=== PATIENT | male | born 1955 | race Caucasian/White ===

== ENCOUNTER → 2020-07-15 08:27 | Outpatient (REF) | payer MEDICARE, SELFPAY ==
--- NOTE | 2020-07-15 08:30 | CA_ITS ---
Transthoracic Echocardiogram Patient (Last, First, Middle): Sohail Rolle S Gender: Male Date of : 1955 Age: 64 Procedure Date: 07/15/2020 Procedure Type: Transthoracic Echocardiogram Location: OP Height: 172.72 cm Weight: 117.94 kg BSA: 2.29 m2 Heart Rate: bpm BP: 108 / 72 mmHg Sports Commentator: Rogelio MD: Barron Benitez MD [employer] Interpreter: Rylan Mendoza MD Symptoms: I42.9 CMP, I25.2 OLD [place] I48.0 PAF Study Quality: Fair ECG Rhythm: Sinus Conclusions: - Mildly reduced LV systolic function with LVEF of 50-55% with pseudonormal filling pattern Findings Procedure Information Contrast agent, definity, is being given per protocol without apparent complications. Left Ventricle Normal left ventricular cavity size. The left ventricular systolic function is low normal. The visually estimated ejection fraction is between 50-55%. Spectral Doppler is indicative of a pseudonormal filling pattern. E/E prime ratio is between 8 and 15 consistent with indeterminate filling pressures. Pericardium/Pleural There is no evidence of pericardial effusion. Prior Study Comparison Changes noted compared to prior study. LV systolic function has marginally improved Measurements 2D Systolic Function EF 4C: 50.40 >55% EF 2C: 53.90 >55% Mitral Valve MV Pk E: 0.72 MV PK A: 0.72 MV Decel Time: 229.00 E/A: 1.00 E'Lateral: 6.85 E'Medial: 3.70 E/E' Med: 19.60 E/E' Lat: 10.60 Diastolic Function MV Pk E: 0.72 MV Pk A: 0.72 E/A: 1.00 E'Medial: 3.70 E/E' Med: 19.60 E' Laterial: 6.85 E/E' Lat: 10.60 Updated in Other Vendor System with Status of Final Rylan Mendoza MD electronically signed on 07/15/2020 11:08:31 AM with status of Final
== END ==
LOC: HO.CARD 08:27
PROVIDERS: Visit Provider Internal Medicine
DX: I42.9 Cardiomyopathy, unspecified (principal); I25.2 Old myocardial infarction; I48.0 Paroxysmal atrial fibrillation
CPT/HCPCS: 70120; Q9957

== ENCOUNTER → 2020-07-27 11:04 | Outpatient (BNVA) | payer MEDICARE, SELFPAY | PROVIDERS: PCP Nurse Practitioner Family; Visit Provider Internal Medicine Cardiovascular Disease | DX: I42.9 Cardiomyopathy, unspecified (principal); I51.89 Other ill-defined heart diseases; I25.10 Atherosclerotic heart disease of native coronary artery without angina pectoris; I48.0 Paroxysmal atrial fibrillation; Z79.82 Long term (current) use of aspirin; Z79.899 Other long term (current) drug therapy | CPT/HCPCS: 99212 ==

== ENCOUNTER 2020-11-20 06:36 | Outpatient (REF) | payer MEDICARE, SELFPAY ==
[2020-11-20 11:12] LABS: Hematocrit 46.1 % (42-52); Hemoglobin 15.4 g/dl (14.0-18.0); Mean Corpuscular HGB Conc 33.4 g/dl (31.0-36.0); Mean Corpuscular Hemoglobin 29.5 pg (27.0-33.0); Mean Corpuscular Volume 88.3 fL (80-98); Mean Platelet Volume 12.5 fL (9.4-12.4); Platelet Count 133 X10*3/uL (160-400); Red Blood Count 5.22 X10*6/uL (4.60-5.80); Red Cell Distribution Width 15.7 % (11.0-16.0); White Blood Count 8.1 X10*3/uL (4.8-10.8)
[2020-11-20 11:45] LABS: Alanine Aminotransferase 15 U/L (0-40); Albumin Level 4.1 g/dL (3.5-5.0); Alkaline Phosphatase 101 U/L (39-117); Anion Gap 13 (12-20); Aspartate Amino Transferase 32 U/L (5-37); Bilirubin Total 0.9 mg/dL (0.0-1.0); Blood Urea Nitrogen 18 mg/dL (9-16); Calcium 8.8 mg/dL (8.4-10.2); Carbon Dioxide 32 mmol/L (22-29); Chloride 101 mmol/L (96-108); Cholesterol 153 mg/dL; Estimated Glomerular Filt Rate > 60; Glucose Fasting 111 mg/dL (60-99); HDL Cholesterol 26 mg/dL; LDL Cholesterol Calculated 98 mg/dl; Potassium 3.4 mmol/L (3.3-5.1); Sodium 143 mmol/L (135-145); Total Protein 7.2 g/dL (6.5-8.0); Triglycerides 148 mg/dL
== END 2020-11-20 06:37 | disposition home or self-care (01) ==
LOC: HO.HMGCLDS 06:36
PROVIDERS: PCP Nurse Practitioner Family; Visit Provider Hospitalist
DX: I48.0 Paroxysmal atrial fibrillation (principal); I25.10 Atherosclerotic heart disease of native coronary artery without angina pectoris
CPT/HCPCS: 36415; 80053; 80061; 85027

== ENCOUNTER → 2020-12-18 15:07 | Outpatient (BNVA) | payer MEDICARE, SELFPAY | PROVIDERS: PCP Nurse Practitioner Family; Visit Provider Nurse Practitioner Family | DX: Z13.89 Encounter for screening for other disorder (principal) | CPT/HCPCS: Q3014 ==

== ENCOUNTER → 2021-01-18 11:08 | Outpatient (BNVA) | payer MEDICARE, SELFPAY | PROVIDERS: PCP Internal Medicine; Visit Provider Internal Medicine Cardiovascular Disease | DX: Z01.810 Encounter for preprocedural cardiovascular examination (principal); I42.9 Cardiomyopathy, unspecified; I48.0 Paroxysmal atrial fibrillation; I25.10 Atherosclerotic heart disease of native coronary artery without angina pectoris | CPT/HCPCS: 93005; 99212 ==

== ENCOUNTER 2021-03-05 06:39 | Outpatient (REF) | payer MEDICARE, SELFPAY ==
[2021-03-05 11:18] LABS: MANUAL DIFF FLAG NO
[2021-03-05 11:22] LABS: Basophils Absolute Auto 0.1 X10*3/uL (0.0-0.2); Basophils Percent Auto 0.7 % (0-2); Eosinophils Absolute Auto 0.2 X10*3/uL (0.0-0.4); Eosinophils Percent Auto 3.4 % (0-4); Hematocrit 45.8 % (42-52); Hemoglobin 15.5 g/dl (14.0-18.0); Imm Gran Abs Auto 0.03 X10*3/uL (0.00-0.03); Imm Gran Pct Auto 0.4 % (0.0-0.4); Lymphocytes Absolute Auto 1.7 X10*3/uL (1.2-4.9); Lymphocytes Percent Auto 23.9 % (20-40); Mean Corpuscular HGB Conc 33.8 g/dl (31.0-36.0); Mean Corpuscular Hemoglobin 29.8 pg (27.0-33.0); Mean Corpuscular Volume 88.1 fL (80-98); Mean Platelet Volume 12.4 fL (9.4-12.4); Monocytes Absolute Auto 0.9 X10*3/uL (0.1-1.2); Monocytes Percent Auto 12.1 % (2-11); Neutrophils Absolute Auto 4.2 X10*3/uL (2.0-8.3); Neutrophils Percent Auto 59.5 % (45-73); Platelet Count 127 X10*3/uL (160-400); Red Cell Distribution Width 15.6 % (11.0-16.0); White Blood Count 7.1 X10*3/uL (4.8-10.8)
[2021-03-05 11:32] LABS: Estimated Average Glucose 131 mg/dL; Hemoglobin A1c % 6.2 %
[2021-03-05 11:37] LABS: Creatinine Urine 73.62 mg/dL; Microalbum/Creatinine Ratio Ur 203.7 ug/mg cr
== END 2021-03-05 06:40 | disposition home or self-care (01) ==
LOC: HO.HMGCLDS 06:39
PROVIDERS: PCP Nurse Practitioner Family; Visit Provider Nurse Practitioner Family
DX: E11.9 Type 2 diabetes mellitus without complications (principal); Z12.5 Encounter for screening for malignant neoplasm of prostate
CPT/HCPCS: 36415; 82043; 83036; 84153; 84443; 85025

== ENCOUNTER → 2021-03-24 08:52 | Outpatient (BNV) | payer MEDICARE, SELFPAY | PROVIDERS: PCP Nurse Practitioner Family; Referring Provider Nurse Practitioner Family; Visit Provider Internal Medicine | DX: D69.6 Thrombocytopenia, unspecified (principal); K74.60 Unspecified cirrhosis of liver; B35.6 Tinea cruris | CPT/HCPCS: 99213; 99214 ==

== ENCOUNTER → 2021-07-22 08:48 | Outpatient (BNVA) | payer MEDICARE, SELFPAY | PROVIDERS: PCP Nurse Practitioner Family; Referring Provider Nurse Practitioner Family; Visit Provider Internal Medicine Cardiovascular Disease | DX: I48.0 Paroxysmal atrial fibrillation (principal); I25.10 Atherosclerotic heart disease of native coronary artery without angina pectoris; I42.9 Cardiomyopathy, unspecified | CPT/HCPCS: 99212 ==

== ENCOUNTER 2021-09-10 07:56 | Outpatient (REF) | payer MEDICARE, SELFPAY ==
[2021-09-10 09:28] LABS: Appearance Urine CLEAR; Color Urine YELLOW; Glucose Urine UA NEG (NEG); Leukocyte Esterase Urine NEG (NEG); Nitrite Urine NEG (NEG); Specific Gravity - Urine 1.015 (1.005-1.025); UACC Culture Trigger NO; Urine Blood NEG (NEG); Urine Ketones NEG (NEG); Urine Protein 1+ MG/DL (NEG-TRACE)
[2021-09-10 09:38] LABS: Mucus Urine 2+ /LPF; Squamous Epithelial Cell Urine TRACE /LPF
[2021-09-10 09:39] LABS: RBC Urine 0 /HPF (0); WBC Urine 0 /HPF (0-4)
[2021-09-10 10:22] LABS: Alanine Aminotransferase 17 U/L (0-40); Albumin Level 3.9 g/dL (3.5-5.0); Alkaline Phosphatase 112 U/L (39-117); Anion Gap 12 (12-20); Aspartate Amino Transferase 34 U/L (5-37); Bilirubin Total 1.2 mg/dL (0.0-1.0); Blood Urea Nitrogen 14 mg/dL (9-16); Calcium 9.1 mg/dL (8.4-10.2); Carbon Dioxide 31 mmol/L (22-29); Chloride 101 mmol/L (96-108); Cholesterol 165 mg/dL; Estimated Glomerular Filt Rate > 60; Glucose Fasting 115 mg/dL (60-99); HDL Cholesterol 24 mg/dL; LDL Cholesterol Calculated 112 mg/dl; Potassium 3.6 mmol/L (3.3-5.1); Sodium 140 mmol/L (135-145); Total Protein 7.9 g/dL (6.5-8.0); Triglycerides 148 mg/dL
[2021-09-10 10:40] LABS: Estimated Average Glucose 137 mg/dL; Hemoglobin A1c % 6.4 %
[2021-09-10 10:44] LABS: TSH reflex Free T4 3.54 uIU/mL (0.32-4.0)
== END 2021-09-10 07:57 | disposition home or self-care (01) ==
LOC: HO.LAB 07:56
PROVIDERS: PCP Nurse Practitioner Family; Visit Provider Nurse Practitioner Family
DX: E11.9 Type 2 diabetes mellitus without complications (principal)
CPT/HCPCS: 36415; 80053; 80061; 81001; 83036; 84443

== ENCOUNTER → 2021-09-16 08:32 | Outpatient (REF) | payer MEDICARE, SELFPAY ==
--- NOTE | 2021-09-16 08:35 | CA_ITS ---
Transthoracic Echocardiogram Patient (Last, First, Middle): Sohail Rolle S Gender: Male Date of : 1955 Age: 66 Procedure Date: 09/16/2021 Procedure Type: Transthoracic Echocardiogram Location: OP Height: 172.72 cm Weight: 117.94 kg BSA: 2.29 m2 Heart Rate: bpm BP: 130 / 70 mmHg Environmental Monitoring Technician: NOAH Referring MD: Rylan Mendoza MD Equipment Maintenance Technician: Rylan Mendoza MD Symptoms: I42.9 - Cardiomyopathy, unspecified Study Quality: Fair/Contrast ECG Rhythm: Sinus Conclusions: - 1. Mildly reduced LV systolic function with LVEF of 45-50% with impaired relaxation filling pattern with underlying regional wall motion abnormality suggestive of coronary artery disease 2. Mild aortic stenosis 3. Normal RV systolic pressure 4. No pericardial effusion Findings Procedure Information Contrast agent, definity, is being given per protocol without apparent complications. Left Ventricle Normal left ventricular cavity size. There is normal left ventricular wall thickness. The left ventricular systolic function is mildly decreased. The visually estimated ejection fraction is between 45-50%. Spectral Doppler is indicative of an impaired relaxation filling pattern. E/E prime ratio is between 8 and 15 consistent with indeterminate filling pressures. Wall Motion Rest Echo Findings The mid inferior, apical septum, and mid inferoseptal segments are hypokinetic. The basal inferior, basal inferoseptal, and basal inferolateral segments are akinetic. All other scored wall segments showed normal motion. Right Ventricle Normal right ventricular cavity size and systolic function. Atria The left atrium is normal in size. There is no evidence of interatrial shunt. The right atrium is normal in size. Aortic Valve The aortic valve was not well visualized. There is mild aortic valve stenosis. There is no aortic valve regurgitation. Mitral Valve Likely normal mitral valve structure and function. There is trace mitral valve regurgitation. There is no mitral valve stenosis. Pulmonic Valve The pulmonic valve was not well visualized. Tricuspid Valve Likely normal tricuspid valve structure and function. There is trace tricuspid valve regurgitation. The right ventricular systolic pressure is normal. The right ventricular systolic pressure is 28 mmHg. Normal right atrial pressure. There is no evidence of pulmonary hypertension. Great Vessels All visible segments of the aorta are normal in size. The pulmonary artery was not well visualized. Venous The inferior vena cava is normal in size and collapses greater than 50% with inspiration. Pericardium/Pleural There is no evidence of pericardial effusion. Prior Study Comparison No significant change compared to prior study dated: 07/15/2020. Measurements 2D Linear Measurements IVSd: 1.02 0.6-0.9/0.6-1.0 cm LVIDd: 4.60 3.9-5.3/4.2-5.9 cm LVIDd Index: 2.01 2.4-3.2/2.2-3.1 cm/m2 LVIDs: 3.52 2.0-3.6 cm LVPWd: 1.02 0.7-1.1 cm Ao Root: 2.80 2.1-3.5 cm LA Diam: 4.40 2.7-3.8/3.0-4.0 cm LAIDs Index: 1.92 1.5-2.3 cm/m2 LV Mass: 203.24 67-162/88-224 g LV Mass Index: 88.75 43-95/49-115 g/m2 LVOT Diam: 2.10 3.0+(-)1.3 cm 2D Systolic Function EF 4C: 41.60 >55% EF 2C: 48.80 >55% EF BiP: 44.60 >55% Mitral Valve MV Pk E: 0.66 MV PK A: 0.76 MV Decel Time: 112.00 E/A: 0.90 E'Lateral: 5.87 E'Medial: 4.90 E/E' Med: 13.60 E/E' Lat: 11.30 PHT: 33.00 MVA PHT: 6.67 Decel Erie: 5.91 Aortic Valve AoV Pk Rodriguez: 2.04 AoV Mn Rodriguez: 1.37 AoV VTI: 0.35 AoV Pk Grad: 17.00 Aov Mn Grad: 8.00 FATOU Cont.VTI: 1.76 LVOT LVOT Pk Rodriguez: 0.89 LVOT Mn Rodriguze: 0.69 LVOT VTI: 0.18 LVOT Pk Grad: 3.00 LVOT Mn Grad: 2.00 LVOT Diam: 2.10 LVOT Area: 3.46 Diastolic Function MV Pk E: 0.66 MV Pk A: 0.76 E/A: 0.90 E'Medial: 4.90 E/E' Med: 13.60 E' Laterial: 5.87 E/E' Lat: 11.30 Right Ventricle TAPSE (mm): 1.60 TVS' Rodriguez: 12.50 Tricuspid Valve TR Pk Rodriguez: 2.48 TR Pk Grad: 25.00 RA Press: 3.00 RVSP: 28.00 Great Vessels Aorta Ao Root-2D: 2.80 2.0-3.7 cm Ao Asc: 3.20 2.1-3.4 cm Updated in Other Vendor System with Status of Final Rylan Mendoza MD electronically signed on 09/16/2021 3:47:32 PM with status of Final
== END ==
LOC: HO.CARD 08:32
PROVIDERS: Visit Provider Internal Medicine Cardiovascular Disease
DX: I42.9 Cardiomyopathy, unspecified (principal)
CPT/HCPCS: 93306; Q9957

== ENCOUNTER 2021-10-20 07:53 | Outpatient (REF) | payer MEDICARE, SELFPAY ==
--- NOTE | ~2021-10-20 | US_ITS ---
EXAMINATION: US ABDOMEN COMPLETE CLINICAL INFORMATION: Thrombocytopenia. COMPARISON: None TECHNIQUE: Real-time imaging of the abdominal viscera. FINDINGS: PANCREAS: Normal. ABDOMINAL AORTA: The proximal, mid, and distal segments are normal in caliber. INFERIOR VENA CAVA: Visualized portions are normal. LIVER: Liver echotexture is increased and heterogeneous suggestive of hepatocellular disease. The liver contour is irregular suggestive of cirrhosis. There is a 2.4 x 1.9 x 2 cm hypoechoic lesion in the right lobe. It is uncertain whether this represents a complex cyst or solid lesion. There is a 2 small cysts in the right lobe measuring 1 cm and 1.4 x 0.8 x 1.4 cm. The latter cyst has a single septation. There is no biliary duct dilatation. GALLBLADDER: Normal. The gallbladder is physiologically distended without evidence of stones, sludge, polyps, wall thickening or pericholecystic fluid. COMMON BILE DUCT: Normal in caliber measuring 0.6 cm in diameter. RIGHT KIDNEY: Normal. No hydronephrosis. No renal calculi or focal parenchymal lesions. The kidney measures 12.8 cm in maximum dimension. LEFT KIDNEY: Normal. No hydronephrosis. No renal calculi or focal parenchymal lesions. The kidney measures 11.9 cm in maximum dimension. SPLEEN: The spleen is slightly enlarged. The spleen measures 14.2 cm in maximum dimension. FREE FLUID: None. US/US abdomen complete IMPRESSION: Cirrhotic-appearing liver. 2.6 cm lesion in the right lobe of the liver, question solid lesion versus complex cyst. Follow-up liver MRI recommended. 2 small cysts in the right lobe of the liver. Enlarged spleen.
== END 2021-10-20 07:54 | disposition home or self-care (01) ==
LOC: HO.US 07:53
PROVIDERS: Visit Provider Internal Medicine
DX: D69.6 Thrombocytopenia, unspecified (principal)
CPT/HCPCS: 76700

== ENCOUNTER 2021-12-11 09:40 | Outpatient (REF) | payer MEDICARE, SELFPAY ==
[2021-12-11 12:03] LABS: Blood Urea Nitrogen 15 mg/dL (9-16); Estimated Glomerular Filt Rate > 60
== END 2021-12-11 09:41 | disposition home or self-care (01) ==
LOC: HO.LAB 09:40
PROVIDERS: PCP Nurse Practitioner Family; Visit Provider Nurse Practitioner Family
DX: K76.9 Liver disease, unspecified (principal)
CPT/HCPCS: 36415; 82565; 84520

== ENCOUNTER 2021-12-14 18:08 | Outpatient (REF) | payer MEDICARE, SELFPAY ==
--- NOTE | ~2021-12-14 | MR_ITS ---
EXAMINATION: MR ABDOMEN WITHOUT AND WITH CONTRAST CLINICAL INFORMATION: Liver disease. COMPARISON: Previous abdominal ultrasound 10/20/2021. TECHNIQUE: MR abdomen was performed without and with use of 10 mL intravenous Gadavist gadolinium contrast. Postcontrast images were performed in multiphase dynamic sequences. Imaging was performed in 3 planes. FINDINGS: LUNG BASES: The visualized lung bases are unremarkable. LIVER, GALLBLADDER, AND BILIARY TREE: The liver has an irregular scalloped contour. There is hypertrophy of the left lobe and caudate lobe of the liver. Findings are suggestive of cirrhosis. There is heterogeneous liver signal and enhancement suggestive of fibrosis. There are several liver cysts. The largest measures 1 x 1.5 cm in the anterior segment of the right lobe of the liver. No suspicious liver lesion is seen. The gallbladder is normal. There is no biliary duct dilatation. There is trace ascites adjacent to the liver. PANCREAS: There is a 0.9 x 1.6 cm cyst in the uncinate process of the head of the pancreas. This is low signal on T1-weighted sequences, high signal on T2-weighted sequences and does not demonstrate evidence of enhancement. SPLEEN: The spleen is slightly enlarged measuring 14 cm in length. ADRENAL GLANDS: There is a 1 cm lesion in the right adrenal gland. There is low signal on T1-weighted sequences, high signal on T2-weighted sequences. This does not demonstrate evidence of enhancement or signal loss on [id number] sequences and probably represents a small cyst. The left adrenal gland is normal. KIDNEYS AND URETERS: The kidneys are normal in size and shape. There are small bilateral renal cysts. No hydronephrosis. GASTROINTESTINAL TRACT: There is mild diverticulosis of the colon. No bowel obstruction. No ascites or fluid collection. ABDOMINAL WALL: There is a small umbilical hernia containing fat. LYMPH NODES: There are slightly enlarged periportal, peripancreatic, and gastrohepatic space lymph nodes. Largest lymph node is a peripancreatic lymph node measuring 1.4 x 2.4 cm (axial image 81 post contrast) and precaval lymph node measuring 2 x 4.7 cm in AP and transverse dimensions (axial image 78 post contrast). There are small retroperitoneal lymph nodes. Largest lymph node is an aortocaval lymph node measuring 8 mm. There may also be small bowel mesentery lymphadenopathy. VASCULAR: Unremarkable. The splenic and portal veins are patent. The IVC is patent. The abdominal aorta is normal in caliber. OSSEOUS STRUCTURES: There are degenerative changes of the spine. MR/MR abdomen wo/w con IMPRESSION: Cirrhotic-appearing liver. No suspicious liver lesion seen. Liver cysts. Trace ascites. Mild splenomegaly. Enlarged lymph nodes in the periportal, gastrohepatic, and peripancreatic spaces and small retroperitoneal lymph nodes. 0.9 x 1.6 cm simple-appearing cyst in the uncinate process of the head of the pancreas. 1 cm right adrenal gland cyst. Small bilateral renal cysts.
== END 2021-12-14 18:09 | disposition home or self-care (01) ==
LOC: HO.MRI 18:08
PROVIDERS: Visit Provider Nurse Practitioner Family
DX: K76.9 Liver disease, unspecified (principal); R93.5 Abnormal findings on diagnostic imaging of other abdominal regions, including retroperitoneum
CPT/HCPCS: 74183; A9585

== ENCOUNTER → 2022-01-27 08:31 | Outpatient (BNVA) | payer MEDICARE, SELFPAY | PROVIDERS: PCP Nurse Practitioner Family; Referring Provider Nurse Practitioner Family; Visit Provider Internal Medicine Cardiovascular Disease | DX: I48.0 Paroxysmal atrial fibrillation (principal); I25.10 Atherosclerotic heart disease of native coronary artery without angina pectoris; I42.9 Cardiomyopathy, unspecified; I35.0 Nonrheumatic aortic (valve) stenosis | CPT/HCPCS: 93005; 99212 ==

== ENCOUNTER 2022-04-29 10:50 | Outpatient (REF) | payer MEDICARE, SELFPAY ==
[2022-04-29 11:59] LABS: MANUAL DIFF FLAG NO
[2022-04-29 12:43] LABS: Basophils Percent Auto 0.6 % (0-2); Eosinophils Absolute Auto 0.2 X10*3/uL (0.0-0.4); Eosinophils Percent Auto 2.7 % (0-4); Hematocrit 39.1 % (42.0-52.0); Hemoglobin 12.8 g/dl (14.0-18.0); Imm Gran Abs Auto 0.02 X10*3/uL (0.00-0.03); Imm Gran Pct Auto 0.3 % (0.0-0.4); Lymphocytes Absolute Auto 1.6 X10*3/uL (1.2-4.9); Lymphocytes Percent Auto 24.5 % (20-40); Mean Corpuscular HGB Conc 32.7 g/dl (31.0-36.0); Mean Corpuscular Hemoglobin 27.8 pg (27.0-33.0); Mean Platelet Volume 11.6 fL (9.4-12.4); Monocytes Absolute Auto 0.8 X10*3/uL (0.1-1.2); Neutrophils Absolute Auto 3.8 x10*3/uL (2.0-8.3); Neutrophils Percent Auto 59.9 % (45-73); Platelet Count 138 X10*3/uL (160-400); White Blood Count 6.3 X10*3/uL (4.8-10.8)
[2022-04-29 12:55] LABS: INTERNATIONAL NORM RATIO 1.5 (0.9-1.1); Prothrombin Time 17.5 SEC (10.0-13.1)
[2022-04-29 13:10] LABS: Alanine Aminotransferase 11 U/L (0-40); Alkaline Phosphatase 88 U/L (39-117); Anion Gap 16 (12-20); Aspartate Amino Transferase 30 U/L (5-37); Bilirubin Total 0.8 mg/dL (0.0-1.0); Blood Urea Nitrogen 16 mg/dL (9-16); Calcium 9.2 mg/dL (8.4-10.2); Carbon Dioxide 28 mmol/L (22-29); Chloride 102 mmol/L (96-108); Cholesterol 136 mg/dL; Estimated Glomerular Filt Rate > 60; Glucose Random 81 mg/dL (60-115); HDL Cholesterol 29 mg/dL; Iron 40 mcg/dL (45-160); LDL Cholesterol Calculated 82 mg/dl; Percent Iron Saturation 10 % (15-50); Potassium 3.4 mmol/L (3.3-5.1); Sodium 143 mmol/L (135-145); Total Iron Binding Capacity 417 mcg/dL (228-428); Total Protein 7.6 g/dL (6.5-8.0); Triglycerides 127 mg/dL; Unsaturated Iron Binding 377 ug/dL
[2022-04-29 13:31] LABS: Ferritin 15 ng/mL (20-250)
[2022-04-29 13:34] LABS: Folate 5.9 ng/mL (> or = 4.0); Vitamin B12 387 pg/mL (200-900)
[2022-04-29 13:59] LABS: Erythrocyte Sedimentation Rate 23 MM/HR (0-15)
[2022-05-02 08:02] LABS: HBS Num1 1.35 mIU/mL (0-7.99); HBc Num1 0.08 S/CO (0.00-0.79); HBsAGNum1 0.22 S/CO (0.00-0.99); Hepatitis B Core Antibody Nonreactive (Nonreactive); Hepatitis B Surface Antigen Negative (Negative); ~Hepatitis B Surface Antibody NONREACTIVE (Nonreactive); ~Hepatitis C Antibody Nonreactive (Nonreactive)
[2022-05-03 03:37] LABS: Alpha 1 Anti-trypsin 187 mg/dL (83-199)
[2022-05-03 13:46] LABS: Soluble Liver Ag Autoantibody <20.1 U (0.0-20.0)
[2022-05-03 14:18] LABS: Zinc 60 mcg/dL (60-130)
[2022-05-03 14:56] LABS: Immunoglobulin G 1448 mg/dL (600-1540)
[2022-05-03 23:17] LABS: Transglutaminase Ab IgG <1.0 U/mL; Transglutaminase IgA <1.0 U/mL
[2022-05-04 07:22] LABS: Hepatitis A Antibody IgM 0.14 Index (0-0.79); ~Hepatitis A Antibody IgM Nonreactive (Nonreactive)
[2022-05-04 14:32] LABS: Liver Kidney Microsomal Ab <=20.0 U (<=20.0); Smooth Muscle Antibody <20 U (<20)
[2022-05-04 16:11] LABS: Mitochondrial Antibodies NEGATIVE (NEGATIVE)
[2022-05-04 17:16] LABS: Alpha-Tocopherol 9.7 mg/L (5.7-19.9); Vitamin A 31 mcg/dL (38-98)
[2022-05-05 10:47] LABS: Vitamin C 0.6 mg/dL (0.2-2.1)
[2022-05-05 13:56] LABS: Vitamin B6 3.1 ng/mL (2.1-21.7)
[2022-05-05 14:02] LABS: Gliadin Deamidated IgA Ab 3.3 U/mL; Gliadin Deamidated IgG Ab <1.0 U/mL
[2022-05-05 16:36] LABS: FIB-ALT 11 U/L (9-46); FIB-Alpha-2-Macroglobulin 335 mg/dL (106-279); FIB-Apolipoprotein A1 111 mg/dL (94-176); FIB-GGT 93 U/L (3-70); FIB-Haptoglobin 189 mg/dL (43-212); FIB-Total Bilirubin 0.5 mg/dL (0.2-1.2); Liver Fibrosis Score 0.72; Liver Fibrosis Stage F3; Nec Inflam Act Grade A0; Nec Inflam Act Score 0.06
[2022-05-06 00:17] LABS: Vitamin K1 429 pg/mL (130-1500)
[2022-05-06 10:46] LABS: Nicotinamide <20 ng/mL; Vit B3 - Nicotinic Acid <20 ng/mL
[2022-05-09 19:07] LABS: Vitamin B5 (Pantothenic Acid) 71 ng/mL (<275)
== END 2022-04-29 10:51 | disposition home or self-care (01) ==
LOC: HO.LAB 10:50
PROVIDERS: PCP Nurse Practitioner Family; Visit Provider Internal Medicine Gastroenterology
DX: K74.60 Unspecified cirrhosis of liver (principal); K75.81 Nonalcoholic steatohepatitis (NASH); G89.29 Other chronic pain; R10.33 Periumbilical pain; R79.89 Other specified abnormal findings of blood chemistry; K52.839 Microscopic colitis, unspecified; I25.10 Atherosclerotic heart disease of native coronary artery without angina pectoris
CPT/HCPCS: 36415; 80053; 80061; 81596; 82103; 82180; 82306; 82550; 82607; 82728; 82746; 82784; 83520; 83540; 84207; 84446; 84590; 84591; 84597; 84630; 85025; 85610; 85652; 86015; 86255; 86256; 86258; 86364; 86376; 86704; 86706; 86709; 86803; 87340; 99212

== ENCOUNTER → 2022-09-15 08:40 | Outpatient (BNVA) | payer MEDICARE, SELFPAY | PROVIDERS: PCP Nurse Practitioner Family; Referring Provider Nurse Practitioner Family; Visit Provider Internal Medicine Cardiovascular Disease | DX: Z01.810 Encounter for preprocedural cardiovascular examination (principal); I35.0 Nonrheumatic aortic (valve) stenosis; I25.10 Atherosclerotic heart disease of native coronary artery without angina pectoris; I11.0 Hypertensive heart disease with heart failure; I50.30 Unspecified diastolic (congestive) heart failure; I43 Cardiomyopathy in diseases classified elsewhere; I48.0 Paroxysmal atrial fibrillation; E66.9 Obesity, unspecified; F17.290 Nicotine dependence, other tobacco product, uncomplicated; Z68.41 Body mass index [BMI] 40.0-44.9, adult; Z79.01 Long term (current) use of anticoagulants | CPT/HCPCS: 99212 ==

== ENCOUNTER 2022-10-04 07:09 | Outpatient (REF) | payer MEDICARE, SELFPAY ==
[2022-10-04 07:20] LABS: MANUAL DIFF FLAG NO
[2022-10-04 07:34] LABS: Basophils Absolute Auto 0.1 X10*3/uL (0.0-0.2); Basophils Percent Auto 0.7 % (0-2); Eosinophils Absolute Auto 0.2 X10*3/uL (0.0-0.4); Eosinophils Percent Auto 3.3 % (0-4); Hematocrit 42.5 % (42.0-52.0); Hemoglobin 13.8 g/dl (14.0-18.0); Imm Gran Abs Auto 0.02 X10*3/uL (0.00-0.03); Imm Gran Pct Auto 0.3 % (0.0-0.4); Lymphocytes Absolute Auto 1.6 X10*3/uL (1.2-4.9); Lymphocytes Percent Auto 22.5 % (20-40); Mean Corpuscular HGB Conc 32.5 g/dl (31.0-36.0); Mean Corpuscular Volume 86.2 fL (80.0-98.0); Mean Platelet Volume 11.2 fL (9.4-12.4); Monocytes Absolute Auto 0.9 X10*3/uL (0.1-1.2); Monocytes Percent Auto 12.8 % (2-11); Neutrophils Absolute Auto 4.2 x10*3/uL (2.0-8.3); Neutrophils Percent Auto 60.4 % (45-73); Platelet Count 114 X10*3/uL (160-400); Red Blood Count 4.93 X10*6/uL (4.60-5.80); Red Cell Distribution Width 18.7 % (11.0-16.0)
[2022-10-04 08:02] LABS: Alanine Aminotransferase 14 U/L (0-40); Albumin Level 3.9 g/dL (3.5-5.0); Alkaline Phosphatase 92 U/L (39-117); Anion Gap 13 (12-20); Aspartate Amino Transferase 30 U/L (5-37); Bilirubin Total 0.8 mg/dL (0.0-1.0); Blood Urea Nitrogen 18 mg/dL (9-16); Calcium 9.1 mg/dL (8.4-10.2); Carbon Dioxide 29 mmol/L (22-29); Chloride 101 mmol/L (96-108); Cholesterol 112 mg/dL; Estimated Glomerular Filt Rate > 60; Glucose Fasting 122 mg/dL (60-99); HDL Cholesterol 24 mg/dL; LDL Cholesterol Calculated 64 mg/dl; Potassium 4.3 mmol/L (3.3-5.1); Sodium 139 mmol/L (135-145); Total Protein 7.2 g/dL (6.5-8.0); Triglycerides 120 mg/dL
[2022-10-04 08:13] LABS: Estimated Average Glucose 131 mg/dL; Hemoglobin A1c % 6.2 %
[2022-10-04 08:20] LABS: Prostate Specific Antigen Scr 1.88 ng/mL (<0.05-4.0); TSH reflex Free T4 3.61 uIU/mL (0.32-4.0)
[2022-10-04 09:36] LABS: Appearance Urine Clear; Color Urine Yellow; Glucose Urine UA Negative (Negative); Leukocyte Esterase Urine Negative (Negative); Nitrite Urine Negative (Negative); PH 7.5 (5.0-9.0); Specific Gravity - Urine 1.015 (1.005-1.025); Urine Blood Negative (Negative); Urine Ketones Negative (Negative); Urine Protein Negative (Neg-Trace)
[2022-10-04 10:10] LABS: Creatinine Urine 179.97 mg/dL; Microalbum/Creatinine Ratio Ur 32.2 ug/mg cr
== END 2022-10-04 07:10 | disposition home or self-care (01) ==
LOC: HO.LAB 07:09
PROVIDERS: PCP Nurse Practitioner Family; Visit Provider Nurse Practitioner Family
DX: Z12.5 Encounter for screening for malignant neoplasm of prostate (principal); E11.9 Type 2 diabetes mellitus without complications
CPT/HCPCS: 36415; 80053; 80061; 81003; 82043; 83036; 84153; 84443; 85025

== ENCOUNTER 2022-10-20 10:58 | Day surgery (SDC) | payer MEDICARE, SELFPAY ==
[2022-10-14 13:37] VITALS: BMI 41.8
[2022-10-20 11:34] VITALS: BMI 40.3
--- NOTE | 2022-10-20 11:42 | HO.ANESPROP2 ---
HPI - Anesthesia Eval Consult details Narrative: Egd, colonoscopy PMF Active Problems Active Problems: All Active Problems (Updated 10/20/22 @ 11:33 by Amberly Hernandez, RN) Cellulitis (Acute) Cellulitis and abscess of other specified site (Acute) Screening for colon cancer (Acute) Screening PSA (prostate specific antigen) (Acute) Preoperative cardiovascular examination (Acute) Thrombocytopenia (Chronic) Liver lesion (Acute) Abnormal ultrasound of abdomen (Acute) Liver cirrhosis (Acute) Pancreatic cyst (Acute) Enlarged lymph nodes (Acute) Morbid obesity (Acute) Encounter for annual wellness visit (AWV) in Medicare patient (Acute) Aortic stenosis (Acute) Cardiomyopathy (Acute) Diastolic dysfunction (Acute) Paroxysmal atrial fibrillation (Acute) CAD (coronary artery disease) (Acute) HTN (hypertension) (Acute) Hyperlipidemia (Acute) Diabetes mellitus (Acute) ALEJANDRA (obstructive sleep apnea) (Acute) Obesity (Acute) Past Medical History Medical History Aortic stenosis Arthritis CAD (coronary artery disease) Cardiomyopathy COVID-19 vaccine administered Diabetes mellitus Diastolic dysfunction HTN (hypertension) Hyperlipidemia Obesity ALEJANDRA (obstructive sleep apnea) Paroxysmal atrial fibrillation Family History Family History Father No problems noted. Mother HTN (hypertension) Surgical History Surgical History History of total left hip replacement History of total right hip replacement History of Problems with Anesthesia: No Social History Social History Household Members: Spouse Housing: House Alcohol intake: current Alcohol intake frequency: holidays/special occasions only Patient Tobacco Use Status: Current everyday Tobacco user Tobacco use type: Cigar Years Smoked: quit 20 years ago e-Cigarette/Vaping Use: Never Used Second Hand Smoke Exposure: No Use of substances other than those prescribed or required for medical reasons: Yes Substance Use Type: Marijuana Substance Use Type Other:: thc square for sleep Are you DNR?: No Advance Directives: No Advance Directives Information Provided: Yes service: No Current occupational status: employed 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 Current occupational exposures/hazards: No Cognitive needs: No Hearing needs: No Vision needs: No Meds Allergies Allergy/AdvReac Type Severity Reaction Status Date / Time morphine Allergy Intermediate shortness Verified 10/20/22 11:33 of breath Sulfa (Sulfonamide Allergy Intermediate rash, hives Verified 10/20/22 11:33 Antibiotics) Active Medications: Current Medications Lactated Ringer's (Lr) 1,000 mls @ 50 mls/hr IVCONT .Q20H [place] Home Medications Medication Instructions Recorded Confirmed Last Taken Type cholecalciferol (vitamin D3) 50 50 mcg PO DAILY 11/30/20 10/20/22 Unknown History mcg (2,000 unit) capsule magnesium 200 mg tablet 200 mg PO DAILY 11/30/20 10/20/22 Unknown History zinc acetate 25 mg (zinc) capsule 25 mg PO DAILY 11/30/20 10/20/22 Unknown History blood-glucose meter ([employer] 06/29/21 10/20/22 Unknown History System Kit) atorvastatin 40 mg tablet 40 mg PO DAILY high chloestrol 03/22/22 10/20/22 Unknown History ferrous sulfate 325 mg (65 mg 325 mg PO DAILY 09/15/22 10/20/22 Unknown History iron) tablet spironolactone 25 mg tablet 25 mg PO DAILY 10/04/22 10/20/22 Unknown History Exam Exam Date and Time: October 20, 2022 1142 Height,Weight and Vital Signs: Height 5 ft 8 in Weight 120.202 kg Airway Mallampati Class: II TM Dist: >3cm Neck ROM: Limited Heart: rrr Lungs: cta Assessment and Plan Assessment Anesthesia Assessment: Anesthesia Plan Discussed and Chart Reviewed Final Anesthetic Review History of Problems with Anesthesia: No NPO: Yes ASA Class: III Final Preanesthetic Review: No Changes in Pt Med Stat, Meds/Allgs Chart Reviewed, Consent Obtained/Reviewed and Anes Risks/Benef Reviewed Patient Risk: Intermediate Procedure Risk: Intermediate Anesthetic Plan Anesthetic Plan: MAC: Disposition: Standard PACU
--- NOTE | 2022-10-20 11:44 | HO.ANESPROP2 ---
HPI - Anesthesia Eval Consult details Narrative: 67 yr old morbid obese ,AF, Diastolic dysfunction,,CAD,Dm [facility] Active Problems Active Problems: All Active Problems (Updated 10/20/22 @ 11:33 by Amberly Hernandez RN) Cellulitis (Acute) Cellulitis and abscess of other specified site (Acute) Screening for colon cancer (Acute) Screening PSA (prostate specific antigen) (Acute) Preoperative cardiovascular examination (Acute) Thrombocytopenia (Chronic) Liver lesion (Acute) Abnormal ultrasound of abdomen (Acute) Liver cirrhosis (Acute) Pancreatic cyst (Acute) Enlarged lymph nodes (Acute) Morbid obesity (Acute) Encounter for annual wellness visit (AWV) in Medicare patient (Acute) Aortic stenosis (Acute) Cardiomyopathy (Acute) Diastolic dysfunction (Acute) Paroxysmal atrial fibrillation (Acute) CAD (coronary artery disease) (Acute) HTN (hypertension) (Acute) Hyperlipidemia (Acute) Diabetes mellitus (Acute) ALEJANDRA (obstructive sleep apnea) (Acute) Obesity (Acute) Past Medical History Medical History Aortic stenosis Arthritis CAD (coronary artery disease) Cardiomyopathy COVID-19 vaccine administered Diabetes mellitus Diastolic dysfunction HTN (hypertension) Hyperlipidemia Obesity ALEJANDRA (obstructive sleep apnea) Paroxysmal atrial fibrillation Family History Family History Father No problems noted. Mother HTN (hypertension) Family history of problems with anesthesia: No Surgical History Surgical History History of total left hip replacement History of total right hip replacement History of Problems with Anesthesia: No Social History Social History Household Members: Spouse Housing: House Alcohol intake: current Alcohol intake frequency: holidays/special occasions only Patient Tobacco Use Status: Current everyday Tobacco user Tobacco use type: Cigar Years Smoked: quit 20 years ago e-Cigarette/Vaping Use: Never Used Second Hand Smoke Exposure: No Use of substances other than those prescribed or required for medical reasons: Yes Substance Use Type: Marijuana Substance Use Type Other:: thc square for sleep Are you DNR?: No Advance Directives: No Advance Directives Information Provided: Yes service: No Current occupational status: employed 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 Current occupational exposures/hazards: No Cognitive needs: No Hearing needs: No Vision needs: No Meds Allergies Allergy/AdvReac Type Severity Reaction Status Date / Time morphine Allergy Intermediate shortness Verified 10/20/22 11:33 of breath Sulfa (Sulfonamide Allergy Intermediate rash, hives Verified 10/20/22 11:33 Antibiotics) Active Medications: Current Medications Lactated Ringer's (Lr) 1,000 mls @ 50 mls/hr IVCONT .Q20H [place] Home Medications Medication Instructions Recorded Confirmed Last Taken Type cholecalciferol (vitamin D3) 50 50 mcg PO DAILY 11/30/20 10/20/22 Unknown History mcg (2,000 unit) capsule magnesium 200 mg tablet 200 mg PO DAILY 11/30/20 10/20/22 Unknown History zinc acetate 25 mg (zinc) capsule 25 mg PO DAILY 11/30/20 10/20/22 Unknown History blood-glucose meter ([employer] 06/29/21 10/20/22 Unknown History System Kit) atorvastatin 40 mg tablet 40 mg PO DAILY high chloestrol 03/22/22 10/20/22 Unknown History ferrous sulfate 325 mg (65 mg 325 mg PO DAILY 09/15/22 10/20/22 Unknown History iron) tablet spironolactone 25 mg tablet 25 mg PO DAILY 10/04/22 10/20/22 Unknown History Exam Exam Date and Time: October 20, 2022 1144 Height,Weight and Vital Signs: Height 5 ft 8 in Weight 120.202 kg Airway Mallampati Class: II TM Dist: >3cm Neck ROM: Full Heart: AF Lungs: cta Assessment and Plan Assessment Anesthesia Assessment: Anesthesia Plan Discussed and Chart Reviewed Final Anesthetic Review Family History of Problems with Anesthesia: No History of Problems with Anesthesia: No NPO: Yes ASA Class: III Final Preanesthetic Review: No Changes in Pt Med Stat, Meds/Allgs Chart Reviewed, Consent Obtained/Reviewed and Anes Risks/Benef Reviewed Patient Risk: Intermediate Procedure Risk: Intermediate Anesthetic Plan Anesthetic Plan: MAC: and Agree w/ Assess. and Plan Disposition: Standard PACU
[2022-10-20 11:47] VITALS: BP 130/86; PULSE 67; RESP 18; TEMP 36.4; O2SAT 94
--- NOTE | 2022-10-20 11:52 | P.HPSUR_ITS ---
Pre-Procedural Eval Section A Date of Service: 10/20/22 Section B Chief Complaint: Unspecified cirrhosis of liver,screening Details of Present Illness: variceal screening Relevant Family History (Specify if Yes): No Relevant Social History: None Present Medications: see Short Stay [facility] assessment Medical History: Significant History (Aortic stenosis Arthritis CAD (coronary artery disease) Cardiomyopathy COVID-19 vaccine administered Diabetes mellitus Diastolic dysfunction HTN (hypertension) Hyperlipidemia Obesity ALEJANDRA (obstructive sleep apnea) Paroxysmal atrial fibrillation) History of Previous Operations: Relevant previous surgery/procedure and date(s) (History of total left hip replacement History of total right hip replacement) Allergies: Allergies Allergy/AdvReac Type Severity Reaction Status Date / Time morphine Allergy Intermediate shortness Verified 10/20/22 11:33 of breath Sulfa (Sulfonamide Allergy Intermediate rash, hives Verified 10/20/22 11:33 Antibiotics) Review of Systems Sugical H&P ROS: Negative: Constitution, Cardiovascular, Respiratory, Neurological, Psychiatric, Hem-Onc, Allergic/Immunologic, Gastrointestinal, Genitourinary, Musculoskeletal, Integumentary, Endocrine and Eyes/Ea rs/Nose/Throat Exam Surgical H&P Exam: Normal: HEENT, Normal: Lungs, Normal: Extremities, Normal: Abdomen, Normal: Skin and Normal: Neurological and Significant Findings: Heart (ESM) Plan Diagnosis/Plan: Unchanged I have reviewed the history and physical and performed a pertinent physical examination on my patient. No changes have occurred unless specified. Time Spent With Patient Time: Total time managing care of this patient today ____ minutes.
--- NOTE | 2022-10-20 11:54 | W.PM.OPN ---
Operative Note Operative Note Date of Service: 10/20/22 Narrative: Operative Information Procedure Description: EGD, Colonoscopy Indication: variceal and colon screening Anesthesia: MAC FLEXIBLE TRANSORAL UPPER GASTROINTESTINAL ENDOSCOPY AND COLONOSCOPY PROCEDURE NOTE UPPER ENDOSCOPY Consent: Indications for the procedure and potential complications of bleeding, perforation, reaction to medications and missed diagnosis were discussed with the patient and informed consent was obtained. Instrument: Olympus GIF H 190 J mid size upper endoscope Monitoring: Vital signs and clinical assessment, continuous EKG monitoring, Pulse oximetry, Carbon Dioxide monitoring and blood pressure monitoring were done throughout the procedure. Procedure: The patient was placed in the left lateral decubitis position and pre-procedure medications were administered and a bite block was placed. The endoscope was inserted into the mouth and advanced under direct vision to the third part of duodenum. A careful inspection was made as the upper endoscope was withdrawn including a retroflexed examination of the proximal stomach; Findings and interventions are described below. Findings: Larynx:normal Esophagus: GE junction at 40 cm, diaphragm hiatus at 40 cm, one small varix grade I noted which collapsed with air insufflation. Stomach: congestion and mosaic pattern noted consistent with portal hypertensive gastropathy . Biopsies were obtained. Grade 2 flap valve on retroflexed examination of the cardia. Duodenum: congestion and erythema of duodenum noted prob secondary to portal hypertension Intervention: Biopsies as noted above COLONOSCOPY Instrument: Olympus variable stiffness pediatric scope 190L Colonoscopy Monitoring: Vital signs and clinical assessment, continuous EKG monitoring, Pulse oximetry, Carbon Dioxide monitoring and blood pressure monitoring were done throughout the procedure. Colon withdrawal time was 51 minutes. Procedure: The patient was placed in the left lateral decubitis position and pre-procedure medications were administered. After a digital rectal examination of the ano-rectum, the video colonoscope was inserted into the rectum and advanced through the colon to the cecum/TI. The colonoscope was slowly withdrawn in a retrograde panoramic fashion and the colon mucosa was carefully examined including a retroflexed view of the rectum. Findings and interventions are described below. Procedure Difficulty:easy Findings: Terminal Ileum-normal Cecum: 4-6 mm sessile polyp removed with cold forceps, x 3 sessile polyps 10-12 mm removed with cold snare and x 1 12 mm sessile polpy removed with hot snare Ascending Colon: 8-9 mm sessile polyp removed with cold forceps Transverse Colon - x 5 sessile polyps 9-13 mm removed with cold snare Descending Colon: x 3 sessile polyps 10-12 mm removed with cold snare. A larger polyp with lateral granular spreading appearance injected and lifted with eleview then removed piece meal with hot and cold snare, with residual tissue and edges ablated with cautery. Joy ink injected 1 cm proximal and distal to the polyp done. Sigmoid Colon: x 2 sessile polyps 10-12 mm removed with cold snare Rectum: Retroflexion with medium sized internal hemorrhoids, grade I. 12-14 mm semi pedunculated polyp removed with hot snare Anorectum - normal Colon preparation: [place] Bowel Preparation Scale Right colon; 2 Transverse colon: 2 Left colon; 2 (0 = Unprepared colon segment with mucosa not seen due to solid stool that cannot be cleared. 1 = Portion of mucosa of the colon segment seen, but other areas of the colon segment not well seen due to staining, residual stool and/or opaque liquid. 2 = Minor amount of residual staining, small fragments of stool and/or opaque liquid, but mucosa of colon segment seen well. 3 = Entire mucosa of colon segment seen well with no residual staining, small fragments of stool or opaque liquid) Impression and Post Procedure Diagnosis: Endoscopy Findings: portal hypertensive gastropathy and duodenopathy varix gastritis Colonoscopy Findings: polyps internal hemorrhoids Plan: Await Pathology results Repeat Colonoscopy in 3-4 months or earlier if clinically indicated and refer genetic testing High fiber diet leaflet avoid straining at stool, epsom salts and sitz bath, anusol supps or cream recommence rivaroxiban in 48 hours i.e 10/22/22 evening time Above findings were reviewed with the patient and relevant handouts were provided if indicated.
[2022-10-20] MEDS: Lactated Ringers 1,000 ML 50 ML IVCONT (11:56)
[2022-10-20 12:01] LABS: Glucose, Whole Blood 120 mg/dL (60-115)
[2022-10-20 13:25] VITALS: BP 115/75; PULSE 70; RESP 17; TEMP 36.1; O2SAT 97
[2022-10-20 13:39] VITALS: BP 139/84; PULSE 63; RESP 17; TEMP 36.1; O2SAT 97
== END 2022-10-20 14:20 | disposition home or self-care (01) ==
PROVIDERS: PCP Nurse Practitioner Family; Visit Provider Internal Medicine Gastroenterology
PROC: (CPT 45385; principal; 2022-10-20 12:20)
DX: Z12.11 Encounter for screening for malignant neoplasm of colon (principal); D12.0 Benign neoplasm of cecum; D12.2 Benign neoplasm of ascending colon; D12.3 Benign neoplasm of transverse colon; D12.4 Benign neoplasm of descending colon; D12.5 Benign neoplasm of sigmoid colon; K62.1 Rectal polyp; K64.0 First degree hemorrhoids; K74.60 Unspecified cirrhosis of liver; K76.6 Portal hypertension; K31.89 Other diseases of stomach and duodenum; I85.00 Esophageal varices without bleeding; K29.50 Unspecified chronic gastritis without bleeding; K44.9 Diaphragmatic hernia without obstruction or gangrene; I25.10 Atherosclerotic heart disease of native coronary artery without angina pectoris; I35.0 Nonrheumatic aortic (valve) stenosis; I42.9 Cardiomyopathy, unspecified; I48.0 Paroxysmal atrial fibrillation; I10 Essential (primary) hypertension; E78.5 Hyperlipidemia, unspecified; G47.33 Obstructive sleep apnea (adult) (pediatric); E11.9 Type 2 diabetes mellitus without complications; Z79.84 Long term (current) use of oral hypoglycemic drugs; Z79.899 Other long term (current) drug therapy; Z88.8 Allergy status to other drugs, medicaments and biological substances; F17.210 Nicotine dependence, cigarettes, uncomplicated
CPT/HCPCS: 45385; 45380; 43239; 82947; 88305; 88342; J1610

== ENCOUNTER → 2022-10-28 10:14 | Outpatient (BNVA) | payer MEDICARE, SELFPAY | PROVIDERS: PCP Nurse Practitioner Family; Visit Provider Internal Medicine Gastroenterology | DX: K74.60 Unspecified cirrhosis of liver (principal); K63.5 Polyp of colon | CPT/HCPCS: 99212 ==

== ENCOUNTER → 2022-11-16 10:23 | Outpatient (BNVA) | payer MEDICARE, SELFPAY | PROVIDERS: PCP Nurse Practitioner Family; Visit Provider Internal Medicine Gastroenterology | DX: Z23 Encounter for immunization (principal); K74.60 Unspecified cirrhosis of liver; Z86.010 Personal history of colon polyps; Z20.828 Contact with and (suspected) exposure to other viral communicable diseases | CPT/HCPCS: 90471; 90632; 90746; 99211 ==

== ENCOUNTER 2023-03-08 11:07 | Day surgery (SDC) | payer MEDICARE, SELFPAY ==
[2023-01-24 11:32] VITALS: BMI 40.9
--- NOTE | 2023-03-07 12:38 | HO.ANESPROP2 ---
Documented by User: Lucia Chapman NP 03/07/23 12:43 HPI - Anesthesia Eval Consult details Narrative: 67yo M for Colonoscopy s/p EGD and [place] 10/2022 with MAC Cardiac optimized at last office visit 09/2022 Xarelto for afib PMFSH Active Problems Active Problems: All Active Problems (Updated 11/16/22 @ 11:48 by Clau Martin MD) Cellulitis (Acute) Cellulitis and abscess of other specified site (Acute) Screening for colon cancer (Acute) Screening PSA (prostate specific antigen) (Acute) Preoperative cardiovascular examination (Acute) Thrombocytopenia (Chronic) Liver lesion (Acute) Abnormal ultrasound of abdomen (Acute) Liver cirrhosis (Acute) Pancreatic cyst (Acute) Enlarged lymph nodes (Acute) Morbid obesity (Acute) Encounter for annual wellness visit (AWV) in Medicare patient (Acute) Aortic stenosis (Acute) Cardiomyopathy (Acute) Diastolic dysfunction (Acute) Paroxysmal atrial fibrillation (Acute) CAD (coronary artery disease) (Acute) HTN (hypertension) (Acute) Hyperlipidemia (Acute) Diabetes mellitus (Acute) ALEJANDRA (obstructive sleep apnea) (Acute) Obesity (Acute) Past Medical History Medical History Aortic stenosis Arthritis CAD (coronary artery disease) Cardiomyopathy COVID-19 vaccine administered Diabetes mellitus Diastolic dysfunction HTN (hypertension) Hyperlipidemia Obesity ALEJANDRA (obstructive sleep apnea) Paroxysmal atrial fibrillation Family History Family History Father No problems noted. Mother HTN (hypertension) Family history of problems with anesthesia: No Surgical History Surgical History History of esophagogastroduodenoscopy (EGD) History of total left hip replacement History of total right hip replacement Hx of colonoscopy History of Problems with Anesthesia: No Social History Social History Household Members: Spouse Housing: House Alcohol intake: current Alcohol intake frequency: a few times a month Patient Tobacco Use Status: Current everyday Tobacco user Tobacco use type: Cigar Cigarettes Per Day: 2 Years Smoked: quit 20 years ago e-Cigarette/Vaping Use: Never Used Second Hand Smoke Exposure: No Use of substances other than those prescribed or required for medical reasons: Yes Substance Use Type: Marijuana Substance Use Type Other:: CBD gummies Substance Use Frequency: Daily Are you DNR?: No Advance Directives: No Advance Directives Information Provided: Yes service: No Current occupational status: employed 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 Current occupational exposures/hazards: No Cognitive needs: No Hearing needs: No Vision needs: No Meds Allergies Allergy/AdvReac Type Severity Reaction Status Date / Time morphine Allergy Intermediate shortness Verified 10/28/22 10:18 of breath Sulfa (Sulfonamide Allergy Intermediate rash, hives Verified 10/28/22 10:18 Antibiotics) Home Medications Medication Instructions Recorded Confirmed Last Taken Type cholecalciferol (vitamin D3) 50 50 mcg PO DAILY 11/30/20 01/24/23 Unknown History mcg (2,000 unit) capsule magnesium 200 mg tablet 200 mg PO DAILY 11/30/20 01/24/23 Unknown History zinc acetate 25 mg (zinc) capsule 25 mg PO DAILY 11/30/20 01/24/23 Unknown History blood-glucose meter ([employer] [facility] 06/29/21 11/16/22 Unknown History System Kit) atorvastatin 40 mg tablet 40 mg PO DAILY high chloestrol 03/22/22 01/24/23 Unknown History ferrous sulfate 325 mg (65 mg 325 mg PO DAILY 09/15/22 01/24/23 Unknown History iron) tablet spironolactone 25 mg tablet 25 mg PO DAILY 10/04/22 01/24/23 Unknown History Exam Exam Date and Time: March 07, 2023 1238 Height,Weight and Vital Signs: Height 5 ft 8 in Weight 122.016 kg Pertinent Lab Results Pertinent Lab Results: Laboratory Tests 10/04/22 10/04/22 07:17 07:17 WBC 7.0 Hgb 13.8 L Hct 42.5 Plt Count 114 L Sodium 139 Potassium 4.3 D Chloride 101 Carbon Dioxide 29 BUN 18 H Creatinine 1.13 Narrative Narrative: EKG 2021 normal sinus rhythm with first-degree AV block with left axis deviation suggestive of left anterior fascicular block with QS pattern in lead V1 and V2 consistent with septal infarct ECHO 2021 Conclusions: -? 1. Mildly reduced LV systolic function with LVEF of 45-50%? ? with impaired relaxation filling pattern with underlying regional wall motion abnormality suggestive of coronary artery disease? ? 2. Mild aortic stenosis? 3. Normal RV systolic pressure ? 4.? No pericardial effusion? Assessment and Plan Assessment Anesthesia Assessment: Chart Reviewed Final Anesthetic Review Family History of Problems with Anesthesia: No History of Problems with Anesthesia: No Documented by User: Anastasia Lopez MD 03/08/23 12:01 PMFSH Past Medical History Medical History Aortic stenosis Arthritis CAD (coronary artery disease) Cardiomyopathy COVID-19 vaccine administered Diabetes mellitus Diastolic dysfunction HTN (hypertension) Hyperlipidemia Obesity ALEJANDRA (obstructive sleep apnea) Paroxysmal atrial fibrillation Family History Family History Father No problems noted. Mother HTN (hypertension) Surgical History Surgical History History of esophagogastroduodenoscopy (EGD) History of total left hip replacement History of total right hip replacement Hx of colonoscopy Social History Social History Household Members: Spouse Housing: House Alcohol intake: current Alcohol intake frequency: a few times a month Patient Tobacco Use Status: Current everyday Tobacco user Tobacco use type: Cigar Cigarettes Per Day: 2 Years Smoked: quit 20 years ago e-Cigarette/Vaping Use: Never Used Second Hand Smoke Exposure: No Use of substances other than those prescribed or required for medical reasons: Yes Substance Use Type: Marijuana Substance Use Type Other:: CBD gummies Substance Use Frequency: Daily Are you DNR?: No Advance Directives: No Advance Directives Information Provided: Yes service: No Current occupational status: employed 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 Current occupational exposures/hazards: No Cognitive needs: No Hearing needs: No Vision needs: No Meds Allergies Allergy/AdvReac Type Severity Reaction Status Date / Time morphine Allergy Intermediate shortness Verified 10/28/22 10:18 of breath Sulfa (Sulfonamide Allergy Intermediate rash, hives Verified 10/28/22 10:18 Antibiotics) Home Medications Medication Instructions Recorded Confirmed Last Taken Type cholecalciferol (vitamin D3) 50 50 mcg PO DAILY 11/30/20 01/24/23 Unknown History mcg (2,000 unit) capsule magnesium 200 mg tablet 200 mg PO DAILY 11/30/20 01/24/23 Unknown History zinc acetate 25 mg (zinc) capsule 25 mg PO DAILY 11/30/20 01/24/23 Unknown History blood-glucose meter ([employer] 06/29/21 11/16/22 Unknown History System Kit) atorvastatin 40 mg tablet 40 mg PO DAILY high chloestrol 03/22/22 01/24/23 Unknown History ferrous sulfate 325 mg (65 mg 325 mg PO DAILY 09/15/22 01/24/23 Unknown History iron) tablet spironolactone 25 mg tablet 25 mg PO DAILY 10/04/22 01/24/23 Unknown History Exam Airway Mallampati Class: III (edentulous) TM Dist: >3cm Neck ROM: Full Denture: Upper and Lower Loose/Missing/Broken Teeth: Yes, Upper and Lower Heart: RRR Lungs: CTA Assessment and Plan Assessment Anesthesia Assessment: Anesthesia Plan Discussed Final Anesthetic Review NPO: Yes ASA Class: III Final Preanesthetic Review: Meds/Allgs Chart Reviewed, Consent Obtained/Reviewed and Anes Risks/Benef Reviewed Patient Risk: Intermediate Procedure Risk: Low Anesthetic Plan Anesthetic Plan: MAC: Disposition: Standard PACU
[2023-03-08 11:44] LABS: Glucose, Whole Blood 117 mg/dL (60-115)
[2023-03-08] MEDS: Lactated Ringers 1,000 ML 50 ML IVCONT (11:45)
--- NOTE | 2023-03-08 12:38 | P.HPSUR_ITS ---
Pre-Procedural Eval Section A Date of Service: 03/08/23 Section B Chief Complaint: Family history of colonic polyps Relevant Family History (Specify if Yes): No Relevant Social History: Tobacco Use Present Medications: see Short Stay Collaborative assessment Medical History: Significant History (Aortic stenosis Arthritis CAD (coronary artery disease) Cardiomyopathy COVID-19 vaccine administered Diabetes mellitus Diastolic dysfunction HTN (hypertension) Hyperlipidemia Obesity ALEJANDRA (obstructive sleep apnea) Paroxysmal atrial fibrillation) History of Previous Operations: Relevant previous surgery/procedure and date(s) (History of esophagogastroduodenoscopy (EGD) History of total left hip replacement History of total right hip replacement Hx of colonoscopy) Allergies: Allergies Allergy/AdvReac Type Severity Reaction Status Date / Time morphine Allergy Intermediate shortness Verified 10/28/22 10:18 of breath Sulfa (Sulfonamide Allergy Intermediate rash, hives Verified 10/28/22 10:18 Antibiotics) Review of Systems Sugical H&P ROS: Negative: Constitution, Cardiovascular, Respiratory, Neurological, Psychiatric, Hem-Onc, Allergic/Immunologic, Gastrointestinal, Genitourinary, Musculoskeletal, Integumentary, Endocrine and Eyes/Ears/Nose/Th roat Exam Surgical H&P Exam: Normal: HEENT, Normal: Heart, Normal: Lungs, Normal: Extremities, Normal: Abdomen, Normal: Skin and Normal: Neurological Plan Diagnosis/Plan: Unchanged I have reviewed the history and physical and performed a pertinent physical examination on my patient. No changes have occurred unless specified. Time Spent With Patient Time: Total time managing care of this patient today ____ minutes.
--- NOTE | 2023-03-08 13:29 | P.OP_ITS ---
Operative Note Operative Note Date of Service: 03/08/23 Narrative: Operative Information Procedure Description: Colonoscopy Indication: hx of colon polyps Anesthesia: MAC COLONOSCOPY Instrument: Olympus variable stiffness Adult scope 190L Colonoscopy Monitoring: Vital signs and clinical assessment, continuous EKG monitoring, Pulse oximetry, Carbon Dioxide monitoring and blood pressure monitoring were done throughout the procedure. Colon withdrawal time was 30 minutes. Procedure: The patient was placed in the left lateral decubitis position and pre-procedure medications were administered. After a digital rectal examination of the ano-rectum, the video colonoscope was inserted into the rectum and advanced through the colon to the cecum/TI. The colonoscope was slowly withdrawn in a retrograde panoramic fashion and the colon mucosa was carefully examined including a retroflexed view of the rectum. Findings and interventions are described below. Procedure Difficulty: easy Findings: Terminal Ileum-normal Cecum:normal Ascending Colon: 4-6 mm sessile polyp removed with cold forceps Transverse Colon -normal Descending Colon: at 65 cm from anal verge (in between 2 prior tattoo patiño) there was a flat polypoid lesion about 12 mm in length. inspite iof being raised with eleview and using a stiif snare, I was unable to remove it so removed using piece meal with cold forceps then the area was ablated using soft tip coag and x 2 clips applied for hemostasis. Sigmoid Colon: 4-7 mm sessile polyp removed using cold snare Rectum: Retroflexion with small internal hemorrhoids, grade I Anorectum - normal Colon preparation: [place] Bowel Preparation Scale Right colon; 2 Transverse colon: 2 Left colon; 2 (0 = Unprepared colon segment with mucosa not seen due to solid stool that cannot be cleared. 1 = Portion of mucosa of the colon segment seen, but other areas of the colon segment not well seen due to staining, residual stool and/or opaque liquid. 2 = Minor amount of residual staining, small fragments of stool and/or opaque liquid, but mucosa of colon segment seen well. 3 = Entire mucosa of colon segment seen well with no residual staining, small fragments of stool or opaque liquid) Impression and Post Procedure Diagnosis: polyps internal hemorrhoids Plan: High fiber diet leaflet Avoid straining at stool, epsom salts and sitz bath, anusol supps or cream Repeat Colonoscopy in 1 year or earlier if clinically indicated, genetic screening eval is pending Restart rivaroxiban on Mondaymarch 10 Above findings were reviewed with the patient and relevant handouts were provided if indicated.
[2023-03-08 13:35] VITALS: BP 95/55; PULSE 78; RESP 19; TEMP 36.2; O2SAT 97
[2023-03-08 13:50] VITALS: BP 117/80; PULSE 78; RESP 19; TEMP 36.2; O2SAT 96
== END 2023-03-08 14:28 | disposition home or self-care (01) ==
PROVIDERS: PCP Nurse Practitioner Family; Visit Provider Internal Medicine Gastroenterology
PROC: 0DJD8ZZ Inspection of Lower Intestinal Tract, Via Natural or Artificial Opening Endoscopic (ICD-10-PCS; CPT 45378; principal; 2023-03-08 12:40)
DX: Z12.11 Encounter for screening for malignant neoplasm of colon (principal); K63.5 Polyp of colon; K64.0 First degree hemorrhoids; Z86.010 Personal history of colon polyps; E11.9 Type 2 diabetes mellitus without complications; I10 Essential (primary) hypertension; E66.9 Obesity, unspecified; G47.33 Obstructive sleep apnea (adult) (pediatric); I48.0 Paroxysmal atrial fibrillation; I25.10 Atherosclerotic heart disease of native coronary artery without angina pectoris; Z79.82 Long term (current) use of aspirin; Z79.899 Other long term (current) drug therapy; Z88.2 Allergy status to sulfonamides; Z88.6 Allergy status to analgesic agent
CPT/HCPCS: 45385; 45380; 45381; 82947; 88305

== ENCOUNTER → 2023-03-17 10:33 | Outpatient (BNVA) | payer MEDICARE, SELFPAY | PROVIDERS: PCP Nurse Practitioner Family; Visit Provider Internal Medicine Gastroenterology | DX: Z31.448 Encounter for other genetic testing of male for procreative management (principal) | CPT/HCPCS: 99211 ==

== ENCOUNTER 2023-04-12 10:13 | Outpatient (AMB) | payer MEDICARE, SELFPAY ==
--- NOTE | 2023-04-12 10:16 | MHC.OFFVIS ---
Intake Vital Signs 04/12/23 10:17 Height 5 ft 8 in Weight 272 lb 14.916 oz BMI 41.5 BP 102/70 Blood Pressure Location Lt brachial Position Sitting Pulse 65 Pulse Source Monitor Intake Visit Reasons: 6 month F/u Intake Note: 6 month follow up with EKG. 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 Accompanied by: Self / Same As Patient Allergies morphine Allergy (Intermediate, Verified 04/12/23 10:20) shortness of breath Sulfa (Sulfonamide Antibiotics) Allergy (Intermediate, Verified 04/12/23 10:20) rash, hives Medication List - Last Reconciled 04/12/23 by Rylan Mendoza MD alcohol swabs (Alcohol Prep Pads) 1 pad topical DAILY amlodipine 5 mg (1/2 x 10 mg) PO DAILY atorvastatin 40 mg PO DAILY bisacodyl (Dulcolax (bisacodyl)) 20 mg (4 x 5 mg) PO ONCE 1 day blood sugar diagnostic (FreeStyle Test strips) daily blood-glucose meter (FreeStyle System Kit) As directed cholecalciferol (vitamin D3) 50 mcg PO DAILY fluticasone propionate 50 mcg/actuation 1 spray intranasal DAILY PRN hydrochlorothiazide 25 mg PO DAILY 90 days lancets (FreeStyle Lancets) test blood sugar one time a day lancets (FreeStyle Unistik 2) daily losartan 25 mg PO DAILY magnesium 400 mg PO DAILY metformin 500 mg PO DAILY metoprolol succinate ER 25 mg PO DAILY polyethylene glycol 3350 (Miralax) 238 grams PO ONCE 1 day polyethylene glycol 3350 238 grams PO ONCE rivaroxaban (Xarelto) 20 mg PO DAILY 90 days spironolactone 25 mg PO DAILY HPI HPI Comments History of Present Illness Details Sohail comes for follow-up. He says he is increasingly fatigued. Denies any worsening shortness of breath. No orthopnea, PND, leg edema. No exertional chest pain. He has notice that his blood pressure has been lower and his losartan has been reduced. He is currently on 25 mg of losartan compared to 100 mg in the past. He is trying to improve his lifestyle. He denies any prolonged palpitation irregular heartbeat. No bleeding issues or neurologic events. [facility] Medical History Aortic stenosis Arthritis CAD (coronary artery disease) Cardiomyopathy COVID-19 vaccine administered Diabetes mellitus Diastolic dysfunction HTN (hypertension) Hyperlipidemia Obesity ALEJANDRA (obstructive sleep apnea) Paroxysmal atrial fibrillation Surgical History History of esophagogastroduodenoscopy (EGD) History of total left hip replacement History of total right hip replacement Hx of colonoscopy Family History Father No problems noted. 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 Current occupational exposures/hazards: No Cognitive needs: No Hearing needs: No Vision needs: No Review of Systems Const Denies weakness ENT Denies dizziness Card Denies chest pain, Denies chest pain with activity, Denies syncope, Denies rapid heart rate, Denies pedal edema, Denies edema, Denies leg edema, Denies lightheadedness, Denies palpitations, Denies dyspnea, Denies dyspnea on exertion and Denies orthopnea Resp Denies cough, Denies dyspnea and Denies dyspnea on exertion GI Denies hematochezia and Denies change in stool character Musc Denies abnormal gait, Denies muscle cramps, Denies muscle weakness, Denies numbness, Denies radiating pain into limb and Denies tingling Neuro Denies abnormal gait, Denies dizziness, Denies syncope, Denies numbness, Denies tingling and Denies weakness Endo Denies palpitations Physical Exam Vital Signs: Last Vital Signs Pulse 65 04/12/23 10:17 BP 102/70 04/12/23 10:17 BMI result Body Mass Index 41.5 Const General: cooperative, comfortable, no acute distress, alert and awake Nutritional Appearance: obese Orientation/consciousness: patient oriented x3 Limitations: no limitations Neck Neck: Yes trachea midline, Yes supple and Yes no JVD Resp Effort & Inspection: normal respiratory effort Auscultation: clear to auscultation bilaterally and diminished lung sounds Cardio Jugular venous distension: no JVD Palpation: normal PMI Rate: regular rate Rhythm: abnormal rhythm with ectopic beats Heart sounds: S1 normal heart sound present, S2 normal heart sound present, no click, no gallops and Murmur heart sound present systolic early GI Auscultation: normal bowel sounds Skin General skin exam: no rashes or lesions noted Neuro General: patient oriented x3 and no focal motor deficits Extrem General: Yes no clubbing, cyanosis or edema Psych Appearance: grossly normal Office Procedures EKG Details: EKG shows sinus rhythm with sinus arrhythmia with first-degree AV block with left anterior fascicular block and nonspecific ST T wave changes [id number], Complete Assessment & Plan Assessment & Plan (1) Paroxysmal atrial fibrillation: Comment: taking ASA, metoprolol, losartan Code(s): I48.0 - Paroxysmal atrial fibrillation Plan: Paroxysmal atrial fibrillation is doing well from cardiac perspective. Continue rhythm control approach. Has done very well with rhythm control approach. No indication for antiarrhythmic drug therapy at this point time. Continue metoprolol therapy. Avoidance of stimulants was discussed. Continue full oral anticoagulation, currently on Xarelto 20 mg daily. Quarterly renal function test should be pursued. Continue CPAP therapy to continue aggressive control of blood pressure. (2) CAD (coronary artery disease): Code(s): I25.10 - Atherosclerotic heart disease of [place] coronary artery without angina pectoris Plan: CAD with prior apical infarct. No recurrent symptoms of angina. Continue full oral anticoagulation with Xarelto. There is no indication antiplatelet therapy to reduce overall bleeding risk. Continue aggressive risk factor modification. Goal LDL less than 70 mg/dL. Diabetes under your care with goal hemoglobin A1c less than 7%. Blood pressures or corrected, see below. (3) Cardiomyopathy: Code(s): I42.9 - Cardiomyopathy, unspecified Plan: Mild ischemic cardiomyopathy without overt signs of congestive heart failure. Continue management of coronary artery disease as above. Continue neurohormonal modulation with metoprolol and will continue low-dose losartan therapy. Also continue spironolactone therapy. Continue participate in aggressive weight loss program. Continue CPAP therapy. Follow-up echocardiogram 6 months time. (4) Aortic stenosis: Code(s): I35.0 - Nonrheumatic aortic (valve) stenosis Plan: Aortic stenosis which is mild. Continue monitor clinically. Follow-up echocardiogram 6 months time. Continue aggressive vascular risk factor modification as in 2. (5) Low blood pressure: Code(s): I95.9 - Hypotension, unspecified Plan: Low blood pressure could be responsible for symptoms of fatigue. Advised to monitor blood pressure at home. Would like to taper and discontinue amlodipine prior to discontinue losartan therapy as losartan is important for his renal as well as cardiac protection for neurohormonal modulation. If his blood pressure remains low will taper and discontinue hydrochlorothiazide. Will follow up in the clinic in 6 months time, sooner p.r.n.. Thank you for allowing me to partake in his care Medications: New amlodipine 2.5 mg PO DAILY 30 tabs 0RF Changed From losartan 100 mg PO DAILY 90 tabs 1RF To losartan 25 mg PO DAILY Discontinued amlodipine Discontinued Reason: No Longer Medically Relevant 5 mg (1/2 x 10 mg) PO DAILY 45 tabs 1RF htn Coding Level of Care Code Est Pt Level 4 (93024) Diagnoses Paroxysmal atrial fibrillation I48.0 CAD (coronary artery disease) I25.10 Cardiomyopathy I42.9 Aortic stenosis I35.0 Low blood pressure I95.9 CPT Codes EKG - CPT: 64609-[id number], Complete ([id number])
[2023-04-12 10:17] VITALS: BP 102/70; PULSE 65; BMI 41.5
== END 2023-04-12 10:37 | disposition home or self-care (01) ==
PROVIDERS: PCP Nurse Practitioner Family; Referring Provider Nurse Practitioner Family; Visit Provider Internal Medicine Cardiovascular Disease
DX: I48.0 Paroxysmal atrial fibrillation (principal); I25.10 Atherosclerotic heart disease of native coronary artery without angina pectoris; I42.9 Cardiomyopathy, unspecified; I35.0 Nonrheumatic aortic (valve) stenosis; I95.9 Hypotension, unspecified
CPT/HCPCS: 93010; 99214

== ENCOUNTER → 2023-04-12 10:13 | Outpatient (BNVA) | payer MEDICARE, SELFPAY | PROVIDERS: PCP Nurse Practitioner Family; Referring Provider Nurse Practitioner Family; Visit Provider Internal Medicine Cardiovascular Disease | DX: I95.9 Hypotension, unspecified (principal); I35.0 Nonrheumatic aortic (valve) stenosis; I42.9 Cardiomyopathy, unspecified; I44.0 Atrioventricular block, first degree; I44.4 Left anterior fascicular block; I48.0 Paroxysmal atrial fibrillation; I25.10 Atherosclerotic heart disease of native coronary artery without angina pectoris; I11.0 Hypertensive heart disease with heart failure; I50.30 Unspecified diastolic (congestive) heart failure; E66.9 Obesity, unspecified; F17.290 Nicotine dependence, other tobacco product, uncomplicated; Z68.41 Body mass index [BMI] 40.0-44.9, adult | CPT/HCPCS: 93005; 99212 ==

== ENCOUNTER 2023-05-12 10:28 | Outpatient (AMB) | payer MEDICARE, SELFPAY ==
--- NOTE | 2023-05-12 10:36 | MHC.OFFVIS ---
Intake Vital Signs 05/12/23 10:37 Height 5 ft 8 in Weight 271 lb 2.697 oz BMI 41.2 BP 129/66 Blood Pressure Location Lt brachial Position Sitting Pulse 69 Intake Visit Reasons: f/u genetic testing / colonoscopy Intake Note: Sohail presents in the office as a follow up genetic testing and colonsocopy. CC: He states that he has had 2 colonoscopies since his last visit and no concerns today! Data Control Clerk Required: No Allergies morphine Allergy (Intermediate, Verified 05/12/23 10:40) shortness of breath Sulfa (Sulfonamide Antibiotics) Allergy (Intermediate, Verified 05/12/23 10:40) rash, hives HPI f/u genetic testing / colonoscopy HPI Details 67 yr old m here for f/u RECAP: Saw Nan last year and was supposed to get colonoscopy was found to have cirrhosis on imaging wth some prominent LN LABS: 03/2022-- HGB: 12.3, plts 170, wcc 6.3 BMP 08/31-- bili 1.2, otherwise nml neg REBECCA neg hep serologies 2018 MELD -Na--13 Imaging: MRI:2021 Cirrhotic-appearing liver. No suspicious liver lesion seen. Liver cysts. Trace ascites. Mild splenomegaly. ? Enlarged lymph nodes in the periportal, gastrohepatic, and peripancreatic? spaces and small retroperitoneal lymph nodes. ? 0.9 x 1.6 cm simple-appearing cyst in the uncinate process of the head of the pancreas. ? 1 cm right adrenal gland cyst. ? Small bilateral renal cysts. US: 10/20/21 Cirrhotic-appearing liver. 2.6 cm lesion in the right lobe of the liver, question solid lesion versus complex cyst. Follow-up liver MRI recommended. 2 small cysts in the right lobe of the liver. Enlarged spleen. 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 Oropharynx clear. Moist mucous membranes. Conjunctivae appear well perfused. No thyroid mass. CHEST: Chest wall is nontender. HEART: Regular rate and rhythm without murmurs. LUNGS: Clear to auscultation bilaterally. ABDOMEN: Soft, positive bowel sounds, nontender, no organomegaly.no flank tenderness SKIN: No rash, no excessive bruising, petechiae, or purpura. NEUROLOGIC: Cranial nerves II-XII intact without motor/sensory deficit. A/P: 1/ Cirrhosis, prob [place]ENDEN[place]ALL related, currently compensated, MRI with cysts, no masses 2/ Colonic polyposis--neg genetic testing PLAN: 1/ ascites: none 2/ HCC: will need q6 monthly imaging for screening--order MRI for 07/03 3/ HE: no evidence of overt memory issues 4/ Varices: rept EGD in 1-2 yrs 5/ cirrhosis: advised on avoiding alcohol, health eating and weight loss, hepatoprotection with black coffee or green tea, milk thistle 6/ screening: hep b vaccine second dose due 7/ reviewed gene results and given copy 8/ cough, chronic, get cxr and will f/u with PCP, prob related to his job --shoudl wear mask [facility] Medical History Aortic stenosis Arthritis CAD (coronary artery disease) Cardiomyopathy COVID-19 vaccine administered Diabetes mellitus Diastolic dysfunction HTN (hypertension) Hyperlipidemia Obesity ALEJANDRA (obstructive sleep apnea) Paroxysmal atrial fibrillation Surgical History History of esophagogastroduodenoscopy (EGD) History of total left hip replacement History of total right hip replacement Hx of colonoscopy Family History Father No problems noted. 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 Panel Today K74.60 - Unspecified cirrhosis of liver, K75.81 - Nonalcoholic steatohepatitis ([place]), R05.9 - Cough, unspecified Vitamin B3 (Niacin) Today K74.60 - Unspecified cirrhosis of liver, R05.9 - Cough, unspecified Vitamin A Today K74.60 - Unspecified cirrhosis of liver, R05.9 - Cough, unspecified Vitamin B5 (Pantothenic Acid) Today K74.60 - Unspecified cirrhosis of liver, R05.9 - Cough, unspecified Vitamin B6 Today K74.60 - Unspecified cirrhosis of liver, R05.9 - Cough, unspecified Vitamin D 25-OH Total Today K74.60 - Unspecified cirrhosis of liver, R05.9 - Cough, unspecified Zinc Today K74.60 - Unspecified cirrhosis of liver, R05.9 - Cough, unspecified Prothrombin Time INR Today K74.60 - Unspecified cirrhosis of liver, R05.9 - Cough, unspecified Complete Blood Count Auto Diff Today K74.60 - Unspecified cirrhosis of liver, R05.9 - Cough, unspecified Coding Level of Care Code Est Pt Level 4 (96105) Diagnoses Cough R05.9 Liver cirrhosis K74.60
[2023-05-12 10:37] VITALS: BP 129/66; PULSE 69; BMI 41.2
== END 2023-05-12 11:07 | disposition home or self-care (01) ==
PROVIDERS: PCP Nurse Practitioner Family; Visit Provider Internal Medicine Gastroenterology
DX: R05.9 Cough, unspecified (principal); K74.60 Unspecified cirrhosis of liver; Z23 Encounter for immunization
CPT/HCPCS: 99214

== ENCOUNTER → 2023-05-12 10:28 | Outpatient (BNVA) | payer MEDICARE, SELFPAY | PROVIDERS: PCP Nurse Practitioner Family; Visit Provider Internal Medicine Gastroenterology | DX: Z23 Encounter for immunization (principal); K74.60 Unspecified cirrhosis of liver; R05.9 Cough, unspecified | CPT/HCPCS: 90471; 90746; 99212 ==

== ENCOUNTER 2023-05-27 10:00 | Outpatient (REF) | payer MEDICARE, SELFPAY ==
--- NOTE | ~2023-05-27 | XR_ITS ---
EXAMINATION: XR CHEST CLINICAL INFORMATION: Cough, worse with coils and clavicle COMPARISON: 10/10/2019 TECHNIQUE: 2 views of the chest were obtained. FINDINGS: There is no gross pneumothorax. Heart size is normal. No pleural effusion. No new focal consolidation to suggest pneumonia. Stable cardiomediastinal silhouette. Degenerative changes in the thoracic spine. Marked degenerative changes on limited views of bilateral shoulders. XR/XR chest 2V IMPRESSION: No evidence of pneumonia.
[2023-05-27 10:23] LABS: MANUAL DIFF FLAG NO
[2023-05-27 10:53] LABS: Hematocrit 40.3 % (42.0-52.0); Imm Gran Abs Auto 0.02 X10*3/uL (0.00-0.03); Imm Gran Pct Auto 0.3 % (0.0-0.4); Neutrophils Absolute Auto 4.3 x10*3/uL (2.0-8.3); PLT CLUMP 1; Red Cell Distribution Width 16.3 % (11.0-16.0); SCAN SMEAR FLAG 1
[2023-05-27 10:55] LABS: Basophils Absolute Auto 0.1 X10*3/uL (0.0-0.2); Basophils Percent Auto 0.7 % (0-2); Eosinophils Absolute Auto 0.2 X10*3/uL (0.0-0.4); Eosinophils Percent Auto 2.7 % (0-4); Hemoglobin 12.9 g/dl (14.0-18.0); Lymphocytes Absolute Auto 1.3 X10*3/uL (1.2-4.9); Mean Corpuscular Volume 84.3 fL (80.0-98.0); Mean Platelet Volume 10.6 fL (9.4-12.4); Monocytes Absolute Auto 0.8 X10*3/uL (0.1-1.2); Monocytes Percent Auto 12.5 % (2-11); Neutrophils Percent Auto 64.8 % (45-73); Red Blood Count 4.78 X10*6/uL (4.60-5.80)
[2023-05-27 10:59] LABS: INTERNATIONAL NORM RATIO 1.5 (0.9-1.1); Platelet Count 128 X10*3/uL (160-400); Prothrombin Time 18.7 SEC (11.1-13.3); White Blood Count 6.7 X10*3/uL (4.8-10.8)
[2023-05-27 11:22] LABS: Alanine Aminotransferase 14 U/L (0-40); Albumin Level 3.9 g/dL (3.5-5.0); Alkaline Phosphatase 85 U/L (39-117); Anion Gap 12 (12-20); Aspartate Amino Transferase 28 U/L (5-37); Bilirubin Total 0.5 mg/dL (0.0-1.0); Blood Urea Nitrogen 18 mg/dL (9-16); Calcium 9.2 mg/dL (8.4-10.2); Carbon Dioxide 25 mmol/L (22-29); Chloride 105 mmol/L (96-108); Estimated Glomerular Filt Rate > 60; Glucose Random 153 mg/dL (60-115); Potassium 4.3 mmol/L (3.3-5.1); Sodium 138 mmol/L (135-145); Total Protein 7.3 g/dL (6.5-8.0)
[2023-05-27 11:51] LABS: Folate 5.3 ng/mL (> or = 4.0); Vitamin B12 606 pg/mL (200-900)
[2023-05-31 06:04] LABS: Zinc 59 mcg/dL (60-130)
[2023-06-01 18:33] LABS: Vitamin A 35 mcg/dL (38-98)
[2023-06-02 12:48] LABS: Vitamin B6 3.7 ng/mL (2.1-21.7)
[2023-06-05 00:18] LABS: Nicotinamide 23 ng/mL; Vit B3 - Nicotinic Acid <20 ng/mL
[2023-06-06 00:09] LABS: Vitamin B5 (Pantothenic Acid) 48 ng/mL (<275)
== END 2023-05-27 10:01 | disposition home or self-care (01) ==
LOC: HO.XRAY 10:00
PROVIDERS: PCP Nurse Practitioner Family; Referring Provider Nurse Practitioner Family; Visit Provider Internal Medicine Gastroenterology
DX: K75.81 Nonalcoholic steatohepatitis (NASH) (principal); R05.9 Cough, unspecified; K74.60 Unspecified cirrhosis of liver
CPT/HCPCS: 36415; 71046; 80053; 82306; 82607; 82746; 84207; 84590; 84591; 84630; 85025; 85610

== ENCOUNTER 2023-06-07 11:33 | Outpatient (AMB) | payer MEDICARE, SELFPAY ==
--- NOTE | 2023-06-07 11:36 | MHC.PC.OV ---
Vital Signs 06/07/23 11:39 Height 5 ft 8 in Weight 280 lb BMI 42.6 BP 126/70 Blood Pressure Location Lt brachial Position Sitting Pulse 70 Pulse Source Pulse Oximeter Pulse Oximetry (%) 97 Oxygen Delivery Method Room Air Intake Visit Reasons: 4M Follow up Allergies morphine Allergy (Intermediate, Verified 06/07/23 11:39) shortness of breath Sulfa (Sulfonamide Antibiotics) Allergy (Intermediate, Verified 06/07/23 11:39) rash, hives Medication List - Last Reconciled 06/07/23 by JAGRUTI Cm- alcohol swabs (Alcohol Prep Pads) 1 pad topical DAILY amlodipine 2.5 mg PO DAILY amoxicillin-pot clavulanate 875-125 mg 1 tab PO BID 10 days atorvastatin 40 mg PO DAILY blood sugar diagnostic (FreeStyle Test strips) daily blood-glucose meter (FreeStyle System Kit) As directed cholecalciferol (vitamin D3) 50 mcg PO DAILY codeine-guaifenesin 10-100 mg/5 mL 5 mL PO Q6H PRN 10 days fluticasone propionate 50 mcg/actuation 1 spray intranasal DAILY PRN hydrochlorothiazide 25 mg PO DAILY 90 days lancets (FreeStyle Lancets) test blood sugar one time a day lancets (FreeStyle Unistik 2) daily losartan 25 mg PO DAILY magnesium 400 mg PO DAILY metformin 500 mg PO DAILY metoprolol succinate ER 25 mg PO DAILY rivaroxaban (Xarelto) 20 mg PO DAILY 90 days spironolactone 25 mg PO DAILY zinc acetate (Galzin) 50 mg PO DAILY Tobacco use date assessed: 10/04/22 Fall risk assessment: No Falls in past year Last assessed Fall Risk: 06/07/23 HPI 4M Follow up HPI Details Pt is a diabetic, on an ARB and a statin. A1C in office today is 6.6. Microalbumin is up to date. Denies polyuria, polydipsia, and neuropathy. Pt denies any signs and symptoms of hypoglycemia and does know how to correct it. Pt does not check his blood sugar. PSA is up to date. Pt follows up with GI. Pt c/o cough. He reports that this keeps him up at night. Will send cough syrup with codeine. Educated pt on risk of addiction, this is not a long-term med. Pt understands that they can not drive while taking this med, share this med, and to only take as prescribed. [facility] Medical History Arthritis Aortic stenosis COVID-19 vaccine administered Diastolic dysfunction Cardiomyopathy Obesity ALEJANDRA (obstructive sleep apnea) Hyperlipidemia Diabetes mellitus HTN (hypertension) CAD (coronary artery disease) Paroxysmal atrial fibrillation Surgical History Hx of colonoscopy History of esophagogastroduodenoscopy (EGD) History of total left hip replacement History of total right hip replacement Family History Father No problems noted. 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 Blake Rodriguez, Tawana Workman, Krishna Benoit and colleagues, with an educational franklyn from [employer]. Review of Systems Const Reports as per HPI Physical exam (Primary Care) Vital Signs: Last Vital Signs Pulse 70 06/07/23 11:39 BP 126/70 06/07/23 11:39 Pulse Ox 97 06/07/23 11:39 Oxygen Delivery Method Room Air 06/07/23 11:39 BMI result Body Mass Index 42.6 Tobacco/Smoking Status: Tobacco use Status Tobacco use date assessed 10/04/22 06/07/23 11:36 Patient Tobacco Use Status Current everyday Tobacco 06/07/23 11:36 Tobacco use type Cigar 06/07/23 11:36 e-Cigarette/Vaping Use Never Used 06/07/23 11:36 Thrive Assessment: Date of Thrive Assessment Date Thrive assessed 10/04/22 06/07/23 11:36 Const General: cooperative Nutritional Appearance: obese morbidly obese Orientation/consciousness: patient oriented x3 Resp Effort & Inspection: normal respiratory effort Auscultation: clear to auscultation bilaterally and diminished lung sounds Cardio Rate: regular rate Rhythm: abnormal rhythm irregularly irregular Heart sounds: S1 normal heart sound present, S2 normal heart sound present and Murmur heart sound present systolic Neuro General: patient oriented x3 Psych Appearance: grossly normal Mental Status: mental status grossly normal Speech and movement: Normal speech and movement present Affect: normal affect Attitude: cooperative Thought process: Normal thought process present Thought content: Normal thought content present Insight: Good insight present (Psych) Judgement: Good judgement present (Psych) Results AMB Hemoglobin A1c AMB Hemoglobin A1c 6.6 % Last Edit by CHA Pinzon on 06/07/23 12:01 Results Reviewed Results Reviewed: Laboratory Last Values Hgb A1c (Clinic) 6.6 % (4.0-6.0) H 06/07/23 11:59 Assessment and Plan Assessment & Plan (1) Diabetes mellitus: Comment: taking metformin only-does not check glucose at home Code(s): E11.9 - Type 2 diabetes mellitus without complications Plan The patient agreed to the use of a medical equipment repairer for this encounter. Scribed for TUNDE Bradley by Mayra Lang medical equipment repairer, on 06/07/2023 at 11:45 EST. Orders: Orders Comprehensive [place]. Panel Fast Today E11.9 - Type 2 diabetes mellitus without complications AMB Hemoglobin A1c Today Z13.9 - Encounter for screening, unspecified Complete Blood Count Auto Diff Today E11.9 - Type 2 diabetes mellitus without complications TSH reflex Free T4 Today E11.9 - Type 2 diabetes mellitus without complications UA CC w/rflx Micro + Cult Today E11.9 - Type 2 diabetes mellitus without complications Lipid Panel Today E11.9 - Type 2 diabetes mellitus without complications Medications: New amoxicillin-pot clavulanate 875-125 mg 1 tab PO BID 20 tabs 0RF 10 days codeine-guaifenesin 10-100 mg/5 mL 5 mL PO Q6H PRN 120 mL 0RF cough 10 days Coding Level of Care Code Est Pt Level 3 (74185) Diagnoses Diabetes mellitus E11.9
[2023-06-07 11:39] VITALS: BP 126/70; PULSE 70; O2SAT 97; BMI 42.6
== END 2023-06-07 12:08 | disposition home or self-care (01) ==
PROVIDERS: Visit Provider Nurse Practitioner Family
DX: E11.9 Type 2 diabetes mellitus without complications (principal)
CPT/HCPCS: 83036; 99213

== ENCOUNTER 2023-10-10 10:25 | Outpatient (AMB) | payer MEDICARE, SELFPAY ==
--- NOTE | 2023-10-10 10:31 | A.OFFPC_ITS ---
Vital Signs 10/10/23 10:33 Height 5 ft 8 in Weight 279 lb 8 oz BMI 42.5 BP 132/88 Blood Pressure Location Rt brachial Position Sitting Pulse 68 Pulse Source Pulse Oximeter Pulse Oximetry (%) 95 Oxygen Delivery Method Room Air Intake Visit Reasons: 4 month follow up Intake Note: Pt is here for a 4 month follow up for his DM Allergies morphine Allergy (Intermediate, Verified 10/10/23 10:36) shortness of breath Sulfa (Sulfonamide Antibiotics) Allergy (Intermediate, Verified 10/10/23 10:36) rash, hives Tobacco use date assessed: 10/10/23 Fall risk assessment: No Falls in past year Last assessed Fall Risk: 10/10/23 Dental Screening Dental Screen Date: 10/10/23 Did you have a dental visit in the last 12 months?: Yes Did you have a dental problem in the last 6 months where you did not have access to dental care?: No Was dental information given to patient?: Patient has dentist HPI 4 month follow up HPI Details Pt is a diabetic, on an ARB and a statin. A1C in office today is 6.7. Due for microalbumin. Denies polyuria, polydipsia, and neuropathy. Pt denies any signs and symptoms of hypoglycemia and does know how to correct it. Pt was recently seen at an outside urgent care and diagnosed with RSV. Pt was given benzonatate, prednisone, and doxy. He reports doing well and states that hs breathing has improved. Will order chest XR. Denies fever, chills, chest pain, and shortness of breath. Pt follows up with nephrology. [facility]MERLY [facility] Medical History Arthritis Aortic stenosis COVID-19 vaccine administered Diastolic dysfunction Cardiomyopathy Obesity ALEJANDRA (obstructive sleep apnea) Hyperlipidemia Diabetes mellitus HTN (hypertension) CAD (coronary artery disease) Paroxysmal atrial fibrillation Surgical History Hx of colonoscopy History of esophagogastroduodenoscopy (EGD) History of total left hip replacement History of total right hip replacement Family History Father No problems noted. 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 1. Little interest or pleasure in doing things: not at all 2. Feeling down, depressed, or hopeless: not at all 3. Trouble falling or staying asleep, or sleeping too much: more than half the days 4. Feeling tired or having little energy: more than half the days 5. Poor appetite or overeating: more than half the days 6. Feeling bad about yourself - or that you are a failure or have let yourself or your family down: not at all 7. Trouble concentrating on things, such as reading the newspaper or watching television: not at all 8. Moving or speaking so slowly that other people could have noticed. Or the opposite - being so fidgety or restless that you have been moving around a lot more than usual: not at all 9. Thoughts that you would be better off or of hurting yourself in some way: not at all Total score: 6 Source: Developed by Drs. Blake Rodriguez, Tawana Workman, Krishna Benoit and colleagues, with an educational franklyn from [employer]. Thrive Questionnaire Date Thrive assessed: 10/10/23 I am a: Patient What is your living situation today?: I have a steady place to live Within the past 12 months, did the food you bought not last and you didn't have the money to get more?: Never true Within the past 12 months, did you worry whether your food would run out before you got money to buy more?: Never true Do you have trouble paying for medicines?: No Do you have trouble getting transportation to medical appointments?: No Do you have trouble paying your heating and electricity bill?: No Do you have trouble taking care of your child, family member or friend?: No Do you have trouble with day-to-day activities such as bathing, preparing meals, shopping, managing finances, etc.?: No Are you currently unemployed and looking for a job?: No Are you interested in more education?: No THRIVE Score: 0 AUDIT C Alcohol Use Questionnaire (AUDIT-C) 1. How often do you have a drink containing alcohol?: 2-4 times a month 2. How many drinks containing alcohol do you have on a typical day when you are drinking?: 1 or 2 3. How often do you have six or more drinks on one occasion?: Never Total Score: 2 KATARINA-7 AMB Questionnaire KATARINA-7 Date KATARINA - 7 assessed: 10/10/23 Feeling nervous, anxious, or on edge: 1 = Several days Not being able to stop or control worryin = Several days Worrying too much about different things: 0 = Not at all Trouble relaxin = Several days Being so restless that it is hard to sit still: 0 = Not at all Becoming easily annoyed or irritable: 0 = Not at all Feeling afraid as if something awful might happen: 0 = Not at all Total KATARINA-7 score (0-4 normal; 5-9 mild; 10-14 moderate; 15-21 severe): 3 Source: Developed by Drs. Blake Rodriguez, Tawana Workman, Krishna Benoit and colleagues, with an educational franklyn from [employer] Review of Systems Const Reports as per HPI Physical exam (Primary Care) Vital Signs: Last Vital Signs Pulse 68 10/10/23 10:33 BP 132/88 10/10/23 10:33 Pulse Ox 95 10/10/23 10:33 Oxygen Delivery Method Room Air 10/10/23 10:33 BMI result Body Mass Index 42.5 Tobacco/Smoking Status: Tobacco use Status Tobacco use date assessed 10/10/23 10/10/23 10:41 Patient Tobacco Use Status Current everyday Tobacco 10/10/23 10:31 Tobacco use type Cigar 10/10/23 10:31 e-Cigarette/Vaping Use Never Used 10/10/23 10:31 PHQ-9: PHQ-9 Score PHQ-9: Total score 6 10/10/23 11:05 Thrive Assessment: Date of Thrive Assessment Date Thrive assessed 10/10/23 10/10/23 11:00 Const General: cooperative Nutritional Appearance: obese morbidly obese Orientation/consciousness: patient oriented x3 Resp Other: faint expiratory wheezes Effort & Inspection: normal respiratory effort Cardio Other: difficult to auscultate Rate: regular rate Rhythm: regular rhythm Heart sounds: S1 normal heart sound present and S2 normal heart sound present Neuro General: patient oriented x3 Extrem Other: refused foot exam Psych Appearance: grossly normal Mental Status: mental status grossly normal Speech and movement: Normal speech and movement present Affect: normal affect Attitude: cooperative Thought process: Normal thought process present Thought content: Normal thought content present Insight: Good insight present (Psych) Judgement: Good judgement present (Psych) Results AMB Hemoglobin A1c AMB Hemoglobin A1c 6.7 % Last Edit by Deysi Jenkins CMA on 10/10/23 10: 59 Results Reviewed Results Reviewed: Laboratory Last Values Hgb A1c (Clinic) 6.7 % (4.0-6.0) H 10/10/23 10:58 Assessment and Plan Assessment & Plan (1) Diabetes mellitus: Comment: taking metformin only-does not check glucose at home Code(s): E11.9 - Type 2 diabetes mellitus without complications Plan: Labs ordered (2) RSV infection: Code(s): B33.8 - Other specified viral diseases Plan: Chest XR ordered Plan The patient agreed to the use of a medical equipment sales for this encounter. Scribed for TUNDE Bradley by [employer] medical equipment sales, on 10/10/2023 at 11:00 EST. Orders: Orders AMB Hemoglobin A1c Today E11.9 - Type 2 diabetes mellitus without complications Complete Blood Count Auto Diff Today E11.9 - Type 2 diabetes mellitus without complications Comprehensive Met. Panel Today E11.9 - Type 2 diabetes mellitus without complications TSH reflex Free T4 Today E11.9 - Type 2 diabetes mellitus without complications UA CC w/rflx Micro + Cult Today E11.9 - Type 2 diabetes mellitus without complications XR chest 2V Today B33.8 - Other specified viral diseases Coding Level of Care Code Est Pt Level 3 (72018) Diagnoses Diabetes mellitus E11.9 RSV infection B33.8
[2023-10-10 10:33] VITALS: BP 132/88; PULSE 68; O2SAT 95; BMI 42.5
== END 2023-10-10 11:25 | disposition home or self-care (01) ==
PROVIDERS: PCP Nurse Practitioner Family; Visit Provider Nurse Practitioner Family
DX: E11.9 Type 2 diabetes mellitus without complications (principal); B33.8 Other specified viral diseases
CPT/HCPCS: 83036; 99213

== ENCOUNTER 2023-10-10 11:12 | Outpatient (REF) | payer MEDICARE, SELFPAY ==
--- NOTE | ~2023-10-10 | XR_ITS ---
EXAMINATION: XR CHEST CLINICAL INFORMATION: Atypical viral disease. Cough. COMPARISON: Chest x-ray 05/27/2023 TECHNIQUE: 2 views of the chest were obtained. FINDINGS: No significant abnormality is noted involving the heart, lungs, mediastinum, bony thorax or soft tissues. XR/XR chest 2V IMPRESSION: Unremarkable chest examination.
[2023-10-10 13:32] LABS: MANUAL DIFF FLAG NO
[2023-10-10 13:42] LABS: Basophils Percent Auto 0.4 % (0-2); Eosinophils Absolute Auto 0.1 X10*3/uL (0.0-0.4); Eosinophils Percent Auto 0.7 % (0-4); Hematocrit 43.5 % (42.0-52.0); Hemoglobin 14.2 g/dl (14.0-18.0); Imm Gran Abs Auto 0.08 X10*3/uL (0.00-0.03); Imm Gran Pct Auto 0.7 % (0.0-0.4); Lymphocytes Absolute Auto 2.5 X10*3/uL (1.2-4.9); Lymphocytes Percent Auto 23.3 % (20-40); Mean Corpuscular HGB Conc 32.6 g/dl (31.0-36.0); Mean Corpuscular Hemoglobin 27.4 pg (27.0-33.0); Mean Corpuscular Volume 83.8 fL (80.0-98.0); Mean Platelet Volume 11.9 fL (9.4-12.4); Monocytes Percent Auto 9.4 % (2-11); Neutrophils Percent Auto 65.5 % (45-73); Platelet Count 132 X10*3/uL (160-400); Red Blood Count 5.19 X10*6/uL (4.60-5.80); Red Cell Distribution Width 16.8 % (11.0-16.0); White Blood Count 10.7 X10*3/uL (4.8-10.8)
[2023-10-10 13:47] LABS: Appearance Urine Clear; Color Urine Dark Yellow; Glucose Urine UA Negative (Negative); Leukocyte Esterase Urine Negative (Negative); Nitrite Urine Negative (Negative); Urine Blood Negative (Negative); Urine Ketones Negative (Negative); Urine Protein Trace mg/dL (Neg-Trace)
[2023-10-10 14:04] LABS: Alanine Aminotransferase 23 U/L (0-40); Alkaline Phosphatase 75 U/L (39-117); Anion Gap 11 (12-20); Aspartate Amino Transferase 33 U/L (5-37); Bilirubin Total 0.5 mg/dL (0.0-1.0); Blood Urea Nitrogen 28 mg/dL (9-16); Calcium 9.1 mg/dL (8.4-10.2); Carbon Dioxide 24 mmol/L (22-29); Chloride 106 mmol/L (96-108); Estimated Glomerular Filt Rate 57; Glucose Random 92 mg/dL (60-115); Potassium 3.9 mmol/L (3.3-5.1); Sodium 137 mmol/L (135-145); Total Protein 7.6 g/dL (6.5-8.0)
[2023-10-10 14:11] LABS: TSH reflex Free T4 4.66 uIU/mL (0.32-4.0)
[2023-10-10 14:59] LABS: Free T4 (Free Thyroxine) 1.06 ng/dL (0.71-1.85)
== END 2023-10-10 11:13 | disposition home or self-care (01) ==
LOC: HO.HMGCX 11:12
PROVIDERS: PCP Nurse Practitioner Family; Visit Provider Nurse Practitioner Family
DX: B33.8 Other specified viral diseases (principal); E11.9 Type 2 diabetes mellitus without complications; R79.89 Other specified abnormal findings of blood chemistry
CPT/HCPCS: 36415; 71046; 80053; 81003; 84439; 84443; 85025

== ENCOUNTER 2023-11-09 11:09 | Outpatient (AMB) | payer MEDICARE, SELFPAY ==
[2023-11-09 11:11] VITALS: BP 138/80; PULSE 73; BMI 34.2
--- NOTE | 2023-11-09 11:11 | MHC.OFFVIS ---
Intake Vital Signs 11/09/23 11:11 Height 5 ft 8 in Weight 224 lb 13.944 oz BMI 34.2 BP 138/80 Blood Pressure Location Lt brachial Position Sitting Pulse 73 Pulse Source Pulse Oximeter Intake Visit Reasons: 6 mth s/p echo Intake Note: pt is here for 6 month s/P echo Allergies morphine Allergy (Intermediate, Verified 10/26/23 10:27) shortness of breath Sulfa (Sulfonamide Antibiotics) Allergy (Intermediate, Verified 10/26/23 10:27) rash, hives Medication List - Last Reconciled 11/09/23 by Rylan Mendoza MD alcohol swabs (Alcohol Prep Pads) 1 pad topical DAILY amlodipine 2.5 mg PO DAILY atorvastatin 40 mg PO DAILY blood sugar diagnostic (FreeStyle Test strips) daily blood-glucose meter (FooundStyle System Kit) As directed cholecalciferol (vitamin D3) 50 mcg PO DAILY clotrimazole 1% (Antifungal (clotrimazole)) 1 appl topical BID fluticasone propionate 50 mcg/actuation 1 spray intranasal DAILY PRN lancets (FreeStyle Lancets) test blood sugar one time a day lancets (FreeStyle Unistik 2) daily losartan 25 mg PO DAILY 90 days NS magnesium 400 mg PO DAILY metformin 500 mg PO DAILY metoprolol succinate ER 25 mg PO DAILY rivaroxaban (Xarelto) 20 mg PO DAILY 90 days spironolactone 25 mg PO DAILY zinc acetate (Galzin) 50 mg PO DAILY HPI HPI Comments History of Present Illness Details Sohail comes for follow-up. In September suffered from RSV NSAID a lot of respiratory difficulty with lot of phlegm with productive cough and shortness of breath. Since then he has been doing better. Denies any other cardiac complaints at this point time. Denies any exertional chest pain, worsening shortness of breath, orthopnea, PND, leg edema. He says since reducing his amlodipine his lightheadedness is better. He denies any syncope. Denies any prolonged palpitation irregular heartbeat. No bleeding issues or neurologic events. Uses all his medications regularly. FORMERLY [facility] Medical History Arthritis Aortic stenosis COVID-19 vaccine administered Diastolic dysfunction Cardiomyopathy Obesity ALEJANDRA (obstructive sleep apnea) Hyperlipidemia Diabetes mellitus HTN (hypertension) CAD (coronary artery disease) Paroxysmal atrial fibrillation Surgical History Hx of colonoscopy History of esophagogastroduodenoscopy (EGD) History of total left hip replacement History of total right hip replacement Family History Father No problems noted. 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 Current occupational exposures/hazards: No Cognitive needs: No Hearing needs: No Vision needs: No Review of Systems Const Denies weakness ENT Denies dizziness Card Denies chest pain, Denies chest pain with activity, Denies syncope, Denies rapid heart rate, Denies pedal edema, Denies edema, Denies leg edema, Denies lightheadedness, Denies palpitations, Denies dyspnea, Denies dyspnea on exertion and Denies orthopnea Resp Denies cough, Denies dyspnea and Denies dyspnea on exertion GI Denies hematochezia and Denies change in stool character Musc Denies abnormal gait, Denies muscle cramps, Denies muscle weakness, Denies numbness, Denies radiating pain into limb and Denies tingling Neuro Denies abnormal gait, Denies dizziness, Denies syncope, Denies numbness, Denies tingling and Denies weakness Endo Denies palpitations Physical Exam Vital Signs: Last Vital Signs Pulse 73 11/09/23 11:11 BP 138/80 11/09/23 11:11 BMI result Body Mass Index 34.2 Const General: cooperative, comfortable, no acute distress, alert and awake Nutritional Appearance: obese Orientation/consciousness: patient oriented x3 Limitations: no limitations Neck Neck: Yes trachea midline, Yes supple and Yes no JVD Resp Effort & Inspection: normal respiratory effort Auscultation: clear to auscultation bilaterally and diminished lung sounds Cardio Jugular venous distension: no JVD Palpation: normal PMI Rate: regular rate Rhythm: abnormal rhythm with ectopic beats Heart sounds: S1 normal heart sound present, S2 normal heart sound present, no click, no gallops and Murmur heart sound present systolic early and mid GI Auscultation: normal bowel sounds Skin General skin exam: no rashes or lesions noted Neuro General: patient oriented x3 and no focal motor deficits Extrem General: Yes no clubbing, cyanosis or edema Psych Appearance: grossly normal Assessment & Plan Assessment & Plan (1) Paroxysmal atrial fibrillation: Comment: taking ASA, metoprolol, losartan Code(s): I48.0 - Paroxysmal atrial fibrillation Plan: Paroxysmal atrial fibrillation has done extremely well with rhythm control approach will continue pursue rhythm control approach. No need for antiarrhythmic drug therapy. Continue metoprolol therapy. Avoidance of stimulants including alcohol was discussed. He is doing the same. Report any new symptoms to me. Continue full oral anticoagulation, currently on Xarelto 20 mg daily. Semi annual renal function test should be pursued. Continue CPAP treatment. Continue aggressive weight loss program which has shown to reduce recurrence of atrial fibrillation. (2) Cardiomyopathy: Code(s): I42.9 - Cardiomyopathy, unspecified Plan: Cardiomyopathy which is multifactorial. Currently with mildly reduced LV systolic function. Clinically no symptoms of congestive heart failure. Advised to monitor for signs symptoms of congestive heart failure. Daily weight monitoring avoidance of salt loading was discussed. Blood pressure is currently optimized may be over corrected. Continue current neurohormonal modulation with losartan, spironolactone and metoprolol. If blood pressure becomes an issue consider reducing amlodipine therapy further. Avoidance of cardiotoxic agent such as alcohol was discussed. Continue CPAP treatment. Continue participate in regular physical activity and weight loss program. Follow-up echocardiogram in near future. (3) Aortic stenosis: Code(s): I35.0 - Nonrheumatic aortic (valve) stenosis Plan: Aortic stenosis which appears to be [id number]. Follow-up echocardiogram near future. Continue aggressive vascular risk factor modification as below. No interventions required at this point in time. (4) CAD (coronary artery disease): Code(s): I25.10 - Atherosclerotic heart disease of [place] coronary artery without angina pectoris Plan: CAD with prior apical infarct with no ongoing symptoms suggestive of angina. Complete smoking cessation was advised. Currently on full oral anticoagulation therefore would avoid antiplatelet agents. Continue aggressive risk factor modification. Currently on high-intensity statin therapy. Target goal LDL less than 70 mg/dL. Continue aggressive management diabetes goal hemoglobin A1c less than 7%. Blood pressure is well optimized and may be over corrected. Continue monitor blood pressure at home maintain a log. Encouraged to participate in physical activity as tolerated. Will follow up in the clinic in 6 months time. Greater than 40 minutes was spent in managing his complex care Orders: Orders CA echo transthorac w con Today I42.9 - Cardiomyopathy, unspecified Medications: Refilled rivaroxaban (Xarelto) must administer with evening meal 20 mg PO DAILY 90 days 90 tabs 3RF Coding Level of Care Code Est Pt Level 5 (04160) Diagnoses Paroxysmal atrial fibrillation I48.0 Cardiomyopathy I42.9 Aortic stenosis I35.0 CAD (coronary artery disease) I25.10
== END 2023-11-09 11:43 | disposition home or self-care (01) ==
PROVIDERS: PCP Nurse Practitioner Family; Visit Provider Internal Medicine Cardiovascular Disease
DX: I48.0 Paroxysmal atrial fibrillation (principal); I42.9 Cardiomyopathy, unspecified; I35.0 Nonrheumatic aortic (valve) stenosis; I25.10 Atherosclerotic heart disease of native coronary artery without angina pectoris
CPT/HCPCS: 99215

== ENCOUNTER → 2023-11-09 11:09 | Outpatient (BNVA) | payer MEDICARE, SELFPAY | PROVIDERS: PCP Nurse Practitioner Family; Visit Provider Internal Medicine Cardiovascular Disease | DX: I48.0 Paroxysmal atrial fibrillation (principal); I42.9 Cardiomyopathy, unspecified; I35.0 Nonrheumatic aortic (valve) stenosis; I25.10 Atherosclerotic heart disease of native coronary artery without angina pectoris | CPT/HCPCS: 99212 ==

== ENCOUNTER → 2023-12-06 07:54 | Outpatient (REF) | payer MEDICARE, SELFPAY ==
--- NOTE | 2023-12-06 07:57 | CA_ITS ---
Transthoracic Echocardiogram Patient (Last, First, Middle): Sohail Rolle S Gender: Male Date of : 1955 Age: 68 Procedure Date: 12/06/2023 Procedure Type: Transthoracic Echocardiogram Location: OP Height: 175.26 cm Weight: 117.94 kg BSA: 2.31 m2 Heart Rate: bpm BP: 128 / 72 mmHg Engineering Operator: TO Referring MD: Rylan Mendoza MD Entry Level Account Executive: Rylan Mendoza MD Symptoms: I42.9 - Cardiomyopathy, unspecified Study Quality: Technically Difficult/contrast ECG Rhythm: Undetermined Conclusions: - 1. Technically difficult study despite use of contrast agent 2. Mildly reduced LV ejection fraction 45-50% 3. Limited visualization of cardiac valves with mild aortic stenosis Findings Procedure Information Contrast agent, definity, is being given per protocol without apparent complications. The quality of the study was technically difficult. The study quality is limited by patients body habitus. Left Ventricle Normal left ventricular cavity size. There is mildly increased left ventricular wall thickness. The left ventricular systolic function is mildly decreased. The visually estimated ejection fraction is between 45-50%. Diastolic function is indeterminate on the basis of available data. Right Ventricle The right ventricle was not well visualized. Atria The left atrium was not well visualized. Interatrial shunt cannot be excluded. The right atrium was not well visualized. Aortic Valve The aortic valve was not well visualized. There is mild calcification of the aortic valve. There is mild aortic valve stenosis. There is no aortic valve regurgitation. Mitral Valve The mitral valve was not well visualized. Pulmonic Valve The pulmonic valve was not well visualized. Tricuspid Valve The tricuspid valve was not well visualized. Tricuspid regurgitation envelope is inadequate for calculation of right ventricular systolic pressure. Great Vessels The aorta was not well visualized. The pulmonary artery was not well visualized. Venous The inferior vena cava was not well visualized. Pericardium/Pleural The pericardium was not well visualized. Prior Study Comparison No significant change compared to prior study dated: 09/16/2021. Measurements 2D Linear Measurements IVSd: 1.61 0.6-0.9/0.6-1.0 cm LVIDd: 4.24 3.9-5.3/4.2-5.9 cm LVIDd Index: 1.84 2.4-3.2/2.2-3.1 cm/m2 LVIDs: 3.45 2.0-3.6 cm LVPWd: 1.28 0.7-1.1 cm LV Mass: 297.69 67-162/88-224 g LV Mass Index: 128.87 43-95/49-115 g/m2 LVOT Diam: 2.20 3.0+(-)1.3 cm 2D Systolic Function EF 4C: 47.70 >55% EF 2C: 40.20 >55% EF BiP: 46.60 >55% Mitral Valve MV VTI: 0.27 MV Pk Rodriguez: 0.86 MV Mn Rodriguez: 0.52 MV Pk Grad: 3.00 MV Mn Grad: 1.00 MV Pk E: 0.43 MV PK A: 0.64 MV Decel Time: 267.00 E/A: 0.70 E'Lateral: 5.93 E'Medial: 3.81 E/E' Med: 11.20 E/E' Lat: 7.20 PHT: 78.00 MVA PHT: 2.82 MVA Continuity: 1.98 Decel Rawlins: 1.63 Aortic Valve AoV Pk Rodriguez: 1.74 AoV Mn Rodriguez: 1.14 AoV VTI: 0.31 AoV Pk Grad: 12.00 Aov Mn Grad: 6.00 FATOU Cont.VTI: 1.74 LVOT LVOT Pk Rodriguez: 0.79 LVOT Mn Rodriguez: 0.55 LVOT VTI: 0.14 LVOT Pk Grad: 2.00 LVOT Mn Grad: 1.00 LVOT Diam: 2.20 LVOT Area: 3.80 Diastolic Function MV Pk E: 0.43 MV Pk A: 0.64 E/A: 0.70 E'Medial: 3.81 E/E' Med: 11.20 E' Laterial: 5.93 E/E' Lat: 7.20 Right Ventricle TAPSE (mm): 17.30 TVS' Rodriguez: 11.20 Tricuspid Valve RA Press: 3.00 Great Vessels Aorta Sinus of Valsalva: 3.17 2.0-3.5 cm Ao Asc: 3.40 2.1-3.4 cm Updated in Other Vendor System with Status of Final Rylan Mendoza MD electronically signed on 12/06/2023 2:10:41 PM with status of Final
== END ==
LOC: HO.CARD 07:54
PROVIDERS: PCP Nurse Practitioner Family; Visit Provider Internal Medicine Cardiovascular Disease
DX: I42.9 Cardiomyopathy, unspecified (principal)
CPT/HCPCS: 93306; Q9957

== ENCOUNTER → 2023-12-06 07:57 | Outpatient (BNV) | payer MEDICARE, SELFPAY | PROVIDERS: PCP Nurse Practitioner Family; Visit Provider Internal Medicine Cardiovascular Disease | DX: I35.0 Nonrheumatic aortic (valve) stenosis (principal) | CPT/HCPCS: 93306 ==

== ENCOUNTER 2024-01-30 07:24 | Outpatient (REF) | payer MEDICARE, SELFPAY ==
[2024-01-30 07:47] LABS: MANUAL DIFF FLAG NO
[2024-01-30 08:06] LABS: Basophils Absolute Auto 0.1 X10*3/uL (0.0-0.2); Basophils Percent Auto 0.8 % (0-2); Eosinophils Absolute Auto 0.2 X10*3/uL (0.0-0.4); Eosinophils Percent Auto 2.4 % (0-4); Hematocrit 41.2 % (42.0-52.0); Hemoglobin 13.5 g/dl (14.0-18.0); Imm Gran Abs Auto 0.03 X10*3/uL (0.00-0.03); Imm Gran Pct Auto 0.5 % (0.0-0.4); Lymphocytes Absolute Auto 1.3 X10*3/uL (1.2-4.9); Lymphocytes Percent Auto 20.4 % (20-40); Mean Corpuscular HGB Conc 32.8 g/dl (31.0-36.0); Mean Corpuscular Hemoglobin 27.7 pg (27.0-33.0); Mean Corpuscular Volume 84.6 fL (80.0-98.0); Mean Platelet Volume 11.1 fL (9.4-12.4); Monocytes Absolute Auto 0.8 X10*3/uL (0.1-1.2); Monocytes Percent Auto 12.6 % (2-11); Neutrophils Absolute Auto 4.2 x10*3/uL (2.0-8.3); Neutrophils Percent Auto 63.3 % (45-73); Platelet Count 100 X10*3/uL (160-400); Red Blood Count 4.87 X10*6/uL (4.60-5.80); Red Cell Distribution Width 16.3 % (11.0-16.0); White Blood Count 6.6 X10*3/uL (4.8-10.8)
[2024-01-30 08:40] LABS: Alanine Aminotransferase 14 U/L (0-40); Albumin Level 3.8 g/dL (3.5-5.0); Alkaline Phosphatase 87 U/L (39-117); Anion Gap 14 (12-20); Aspartate Amino Transferase 30 U/L (5-37); Blood Urea Nitrogen 17 mg/dL (9-16); Calcium 9.2 mg/dL (8.4-10.2); Carbon Dioxide 25 mmol/L (22-29); Chloride 105 mmol/L (96-108); Cholesterol 112 mg/dL (<200); Estimated Glomerular Filt Rate > 60; Glucose Fasting 109 mg/dL (60-99); HDL Cholesterol 25 mg/dL (>40); LDL Cholesterol Calculated 62 mg/dL (<100); Potassium 4.6 mmol/L (3.3-5.1); Sodium 139 mmol/L (135-145); Triglycerides 129 mg/dL (<150)
[2024-01-30 08:59] LABS: TSH reflex Free T4 3.18 uIU/mL (0.32-4.0)
[2024-01-30 09:50] LABS: Appearance Urine Clear; Color Urine Yellow; Glucose Urine UA Negative (Negative); Leukocyte Esterase Urine Negative (Negative); Nitrite Urine Negative (Negative); Specific Gravity - Urine 1.015 (1.005-1.025); Urine Blood Negative (Negative); Urine Ketones Negative (Negative); Urine Protein Negative (Neg-Trace)
[2024-01-31 18:13] LABS: Thyroid Peroxidase Antibodies <1 IU/mL (<9)
== END 2024-01-30 07:25 | disposition home or self-care (01) ==
LOC: HO.LAB 07:24
PROVIDERS: PCP Nurse Practitioner Family; Visit Provider Nurse Practitioner Family
DX: R79.89 Other specified abnormal findings of blood chemistry (principal); E11.9 Type 2 diabetes mellitus without complications
CPT/HCPCS: 36415; 80053; 80061; 81003; 84443; 85025; 86376

== ENCOUNTER 2024-01-31 08:58 | Outpatient (AMB) | payer MEDICARE, SELFPAY ==
--- NOTE | 2024-01-31 09:18 | AM.OFFVISMDC ---
Intake Vital Signs 01/31/24 09:19 Weight 281 lb BP 110/72 Blood Pressure Location Rt brachial Position Sitting Pulse 70 Pulse Source Pulse Oximeter Pulse Oximetry (%) 98 Oxygen Delivery Method Room Air Intake Visit Reasons: SWV G0439 Intake Note: Patient here for sub swv. Allergies morphine Allergy (Intermediate, Verified 01/31/24 09:43) shortness of breath Sulfa (Sulfonamide Antibiotics) Allergy (Intermediate, Verified 01/31/24 09:43) rash, hives Medication List - Last Reconciled 01/31/24 by TUNDE Cm alcohol swabs (Alcohol Prep Pads) 1 pad topical DAILY atorvastatin 40 mg PO DAILY blood sugar diagnostic (FreeStyle Test strips) daily blood-glucose meter (FreeStyle System Kit) As directed cholecalciferol (vitamin D3) 50 mcg PO DAILY clotrimazole 1% (Antifungal (clotrimazole)) 1 appl topical BID fluticasone propionate 50 mcg/actuation 1 spray intranasal DAILY PRN lancets (FreeStyle Lancets) test blood sugar one time a day lancets (FreeStyle Unistik 2) daily losartan 25 mg PO DAILY 90 days NS magnesium 400 mg PO DAILY metformin 500 mg PO DAILY metoprolol succinate ER 25 mg PO DAILY rivaroxaban (Xarelto) 20 mg PO DAILY 90 days spironolactone 25 mg PO DAILY Do you need a note to return to daycare/school/sports/work: No HPI SWV G0439 HPI Details Pt is here for an SWV. Denies fever, chills, and dizziness. [place] of care not done. PPP will be scanned in chart and copy will be given to pt. Due for PSA, will order. Denies dribbling with urination, weak stream, and frequent nocturia. [facility] Medical History Arthritis Aortic stenosis COVID-19 vaccine administered Diastolic dysfunction Cardiomyopathy Obesity ALEJANDRA (obstructive sleep apnea) Hyperlipidemia Diabetes mellitus HTN (hypertension) CAD (coronary artery disease) Paroxysmal atrial fibrillation Surgical History Hx of colonoscopy History of esophagogastroduodenoscopy (EGD) History of total left hip replacement History of total right hip replacement Family History Father No problems noted. 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 Current occupational exposures/hazards: No Cognitive needs: No Hearing needs: No Vision needs: No Questionnaire Medicare Wellness Checkup [age] What gender do you identify with?: male During the past 4 weeks, how much have you been bothered by emotional problems such as feeling anxious, depressed, irritable, sad or downhearted, and blue?: not at all During the past 4 weeks, has your physical & emotional health limited your social activities with family, friends, neighbors, or groups?: not at all During the past 4 weeks, how much bodily pain have you generally had?: very mild pain During the past 4 weeks, was someone available to help you if you needed & wanted help?: no, not at all During the past 4 weeks, what was the hardest physical activity you could do for at least 2 minutes?: moderate Can you get to places out of walking distance without help? (For eg., can you travel alone on buses, taxis or drive your car?): Yes Can you go shopping for groceries or clothes without someone's help?: Yes Can you prepare your own meals?: Yes Can you do your housework without help?: Yes Because of any health problems, do you need the help of another person with your personal care needs such as eating, bathing, dressing or getting around the house?: No Can you handle your own money without help?: Yes During the past 4 weeks, how would you rate your health in general?: good During the past 4 weeks how have things been going for you?: pretty well Are you having difficulties driving your car?: no Do you always fasten your seat belt when you are in a car?: no During past 4 weeks, have you been bothered by the following: never: Falling or dizzy when standing up, Sexual problems?, Trouble eating well?, Teeth or denture problems? and Problems using the telephone? and sometimes: Tiredness or fatigue? Have you fallen 2 or more times in the past year?: No Are you afraid of falling?: No Are you a smoker?: yes, and I might quit During the past 4 weeks, how many drinks of wine, beer, or other alcoholic beverages did you have?: 1 drink or less per week Do you exercise for about 20 minutes 3 or more times a week?: no, I usually do not exercise this much Have you been given information to help with the following?: yes: Keeping track of your medications? and no: Hazards in your house that might hurt you? How often do you have trouble taking medicines the way you have been told to take them?: I always take medicine as prescribed How confident are you that you can control & manage most of your health problems?: very confident Mini Mental State Exam (MMSE) Orientation What is the (year) (season) (date) (day) (month)?: year (2023), season (spring) and date (01/31/2024) Where are we (state) (county) (town or city) (hospital) (floor)?: state, county, town or city, hospital/clinic and floor Registration Name of 3 unrelated objects clearly and slowly, then ask patient to repeat all 3 of them. (1st repeat determines score. Make sure they can repeat all three): object 1, object 2 and object 3 Attention & Calculation (CHOOSE ONE) Spell WORLD backwards (DLROW): 5 letters Recall Ask patient to repeat the 3 items from question #3.: object 1, object 2 and object 3 Language Show patient a wristwatch & ask what it is. Repeat for pencil.: watch and pencil Ask the patient to repeat the phrase 'No ifs, ands, or buts' after you.: correct Ask the patient to 'take a piece of paper with their right hand' 'fold paper in half' 'place paper on floor': take paper in right hand, fold paper in half and place paper on floor Print the sentence 'CLOSE YOUR EYES' on a piece. If patient actually closes eyes then score.: followed written direction Give patient a blank piece of paper & ask to write a sentence. Score if it contains a noun & verb.: sentence contains subject and verb Ask patient to copy figure of intersecting pentagons exactly. Score if all 10 angles & 2 intersects are included.: all 10 angles present & 2 are intersected Score Score: 28 Activity of Daily Living Bathing - sponge bath, tub bath or shower: receives no assistance (gets in/out by self, if usual bathing means Dressing - getting clothes from closets & drawers, including inner/outer garments & fasteners.: gets clothes & gets completely dressed without help Toileting - going to the 'toilet room' for urine/bowel elimination & cleaning self/arranging clothes: goes to toilet room, cleans self, arranges clothes without help Transfer: moves in & out of bed and chair without help (may use support object) Continence: controls urination/bowel movements completely by self Feeding: feeds self without help Total Score: 0 Information obtained from: patient Using telephone: independent Traveling: independent Shopping: independent Preparing meals: independent Housework: independent Taking medicine: independent Managing money: independent PHQ-9 Over the last 2 weeks, how often have you been bothered by any of the following problems? 1. Little interest or pleasure in doing things: not at all 2. Feeling down, depressed, or hopeless: not at all 3. Trouble falling or staying asleep, or sleeping too much: not at all 4. Feeling tired or having little energy: not at all 5. Poor appetite or overeating: not at all 6. Feeling bad about yourself - or that you are a failure or have let yourself or your family down: not at all 7. Trouble concentrating on things, such as reading the newspaper or watching television: not at all 8. Moving or speaking so slowly that other people could have noticed. Or the opposite - being so fidgety or restless that you have been moving around a lot more than usual: not at all 9. Thoughts that you would be better off or of hurting yourself in some way: not at all Total score: 0 Depression Screening Interpretation: Negative Depression Screening Done: Yes 88142 - PHQ-9 Billing: Yes Source: Developed by Drs. Blake Rodriguez, Tawana Workman, Krishna Benoit and colleagues, with an educational franklyn from [employer]. Review of Systems Const Reports as per HPI Physical Exam Vital Signs: Last Vital Signs Pulse 70 01/31/24 09:19 BP 110/72 01/31/24 09:19 Pulse Ox 98 01/31/24 09:19 Oxygen Delivery Method Room Air 01/31/24 09:19 Const General: cooperative Orientation/consciousness: patient oriented x3 Neuro Other: - romberg, can tandem walk, can walk and turn, can rise from sitting to standing, passed whisper test General: patient oriented x3 Psych Appearance: grossly normal Mental Status: mental status grossly normal Speech and movement: Normal speech and movement present Affect: normal affect Attitude: cooperative Thought process: Normal thought process present Thought content: Normal thought content present Insight: Good insight present (Psych) Judgement: Good judgement present (Psych) Assessment & Plan Assessment & Plan (1) Screening PSA (prostate specific antigen): Code(s): Z12.5 - Encounter for screening for malignant neoplasm of prostate Plan: PSA ordered (2) Encounter for subsequent annual wellness visit (AWV) in Medicare patient: Code(s): Z00.00 - Encounter for general adult medical examination without abnormal findings Plan: Discussed forms with pt Plan The patient agreed to the use of a medical detail representative for this encounter. Scribed for JAGRUTI Bradley-ALLEY by Mayra Lang medical detail representative, on 01/31/2024 at 09:30 EST. Orders: Orders Prostate Specific Antigen Scr Today Z12.5 - Encounter for screening for malignant neoplasm of prostate Quality Reporting (2019) Depression/Bipolar (159/160/161/177) PHQ-9: Total score: 0 Coding Level of Care Code Medicare Subsequent (G0439) Diagnoses Screening PSA (prostate specific antigen) Z12.5 Encounter for subsequent annual wellness visit (AWV) in Medicare patient Z00.00 CPT Codes Advance Care Planning - Time spent: 1-15 minutes, on File ([id number]) Advance Care Planning Forms completed: Health Care Proxy, MOLST and Living will (done according to pt) Time spent: 1-15 minutes, on File Actual minutes spent: 15
[2024-01-31 09:19] VITALS: BP 110/72; PULSE 70; O2SAT 98
== END 2024-01-31 10:20 | disposition home or self-care (01) ==
PROVIDERS: PCP Nurse Practitioner Family; Visit Provider Nurse Practitioner Family
DX: Z00.00 Encounter for general adult medical examination without abnormal findings (principal); Z12.5 Encounter for screening for malignant neoplasm of prostate
CPT/HCPCS: 1123F; G0439

== ENCOUNTER 2024-04-30 07:15 | Outpatient (REF) | payer MEDICARE, SELFPAY ==
[2024-04-30 10:42] LABS: Prostate Specific Antigen Scr 2.17 ng/mL (<0.05-4.0)
[2024-04-30 10:44] LABS: TSH reflex Free T4 3.49 uIU/mL (0.32-4.0)
== END 2024-04-30 07:16 | disposition home or self-care (01) ==
LOC: HO.HMGCLDS 07:15
PROVIDERS: PCP Nurse Practitioner Family; Visit Provider Nurse Practitioner Family
DX: Z12.5 Encounter for screening for malignant neoplasm of prostate (principal); R79.89 Other specified abnormal findings of blood chemistry
CPT/HCPCS: 36415; 84153; 84443

== ENCOUNTER 2024-05-02 09:40 | Outpatient (AMB) | payer MEDICARE, SELFPAY ==
[2024-05-02 09:43] VITALS: BP 126/80; PULSE 72; O2SAT 96; BMI 42.4
--- NOTE | 2024-05-02 09:43 | A.OFFPC_ITS ---
Vital Signs 05/02/24 09:43 Height 5 ft 8 in Weight 279 lb BMI 42.4 BP 126/80 Blood Pressure Location Rt brachial Position Sitting Pulse 72 Pulse Source Pulse Oximeter Pulse Oximetry (%) 96 Oxygen Delivery Method Room Air Intake Visit Reasons: 3 month follow up Intake Note: pt is here for 3 month follow up Accompanied by: Self / Same As Patient Allergies morphine Allergy (Intermediate, Verified 05/02/24 09:44) shortness of breath Sulfa (Sulfonamide Antibiotics) Allergy (Intermediate, Verified 05/02/24 09:44) rash, hives Medication List - Last Reconciled 05/02/24 by Claudy Bryant, OCCUPATIONAL NURSE- alcohol swabs (Alcohol Prep Pads) 1 pad topical DAILY atorvastatin 40 mg PO DAILY blood sugar diagnostic (FreeStyle Test strips) daily blood-glucose meter (FreeStyle System Kit) As directed cholecalciferol (vitamin D3) 50 mcg PO DAILY clotrimazole 1% (Antifungal (clotrimazole)) 1 appl topical BID fluticasone propionate 50 mcg/actuation 1 spray intranasal DAILY PRN lancets (FreeStyle Lancets) test blood sugar one time a day lancets (FreeStyle Unistik 2) daily losartan 25 mg PO DAILY 90 days NS magnesium 400 mg PO DAILY metformin 500 mg PO DAILY metoprolol succinate ER 25 mg PO DAILY rivaroxaban (Xarelto) 20 mg PO DAILY 90 days spironolactone 25 mg PO DAILY Tobacco use date assessed: 10/10/23 Fall risk assessment: No Falls in past year Last assessed Fall Risk: 05/02/24 Dental Screening Dental Screen Date: 10/10/23 HPI 3 month follow up HPI Details Pt is a diabetic, on an ARB and a statin. A1C in office today is 6.7. Due for microalbumin, will order. Denies polyuria, polydipsia, and neuropathy. Pt denies any signs and symptoms of hypoglycemia and does know how to correct it. Eye exam is up to date, placed in scan pile, no retinopathy noted. Pt smoked 1 pack per day from age 17 until 10 years ago. Will refer for low-dose CT. Pt is following up with GI and cardiology. Pt c/o cough. He reports that this has been present for 1 year since having RSV. Will send benzonatate. Mentioned muccinex for purchase as well (sometimes produces a lot of mucous) PFSH Medical History Arthritis Aortic stenosis COVID-19 vaccine administered Diastolic dysfunction Cardiomyopathy Obesity ALEJANDRA (obstructive sleep apnea) Hyperlipidemia Diabetes mellitus HTN (hypertension) CAD (coronary artery disease) Paroxysmal atrial fibrillation Surgical History Hx of colonoscopy History of esophagogastroduodenoscopy (EGD) History of total left hip replacement History of total right hip replacement Family History Father No problems noted. 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 Current occupational exposures/hazards: No Cognitive needs: No Hearing needs: No Vision needs: No Questionnaire Thrive Questionnaire Date Thrive assessed: 04/29/24 I am a: Patient What is your living situation today?: I have a steady place to live Within the past 12 months, did the food you bought not last and you didn't have the money to get more?: I choose not to answer this question Within the past 12 months, did you worry whether your food would run out before you got money to buy more?: I choose not to answer this question Do you have trouble paying for medicines?: I choose not to answer this question Do you have trouble getting transportation to medical appointments?: I choose not to answer this question Do you have trouble paying your heating and electricity bill?: I choose not to answer this question Do you have trouble taking care of your child, family member or friend?: I choose not to answer this question Do you have trouble with day-to-day activities such as bathing, preparing meals, shopping, managing finances, etc.?: I choose not to answer this question Are you currently unemployed and looking for a job?: I choose not to answer this question Are you interested in more education?: I choose not to answer this question THRIVE Score: 0 AUDIT C Alcohol Use Questionnaire (AUDIT-C) 1. How often do you have a drink containing alcohol?: Monthly or less 2. How many drinks containing alcohol do you have on a typical day when you are drinking?: 1 or 2 3. How often do you have six or more drinks on one occasion?: Never Total Score: 1 KATARINA-7 AMB Questionnaire KATARINA-7 Date KATARINA - 7 assessed: 10/10/23 Feeling nervous, anxious, or on edge: 0 = Not at all Not being able to stop or control worryin = Not at all Worrying too much about different things: 1 = Several days Trouble relaxin = Not at all Being so restless that it is hard to sit still: 0 = Not at all Becoming easily annoyed or irritable: 0 = Not at all Feeling afraid as if something awful might happen: 0 = Not at all Total KATARINA-7 score (0-4 normal; 5-9 mild; 10-14 moderate; 15-21 severe): 1 Source: Developed by Drs. Blake Rodriguez, Tawana Workman, Krishna Benoit and colleagues, with an educational franklyn from [employer]. Review of Systems Const Reports as per HPI Physical exam (Primary Care) Vital Signs: Last Vital Signs Pulse 72 05/02/24 09:43 BP 126/80 05/02/24 09:43 Pulse Ox 96 05/02/24 09:43 Oxygen Delivery Method Room Air 05/02/24 09:43 BMI result Body Mass Index 42.4 Tobacco/Smoking Status: Tobacco use Status Tobacco use date assessed 10/10/23 05/02/24 09:49 Patient Tobacco Use Status Current everyday Tobacco 05/02/24 09:49 Tobacco use type Cigar 05/02/24 09:49 e-Cigarette/Vaping Use Never Used 05/02/24 09:49 Thrive Assessment: Date of Thrive Assessment Date Thrive assessed 04/29/24 05/02/24 09:49 Const General: cooperative Nutritional Appearance: obese morbidly obese Orientation/consciousness: patient oriented x3 Resp Effort & Inspection: normal respiratory effort Auscultation: clear to auscultation bilaterally and diminished lung sounds Cardio Rate: regular rate Rhythm: regular rhythm Heart sounds: S1 normal heart sound present and S2 normal heart sound present Neuro General: patient oriented x3 Extrem Other: bilat feet: + sensation with use of monofilament, feet intact Psych Appearance: grossly normal Mental Status: mental status grossly normal Speech and movement: Normal speech and movement present Affect: normal affect Attitude: cooperative Thought process: Normal thought process present Thought content: Normal thought content present Insight: Good insight present (Psych) Judgement: Good judgement present (Psych) Results AMB Hemoglobin A1c AMB Hemoglobin A1c 6.7 % Last Edit by Wilmer Grullon CMA on 05/02/24 10: 13 Results Reviewed Results Reviewed: Laboratory Last Values Hgb A1c (Clinic) 6.7 % (4.0-6.0) H 05/02/24 10:12 Assessment and Plan Assessment & Plan (1) Smoker: Code(s): F17.200 - Nicotine dependence, unspecified, uncomplicated Plan: Referred for low-dose CT (2) Diabetes mellitus: Comment: taking metformin only-does not check glucose at home Code(s): E11.9 - Type 2 diabetes mellitus without complications Plan: A1C done in office, continue current meds Plan The patient agreed to the use of a medical office professional instructor for this encounter. Scribed for TUNDE Bradley by Mayra Lang medical office professional instructor, on 05/02/2024 at 10:00 EST. Orders: Orders AMB Hemoglobin A1c Today Z13.9 - Encounter for screening, unspecified Referrals Lung Cancer Screening Referral F17.200 - Nicotine dependence, unspecified, uncomplicated Medications: New benzonatate 100 mg PO BID-TID 20 days PRN 40 caps 0RF cough Coding Level of Care Code Est Pt Level 3 (95320) Diagnoses Smoker F17.200 Diabetes mellitus E11.9
== END 2024-05-02 11:15 | disposition home or self-care (01) ==
PROVIDERS: PCP Nurse Practitioner Family; Visit Provider Nurse Practitioner Family
DX: E11.9 Type 2 diabetes mellitus without complications (principal); F17.210 Nicotine dependence, cigarettes, uncomplicated
CPT/HCPCS: 83036; 99213

== ENCOUNTER 2024-05-21 11:28 | Outpatient (AMB) | payer MEDICARE, SELFPAY ==
[2024-05-21 11:39] VITALS: BP 120/78; PULSE 70; BMI 41.9
--- NOTE | 2024-05-21 11:39 | MHC.OFFVIS ---
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 Allergies morphine Allergy (Intermediate, Verified 05/02/24 09:44) shortness of breath Sulfa (Sulfonamide Antibiotics) Allergy (Intermediate, Verified 05/02/24 09:44) rash, hives Medication List - Last Reconciled 05/21/24 by Rylan Mendoza MD alcohol swabs (Alcohol Prep Pads) 1 pad topical DAILY atorvastatin 40 mg PO DAILY benzonatate 100 mg PO BID-TID PRN 20 days blood sugar diagnostic (FreeStyle Test strips) daily blood-glucose meter (FreeStyle System Kit) As directed cholecalciferol (vitamin D3) 50 mcg PO DAILY clotrimazole 1% (Antifungal (clotrimazole)) 1 appl topical BID fluticasone propionate 50 mcg/actuation 1 spray intranasal DAILY PRN lancets (FreeStyle Lancets) test blood sugar one time a day lancets (FreeStyle Unistik 2) daily losartan 25 mg PO DAILY 90 days NS magnesium 400 mg PO DAILY metformin 500 mg PO DAILY metoprolol succinate ER 25 mg PO DAILY rivaroxaban (Xarelto) 20 mg PO DAILY 90 days spironolactone 25 mg PO DAILY HPI Comments Details: Sohail comes for follow-up. He denies any cardiac symptoms. Continues to exertional shortness of breath which is unchanged. Denies any orthopnea, PND, leg edema. No exertional chest pain. Blood pressures been remaining stable around systolic 110-120. No lightheadedness, syncope. No prolonged palpitation irregular heartbeat. Takes all his medications. No bleeding issues or neurologic events. [facility] Medical History Arthritis Aortic stenosis COVID-19 vaccine administered Diastolic dysfunction Cardiomyopathy Obesity ALEJANDRA (obstructive sleep apnea) Hyperlipidemia Diabetes mellitus HTN (hypertension) CAD (coronary artery disease) Paroxysmal atrial fibrillation Surgical History Hx of colonoscopy History of esophagogastroduodenoscopy (EGD) History of total left hip replacement History of total right hip replacement Family History Father No problems noted. 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 Current occupational exposures/hazards: No Cognitive needs: No Hearing needs: No Vision needs: No Review of Systems Const Denies chills, Denies fatigue, Denies fever(s), Denies frequent falls, Denies weakness, Denies weight gain and Denies weight loss ENT Denies dizziness Card Denies chest pain, Denies leg edema, Denies lightheadedness, Denies palpitations, Denies dyspnea, Denies dyspnea on exertion, Denies orthopnea and Denies other (loss of consciousness) Resp Denies cough, Denies dyspnea and Denies dyspnea on exertion GI Denies hematochezia and Denies change in stool character Musc Denies abnormal gait, Denies muscle weakness, Denies numbness, Denies radiating pain into limb and Denies tingling Neuro Denies abnormal gait, Denies dizziness, Denies frequent falls, Denies numbness, Denies tingling and Denies weakness Endo Denies fatigue and Denies palpitations Physical Exam Vital Signs: Last Vital Signs Pulse 70 05/21/24 11:39 BP 120/78 05/21/24 11:39 BMI result Body Mass Index 41.9 Const General: cooperative, comfortable, no acute distress, alert and awake Nutritional Appearance: obese Orientation/consciousness: patient oriented x3 Limitations: no limitations Neck Neck: Yes trachea midline, Yes supple and Yes no JVD Resp Effort & Inspection: normal respiratory effort Auscultation: clear to auscultation bilaterally and diminished lung sounds Cardio Jugular venous distension: no JVD Palpation: normal PMI Rate: regular rate Rhythm: abnormal rhythm with ectopic beats Heart sounds: S1 normal heart sound present, S2 normal heart sound present, no click, no gallops and Murmur heart sound present systolic early and mid GI Auscultation: normal bowel sounds Skin General skin exam: no rashes or lesions noted Neuro General: patient oriented x3 and no focal motor deficits Extrem General: Yes no clubbing, cyanosis or edema Psych Appearance: grossly normal Office Procedures EKG Details: EKG shows normal sinus rhythm with first-degree AV block with left anterior fascicular block 73123-[id number], Complete Assessment & Plan Assessment & Plan (1) Paroxysmal atrial fibrillation: Comment: taking ASA, metoprolol, losartan Code(s): I48.0 - Paroxysmal atrial fibrillation Category: Medical Plan: Paroxysmal atrial fibrillation without any obvious clinical recurrence. He has minimal symptoms with atrial fibrillation that may be difficult to monitor for. However discussed with him about monitoring with his blood pressure monitor and advise us if he has any significant elevated heart rate. For now continue use metoprolol therapy. Continue full oral anticoagulation, currently on Xarelto 20 mg daily. Semi annual renal function test should be pursued. (2) Cardiomyopathy: Code(s): I42.9 - Cardiomyopathy, unspecified Category: Medical Plan: Mild cardiomyopathy prostate without any heart failure syndrome. Clinically euvolemic and well compensated. Continue current neurohormonal modulation with losartan, metoprolol and spironolactone therapy. Follow-up echocardiogram 6 months time. Continue participate in aggressive weight loss program regular physical activity. Smoking cessation was discussed. (3) Aortic stenosis: Code(s): I35.0 - Nonrheumatic aortic (valve) stenosis Category: Medical Plan: Mild aortic stenosis without any clinical progression. Continue aggressive blood pressure control which is currently well optimized. Continue lipid management goal LDL less than 70 mg/dL. Goal hemoglobin A1c less than 7%. Will follow up in the clinic in 6 months time, sooner p.r.n.. Thank you for allowing me to partake in his care Coding Level of Care Code Est Pt Level 4 (96479) Diagnoses Paroxysmal atrial fibrillation I48.0 Cardiomyopathy I42.9 Aortic stenosis I35.0 CPT Codes EKG - CPT: 76606-[id number], Complete ([id number])
== END 2024-05-21 12:06 | disposition home or self-care (01) ==
PROVIDERS: PCP Nurse Practitioner Family; Visit Provider Internal Medicine Cardiovascular Disease
DX: I48.0 Paroxysmal atrial fibrillation (principal); I42.9 Cardiomyopathy, unspecified; I35.0 Nonrheumatic aortic (valve) stenosis
CPT/HCPCS: 93010; 99214

== ENCOUNTER → 2024-05-21 11:28 | Outpatient (BNVA) | payer MEDICARE, SELFPAY | PROVIDERS: PCP Nurse Practitioner Family; Visit Provider Internal Medicine Cardiovascular Disease | DX: I48.0 Paroxysmal atrial fibrillation (principal); I42.9 Cardiomyopathy, unspecified; I35.0 Nonrheumatic aortic (valve) stenosis | CPT/HCPCS: 93005; 99212 ==

== ENCOUNTER 2024-07-05 10:20 | Outpatient (AMB) | payer MEDICARE, SELFPAY ==
--- NOTE | 2024-07-05 08:04 | A.OFFVIS_ITS ---
Intake Visit Reasons: Former Smoker Allergies morphine Allergy (Intermediate, Verified 05/02/24 09:44) shortness of breath Sulfa (Sulfonamide Antibiotics) Allergy (Intermediate, Verified 05/02/24 09:44) rash, hives HPI HPI Former Smoker: Details: Initial visit for this 68yo smoker with a 40PYH. Patient started smoking at age 17 for 41 years at 1ppd. Quit in 2013. Does have occasional cigar. . Denies marijuana use. Denies second hand smoke exposure. Denies exposure to chemicals or substances like asbestos. . Denies known family history of lung cancer. Denies personal history of cancers. Denies chest CT in last year. . Denies recent travel outside the [place]. Denies recent respiratory illness or recent hospitalization for respiratory issues. Denies testing positive for COVID. Admits receiving COVID Vaccine x 2. . Report had RSV 09/2023. Chronic productive hacking cough seems worse since RSV. History ALEJANDRA not on CPAP as did not tolerate. Denies fever, chills, hemoptysis, hoarseness or dysphagia. Denies significant chest pain, significant dyspnea or unintentional weight loss. Patient Lung Cancer Screening Questionnaire reviewed with patient by provider. . Shared Decision Making Completed. Patient meets criteria. Discussed in detail with patient, the risk vs benefit of LDCT screening. Patient consents to proceed with scan. Discussed and encouraged continued smoking cessation. [facility] Medical History (Updated 07/05/24 @ 10:55 by Nilsa Dias PA-C) CAD (coronary artery disease) Cardiomyopathy Diastolic dysfunction Paroxysmal atrial fibrillation Chronic anticoagulation Aortic stenosis HTN (hypertension) Hyperlipidemia Diabetes mellitus ALEJANDRA (obstructive sleep apnea) Nicotine dependence, cigarettes, uncomplicated Arthritis Morbid obesity History of RSV infection (~09/2023) COVID-19 vaccine administered Surgical History (Updated 05/30/24 @ 09:49 by Nilsa Dias PA-C) History of colonoscopy History of esophagogastroduodenoscopy (EGD) History of total left hip replacement History of total right hip replacement Family History Father No problems noted. 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 - Patient meets criteria for LDCT for lung cancer screening purposes and is asymptomatic. - Smoking cessation counseling offered. Patients can always call [phone]. - Will arrange for a LDCT scan of the chest for screening purposes at [facility]. - Risks, benefits, and alternatives were discussed in detail and the patient agrees to proceed. - Risks discussed include but are not limited to: radiation exposure, anxiety during testing and while awaiting results, false negatives, false positives and possibility of additional intervention such as further imaging or surgical procedures for benign disease. - Benefits are obviously detection of lung cancer at an early stage which can lead to improved outcomes. - Discussed the importance of screening program compliance with adherence to yearly LDCT scan as scheduled - or sooner interval scans for personalized screening regimen. - Discussed follow up plan. Our office will send a letter discussing results and if needed set up phone call and office visit based on CT findings. - Patient educated on results categorization and the management decisions for suspicious findings potentially found on the screening LDCT scan. Any patient with a Lung RADS score of 3 or 4 will be reviewed by a multidisciplinary team at [facility] to form a plan of action in regards to scan findings. - If further work up is warranted for a suspicious lung finding this will be followed by the Lung Cancer Screening program in conjunction with the Thoracic Surgery Department at [facility]. - A copy of the office note and LDCT will be sent to the patient's PCP - as well as documentation on any associated further plans of care. - Incidental findings on LDCT are the PCP's responsibility. These findings are indicated with an S finding on the LDCT Assessment. A note discussing the findings will be sent to the PCP who is then responsible for further management. - All questions answered.? - Recommend further discussion with PCP about chronic cough and referral to pulmonology for further work up. Coding Level of Care Code Lung Cancer Screening G0296 Diagnoses Nicotine dependence, cigarettes, uncomplicated F17.210
== END 2024-07-05 11:44 | disposition home or self-care (01) ==
PROVIDERS: PCP Nurse Practitioner Family; Visit Provider Physician Assistant Medical
DX: F17.210 Nicotine dependence, cigarettes, uncomplicated (principal)
CPT/HCPCS: G0296

== ENCOUNTER 2024-07-05 10:50 | Outpatient (REF) | payer MEDICARE, SELFPAY ==
--- NOTE | ~2024-07-05 | CT_ITS ---
EXAMINATION: CT LOW-DOSE SCREENING CHEST WITHOUT CONTRAST CLINICAL INFORMATION: Nicotine dependence, cigarettes, uncomplicated. Former smoker. The patient has a 41 pack-year history of smoking, having quit 10 years ago. COMPARISON: No prior CT. X-ray chest October 10, 2023. TECHNIQUE: Multidetector volumetric CT imaging of the chest is performed on a Siemens SOMATOM Definition scanner without contrast using low dose technique. Additional 2D coronal and sagittal reformatted images and axial 3D maximum intensity projection (MIP) images are generated on the CT workstation. This CT examination was performed using dose optimization techniques as appropriate, variously including the following: *Automated exposure control *Adjustment of mA and/or kV according to patient size (this includes techniques or standardized protocols for targeted exams where dose is matched to indication/reason for exam; i.e. extremities or head) *Use of iterative reconstruction technique TOTAL EXAM DLP: 121 mGy-cm. CTDIvol: 3.78 mGy. FINDINGS: PULMONARY NODULES: -There are a few tiny calcified granulomata in both lungs. These are benign. -2 oval nodules in the minor fissure, the larger measuring 5 mm average diameter, are consistent with intrapulmonary lymph nodes. -There are no left-sided pulmonary nodules. LUNGS: -Lungs are clear bilaterally. No evidence of significant emphysema, interstitial lung disease, consolidations, abnormal opacities or airways disease. -Centrally resume normal. -No effusion or pneumothorax. MEDIASTINUM: -Imaged thyroid normal. -There is no abnormal mediastinal or hilar lymphadenopathy. There is no mediastinal mass. -There is a mild calcific atheromatous change and minimal ectasia of the descending aorta without definitive aneurysm. -There is a normal main pulmonary artery. -Heart size is normal. No pericardial effusion. -Esophagus is normal. CORONARY ARTERY CALCIFICATION: Mild to moderate three-vessel calcification. CHEST WALL/AXILLA: No masses or abnormal lymph nodes. UPPER ABDOMEN: -There are cirrhotic changes of the liver with diffuse fatty infiltration. No focal lesion. -Gallbladder, spleen, pancreas, and adrenal glands appear normal. OSSEOUS STRUCTURES: -No suspicious lytic or blastic bone lesions. -There are moderate spinal and advanced right greater than left shoulder joint arthritic changes. IMPRESSION: 1. There are no suspicious pulmonary nodules present. There are tiny benign calcified nodules. 2. The lungs are clear bilaterally. There is no active pulmonary disease. 3. Ectasia of the descending aorta without aneurysm. 4. Cirrhotic configuration of the liver with diffuse fatty infiltration. No focal abnormality seen. 5. 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 ASSESSMENT: 1. Lung-RADS Category 1: Negative. There are no nodules or there are definitely benign nodules. 2. Lung-RADS Category S: None. RECOMMENDATION: Continued routine annual low-dose CT lung screening in 1 year is recommended. An order for CT CHEST LOW DOSE CANCER SCREENING ([id number]) can be placed. Electronically signed by: Tres Jensen MD 08/22/2024 04:25 PM [facility]
== END 2024-07-05 10:51 | disposition home or self-care (01) ==
LOC: HO.CT 10:50
PROVIDERS: PCP Nurse Practitioner Family; Visit Provider Physician Assistant Medical
DX: Z12.2 Encounter for screening for malignant neoplasm of respiratory organs (principal); F17.210 Nicotine dependence, cigarettes, uncomplicated
CPT/HCPCS: 71271; G0296

== ENCOUNTER → 2024-07-05 10:52 | Outpatient (BNV) | payer MEDICARE, SELFPAY | PROVIDERS: PCP Nurse Practitioner Family; Visit Provider Radiology Diagnostic Radiology | DX: Z12.2 Encounter for screening for malignant neoplasm of respiratory organs (principal); F17.210 Nicotine dependence, cigarettes, uncomplicated | CPT/HCPCS: 71271 ==

== ENCOUNTER 2024-07-22 13:46 | Outpatient (AMB) | payer MEDICARE, SELFPAY ==
--- NOTE | 2024-07-22 13:51 | MHC.OFFVIS ---
Vital Signs 07/22/24 13:52 Height 5 ft 8.5 in Weight 277 lb 12.519 oz BMI 41.6 BP 138/78 Blood Pressure Location Lt brachial Position Sitting Pulse 74 Intake Visit Reasons: Routine Follow up (r/s 05/03) Intake Note: Sohail presents in the office as a routine follow up. CC: States he is not having any concerns today. Wood Room Hand Required: No Allergies morphine Allergy (Intermediate, Verified 07/22/24 13:52) shortness of breath Sulfa (Sulfonamide Antibiotics) Allergy (Intermediate, Verified 07/22/24 13:52) rash, hives HPI HPI Routine Follow up (r/s 05/03): Details: 68 yr old m here for f/u RECAP: Saw Nan initially and was supposed to get colonoscopy was found to have cirrhosis on imaging wth some prominent LN LABS: 03/2022-- HGB: 12.3, plts 170, wcc 6.3 BMP 08/31-- bili 1.2, otherwise nml neg REBECCA neg hep serologies 2018 MELD -Na--13 Imaging: US: 10/20/21 Cirrhotic-appearing liver. 2.6 cm lesion in the right lobe of the liver, question solid lesion versus complex cyst. Follow-up liver MRI recommended. 2 small cysts in the right lobe of the liver. Enlarged spleen. MRI:2021 Cirrhotic-appearing liver. No suspicious liver lesion seen. Liver cysts. Trace ascites. Mild splenomegaly. Enlarged lymph nodes in the periportal, gastrohepatic, and peripancreatic spaces and small retroperitoneal lymph nodes. 0.9 x 1.6 cm simple-appearing cyst in the uncinate process of the head of the pancreas. 1 cm right adrenal gland cyst. Small bilateral renal cysts. 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 Oropharynx clear. Moist mucous membranes. Conjunctivae appear well perfused. No thyroid mass. CHEST: Chest wall is nontender. HEART: Regular rate and rhythm without murmurs. LUNGS: Clear to auscultation bilaterally. ABDOMEN: Soft, positive bowel sounds, nontender, no organomegaly.no flank tenderness SKIN: actinci keratosis, patch of ring worm on right forearm NEUROLOGIC: Cranial nerves II-XII intact without motor/sensory deficit. A/P: 1/ Cirrhosis, prob MENDENHALL related, currently compensated, MRI with cysts, no masses 2/ Colonic polyposis--neg genetic testing 3/ actinic keratosis and jairo corporis on arm PLAN: 1/ ascites: none 2/ HCC: will need q6 monthly imaging for screening--order MRI now--overdue, was ordered last year but not done 3/ HE: no evidence of overt memory issues 4/ Varices: EGD for surveillance 5/ cirrhosis: advised on avoiding alcohol, health eating and weight loss 6/ screening: hep b vaccine, egd, colo--suprep 7/ can try anithistamine for nasal drip 8/ refer derm and given clotrimazole cream [facility] Medical History CAD (coronary artery disease) Cardiomyopathy Diastolic dysfunction Paroxysmal atrial fibrillation Chronic anticoagulation Aortic stenosis HTN (hypertension) Hyperlipidemia Diabetes mellitus ALEJANDRA (obstructive sleep apnea) Nicotine dependence, cigarettes, uncomplicated Arthritis Morbid obesity History of RSV infection (~09/2023) COVID-19 vaccine administered Surgical History History of colonoscopy History of esophagogastroduodenoscopy (EGD) History of total left hip replacement History of total right hip replacement Family History Father No problems noted. 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 Current occupational exposures/hazards: No Cognitive needs: No Hearing needs: No Vision needs: No Physical Exam Vital Signs: Last Vital Signs Pulse 74 07/22/24 13:52 BP 138/78 07/22/24 13:52 BMI result Body Mass Index 41.6 Assessment & Plan Assessment & Plan (1) Actinic keratosis: Code(s): L57.0 - Actinic keratosis Category: Medical Plan: see above (2) Liver cirrhosis: Code(s): K74.60 - Unspecified cirrhosis of liver Category: Medical Plan: as above Orders: Orders MR abdomen wo/w con 07/22/24 K74.60 - Unspecified cirrhosis of liver, L57.0 - Actinic keratosis Complete Blood Count Auto Diff 07/22/24 K74.60 - Unspecified cirrhosis of liver, L57.0 - Actinic keratosis Comprehensive Met. Panel 07/22/24 K74.60 - Unspecified cirrhosis of liver, K75.81 - Nonalcoholic steatohepatitis (MENDENHALL), L57.0 - Actinic keratosis Prothrombin Time INR 07/22/24 K74.60 - Unspecified cirrhosis of liver, L57.0 - Actinic keratosis Referrals Dermatology Referral K74.60 - Unspecified cirrhosis of liver, L57.0 - Actinic keratosis Medications: New sodium,potassium,mag sulfates 17.5-3.13-1.6 gram (Suprep Bowel Prep Kit) DILUTE; drink 1/2 at 6-8 pm and half at 11 PM- 1AM 354 mL 0RF Refilled clotrimazole 1% (Antifungal (clotrimazole)) 1 appl topical BID 60 grams 1RF Coding Level of Care Code Est Pt Level 4 (27430) Diagnoses Actinic keratosis L57.0 Liver cirrhosis K74.60
[2024-07-22 13:52] VITALS: BP 138/78; PULSE 74; BMI 41.6
== END 2024-07-22 14:15 | disposition home or self-care (01) ==
PROVIDERS: PCP Nurse Practitioner Family; Visit Provider Internal Medicine Gastroenterology
DX: L57.0 Actinic keratosis (principal); K74.60 Unspecified cirrhosis of liver
CPT/HCPCS: 99214

== ENCOUNTER → 2024-07-22 13:46 | Outpatient (BNVA) | payer MEDICARE, SELFPAY | PROVIDERS: PCP Nurse Practitioner Family; Visit Provider Internal Medicine Gastroenterology | DX: L57.0 Actinic keratosis (principal); K74.60 Unspecified cirrhosis of liver | CPT/HCPCS: 99212 ==

== ENCOUNTER → 2024-09-22 15:58 | Outpatient (BNV) | payer MEDICARE, SELFPAY | PROVIDERS: PCP Nurse Practitioner Family; Visit Provider Radiology Diagnostic Radiology | DX: K74.60 Unspecified cirrhosis of liver (principal); R16.1 Splenomegaly, not elsewhere classified | CPT/HCPCS: 74183 ==

== ENCOUNTER 2024-09-22 16:00 | Outpatient (REF) | payer MEDICARE, SELFPAY ==
--- NOTE | ~2024-09-22 | MR_ITS ---
EXAMINATION: MRI Abdomen without and with contrast HISTORY: K74.60 - Unspecified cirrhosis of liver COMPARISON: Comparison is made with the prior examination dated 12/14/2021. TECHNIQUE: Axial in and out of phase T1-weighted gradient echo, axial diffusion weighted, and axial and coronal haste T2 with fat saturation images were obtained through the abdomen. Subsequently, fat suppressed axial and coronal T1-weighted images were obtained after the intravenous administration of 10 mL Gadavist. FINDINGS: The liver is again noted to demonstrate a nodular contour consistent with cirrhosis. There is hypertrophy of the caudate lobe. There is a recannulized paraumbilical vein. Again seen are small cysts, the largest of which measures 12 mm in segment VIII. There is a new 3.6 cm mass in segment V (series 12, image 50), which demonstrates arterial phase hyperenhancement as well as an enhancing pseudocapsule. There is no significant washout of the lesion (LR-5). There is an additional 14 x 8 mm lesion in segment VIII at the dome (series 12, image 11) which demonstrates arterial phase rim enhancement with gradual washout (LR-3). No additional enhancing liver lesion is identified. The hepatic and portal veins are patent. There is no intra or extrahepatic biliary ductal dilatation. The gallbladder is unremarkable. The spleen is mildly enlarged. The pancreas is unremarkable. The adrenals are unremarkable. There are tiny nonenhancing subcentimeter T2 hyperintensities in the kidneys which likely represent cysts but are too small to accurately characterize. No ascites is identified in the upper abdomen. There are multiple celiac axis and melissa hepatis lymph nodes measuring up to 3.3 cm in size without change. MR/MR abdomen wo/w con IMPRESSION: 1. Cirrhosis of the liver with splenomegaly. 2. New 3.6 cm LR-5 lesion in segment V as described above. 3. 14 x 8 mm LR-3 lesion in segment VIII. Follow-up is recommended. Electronically signed by: Blake Patel MD 09/24/2024 12:04 PM [facility]
[2024-09-22] MEDS: gadobutroL 10 ML VIAL IVPUSH (17:00)
== END 2024-09-22 16:01 | disposition home or self-care (01) ==
LOC: HO.MRI 16:00
PROVIDERS: PCP Nurse Practitioner Family; Visit Provider Internal Medicine Gastroenterology
DX: K74.60 Unspecified cirrhosis of liver (principal); L57.0 Actinic keratosis
CPT/HCPCS: 74183; A9585

== ENCOUNTER 2024-10-22 11:57 | Day surgery (SDC) | payer MEDICARE, SELFPAY ==
[2024-10-15 10:00] VITALS: BP 127/80; PULSE 65; RESP 16; O2SAT 97; BMI 41.8
--- NOTE | 2024-10-15 10:29 | HO.ANESPROP2 ---
Documented by User: Lucia Chapman NP 10/21/24 08:54 HPI - Anesthesia Eval Consult details Narrative: 69yo M for Fine Needle Biopsy CT Guided (Ablation), 10/22/24 No recent illness. 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 Xarelto for afib. Mild cardiomyopathy.. Euvolemic and well compensated at 05/2024 office visit. Follows [facility] Heme for chronic thrombocytopenia dating back to 2013. Cirrhosis and splenomegaly. No change to treatment per 10/2024 office visit. [facility] Active Problems Active Problems: All Active Problems Actinic keratosis (Acute) Elevated TSH (Acute) Cough (Acute) Low blood pressure (Acute) Enlarged lymph nodes (Acute) Pancreatic cyst (Acute) Liver cirrhosis (Acute) Abnormal ultrasound of abdomen (Acute) Liver lesion (Acute) Thrombocytopenia (Chronic) CAD (coronary artery disease) (Acute) Paroxysmal atrial fibrillation (Acute) Cardiomyopathy (Acute) Aortic stenosis (Acute) Diastolic dysfunction (Acute) HTN (hypertension) (Acute) Hyperlipidemia (Acute) Diabetes mellitus (Acute) ALEJANDRA (obstructive sleep apnea) (Acute) Nicotine dependence, cigarettes, uncomplicated (Acute) Morbid obesity (Acute) Past Medical History Medical History (Updated 10/16/24 @ 14:06 by Clau Martin MD) Shoulder pain, bilateral Chronic cough History of RSV infection (~09/2023) Nicotine dependence, cigarettes, uncomplicated Chronic anticoagulation Arthritis Aortic stenosis Morbid obesity COVID-19 vaccine administered Diastolic dysfunction Cardiomyopathy ALEJANDRA (obstructive sleep apnea) Hyperlipidemia Diabetes mellitus HTN (hypertension) CAD (coronary artery disease) Paroxysmal atrial fibrillation Family History Family History Father No problems noted. Mother HTN (hypertension) Family history of problems with anesthesia: No Surgical History Surgical History History of colonoscopy History of esophagogastroduodenoscopy (EGD) History of total left hip replacement History of total right hip replacement History of Problems with Anesthesia: No Social History Social History (Updated 10/15/24 @ 10:13 by Meghan Foley RN) Household Members: Spouse Household Members Other:: [facility] Housing: House Are you a primary adult daycare coordinator to a significant other at home: No Do you presently have visiting nurse or other home services: No Alcohol intake: current Alcohol intake frequency: a few times a month Patient Tobacco Use Status: Current everyday Tobacco user Tobacco use type: Cigar Years Smoked: (onset 17yo, 1ppd x 41yrs, 40pyh - quit 2014 - daily cigar) e-Cigarette/Vaping Use: Never Used Second Hand Smoke Exposure: No Use of substances other than those prescribed or required for medical reasons: Yes Substance Use Type: Marijuana Substance Use Type Other:: gummies THC for sleep Substance Use Frequency Other:: THC gummies for sleep Have you been hit, kicked, punched, or otherwise hurt by someone within the past year? 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 Current occupational exposures/hazards: No Cognitive needs: No Hearing needs: No Vision needs: No Meds Allergies Allergy/AdvReac Type Severity Reaction Status Date / Time morphine Allergy Intermediate shortness Verified 10/16/24 14:05 of breath Sulfa (Sulfonamide Allergy Intermediate rash, hives Verified 10/16/24 14:05 Antibiotics) Home Medications ?Medication ?Instructions ?Recorded ?Confirmed ?Last Taken ?Type blood-glucose meter (FreeStyle 06/29/21 10/09/24 Unknown History System Kit) atorvastatin 40 mg tablet 40 mg PO DAILY high chloestrol 03/22/22 10/15/24 10/21/24 History spironolactone 25 mg tablet 25 mg PO DAILY 10/04/22 10/15/24 10/15/24 History magnesium 200 mg tablet 300 mg PO DAILY 04/12/23 10/15/24 10/21/24 History melatonin 5 mg chewable tablet 5 mg PO BEDTIME PRN Insomnia 10/15/24 10/15/24 10/21/24 History rivaroxaban 20 mg tablet (Xarelto) 20 mg PO BEDTIME 10/15/24 10/15/24 10/18/24 History Exam Height,Weight and Vital Signs: Height 5 ft 8 in Weight 124.738 kg Last Vital Signs Pulse 65 10/15/24 10:00 Resp 16 10/15/24 10:00 BP 127/80 10/15/24 10:00 Pulse Ox 97 10/15/24 10:00 O2 Del Method Room Air 10/15/24 10:00 Pertinent Lab Results Pertinent Lab Results: Lab Results 10/15/24 Range/Units 10:58 WBC 6.7 (4.8-10.8) X10*3/uL RBC 5.16 (4.60-5.80) X10*6/uL Hgb 14.8 (14.0-18.0) g/dl Hct 45.3 (42.0-52.0) % MCV 87.8 (80.0-98.0) fL MCH 28.7 (27.0-33.0) pg MCHC 32.7 (31.0-36.0) g/dl RDW 15.9 (11.0-16.0) % Plt Count 106 L (160-400) X10*3/uL MPV 11.9 (9.4-12.4) fL Immature Gran % (Auto) 0.3 (0.0-0.4) % Neut % (Auto) 60.5 (45-73) % Lymph % (Auto) 22.0 (20-40) % [place] % (Auto) 13.5 H (2-11) % Eos % (Auto) 3.0 (0-4) % Baso % (Auto) 0.7 (0-2) % Lymph # (Auto) 1.5 (1.2-4.9) X10*3/uL [place] # (Auto) 0.9 (0.1-1.2) X10*3/uL Eos # (Auto) 0.2 (0.0-0.4) X10*3/uL Baso # (Auto) 0.1 (0.0-0.2) X10*3/uL Abs Immat Gran (auto) 0.02 (0.00-0.03) X10*3/uL Absolute Neuts (auto) 4.1 (2.0-8.3) x10*3/uL Absolute Nucleated RBC 0.000 (0.0-0.012) X10*3/uL Nucleated RBC % (auto) 0.0 (0.0-0.2) /100WBC PT 19.0 H (10.9-12.4) SEC INR 1.6 H (0.9-1.1) APTT 36.3 (26.0-36.8) SEC Sodium 141 (135-145) mmol/L Potassium 5.0 (3.3-5.1) mmol/L Chloride 103 (96-108) mmol/L Carbon Dioxide 27 (22-29) mmol/L Anion Gap 16 (12-20) BUN 23 H (9-16) mg/dL Creatinine 1.31 (0.5-1.4) mg/dL Estim Creat Clear Calc 67.4 Estimated GFR 54 Random Glucose 100 (60-115) mg/dL Calcium 9.3 (8.4-10.2) mg/dL Total Bilirubin 0.7 (0.0-1.0) mg/dL AST 38 H (5-37) U/L ALT 17 (0-40) U/L Alkaline Phosphatase 87 (39-117) U/L Total Protein 7.7 (6.5-8.0) g/dL Albumin 4.0 (3.5-5.0) g/dL Narrative Narrative: EKG 05/2024 EKG Details: EKG shows normal sinus rhythm with first-degree AV block with left anterior fascicular block ECHO 11/2023 Conclusions: - 1. Technically difficult study despite use of contrast agent 2. Mildly reduced LV ejection fraction 45-50% 3. Limited visualization of cardiac valves with mild aortic stenosis Airway Partial: Upper and Lower Loose/Missing/Broken Teeth: Yes (3 remaining teeth stable) Heart: RRR Lungs: CTAB Assessment and Plan Assessment Anesthesia Assessment: Anesthesia Plan Discussed and PAT Visit Final Anesthetic Review Family History of Problems with Anesthesia: No History of Problems with Anesthesia: No Documented by User: Henri James MD 10/23/24 11:38 [facility] Past Medical History Medical History (Updated 10/16/24 @ 14:06 by Clau Martin MD) Shoulder pain, bilateral Chronic cough History of RSV infection (~09/2023) Nicotine dependence, cigarettes, uncomplicated Chronic anticoagulation Arthritis Aortic stenosis Morbid obesity COVID-19 vaccine administered Diastolic dysfunction Cardiomyopathy ALEJANDRA (obstructive sleep apnea) Hyperlipidemia Diabetes mellitus HTN (hypertension) CAD (coronary artery disease) Paroxysmal atrial fibrillation Family History Family History Father No problems noted. Mother HTN (hypertension) Surgical History Surgical History History of colonoscopy History of esophagogastroduodenoscopy (EGD) History of total left hip replacement History of total right hip replacement Social History Social History (Updated 10/15/24 @ 10:13 by Meghan Foley RN) Household Members: Spouse Household Members Other:: [facility] Housing: House Are you a primary adult daycare coordinator to a significant other at home: No Do you presently have visiting nurse or other home services: No Alcohol intake: current Alcohol intake frequency: a few times a month Patient Tobacco Use Status: Current everyday Tobacco user Tobacco use type: Cigar Years Smoked: (onset 17yo, 1ppd x 41yrs, 40pyh - quit 2014 - daily cigar) e-Cigarette/Vaping Use: Never Used Second Hand Smoke Exposure: No Use of substances other than those prescribed or required for medical reasons: Yes Substance Use Type: Marijuana Substance Use Type Other:: gummies THC for sleep Substance Use Frequency Other:: THC gummies for sleep Have you been hit, kicked, punched, or otherwise hurt by someone within the past year? 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 Current occupational exposures/hazards: No Cognitive needs: No Hearing needs: No Vision needs: No Meds Allergies Allergy/AdvReac Type Severity Reaction Status Date / Time morphine Allergy Intermediate shortness Verified 10/16/24 14:05 of breath Sulfa (Sulfonamide Allergy Intermediate rash, hives Verified 10/16/24 14:05 Antibiotics) Home Medications ?Medication ?Instructions ?Recorded ?Confirmed ?Last Taken ?Type blood-glucose meter (FreeStyle 06/29/21 10/09/24 Unknown History System Kit) atorvastatin 40 mg tablet 40 mg PO DAILY high chloestrol 03/22/22 10/15/24 10/21/24 History spironolactone 25 mg tablet 25 mg PO DAILY 10/04/22 10/15/24 10/15/24 History magnesium 200 mg tablet 300 mg PO DAILY 04/12/23 10/15/24 10/21/24 History melatonin 5 mg chewable tablet 5 mg PO BEDTIME PRN Insomnia 10/15/24 10/15/24 10/21/24 History rivaroxaban 20 mg tablet (Xarelto) 20 mg PO BEDTIME 10/15/24 10/15/24 10/18/24 History Exam Airway Mallampati Class: II TM Dist: >3cm Neck ROM: Full Assessment and Plan Final Anesthetic Review NPO: Yes ASA Class: III Final Preanesthetic Review: No Changes in Pt Med Stat, Meds/Allgs Chart Reviewed, Consent Obtained/Reviewed and Anes Risks/Benef Reviewed Patient Risk: Intermediate Procedure Risk: Low Anesthetic Plan Anesthetic Plan: GA and MAC: Disposition: Standard PACU
[2024-10-15 11:01] LABS: MANUAL DIFF FLAG NO
[2024-10-15 11:50] LABS: Basophils Absolute Auto 0.1 X10*3/uL (0.0-0.2); Basophils Percent Auto 0.7 % (0-2); Eosinophils Absolute Auto 0.2 X10*3/uL (0.0-0.4); Hematocrit 45.3 % (42.0-52.0); Hemoglobin 14.8 g/dl (14.0-18.0); Imm Gran Abs Auto 0.02 X10*3/uL (0.00-0.03); Imm Gran Pct Auto 0.3 % (0.0-0.4); Lymphocytes Absolute Auto 1.5 X10*3/uL (1.2-4.9); Mean Corpuscular HGB Conc 32.7 g/dl (31.0-36.0); Mean Corpuscular Hemoglobin 28.7 pg (27.0-33.0); Mean Corpuscular Volume 87.8 fL (80.0-98.0); Mean Platelet Volume 11.9 fL (9.4-12.4); Monocytes Absolute Auto 0.9 X10*3/uL (0.1-1.2); Monocytes Percent Auto 13.5 % (2-11); Neutrophils Absolute Auto 4.1 x10*3/uL (2.0-8.3); Neutrophils Percent Auto 60.5 % (45-73); Platelet Count 106 X10*3/uL (160-400); Red Blood Count 5.16 X10*6/uL (4.60-5.80); Red Cell Distribution Width 15.9 % (11.0-16.0); White Blood Count 6.7 X10*3/uL (4.8-10.8)
[2024-10-15 11:55] LABS: INTERNATIONAL NORM RATIO 1.6 (0.9-1.1)
[2024-10-15 11:58] LABS: Partial Thromboplastin Time 36.3 SEC (26.0-36.8)
[2024-10-15 12:30] LABS: Alanine Aminotransferase 17 U/L (0-40); Alkaline Phosphatase 87 U/L (39-117); Anion Gap 16 (12-20); Aspartate Amino Transferase 38 U/L (5-37); Bilirubin Total 0.7 mg/dL (0.0-1.0); Blood Urea Nitrogen 23 mg/dL (9-16); Calcium 9.3 mg/dL (8.4-10.2); Carbon Dioxide 27 mmol/L (22-29); Chloride 103 mmol/L (96-108); Creatinine Clr Calc Pharmacy 67.4; Estimated Glomerular Filt Rate 54; Glucose Random 100 mg/dL (60-115); Sodium 141 mmol/L (135-145); Total Protein 7.7 g/dL (6.5-8.0)
[2024-10-22] VITALS (13 sets, daily range): BP systolic 93–147; BP diastolic 46–91; PULSE 98–122; RESP 16–18; TEMP 36.2–36.8; O2SAT 93–97; BMI 41.8
--- NOTE | ~2024-10-22 | CT_ITS ---
CT-guided percutaneous microwave ablation of liver mass HISTORY/INDICATION: HCC, cirrhosis PROCEDURE NOTE: The procedure, risks, benefits, and alternatives were carefully explained to the patient and written informed consent was obtained. General anesthesia was induced by anesthesia team (see separately reported notes). The patient was placed supine on the CT table. A timeout was performed. A limited CT of the abdomen was performed to localize the right hepatic lobe tumor. The patient was prepped and draped in usual sterile fashion. The skin and deeper soft tissues were anesthetized with lidocaine. The segment 5 hepatic tumor is readily identified. It is abutting the gallbladder superior medially and bowel anteriorly and inferiorly. We accessed the gallbladder with an 18-gauge spinal needle. Normal-appearing bowel was encountered. The gallbladder was aspirated (approximately 60 mL removed) and the needle was removed. This was done in order to collapse the gallbladder and separate it from the tumor. We then placed two 4 Italian Yueh centesis catheter adjacent to the tumor and hydrodissection was performed with saline mixed with contrast (1000 mL saline mixed with 10 mL Omnipaque). This was performed in order to separate the adjacent bowel from the tumor. The segment 5 hepatic tumor was accessed with a Veeip microwave probe. CT scans were performed with 3 plane reconstruction performed on the acquisition workstation in order to confirm adequate hydrodissection. We then performed microwave ablation at 125 W for a 2 minute ablation. We then repositioned the probe to be slightly more anterior and superior and performed an additional ablation at 125 W for a 2 minute ablation. During the ablations we continually instilled the saline/contrast through the two Yueh centesis catheters and performed intermittent imaging to confirm adequate hydrodissection. A total of 800 mL of saline/contrast was instilled in total. At the completion of the procedure, the two Yueh centesis catheters and the microwave probe were removed. Hemostasis was achieved with manual compression and a sterile dressing was applied. Completion CT imaging was performed which does not demonstrate any definite evidence of immediate complication. The fluid from the hydrodissection remains in place in the right hemiabdomen and we elected to leave it in place and allow for natural resorption. The patient was stable after the procedure and was transferred to the post anesthesia care unit. CT/CT Guided RF Ablation Renal Impression: Technically successful CT-guided percutaneous microwave ablation of right hepatic lobe tumor Plan: Follow-up clinic visit in 2 weeks. Follow-up imaging in approximately 6 weeks. Electronically signed by: Sohail Mi MD 10/22/2024 05:06 PM PETER KARIMI
[2024-10-22 12:34] LABS: Glucose, Whole Blood 131 mg/dL (60-115)
--- NOTE | 2024-10-22 12:51 | PC.NURSE ---
[facility] lab x2 for labs and type and screen
[2024-10-22] MEDS: Lactated Ringers 1,000 ML 100 ML IVCONT (12:52)
[2024-10-22 13:17] LABS: MANUAL DIFF FLAG NO
--- NOTE | 2024-10-22 13:20 | MHC.SHP ---
Pre-Procedural Eval Section A - 24 Hr Update-Section A only Date of Service: 10/22/24 Section B - Complete if H&P > 30 days Chief Complaint: Microwave Ablation, Liver Mass Details of Present Illness: 69 y/o man with cirrhosis who presents with a new segement 5 liver mass. He presents for a microwave ablation of the mass. Relevant Social History: Tobacco Use Present Medications: see Short Stay Collaborative assessment Medical History: Significant History History of Previous Operations: Relevant previous surgery/procedure and date(s) Allergies: Allergies Allergy/AdvReac Type Severity Reaction Status Date / Time morphine Allergy Intermediate shortness Verified 10/16/24 14:05 of breath Sulfa (Sulfonamide Allergy Intermediate rash, hives Verified 10/16/24 14:05 Antibiotics) Review of Systems Sugical H&P ROS: Negative: Constitution, Cardiovascular and Respiratory Exam Surgical H&P Exam: Normal: Heart, Normal: Lungs, Normal: Abdomen (soft, protuberant), Normal: Skin and Normal: Neurological Plan 69 y/o man with cirrhosis and new segement 5 liver mass -CT cryoablation Time Spent With Patient Time: Total time managing care of this patient today ____ minutes.
--- OUTSIDE RECORDS SUMMARY | 2024-10-22 13:25 | XMS_ITS | Clinical Summary ---
Author Organization [facility] Address [address] [place] [address] Phone Care Team Providers Care Teaching Artist Name Role Phone Claudy Bryant NP Primary Care Provider [phone] Allergies Active Allergy Reactions Criticality Noted Date Comments Morphine Swelling 02/27/2018 Tongue/Throat swelling Medications atorvastatin (LIPITOR) 20 MG tablet Take 20 mg by mouth every other day Active Vitamin D, Cholecalciferol , 50 MCG (1999) capsule Take by mouth Acti ve fluticasone (FLONASE) 50 MCG/ACT nasal spray Administer 1 spray into each nostril 1 (one) time each day Active Magnesium 200 MG tablet Take by mouth Active metFORMIN (GLUCOPHAGE) 500 MG tablet Take 500 mg by mouth 1 (one) time each day with breakfast In the morning only Active metoprolol succinate XL (TOPROL XL) 25 MG 24 hr tablet Take 25 mg by mouth 1 (one) time each day Do not crush or chew. Active rivaroxaban (XARELTO) 20 MG tablet Take 20 mg by mouth 1 (one) time each day with dinner Active Zinc 100 MG tablet Take 100 mg by mouth 1 (one) time each day Active amLODIPine (NORVASC) 2.5 MG tablet Take 2.5 mg by mouth 1 (one) time each day 3 Active losartan (COZAAR) 25 MG tablet Take 25 mg by mouth 1 (one) time each day 3 Active spironolactone (ALDACTONE) 25 MG tablet TAKE 1 TABLET BY MOUTH EVERY DAY 90 tablet 3 4 Active Active Problems Problem Noted Date Diagnosed Date Hypokalemia 10/03/2023 Atrial fibrillation, not otherwise specified 07/2022 Diabetes mellitus, not otherwise specified 03/21 Hypertension 03/21/2022 Other cirrhosis of liver 03/21/2022 Splenomegaly 03/21/2022 Chronic venous insufficiency 03/21/2022 Proteinuria 10/27/2021 History of repair of hip joint 04/11/2018 Family History Medical History Relation Comments Diabetes Father Heart disease Father Hypertension Mother Stroke Mother Relation Status Comments Father Mother Social History Tobacco Use Types Packs/Day Years Used Date Smoking Tobacco: Every Day Cigarettes Cigars Smokeless Tobacco: Never Alcohol Use Standard Drinks/Week Comments Yes 0 (1 standard drink = 0.6 oz pure alcohol) Holidays/special occasions only Sex and Gender Information Value Date Recorded Sex Assigned at Not on file Legal Sex Male 4:39 PM EST Gender Identity Not on file Sexual Orientation Not on file Last Filed Vital Signs Vital Sign Reading Time Taken Comments Blood Pressure 122/84 10/03/2023 7:49 AM EST Pulse 68 10/03/2023 7:49 AM EST Temperature - - Respiratory Rate - - Oxygen Saturation 98% 10/03/2023 7:49 AM EST Inhaled Oxygen Concentration - - Weight 125 kg (274 lb 9.6 oz) 10/03/2023 7:49 AM EST Height 174 cm (5' 8.5 ) 10/03/2023 7:49 AM EST Body Mass Index 41.15 10/03/2023 7:49 AM EST Plan of Treatment Health Maintenance Due Date Last Done Comments Pneumococcal Vaccine: 65+ Ye ars (1 of 2 - PCV) 1960 Colorectal Cancer Screening: Annual FOBT 2003 Colorectal Cancer Screening: Colonoscopy 2003 Colorectal Cancer Screening: Sigmoidoscopy 2003 Diabetes: Hemoglobin A1C 03/21/2022 Diabetes: Ophthalmology Exam 03/21/2022 Diabetes: Pedal Pulse Checked 03/21/2022 Diabetes: Sensory Foot Exam 03/21/2022 Diabetes: Visual Foot Exam 03/21/2022 Influenza Vaccine (#1) 2024 Hepatitis B Vaccine Aged Out No longe r eligible based on patient's age to complete this topic Insurance MEDICARE [facility] MEDICARE [facility] Care Teams Teaching Artist Relationship Specialty Start Date End Date Claudy Bryant NP [facility] [place], [place] [id number] PCP - General Nurse Practitioner 11/02/21
[2024-10-22 13:26] LABS: Basophils Absolute Auto 0.1 X10*3/uL (0.0-0.2); Basophils Percent Auto 0.9 % (0-2); Eosinophils Absolute Auto 0.1 X10*3/uL (0.0-0.4); Eosinophils Percent Auto 1.3 % (0-4); Hematocrit 45.3 % (42.0-52.0); Imm Gran Abs Auto 0.03 X10*3/uL (0.00-0.03); Imm Gran Pct Auto 0.4 % (0.0-0.4); Lymphocytes Absolute Auto 1.4 X10*3/uL (1.2-4.9); Lymphocytes Percent Auto 16.6 % (20-40); Mean Corpuscular HGB Conc 33.1 g/dl (31.0-36.0); Mean Corpuscular Hemoglobin 28.7 pg (27.0-33.0); Mean Corpuscular Volume 86.6 fL (80.0-98.0); Monocytes Absolute Auto 1.1 X10*3/uL (0.1-1.2); Monocytes Percent Auto 13.6 % (2-11); Neutrophils Absolute Auto 5.5 x10*3/uL (2.0-8.3); Neutrophils Percent Auto 67.2 % (45-73); Red Blood Count 5.23 X10*6/uL (4.60-5.80); Red Cell Distribution Width 15.8 % (11.0-16.0); White Blood Count 8.2 X10*3/uL (4.8-10.8)
[2024-10-22 13:27] LABS: Platelet Count 95 X10*3/uL (160-400)
[2024-10-22 13:28] LABS: INTERNATIONAL NORM RATIO 1.2 (0.9-1.1); Prothrombin Time 13.5 SEC (10.9-12.4)
[2024-10-22 13:31] LABS: Partial Thromboplastin Time 28.4 SEC (26.0-36.8)
[2024-10-22] MEDS: fentaNYL citrate/PF 100 MCG/2 ML VIAL 25 MCG IVPUSH ×2 (17:10→17:20)
== END 2024-10-22 19:40 | disposition home or self-care (01) ==
PROVIDERS: Nurse Practitioner; Physician Assistant Surgical; PCP Nurse Practitioner Family; Visit Provider Student in an Organized Health Care Education/Training Program
DX: R16.0 Hepatomegaly, not elsewhere classified (principal); K74.69 Other cirrhosis of liver; R59.0 Localized enlarged lymph nodes; D69.6 Thrombocytopenia, unspecified; R16.1 Splenomegaly, not elsewhere classified; I48.0 Paroxysmal atrial fibrillation; I42.9 Cardiomyopathy, unspecified; I50.9 Heart failure, unspecified; E11.9 Type 2 diabetes mellitus without complications; G47.33 Obstructive sleep apnea (adult) (pediatric); Z79.01 Long term (current) use of anticoagulants; Z79.899 Other long term (current) drug therapy; Z88.2 Allergy status to sulfonamides; Z88.5 Allergy status to narcotic agent; Z98.890 Other specified postprocedural states
CPT/HCPCS: 36415; 50592; 77013; 80053; 82947; 85025; 85610; 85730; 86850; 86900; 86901; C1729; J0690; J2003; J2250; J2371; J2405; J2704; J3010

== ENCOUNTER → 2024-10-22 14:22 | Outpatient (BNV) | payer MEDICARE, SELFPAY | PROVIDERS: PCP Nurse Practitioner Family; Visit Provider Student in an Organized Health Care Education/Training Program | DX: K74.5 Biliary cirrhosis, unspecified (principal) | CPT/HCPCS: 50592; 77013 ==

== ENCOUNTER 2024-10-28 14:05 | Outpatient (REF) | payer MEDICARE, SELFPAY ==
--- OUTSIDE RECORDS SUMMARY | 2024-10-28 14:10 | XMS_ITS | Clinical Summary ---
Author Organization [facility] Address [address] [place] [address] Phone Care Team Providers Care Field Cashier Name Role Phone Claudy Bryant NP Primary Care Provider [phone] Allergies Active Allergy Reactions Criticality Noted Date [...] age to complete this topic Insurance [facility] Care Teams Field Cashier Relationship Specialty Start Date End Date Claudy Bryant NP [facility] [place], [place] [id number] PCP - General Nurse Practitioner 11/02/21
[2024-10-28 17:31] LABS: Blood Urea Nitrogen 29 mg/dL (9-16); Estimated Glomerular Filt Rate 45
== END 2024-10-28 14:06 | disposition home or self-care (01) ==
LOC: HO.HMGCLDS 14:05
PROVIDERS: PCP Nurse Practitioner Family; Visit Provider Radiology Vascular & Interventional Radiology
DX: R79.89 Other specified abnormal findings of blood chemistry (principal); R94.4 Abnormal results of kidney function studies
CPT/HCPCS: 36415; 82565; 84520

== ENCOUNTER → 2024-11-19 07:58 | Outpatient (REF) | payer MEDICARE, SELFPAY ==
--- NOTE | 2024-11-19 08:01 | CA_ITS ---
Transthoracic Echocardiogram Patient (Last, First, Middle): Sohail Rolle S Gender: Male Date of : 1955 Age: 69 Procedure Date: 11/19/2024 Procedure Type: Transthoracic Echocardiogram Location: OP Height: 172.72 cm Weight: 120.2 kg BSA: 2.30 m2 Heart Rate: bpm BP: 120 / 78 mmHg Penciller: LING Referring MD: Rylan Mendoza MD Symptoms: I42.9 - Cardiomyopathy, unspecified Study Quality: Technically Difficult, contrast ECG Rhythm: Sinus Conclusions: - The left ventricular systolic function is mildly decreased. The visually estimated ejection fraction is between 40-45%. - No obvious valvular pathology seen on this study. Findings Procedure Information Contrast agent, definity, is being given per protocol without apparent complications. Left Ventricle Normal left ventricular cavity size. The left ventricular systolic function is mildly decreased. The visually estimated ejection fraction is between 40 45%. Diastolic function is normal for age. There is moderate septal asymmetric hypertrophy. Right Ventricle Normal right ventricular cavity size and systolic function. Atria Both atria are normal in size. Aortic Valve The aortic valve was not well visualized. There is no aortic valve stenosis. There is no aortic valve regurgitation. Mitral Valve The mitral valve appears normal. There is trace mitral valve regurgitation. There is no mitral valve stenosis. Pulmonic Valve The pulmonic valve is likely normal. Tricuspid Valve There is trace tricuspid valve regurgitation. There is no evidence of pulmonary hypertension. Great Vessels The asc aorta is normal in size. Venous The inferior vena cava is normal in size and collapses greater than 50% with inspiration. Pericardium/Pleural There is no evidence of pericardial effusion. Prior Study Comparison No significant change compared to prior study dated: 12/06/2023. Recommendations, Care & Conclusions No obvious valvular pathology seen on this study. Measurements 2D Linear Measurements IVSd: 1.31 0.6-0.9/0.6-1.0 cm LVIDd: 4.65 3.9-5.3/4.2-5.9 cm LVIDd Index: 2.02 2.4-3.2/2.2-3.1 cm/m2 LVIDs: 3.20 2.0-3.6 cm LVPWd: 0.96 0.7-1.1 cm LV Mass: 240.06 67-162/88-224 g LV Mass Index: 104.37 43-95/49-115 g/m2 LVOT Diam: 2.30 3.0+(-)1.3 cm 2D Systolic Function EF 4C: 43.00 >55% EF 2C: 39.00 >55% EF BiP: 41.30 >55% Mitral Valve MV Pk E: 0.73 MV PK A: 0.55 MV Decel Time: 139.00 E/A: 1.30 E'Lateral: 9.25 E'Medial: 6.20 E/E' Med: 11.70 E/E' Lat: 7.90 PHT: 41.00 MVA PHT: 5.37 Decel Dewey: 5.23 Aortic Valve AoV Pk Rodriguez: 1.61 AoV Mn Rodriguez: 1.15 AoV VTI: 0.30 AoV Pk Grad: 10.00 Aov Mn Grad: 6.00 FATOU Cont.VTI: 1.79 LVOT LVOT Pk Rodriguez: 0.69 LVOT Mn Rodriguez: 0.51 LVOT VTI: 0.13 LVOT Pk Grad: 2.00 LVOT Mn Grad: 1.00 LVOT Diam: 2.30 LVOT Area: 4.15 Diastolic Function MV Pk E: 0.73 MV Pk A: 0.55 E/A: 1.30 E'Medial: 6.20 E/E' Med: 11.70 E' Laterial: 9.25 E/E' Lat: 7.90 Right Ventricle TAPSE (mm): 12.70 TVS' Rodriguez: 11.10 Tricuspid Valve TR Pk Rodriguez: 1.99 TR Pk Grad: 16.00 RA Press: 3.00 RVSP: 19.00 Great Vessels Aorta Sinus of Valsalva: 3.02 2.0-3.5 cm Ao Asc: 3.40 2.1-3.4 cm Updated in Other Vendor System with Status of Final Barron Benitez MD electronically signed on 11/20/2024 10:34:12 AM with status of Final
--- OUTSIDE RECORDS SUMMARY | 2024-11-19 08:15 | XMS_ITS | Clinical Summary ---
Author Organization [facility] Address [address] [place] [address] Phone Care Team Providers Care Powerhouse Electrician Name Role Phone Claudy Bryant NP Primary Care Provider [phone] Allergies Active Allergy Reactions Criticality Noted Date [...] age to complete this topic Insurance MEDICARE [facility] MEDICARE [facility] Care Teams Powerhouse Electrician Relationship Specialty Start Date End Date Claudy Bryant NP [facility] [place], [place] [phone] PCP - General Nurse Practitioner 11/02/21
== END ==
LOC: HO.CARD 07:58
PROVIDERS: PCP Nurse Practitioner Family; Visit Provider Internal Medicine Cardiovascular Disease
DX: I42.9 Cardiomyopathy, unspecified (principal); I48.0 Paroxysmal atrial fibrillation; I25.10 Atherosclerotic heart disease of native coronary artery without angina pectoris
CPT/HCPCS: 93306; Q9957

== ENCOUNTER → 2024-11-19 08:01 | Outpatient (BNV) | payer MEDICARE, SELFPAY | PROVIDERS: PCP Nurse Practitioner Family; Visit Provider Internal Medicine | DX: I42.2 Other hypertrophic cardiomyopathy (principal) | CPT/HCPCS: 93306 ==

== ENCOUNTER 2024-11-20 10:43 | Outpatient (AMB) | payer MEDICARE, SELFPAY ==
[2024-11-20 10:55] VITALS: BP 106/62; PULSE 76; BMI 41.8
--- NOTE | 2024-11-20 10:55 | MHC.OFFVIS ---
Vital Signs 11/20/24 10:55 Height 5 ft 8 in Weight 275 lb BMI 41.8 BP 106/62 Blood Pressure Location Lt brachial Position Sitting Pulse 76 Pulse Source Palpation Intake Visit Reasons: 6 month follow up Allergies morphine Allergy (Intermediate, Verified 10/16/24 14:05) shortness of breath Sulfa (Sulfonamide Antibiotics) Allergy (Intermediate, Verified 10/16/24 14:05) rash, hives Medication List - Last Reconciled 11/20/24 by Rylan Menodza MD atorvastatin 40 mg PO DAILY blood sugar diagnostic (FreeStyle Test strips) daily blood-glucose meter (LibraryThingStyle System Kit) As directed fluticasone propionate 50 mcg/actuation 1 spray intranasal DAILY PRN lancets (FreeStyle Lancets) test blood sugar one time a day lancets (FreeStyle Unistik 2) daily losartan 25 mg PO DAILY 90 days NS magnesium 300 mg PO DAILY metformin 500 mg PO DAILY metoprolol succinate ER 25 mg PO DAILY rivaroxaban (Xarelto) 20 mg PO BEDTIME spironolactone 25 mg PO DAILY HPI Comments Details: Sohail comes for follow-up. Recent echocardiogram shows [id number] LV ejection fraction depression with LVEF of 40-45% which is more or less similar with mild aortic stenosis. He was exertional shortness of breath and also as per the has cough. He was recently treated for liver lesion that was reported as cancer. He was cirrhosis of the liver. He said he has not been able to lose weight much. He unfortunately continues to smoke. Denies any orthopnea, PND, leg edema. Denies exertional chest pain. No prolonged palpitation irregular heartbeat. No bleeding issues or neurologic events. [facility] Medical History Shoulder pain, bilateral Chronic cough History of RSV infection (~09/2023) Nicotine dependence, cigarettes, uncomplicated Chronic anticoagulation Arthritis Aortic stenosis Morbid obesity COVID-19 vaccine administered Diastolic dysfunction Cardiomyopathy ALEJANDRA (obstructive sleep apnea) Hyperlipidemia Diabetes mellitus HTN (hypertension) CAD (coronary artery disease) Paroxysmal atrial fibrillation Surgical History History of colonoscopy History of esophagogastroduodenoscopy (EGD) History of total left hip replacement History of total right hip replacement Family History Father No problems noted. Mother HTN (hypertension) Social History Household Members: Spouse Household Members Other:: [facility] Housing: House Are you a primary child care sitter to a significant other at home: No Do you presently have visiting nurse or other home services: No Alcohol intake: current Alcohol intake frequency: a few times a month Patient Tobacco Use Status: Current everyday Tobacco user Tobacco use type: Cigar Years Smoked: (onset 17yo, 1ppd x 41yrs, 40pyh - quit 2014 - daily cigar) e-Cigarette/Vaping Use: Never Used Second Hand Smoke Exposure: No Substance Use Type: Marijuana service: No Current occupational status: employed 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 Current occupational exposures/hazards: No Cognitive needs: No Hearing needs: No Vision needs: No Review of Systems Const Denies weakness ENT Denies dizziness Card Denies chest pain, Denies chest pain with activity, Denies syncope, Denies rapid heart rate, Denies pedal edema, Denies edema, Denies leg edema, Denies lightheadedness, Denies palpitations, Denies dyspnea, Denies dyspnea on exertion and Denies orthopnea Resp Denies cough, Denies dyspnea and Denies dyspnea on exertion GI Denies hematochezia and Denies change in stool character Musc Denies abnormal gait, Denies muscle cramps, Denies muscle weakness, Denies numbness, Denies radiating pain into limb and Denies tingling Neuro Denies abnormal gait, Denies dizziness, Denies syncope, Denies numbness, Denies tingling and Denies weakness Endo Denies palpitations Physical Exam Vital Signs: Last Vital Signs Pulse 98 11/20/24 10:55 BP 106/62 11/20/24 10:55 BMI result Body Mass Index 41.8 Const General: cooperative, comfortable, no acute distress, alert and awake Nutritional Appearance: obese Orientation/consciousness: patient oriented x3 Limitations: no limitations Neck Neck: Yes trachea midline, Yes supple and Yes no JVD Resp Effort & Inspection: normal respiratory effort Auscultation: clear to auscultation bilaterally and diminished lung sounds Cardio Jugular venous distension: no JVD Palpation: normal PMI Rate: regular rate Rhythm: abnormal rhythm with ectopic beats Heart sounds: S1 normal heart sound present, S2 normal heart sound present, no click, no gallops and Murmur heart sound present systolic early and mid GI Auscultation: normal bowel sounds Skin General skin exam: no rashes or lesions noted Neuro General: patient oriented x3 and no focal motor deficits Extrem General: Yes no clubbing, cyanosis or edema Psych Appearance: grossly normal Assessment & Plan Assessment & Plan (1) Paroxysmal atrial fibrillation: Comment: taking Xarelto, ASA, metoprolol, losartan Code(s): I48.0 - Paroxysmal atrial fibrillation Category: Medical Plan: Paroxysmal atrial fibrillation without any obvious clinical recurrence. Patient has minimal symptoms related to under Mibi difficult to assess. However advised to call me with any irregular heartbeat or fast heart rate. Continue metoprolol therapy. Continue full oral anticoagulation, currently on Xarelto. Semi annual renal function test should be pursued. He will benefit significantly from continue treatment of his obesity and aggressive weight loss program which will reduce his risk of recurrent atrial fibrillation. Also CPAP therapy will help (2) Cardiomyopathy: Code(s): I42.9 - Cardiomyopathy, unspecified Category: Medical Plan: Cardiomyopathy with [id number] LV systolic dysfunction without any obvious signs of overt congestive heart failure. Continue current neurohormonal modulation with losartan, metoprolol, spironolactone. Difficult to uptitrate due to his low blood pressure. He has strong family history for cardiomyopathy as well as atrial fibrillation. Signs and symptoms of heart failure were discussed. His symptoms exertional shortness of breath most likely multifactorial related to LV systolic dysfunction without overt heart failure, morbid obesity, deconditioning as well as possibility of underlying COPD. I have advised complete smoking cessation and will obtain PFTs to further assess underlying lung function. (3) Aortic stenosis: Code(s): I35.0 - Nonrheumatic aortic (valve) stenosis Category: Medical Plan: Aortic stenosis which is mild. No interventions required. Continue aggressive vascular risk factor modification. Currently on full oral anticoagulation Xarelto. Continue aggressive diabetes management goal hemoglobin A1c less than 7%. Blood pressure is currently well optimized may be over corrected. Advised to monitor blood pressure and remains low to call my office. Advised to increase fluid intake and orthostatic precautions were discussed. Will follow up in the clinic in 6 months time, sooner p.r.n.. Thank you for allowing me to partake in his care Orders: Orders PFT pulmonary function test Today F17.210 - Nicotine dependence, cigarettes, uncomplicated, R06.02 - Shortness of breath Coding Level of Care Code Est Pt Level 4 (53674) Complex EM visit Add On G2211 Diagnoses Paroxysmal atrial fibrillation I48.0 Cardiomyopathy I42.9 Aortic stenosis I35.0
--- OUTSIDE RECORDS SUMMARY | 2024-11-20 12:27 | XMS_ITS | Clinical Summary ---
Author Organization [facility] Address [address] [place] [address] Phone Care Team Providers [employer] Professional Name Role Phone Claudy Bryant NP Primary Care Provider [phone] Allergies Active Allergy Reactions Criticality Noted Date [...] age to complete this topic Insurance MEDICARE [facility] MEDICARE [facility] Care Teams [employer] Professional Relationship Specialty Start Date End Date Claudy Bryant NP [facility] [place], [place] [phone] PCP - General Nurse Practitioner 11/02/21
== END 2024-11-20 11:30 | disposition home or self-care (01) ==
LOC: HO.HCS 10:47
PROVIDERS: PCP Nurse Practitioner Family; Visit Provider Internal Medicine Cardiovascular Disease
DX: I48.0 Paroxysmal atrial fibrillation (principal); I42.9 Cardiomyopathy, unspecified; I35.0 Nonrheumatic aortic (valve) stenosis
CPT/HCPCS: 99214; G2211

== ENCOUNTER → 2024-11-20 10:43 | Outpatient (BNVA) | payer MEDICARE, SELFPAY | PROVIDERS: PCP Nurse Practitioner Family; Visit Provider Internal Medicine Cardiovascular Disease | DX: I48.0 Paroxysmal atrial fibrillation (principal); I42.9 Cardiomyopathy, unspecified; I35.0 Nonrheumatic aortic (valve) stenosis | CPT/HCPCS: 99212 ==

== ENCOUNTER 2024-12-25 08:00 | Outpatient (REF) | payer MEDICARE, SELFPAY ==
--- NOTE | 2024-12-25 08:01 | PFT_ITS ---
Indication: Tobacco dependence and cough Spirometry [FEV1 to FVC 62%; FEV1 1.37 L; FVC 2.62 L. there was a significant response to bronchodilators noted.] Lung Volumes [Total lung capacity 70% predicted; residual volume 95% predicted; expiratory reserve volume 28% predicted] Diffusion Capacity [DLCO 46% predicted] Comparisons [none] Interpretation [There is an obstructive ventilatory defect consistent with severe COPD. Significant response to bronchodilators noted. In addition to that the patient does have a restrictive ventilatory defect consistent with mild restrictive lung disease. In addition the patient does have a decreased expiratory reserve volume secondary to an elevated BMI that is likely contributing to the lung volumes. The patient does have a moderate to severe diffusion impairment. Likely secondary to the above. Clinical correlation warranted.] MTDD
--- OUTSIDE RECORDS SUMMARY | 2024-12-25 08:05 | XMS_ITS | Clinical Summary ---
Author Organization [facility] Address [address] [place] [address] Phone Care Team Providers Care [employer] Professional Name Role Phone Unavailable Primary Care Provider Unavailabl e Encounters Date Type Department Care Team Description 12/16/2024 8:15 AM EDT - 12/16/2024 11:59 PM EDT Hospital Encounter [facility] MRI [address] [place] [id number] Liver lesion Discharge Disposition: Home or Self Care from Last 3 Months Social History Tobacco Use Types Packs/Day Years Used Date Smoking Tobacco: Never Assessed Sex and Gender Information Value Date Recorded Sex Assigned at Not on file Legal Sex Male 8:13 AM EDT Gender Identity Not on file Sexual Orientation Not on file Plan of Treatment Health Maintenance Due Date Last Done Comments Diabetes: Annual Foot Exam 1964 Diabetes: Annual Retina Eye Exam 1964 DTaP,Tdap,and Td Vaccines (1 - Tdap) 1973 Zoster Vaccines (1 of 2) 1973 RSV Immunization Adult Patients (1 - Risk 60-74 years 1-dose series) 2014 Diabetes: Annual GFR (Glomerular Filtration Rate) 03/28/2019 03/28/2018 Hepatitis A Vaccines (2 of 2 - Risk 2-dose series) 05/19/2023 11/16/2022 Hepatitis B Vaccines (3 of 3 - Risk 3-dose series) 07/07/2023 05/12/2023, 11/16/2022 COVID-19 Vaccine (2023-2 5 season) 2024 09/05/2021, 12/10/2020, 11/12/2020 Abdominal Aortic Aneurysm (AAA) Screen 12/16/2024 Cholesterol Screening (Lipid Panel) 12/16/2024 Colorectal Cancer Screening: Colonoscopy 12/16/2024 Depression Screening 12/16/2024 Diabetes: Annual Urine Albumin-Creatinine Ratio (uACR) 12/16/2024 Diabetes: Blood Sugar Contro l Test (HGBA1C) 12/16/2024 Falls Risk Assessment 12/16/2024 Hepatitis C Screening 12/16/2024 Hypertension/CHF/CAD Annual BMP Blood Test 12/16/2024 03/28/2018 Social Influencers of Health Screening 12/16/2024 Influenza Vaccine (Season Ended) 2025 Pneumococcal Vaccine: 50+ Years Completed 10/04/2022, 09/29/2021 HIB Vaccines Aged Out No longer eligi ble based on patient's age to complete this topic HPV Vaccines Aged Out No longer eligi ble based on patient's age to complete this topic IPV Vaccines Aged Out No longer eligi ble based on patient's age to complete this topic MMR Vaccines Aged Out No longer eligi ble based on patient's age to complete this topic Meningococcal ACWY Vaccine Aged Out N o longer eligible based on patient's age to complete this topic Meningococcal B Vaccine Aged Out No l onger eligible based on patient's age to complete this topic RSV Immunization Patients Under 20 months Aged Out No longer eligible b ased on patient's age to complete this topic Varicella Vaccines Aged Out No longer eligible based on patient's age to complete this topic Procedures Procedure Name Priority Date/Time Associated Diagnosis Comments MR ABDOMEN WO AND W CONTRAST Routine 12/16/2024 8:55 AM EDT Liver lesion from Last 3 Months Results * MR Abdomen wo and w Contrast (12/16/2024 8:55 AM EDT) Anatomical Region Laterality Modality Body Magnetic Resonan ce 12/19/2024 8:20 AM EDT Impressions 12/19/2024 8:37 AM EDT 1. ??Findings again compatible with cirrhosis. 2. ??Interval decrease in size of a previously noted mass slightly exophytic from segment 5, which has undergone interval ablation. ??The mass previously enhanced homogeneously and now only demonstrates thin rim enhancement. 3. ??Stable ill-defined LIRADS 3 lesion in the dome in segment 8. -------- FINAL REPORT -------- Dictated By: Rajendra Paz Dictated Date: 12/19/2024 08:20 ET Assigned Physician: Rajendra Paz Reviewed and Electronically Signed By: Rajendra Paz Signed Date: 12/19/2024 08:37 ET Workstation ID: [id number] Transcribed By: Self Edit Transcribed Date: 12/19/2024 08:20 ET Narrative 12/19/2024 8:37 AM EDT PROCEDURE: MRI of the abdomen with intravenous contrast. HISTORY: liver lesion. TECHNIQUE: Multiplanar multisequence MRI of the abdomen with and without intravenous contrast. IV contrast dose: ??20 mL intravenous Dotarem from a 20 mL vial with 0 mL discarded. COMPARISON: 09/22/2024 and 12/14/2021. FINDINGS: LOWER THORAX: Normal. LIVER: Nodular contour. ??Multiple small T2 hyperintense lesions which are likely cysts. ??There is a stable ill-defined area of arterial hyperenhancement in the right lobe at the dome (series 12, image 9) measuring approximately 13 mm. ??A round mass exophytic from the inferior aspect of segment 5 (series 12, image 41) is decreased in size, measuring 3.5 x 2.9 cm, previously 3.8 x 3.8 cm. ??There is a rim enhancement on arterial phase images which persists on delayed images. ??The lesion homogeneously enhanced on the previous study. ??No new liver lesion. ??Portal and hepatic veins are patent. ??No signal loss on out of phase imaging. ??Small amount of perihepatic ascites. BILIARY: Normal gallbladder. ??Normal caliber biliary tree. ??No ductal dilatation or filling defect. PANCREAS: No focal lesion. ??No ductal dilatation. SPLEEN: Enlarged, measuring 13.9 cm craniocaudal. ADRENAL GLANDS: Normal. KIDNEYS: Multiple very small T2 hyperintense cortical lesions, probably cysts but too small for definitive characterization. ??Visible portions of the collecting systems are normal. RETROPERITONEUM: No mass or lymphadenopathy. VASCULATURE: No aneurysm. BOWEL/MESENTERY: Visualized bowel loops are normal. ABDOMINAL WALL: Visible portions are normal. BONES: Degenerative changes of the spine. ??No visible bony lesion. Procedure Note Rajendra Paz MD - 12/19/2024 PROCEDURE: MRI of the abdomen with intravenous contrast. HISTORY: liver lesion. TECHNIQUE: Multiplanar multisequence MRI of the abdomen with and withoutintravenous contrast. IV contrast dose: 20 mL intravenous Dotarem from a 20 mL vial with 0 mLdiscarded. COMPARISON: 09/22/2024 and 12/14/2021. FINDINGS: LOWER THORAX: Normal. LIVER: Nodular contour. Multiple small T2 hyperintense lesions which arelikely cysts. There is a stable ill-defined area of arterialhyperenhancement in the right lobe at the dome (series 12, image 9)measuring approximately 13 mm. A round mass exophytic from the inferioraspect of segment 5 (series 12, image 41) is decreased in size, measuring3.5 x 2.9 cm, previously 3.8 x 3.8 cm. There is a rim enhancement onarterial phase images which persists on delayed images. The lesionhomogeneously enhanced on the previous study. No new liver lesion.Portal and hepatic veins are patent. No signal loss on out of phaseimaging. Small amount of perihepatic ascites. BILIARY: Normal gallbladder. Normal caliber biliary tree. No ductaldilatation or filling defect. PANCREAS: No focal lesion. No ductal dilatation. SPLEEN: Enlarged, measuring 13.9 cm craniocaudal. ADRENAL GLANDS: Normal. KIDNEYS: Multiple very small T2 hyperintense cortical lesions, probablycysts but too small for definitive characterization. Visible portions ofthe collecting systems are normal. RETROPERITONEUM: No mass or lymphadenopathy. VASCULATURE: No aneurysm. BOWEL/MESENTERY: Visualized bowel loops are normal. ABDOMINAL WALL: Visible portions are normal. BONES: Degenerative changes of the spine. No visible bony lesion. IMPRESSION: 1. Findings again compatible with cirrhosis. 2. Interval decrease in size of a previously noted mass slightlyexophytic from segment 5, which has undergone interval ablation. The masspreviously enhanced homogeneously and now only demonstrates thin rimenhancement. 3. Stable ill-defined LIRADS 3 lesion in the dome in segment 8. -------- FINAL REPORT -------- Dictated By: Rajendra Paz Dictated Date: 12/19/2024 08:20 ET Assigned Physician: Rajendra Paz Reviewed and Electronically Signed By: Rajendra Paz Signed Date: 12/19/2024 08:37 ET Workstation ID: [id number] Transcribed By: Self Edit Transcribed Date: 12/19/2024 08:20 ET Sohail Mi MD IMG MRI PROCEDURES Final Result from Last 3 Months
--- OUTSIDE RECORDS SUMMARY | 2024-12-25 08:05 | XMS_ITS | Clinical Summary ---
Author Organization [facility] Address [address] [place] [address] Phone Care Team Providers Care [employer] Designer Name Role Phone Claudy Bryant NP Primary Care Provider [phone] Allergies Active Allergy Reactions Criticality Noted Date [...] Due Date Last Done Comments Pneumococcal Vaccine: 50+ Ye ars (1 of 2 - PCV) 1973 Colorectal Cancer Screening: Annual FOBT 2003 Colorectal Cancer Screening: Colonoscopy 2003 Colorectal Cancer Screening: Sigmoidoscopy 2003 Diabetes: Hemoglobin A1C 03/21/2022 Diabetes: Ophthalmology Exam 03/21/2022 Diabetes: Pedal Pulse Checked 03/21/2022 Diabetes: Sensory Foot Exam 03/21/2022 Diabetes: Visual Foot Exam 03/21/2022 Influenza Vaccine (Season Ended) 2025 Hepatitis B Vaccine Aged Out No longe r eligible based on patient's age to complete this topic Insurance Medicare [facility] Medicare [facility] Care Teams Mobile Ui/Ux Designer Relationship Specialty Start Date End Date Claudy Bryant NP [facility] [place], [place] [phone] PCP - General Nurse Practitioner 11/02/21
[2024-12-25 08:46] VITALS: PULSE 84; O2SAT 96
== END 2024-12-25 08:01 | disposition home or self-care (01) ==
LOC: HO.RESP 08:00
PROVIDERS: PCP Nurse Practitioner Family; Visit Provider Internal Medicine Cardiovascular Disease
DX: R06.02 Shortness of breath (principal); F17.210 Nicotine dependence, cigarettes, uncomplicated
CPT/HCPCS: 94010; 94640; 94727; 94729

== ENCOUNTER → 2024-12-25 08:01 | Outpatient (BNV) | payer MEDICARE, SELFPAY | PROVIDERS: PCP Nurse Practitioner Family; Visit Provider Hospitalist | DX: R06.02 Shortness of breath (principal); F17.210 Nicotine dependence, cigarettes, uncomplicated | CPT/HCPCS: 94060; 94727; 94729 ==

== ENCOUNTER 2025-02-05 13:33 | Outpatient (AMB) | payer MEDICARE, SELFPAY ==
[2025-02-05 13:38] VITALS: BP 118/64; PULSE 77; O2SAT 96; BMI 41.9
--- NOTE | 2025-02-05 13:38 | MHC.OFFVIS ---
Vital Signs 02/05/25 13:38 Height 5 ft 8 in Weight 275 lb 8 oz BMI 41.9 BP 118/64 Blood Pressure Location Rt brachial Position Sitting Pulse 77 Pulse Source Pulse Oximeter Pulse Oximetry (%) 96 Oxygen Delivery Method Room Air Intake Visit Reasons: Abnormal results of PFT Allergies morphine Allergy (Intermediate, Verified 02/05/25 13:41) shortness of breath Sulfa (Sulfonamide Antibiotics) Allergy (Intermediate, Verified 02/05/25 13:41) rash, hives HPI HPI Abnormal results of PFT: Details: Sohail is a pleasant 69-year-old male, who former 40 pack-year smoker, now occasional cigars with underlying coronary artery disease, atrial fibrillation on Xarelto, cardiomyopathy, aortic stenosis, diastolic dysfunction, hypertension and diabetes. He was referred by cardiology for pulmonary evaluation after recent PFT revealed severe COPD. He reports ongoing productive cough with associated chest congestion, dyspnea and wheezing. He also endorses postnasal drip. He denies history of recurrent respiratory infections however he did contract RSV last September with significant respiratory symptoms requiring antibiotic and prednisone. He denies any pertinent family history. He reports possible occupational exposures working in [employer] for the last 20+ years. He denies prior respiratory medications. He denies any history of asthma. [facility] Medical History Shoulder pain, bilateral Chronic cough History of RSV infection (~09/2023) Nicotine dependence, cigarettes, uncomplicated Chronic anticoagulation Arthritis Aortic stenosis Morbid obesity COVID-19 vaccine administered Diastolic dysfunction Cardiomyopathy ALEJANDRA (obstructive sleep apnea) Hyperlipidemia Diabetes mellitus HTN (hypertension) CAD (coronary artery disease) Paroxysmal atrial fibrillation Surgical History History of colonoscopy History of esophagogastroduodenoscopy (EGD) History of total left hip replacement History of total right hip replacement Family History Father No problems noted. Mother HTN (hypertension) Social History Household Members: Spouse Household Members Other:: [facility] Housing: House Are you a primary before and after school daycare worker to a significant other at home: No Do you presently have visiting nurse or other home services: No Alcohol intake: current Alcohol intake frequency: a few times a month Patient Tobacco Use Status: Current everyday Tobacco user Tobacco use type: Cigar Years Smoked: (onset 17yo, 1ppd x 41yrs, 40pyh - quit 2014 - daily cigar) e-Cigarette/Vaping Use: Never Used Second Hand Smoke Exposure: No Substance Use Type: Marijuana service: No Current occupational status: employed 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 Current occupational exposures/hazards: No Cognitive needs: No Hearing needs: No Vision needs: No Review of Systems Const Denies chills, Denies excessive sweating, Denies fever(s), Denies headache(s) and Denies night sweats Eyes Denies dry eyes, Denies irritation and Denies itchy eyes ENT Reports Normal hearing present, Denies headache(s), Denies nasal congestion, Denies nasal discharge, Denies post nasal drip and Denies sore throat Card Denies chest pain, Denies chest pain at rest, Denies chest pain with activity, Denies claudication, Denies leg edema, Denies orthopnea and Denies paroxysmal nocturnal dyspnea Resp Denies excessive phlegm production, Denies pain on inspiration, Denies pain with cough and Denies stridor Musc Denies myalgias Neuro Reports Normal hearing present and Denies headache(s) Endo Denies excessive sweating Jeremiah/Lymph Denies lymphadenopathy Aller/Immun Denies itchy eyes and Denies seasonal rhinorrhea Physical Exam Vital Signs: Last Vital Signs Pulse 77 02/05/25 13:38 BP 118/64 02/05/25 13:38 Pulse Ox 96 02/05/25 13:38 Oxygen Delivery Method Room Air 02/05/25 13:38 BMI result Body Mass Index 41.9 Const General: cooperative, healthy appearing, comfortable, no acute distress, well developed and alert Nutritional Appearance: obese Orientation/consciousness: patient oriented x3 Limitations: no limitations HEENT Head: Yes normal to inspection, Yes normocephalic and Yes atraumatic Ears: hearing grossly normal bilaterally and external ears normal Eyes General: appearance normal, both eyes and all related structures Eyelids: Yes eyelids normal Sclerae: sclerae normal EOM: EOMs intact bilaterally Neck Neck: Yes normal visual inspection and Yes no lymphadenopathy Lymphatic: no lymphadenopathy noted Chest Chest palpation & inspection: normal inspection of the chest Resp Effort & Inspection: normal respiratory effort, able to speak in complete sentences, audible wheezes, Actively coughing, no stridor, not tachypneic, no tripod positioning and no use of accessory muscles Auscultation: rhonchi and wheezes Cardio Jugular venous distension: no JVD Rate: regular rate Rhythm: regular rhythm Skin Other: warm, dry General skin exam: no rashes or lesions noted Neuro General: patient oriented x3 Cranial nerves: Yes Normal hearing present Cognition (Neuro): normal cognition Gait exam (Neuro): Normal gait present Extrem General: Yes normal to inspection, Yes capillary refill normal, Yes no clubbing, cyanosis or edema and Yes no pedal edema Psych Appearance: grossly normal and well kempt Speech and movement: Normal speech and movement present and Clear speech present Affect: normal affect Attitude: cooperative Thought process: Normal thought process present Thought content: Normal thought content present Insight: Good insight present (Psych) Judgement: Good judgement present (Psych) Results Reviewed Results Reviewed: [place] [id number] CT Scan Report Signed Patient: Sohail Rolle MR#: [id number] : 1955 Acct:[id number] Age/Sex: 68 / M ADM Date: 07/05/24 Loc: HO.CT Attending Dr: Nilsa Dias PA-C Ordering Physician: Nilsa Dias PA-C Date of Service: 07/05/24 Procedure(s): CT lung screening Accession Number(s): [id number] cc: Claudy Bryant [facility]; Nilsa Dias PA-C~ EXAMINATION: CT LOW-DOSE SCREENING CHEST WITHOUT CONTRAST CLINICAL INFORMATION: Nicotine dependence, cigarettes, uncomplicated. Former smoker. The patient has a 41 pack-year history of smoking, having quit 10 years ago. COMPARISON: No prior CT. X-ray chest October 10, 2023. TECHNIQUE: Multidetector volumetric CT imaging of the chest is performed on a Siemens SOMATOM Definition scanner without contrast using low dose technique. Additional 2D coronal and sagittal reformatted images and axial 3D maximum intensity projection (MIP) images are generated on the CT workstation. This CT examination was performed using dose optimization techniques as appropriate, variously including the following: *Automated exposure control *Adjustment of mA and/or kV according to patient size (this includes techniques or standardized protocols for targeted exams where dose is matched to indication/reason for exam; i.e. extremities or head) *Use of iterative reconstruction technique TOTAL EXAM DLP: 121 mGy-cm. CTDIvol: 3.78 mGy. FINDINGS: PULMONARY NODULES: -There are a few tiny calcified granulomata in both lungs. These are benign. -2 oval nodules in the minor fissure, the larger measuring 5 mm average diameter, are consistent with intrapulmonary lymph nodes. -There are no left-sided pulmonary nodules. LUNGS: -Lungs are clear bilaterally. No evidence of significant emphysema, interstitial lung disease, consolidations, abnormal opacities or airways disease. -Centrally resume normal. -No effusion or pneumothorax. MEDIASTINUM: -Imaged thyroid normal. -There is no abnormal mediastinal or hilar lymphadenopathy. There is no mediastinal mass. -There is a mild calcific atheromatous change and minimal ectasia of the descending aorta without definitive aneurysm. -There is a normal main pulmonary artery. -Heart size is normal. No pericardial effusion. -Esophagus is normal. CORONARY ARTERY CALCIFICATION: Mild to moderate three-vessel calcification. CHEST WALL/AXILLA: No masses or abnormal lymph nodes. UPPER ABDOMEN: -There are cirrhotic changes of the liver with diffuse fatty infiltration. No focal lesion. -Gallbladder, spleen, pancreas, and adrenal glands appear normal. OSSEOUS STRUCTURES: -No suspicious lytic or blastic bone lesions. -There are moderate spinal and advanced right greater than left shoulder joint arthritic changes. CT/CT lung screening IMPRESSION: 1. There are no suspicious pulmonary nodules present. There are tiny benign calcified nodules. 2. The lungs are clear bilaterally. There is no active pulmonary disease. 3. Ectasia of the descending aorta without aneurysm. 4. Cirrhotic configuration of the liver with diffuse fatty infiltration. No focal abnormality seen. 5. 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 ASSESSMENT: 1. Lung-RADS Category 1: Negative. There are no nodules or there are definitely benign nodules. 2. Lung-RADS Category S: None. RECOMMENDATION: Continued routine annual low-dose CT lung screening in 1 year is recommended. An order for CT CHEST LOW DOSE CANCER SCREENING ([id number]) can be placed. Electronically signed by: Tres Jensen MD 08/22/2024 04:25 PM [facility] Dictated By: Tres Jensen MD Signed By: <Electronically signed by Tres Jensen MD in OV> 08/22/24 1625 DD/ 1058 TD/TT: 07/05/24 1111 [employer]: Assessment & Plan Assessment & Plan (1) COPD (chronic obstructive pulmonary disease): Code(s): J44.9 - Chronic obstructive pulmonary disease, unspecified Category: Medical (2) Nicotine dependence, cigarettes, uncomplicated: Comment: (onset 17yo, 1ppd x 41yrs, 40pyh - quit 2014 - occasional cigar) Code(s): F17.210 - Nicotine dependence, cigarettes, uncomplicated Category: Medical Plan Sohail presents for pulmonary evaluation after recent PFT revealed severe COPD. He is currently with an exacerbation, will treat with doxycycline and prednisone. He is aware to call if symptoms do not improve. Reviewed PFT with patient which revealed an obstructive ventilatory defect consistent with severe COPD. Significant response to bronchodilators noted. In addition to that the patient does have a restrictive ventilatory defect consistent with mild restrictive lung disease. In addition the patient does have a decreased expiratory reserve volume secondary to an elevated BMI that is likely contributing to the lung volumes. The patient does have a moderate to severe diffusion impairment, DLCO is 46%. Given the severity of COPD would start patient on Trelegy. Discussed importance of good oral hygiene to prevent thrush. He is currently in the lung screening program and last chest CT from 06/30/2024 RADS1 without significant emphysema and will have repeat CT scheduled in 06/2025. Smoking cessation reviewed, patient not ready to quit this time. All questions were answered and patient is in agreement of plan. Will follow-up in 6-8 weeks or sooner if needed. Medications: New jjgitynusry-ohzkweamq-qzlhnyok 200-62.5-25 mcg (Trelegy Ellipta) 1 inh inhalation DAILY 60 ea 6RF prednisone 40 mg (2 x 20 mg) PO DAILY 10 tabs 0RF doxycycline hyclate 100 mg PO BID 14 caps 0RF Coding Level of Care Code New Pt Level 4 (30269) Diagnoses COPD (chronic obstructive pulmonary disease) J44.9 Nicotine dependence, cigarettes, uncomplicated F17.210
--- OUTSIDE RECORDS SUMMARY | 2025-02-05 14:27 | XMS_ITS | Clinical Summary ---
Author Organization [facility] Address [address] [place] [address] Phone Care Team Providers Care Bed Bug Exterminator Name Role Phone Claudy Bryant NP Primary Care Provider [phone] Allergies Active Allergy Reactions Criticality Noted Date [...] age to complete this topic Insurance Medicare [facility] Medicare [facility] Care Teams Bed Bug Exterminator Relationship Specialty Start Date End Date Claudy Bryant NP [facility] [place], [place] [phone] PCP - General Nurse Practitioner 11/02/21
== END 2025-02-05 14:10 | disposition home or self-care (01) ==
LOC: HO.HPSW 13:34
PROVIDERS: PCP Nurse Practitioner Family; Referring Provider Internal Medicine Cardiovascular Disease; Visit Provider Nurse Practitioner Family
DX: J44.9 Chronic obstructive pulmonary disease, unspecified (principal); F17.210 Nicotine dependence, cigarettes, uncomplicated
CPT/HCPCS: 99204

== ENCOUNTER → 2025-02-05 13:33 | Outpatient (BNVA) | payer MEDICARE, SELFPAY | PROVIDERS: PCP Nurse Practitioner Family; Referring Provider Internal Medicine Cardiovascular Disease; Visit Provider Nurse Practitioner Family | DX: J44.9 Chronic obstructive pulmonary disease, unspecified (principal); F17.210 Nicotine dependence, cigarettes, uncomplicated | CPT/HCPCS: 99202 ==

== ENCOUNTER 2025-03-08 08:30 | Outpatient (REF) | payer MEDICARE, SELFPAY ==
--- OUTSIDE RECORDS SUMMARY | 2025-03-08 08:33 | XMS_ITS | Clinical Summary ---
Author Organization [facility] Address [address] [place] [address] Phone Care Team Providers Care Controller Repairer And Tester Name Role Phone Claudy Bryant NP Primary Care Provider [phone] Allergies Active Allergy Reactions Criticality Noted Date [...] age to complete this topic Insurance Medicare [facility] Medicare [facility] Care Teams Controller Repairer And Tester Relationship Specialty Start Date End Date Claudy Bryant NP [facility] [place], [place] [phone] PCP - General Nurse Practitioner 11/02/21
[2025-03-08 08:45] LABS: MANUAL DIFF FLAG NO
[2025-03-08 09:19] LABS: Basophils Absolute Auto 0.1 X10*3/uL (0.0-0.2); Basophils Percent Auto 0.7 % (0-2); Eosinophils Absolute Auto 0.2 X10*3/uL (0.0-0.4); Eosinophils Percent Auto 2.7 % (0-4); Hematocrit 39.9 % (42.0-52.0); Hemoglobin 13.4 g/dl (14.0-18.0); Imm Gran Abs Auto 0.06 X10*3/uL (0.00-0.03); Imm Gran Pct Auto 0.9 % (0.0-0.4); Lymphocytes Absolute Auto 1.3 X10*3/uL (1.2-4.9); Lymphocytes Percent Auto 19.1 % (20-40); Mean Corpuscular HGB Conc 33.6 g/dl (31.0-36.0); Mean Corpuscular Volume 83.5 fL (80.0-98.0); Mean Platelet Volume 11.9 fL (9.4-12.4); Monocytes Absolute Auto 0.8 X10*3/uL (0.1-1.2); Monocytes Percent Auto 11.8 % (2-11); Neutrophils Absolute Auto 4.5 x10*3/uL (2.0-8.3); Neutrophils Percent Auto 64.8 % (45-73); Platelet Count 104 X10*3/uL (160-400); Red Blood Count 4.78 X10*6/uL (4.60-5.80); Red Cell Distribution Width 16.9 % (11.0-16.0); White Blood Count 6.9 X10*3/uL (4.8-10.8)
[2025-03-08 09:21] LABS: Prothrombin Time 22.6 SEC (10.9-12.4)
[2025-03-08 09:45] LABS: Alanine Aminotransferase 12 U/L (0-40); Albumin Level 3.9 g/dL (3.5-5.0); Alkaline Phosphatase 88 U/L (39-117); Anion Gap 13 (12-20); Aspartate Amino Transferase 40 U/L (5-37); Bilirubin Total 0.7 mg/dL (0.0-1.0); Blood Urea Nitrogen 19 mg/dL (9-16); Calcium 8.6 mg/dL (8.4-10.2); Carbon Dioxide 23 mmol/L (22-29); Chloride 106 mmol/L (96-108); Estimated Glomerular Filt Rate 56; Glucose Random 103 mg/dL (60-115); Potassium 4.9 mmol/L (3.3-5.1); Sodium 137 mmol/L (135-145); Total Protein 6.6 g/dL (6.5-8.0)
== END 2025-03-08 08:31 | disposition home or self-care (01) ==
LOC: HO.LAB 08:30
PROVIDERS: PCP Nurse Practitioner Family; Visit Provider Internal Medicine Gastroenterology
DX: L57.0 Actinic keratosis (principal); K74.60 Unspecified cirrhosis of liver; K75.81 Nonalcoholic steatohepatitis (NASH)
CPT/HCPCS: 36415; 80053; 85025; 85610

== ENCOUNTER 2025-03-11 13:48 | Outpatient (AMB) | payer MEDICARE, SELFPAY ==
--- NOTE | 2025-03-11 13:53 | A.OFFVIS_ITS ---
Intake Vital Signs 03/11/25 13:55 Height 5 ft 8 in Weight 272 lb BMI 41.4 BP 120/72 Blood Pressure Location Lt brachial Position Sitting Pulse 86 Pulse Source Pulse Oximeter Pulse Oximetry (%) 95 Intake Visit Reasons: MWV Allergies morphine Allergy (Intermediate, Verified 03/11/25 14:41) shortness of breath Sulfa (Sulfonamide Antibiotics) Allergy (Intermediate, Verified 03/11/25 14:41) rash, hives Medication List - Last Reconciled 03/11/25 by JAGRUTI Cm- atorvastatin 40 mg PO DAILY blood sugar diagnostic (FreeStyle Test strips) daily blood-glucose meter (FreeStyle System Kit) As directed doxycycline hyclate 100 mg PO BID 10 days fluticasone propionate 50 mcg/actuation 1 spray intranasal DAILY PRN uxrydtzrnug-geprerhjl-skmmnnpu 200-62.5-25 mcg (Trelegy Ellipta) 1 inh inhal ation DAILY lancets (FreeStyle Lancets) test blood sugar one time a day lancets (FreeStyle Unistik 2) daily losartan 25 mg PO DAILY NS magnesium 300 mg PO DAILY metformin 500 mg PO DAILY metoprolol succinate ER 25 mg PO DAILY rivaroxaban (Xarelto) 20 mg PO QPM spironolactone 25 mg PO DAILY Do you need a note to return to daycare/school/sports/work: No HPI MWV HPI Details AWV: CCC not filled out, PPP in scan pile. HPI Comments History of Present Illness Details Chief Complaint The patient presents for diabetes management. History of Present Illness The patient is a 69-year-old male presenting with diabetes management. His hemoglobin A1c is currently 7.0, indicating suboptimal glycemic control. He den ies any symptoms of neuropathy, and sensation is intact upon monofilament testing. The patient has undergone a recent eye examination, which is up to date, as part of his preventative care measures. Social History Health Maintenance - Eye examination is up to date Review of Systems - Neurological: Denies neuropathy Physical Exam General: morbid obesity, Cooperative, healthy appearing, comfortable, no acute distress and well developed Orientation: Patient oriented x3 Limitations: No limitations Head: Normal to inspection Ears: Hearing grossly normal bilaterally Nose: Normal external nose present Face and sinus: Normal facial exam Eyes: Appearance normal, both eyes and all related structures, eye exam is up to date Neck: Normal visual inspection and Yes full ROM Respiratory: Diminished lung sounds but clear to auscultation bilaterally Cardiovascular: Regular rate and rhythm. Normal S1 and S2, systolic murmur GI: Normal to inspection. Soft to palpation and nontender Neuro: Patient oriented x3, sensation intact with monofilament, feet intact bilat Extremities: Normal to inspection Results - Labs: hemoglobin A1c is 7.0 Plan The patient's diabetes management will continue with monitoring of his hemoglobin A1c levels to ensure better glycemic control. Regular follow-up appointments will be scheduled to assess his condition and adjust treatment as necessary. Preventative care measures, including regular eye examinations, will be maintained to monitor for any diabetes-related complications. [facility] Medical History Shoulder pain, bilateral Chronic cough History of RSV infection (~09/2023) Nicotine dependence, cigarettes, uncomplicated Chronic anticoagulation Arthritis Aortic stenosis Morbid obesity COVID-19 vaccine administered Diastolic dysfunction Cardiomyopathy ALEJANDRA (obstructive sleep apnea) Hyperlipidemia Diabetes mellitus HTN (hypertension) CAD (coronary artery disease) Paroxysmal atrial fibrillation Surgical History History of colonoscopy History of esophagogastroduodenoscopy (EGD) History of total left hip replacement History of total right hip replacement Family History Father No problems noted. Mother HTN (hypertension) Social History Household Members: Spouse Household Members Other:: [facility] Housing: House Are you a primary care administrative tech to a significant other at home: No Do you presently have visiting nurse or other home services: No Alcohol intake: current Alcohol intake frequency: a few times a month Patient Tobacco Use Status: Current everyday Tobacco user Tobacco use type: Cigar Years Smoked: (onset 17yo, 1ppd x 41yrs, 40pyh - quit 2014 - daily cigar) e-Cigarette/Vaping Use: Never Used Second Hand Smoke Exposure: No Substance Use Type: Marijuana service: No Current occupational status: employed 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 Current occupational exposures/hazards: No Cognitive needs: No Hearing needs: No Vision needs: No Questionnaire Medicare Wellness Checkup What [age] What gender do you identify with?: male During the past 4 weeks, how much have you been bothered by emotional problems such as feeling anxious, depressed, irritable, sad or downhearted, and blue?: not at all During the past 4 weeks, has your physical & emotional health limited your social activities with family, friends, neighbors, or groups?: not at all During the past 4 weeks, how much bodily pain have you generally had?: very mild pain During the past 4 weeks, was someone available to help you if you needed & wanted help?: no, not at all During the past 4 weeks, what was the hardest physical activity you could do for at least 2 minutes?: moderate Can you get to places out of walking distance without help? (For eg., can you travel alone on buses, taxis or drive your car?): Yes Can you go shopping for groceries or clothes without someone's help?: Yes Can you prepare your own meals?: Yes Can you do your housework without help?: Yes Because of any health problems, do you need the help of another person with your personal care needs such as eating, bathing, dressing or getting around the house?: No Can you handle your own money without help?: Yes During the past 4 weeks, how would you rate your health in general?: good During the past 4 weeks how have things been going for you?: pretty well Are you having difficulties driving your car?: no Do you always fasten your seat belt when you are in a car?: no During past 4 weeks, have you been bothered by the following: never: Falling or dizzy when standing up, Sexual problems?, Trouble eating well?, Teeth or denture problems? and Problems using the telephone? and sometimes: Tiredness or fatigue? Have you fallen 2 or more times in the past year?: No Are you afraid of falling?: No Are you a smoker?: yes, and I might quit During the past 4 weeks, how many drinks of wine, beer, or other alcoholic beverages did you have?: 1 drink or less per week Do you exercise for about 20 minutes 3 or more times a week?: no, I usually do not exercise this much Have you been given information to help with the following?: yes: Keeping track of your medications? and no: Hazards in your house that might hurt you? How often do you have trouble taking medicines the way you have been told to take them?: I always take medicine as prescribed How confident are you that you can control & manage most of your health problems?: very confident Mini Mental State Exam (MMSE) Orientation What is the (year) (season) (date) (day) (month)?: year, season, date, day and month Where are we (state) (county) (town or city) (hospital) (floor)?: state, county, town or city, hospital/clinic and floor Registration Name of 3 unrelated objects clearly and slowly, then ask patient to repeat all 3 of them. (1st repeat determines score. Make sure they can repeat all three): object 1, object 2 and object 3 Attention & Calculation (CHOOSE ONE) Spell WORLD backwards (DLROW): 5 letters Recall Ask patient to repeat the 3 items from question #3.: object 1, object 2 and object 3 Language Show patient a wristwatch & ask what it is. Repeat for pencil.: watch and pencil Ask the patient to repeat the phrase 'No ifs, ands, or buts' after you.: correct Ask the patient to 'take a piece of paper with their right hand' 'fold paper in half' 'place paper on floor': take paper in right hand, fold paper in half and place paper on floor Print the sentence 'CLOSE YOUR EYES' on a piece. If patient actually closes eyes then score.: followed written direction Give patient a blank piece of paper & ask to write a sentence. Score if it contains a noun & verb.: sentence contains subject and verb Ask patient to copy figure of intersecting pentagons exactly. Score if all 10 angles & 2 intersects are included.: all 10 angles present & 2 are intersected Score Score: 30 Activity of Daily Living Bathing - sponge bath, tub bath or shower: receives no assistance (gets in/out by self, if usual bathing means Dressing - getting clothes from closets & drawers, including inner/outer garments & fasteners.: gets clothes & gets completely dressed without help Toileting - going to the 'toilet room' for urine/bowel elimination & cleaning self/arranging clothes: goes to toilet room, cleans self, arranges clothes without help Transfer: moves in & out of bed and chair without help (may use support object) Continence: controls urination/bowel movements completely by self Feeding: feeds self without help Total Score: 0 Information obtained from: patient Using telephone: independent Traveling: independent Shopping: independent Preparing meals: independent Housework: independent Taking medicine: independent PHQ-9 Over the last 2 weeks, how often have you been bothered by any of the following problems? 1. Little interest or pleasure in doing things: not at all 2. Feeling down, depressed, or hopeless: not at all 3. Trouble falling or staying asleep, or sleeping too much: not at all 4. Feeling tired or having little energy: not at all 5. Poor appetite or overeating: not at all 6. Feeling bad about yourself - or that you are a failure or have let yourself or your family down: not at all 7. Trouble concentrating on things, such as reading the newspaper or watching television: not at all 8. Moving or speaking so slowly that other people could have noticed. Or the opposite - being so fidgety or restless that you have been moving around a lot more than usual: not at all 9. Thoughts that you would be better off or of hurting yourself in some way: not at all Total score: 0 Depression Screening Interpretation: Negative Depression Screening Done: Yes 45079 - PHQ-9 Billing: Yes Source: Developed by Drs. Blake Rodriguez, Tawana Workman, Krishna Benoit and colleagues, with an educational franklyn from [employer]. Physical Exam Vital Signs: Last Vital Signs Pulse 86 03/11/25 13:55 BP 120/72 03/11/25 13:55 Pulse Ox 95 03/11/25 13:55 BMI result Body Mass Index 41.4 Neuro Other: able to stand from sitting position, can tandem walk, + whisper test, neg rhomberg Assessment & Plan Assessment & Plan (1) Diabetes mellitus: Comment: taking metformin only-does not check glucose at home Code(s): E11.9 - Type 2 diabetes mellitus without complications (2) Screening PSA (prostate specific antigen): Code(s): Z12.5 - Encounter for screening for malignant neoplasm of prostate (3) Encounter for subsequent annual wellness visit (AWV) in Medicare patient: Code(s): Z00.00 - Encounter for general adult medical examination without abnormal findings Plan . Orders: Orders Comprehensive Snyder. Panel Fast Today E11.9 - Type 2 diabetes mellitus without complications Lipid Panel Today E11.9 - Type 2 diabetes mellitus without complications TSH reflex Free T4 Today E11.9 - Type 2 diabetes mellitus without complications UA CC w/rflx Micro + Cult Today E11.9 - Type 2 diabetes mellitus without complications Prostate Specific Antigen Scr Today Z12.5 - Encounter for screening for malignant neoplasm of prostate Microalbumin, Random (w Creat) Today E11.9 - Type 2 diabetes mellitus without complications Complete Blood Count Auto Diff Today E11.9 - Type 2 diabetes mellitus without complications Medications: New doxycycline hyclate 100 mg PO BID 20 tabs 0RF 10 days Quality Reporting (2019) Depression/Bipolar (159/160/161/177) PHQ-9: Total score: 0 Coding Level of Care Code Medicare Subsequent (G0439) Est Pt Level 3 (07265) Diagnoses Diabetes mellitus E11.9 Screening PSA (prostate specific antigen) Z12.5 Encounter for subsequent annual wellness visit (AWV) in Medicare patient Z00.00 CPT Codes Advance Care Planning - Time spent: 1-15 minutes, on File ([id number]) Additional Codes PHQ-9 - 01063 - PHQ-9 Billing: Yes ([id number]) Advance Care Planning Forms completed: Health Care Proxy (done, scanned), MOLST (done, scanned) and Living will (pt reports this is partially done, currently working with an tax associate attorney) Time spent: 1-15 minutes, on File Actual minutes spent: 8
[2025-03-11 13:55] VITALS: BP 120/72; PULSE 86; O2SAT 95; BMI 41.4
--- OUTSIDE RECORDS SUMMARY | 2025-03-11 14:58 | XMS_ITS | Clinical Summary ---
Author Organization [facility] Address [address] [place] [address] Phone Care Team Providers Care Biofuels Plant Operations Engineer Name Role Phone Unavailable Primary Care Provider Unavailabl e Encounters Date Type Department Care Team Description 02/26/2025 8:18 AM EDT - 02/26/2025 11:59 PM EDT Hospital Encounter [facility] MRI [address] [place] [phone] Cirrhosis (CMS/HCC V24, CMS/HCC V28) Discharge Disposition: Home or Self Care 12/16/2024 8:15 AM EDT - 12/16/2024 11:59 PM EDT Hospital Encounter [facility] MRI [address] [place] [phone] Liver lesion Discharge Disposition: Home or Self [...] 3-dose series) 07/07/2023 05/12/2023, 11/16/2022 COVID-19 Vaccine (4 - 2023-2 5 season) 2024 09/05/2021, 12/10/2020, 11/12/2020 Abdominal Aortic Aneurysm (AAA) Screen 12/16/2024 Cholesterol Screening (Lipid Panel) 12/16/2024 Colorectal Cancer Screening: Colonoscopy 12/16/2024 Depression Screening 12/16/2024 Diabetes: Annual Urine Albumin-Creatinine Ratio (uACR) 12/16/2024 Diabetes: Blood Sugar Contro l Test (HGBA1C) 12/16/2024 Falls Risk Assessment 12/16/2024 Hepatitis C Screening 12/16/2024 Hypertension/CHF/CAD Annual BMP Blood Test 12/16/2024 03/28/2018 Medicare Annual Wellness Visit 12/16/2024 Social Influencers of Health Screening 12/16/2024 Influenza Vaccine (#1) 2025 Pneumococcal Vaccine: 50+ Years Completed 10/04/2022, [...] MR ABDOMEN WO AND W CONTRAST Routine 02/26/2025 9:22 AM EDT Cirrhosis (CMS/HCC V24, CMS/HCC V28) MR ABDOMEN WO AND W CONTRAST Routine 12/16/2024 8:55 AM EDT Liver lesion from Last 3 Months Results * MR Abdomen wo and w Contrast (02/26/2025 9:22 AM EDT) Only the most recent of2 resultswithin the time period is included. Anatomical Region Laterality Modality Body Magnetic Resonan ce 02/26/2025 12:1 2 PM EDT Impressions 02/26/2025 12:35 PM EDT Status post TACE/ABLATE for a segment 5 lesion. Some peripheral enhancement could represent posttreatment change or residual tumor, continued surveillance advised. -------- FINAL REPORT -------- Dictated By: Lillie Hager Dictated Date: 02/26/2025 12:12 ET Assigned Physician: Lillie Hager Reviewed and Electronically Signed By: Lillie Hager Signed Date: 02/26/2025 12:35 ET Workstation ID: [id number] Transcribed By: Self Edit Transcribed Date: 02/26/2025 12:12 ET Narrative 02/26/2025 12:35 PM EDT Enhancing focus MR ABDOMEN WO AND W CONTRAST INDICATION: cirrhosis COMPARISON: None. TECHNIQUE: STIR axial, T1-weighted gradient echo in-phase and [id number]-ra-tmcho axial, HASTE T2-weighted coronal and VIBE T1-weighted 3-dimensional fat saturated images acquired in the axial plane are provided. Intravenous 10cc Dotarem is then given followed by repeat VIBE sequences at multiple phases. FINDINGS: Surveillance images status post TACE/ablation of a previously identified LI-RADS 5 lesion in segment V. The partially exophytic lesion appears to be largely treated with some peripheral enhancement. There is a 8 mm arterially enhancing focus in segment 6/7 not well seen on the other images without definitive washout. Attention on follow-up. There are no other suspicious lesions evident. Nodular contour compatible with cirrhosis of the liver with multiple T2 hyperintense cysts. No splenic lesion. Adrenal glands are unremarkable. No pancreatic mass or ductal dilatation. No kidney mass or hydronephrosis there are multiple tiny renal cysts. Visualized bowel is unremarkable. Degenerative changes of the spine. Lung bases are grossly unremarkable Procedure Note Lillie Hager MD - 02/26/2025 Enhancing focus MR ABDOMEN WO AND W CONTRAST INDICATION: cirrhosis COMPARISON: None. TECHNIQUE: STIR axial, T1-weighted gradient echo in-phase and [id number]-pg-[id number] axial,HASTE T2-weighted coronal and VIBE T1-weighted 3-dimensional fat saturatedimages acquired in the axial plane are provided. Intravenous 10cc Dotaremis then given followed by repeat VIBE sequences at multiple phases. FINDINGS: Surveillance images status post TACE/ablation of a previously identifiedLI-RADS 5 lesion in segment V. The partially exophytic lesion appears enio largely treated with some peripheral enhancement. There is a 8 mmarterially enhancing focus in segment 6/7 not well seen on the otherimages without definitive washout. Attention on follow-up. There are noother suspicious lesions evident. Nodular contour compatible with cirrhosis of the liver with multiple Y3xxqjtrjzoqgl cysts. No splenic lesion. Adrenal glands are unremarkable.No pancreatic mass or ductal dilatation. No kidney mass or hydronephrosisthere are multiple tiny renal cysts. Visualized bowel is unremarkable.Degenerative changes of the spine. Lung bases are grossly unremarkable IMPRESSION: Status post TACE/ABLATE for a segment 5 lesion. Some peripheralenhancement could represent posttreatment change or residual tumor,continued surveillance advised. -------- FINAL REPORT -------- Dictated By: Lillie Hager Dictated Date: 02/26/2025 12:12 ET Assigned Physician: Lillie Hager Reviewed and Electronically Signed By: Lillie Hager Signed Date: 02/26/2025 12:35 ET Workstation ID: [id number] Transcribed By: Self Edit Transcribed Date: 02/26/2025 12:12 ET John Mi MD [facility] MRI PROCEDURES Final Result from Last 3 Months Insurance MEDICARE
--- OUTSIDE RECORDS SUMMARY | 2025-03-11 14:58 | XMS_ITS | Patient Health Record ---
Author Organization [facility] Address [address] [place] [id number] Care Team Providers Care Household Appliance Assembler Name Role Phone Kishore Morocho Jr Reason For Referral No Information Plan Of Treatment No Information
--- OUTSIDE RECORDS SUMMARY | 2025-03-11 14:58 | XMS_ITS | Clinical Summary ---
Author Organization [facility] Address [address] [place] [address] Phone Care Team Providers Care System Support Developer Name Role Phone Claudy Bryant NP Primary Care Provider [phone] Allergies Active Allergy Reactions Criticality Noted Date [...] age to complete this topic Insurance Medicare [facility] Medicare [facility] Care Teams System Support Developer Relationship Specialty Start Date End Date Claudy Bryant NP [facility] [place], [place] [phone] PCP - General Nurse Practitioner 11/02/21
== END 2025-03-11 14:29 | disposition home or self-care (01) ==
LOC: HO.HMCC 13:49
PROVIDERS: PCP Nurse Practitioner Family; Visit Provider Nurse Practitioner Family
DX: Z00.00 Encounter for general adult medical examination without abnormal findings (principal); E11.9 Type 2 diabetes mellitus without complications; Z12.5 Encounter for screening for malignant neoplasm of prostate

== ENCOUNTER → 2025-03-11 13:48 | Outpatient (BNVA) | payer MEDICARE, SELFPAY | PROVIDERS: PCP Nurse Practitioner Family; Visit Provider Nurse Practitioner Family | DX: Z00.00 Encounter for general adult medical examination without abnormal findings (principal); E11.9 Type 2 diabetes mellitus without complications; I10 Essential (primary) hypertension; E78.5 Hyperlipidemia, unspecified | CPT/HCPCS: 83036; 96127; 99212 ==

== ENCOUNTER 2025-03-17 12:45 | Outpatient (AMB) | payer MEDICARE, SELFPAY ==
--- NOTE | 2025-03-17 12:50 | MHC.OFFVIS ---
Vital Signs 03/17/25 12:54 Height 5 ft 8 in Weight 271 lb 2.697 oz BMI 41.2 BP 126/66 Blood Pressure Location Lt brachial Position Sitting Pulse 66 Intake Visit Reasons: US follow up Intake Note: Sohail presents in the office as a follow up Ultrasound. CC: States he is here for results for ultrasound, MRI and liver ablation. Spot Remover Required: No Allergies morphine Allergy (Intermediate, Verified 03/17/25 12:57) shortness of breath Sulfa (Sulfonamide Antibiotics) Allergy (Intermediate, Verified 03/17/25 12:57) rash, hives HPI HPI US follow up: Details: 69 yr old m here for f/u RECAP: Saw Nan initially and was supposed to get colonoscopy was found to have cirrhosis on imaging wth some prominent LN LABS: 03/2022-- HGB: 12.3, plts 170, wcc 6.3 BMP 08/31-- bili 1.2, otherwise nml neg REBECCA neg hep serologies 2018 MELD -Na--13 Imaging: US: 10/20/21 Cirrhotic-appearing liver. 2.6 cm lesion in the right lobe of the liver, question solid lesion versus complex cyst. Follow-up liver MRI recommended. 2 small cysts in the right lobe of the liver. Enlarged spleen. MRI:2021 Cirrhotic-appearing liver. No suspicious liver lesion seen. Liver cysts. Trace ascites. Mild splenomegaly. Enlarged lymph nodes in the periportal, gastrohepatic, and peripancreatic spaces and small retroperitoneal lymph nodes. 0.9 x 1.6 cm simple-appearing cyst in the uncinate process of the head of the pancreas. 1 cm right adrenal gland cyst. Small bilateral renal cysts. Colonsocopy: 02/17/23 and 11/03 with multiple polyps removed no dysplasia noted or neoplasia genetic testing was neg for any mutation He had ablation of HCC by Dr Mi INTERIM: He is doing well since ablation he has gas complaints but he is on metformin drinks alcohol less often now no pain oc cigar EXAM: GENERAL: The patient is well developed and nontoxic, obese VITAL SIGNS:see workflow HEENT: Nonicteric sclerae, PERRLA, EOMI. Oropharynx clear. Moist mucous membranes. Conjunctivae appear well perfused. No thyroid mass. CHEST: Chest wall is nontender. HEART: Regular rate and rhythm without murmurs. LUNGS: Clear to auscultation bilaterally. ABDOMEN: Soft, positive bowel sounds, nontender, no organomegaly.no flank tenderness SKIN: actinci keratosis, patch of ring worm on right forearm,nodulo cystic roscea NEUROLOGIC: Cranial nerves II-XII intact without motor/sensory deficit. A/P: 1/ Cirrhosis, prob [place] related, has HCC s/p RFA 2/ Colonic polyposis--neg genetic testing 3/ actinic keratosis and jairo corporis on arm --seeing derm PLAN: 1/ ascites: none 2/ HCC: receiving rx 3/ HE: no evidence of overt memory issues 4/ Varices: EGD for surveillance with colonoscopy due now 5/ cirrhosis: advised on avoiding alcohol, health eating and weight loss 6/ screening: as above -colo and egd 7/ f/u derm [facility] Medical History Shoulder pain, bilateral Chronic cough History of RSV infection (~09/2023) Nicotine dependence, cigarettes, uncomplicated Chronic anticoagulation Arthritis Aortic stenosis Morbid obesity COVID-19 vaccine administered Diastolic dysfunction Cardiomyopathy ALEJANDRA (obstructive sleep apnea) Hyperlipidemia Diabetes mellitus HTN (hypertension) CAD (coronary artery disease) Paroxysmal atrial fibrillation Surgical History History of colonoscopy History of esophagogastroduodenoscopy (EGD) History of total left hip replacement History of total right hip replacement Family History Father No problems noted. Mother HTN (hypertension) Social History Household Members: Spouse Household Members Other:: [facility] Housing: House Are you a primary career center advisor to a significant other at home: No Do you presently have visiting nurse or other home services: No Alcohol intake: current Alcohol intake frequency: a few times a month Patient Tobacco Use Status: Current everyday Tobacco user Tobacco use type: Cigar Years Smoked: (onset 17yo, 1ppd x 41yrs, 40pyh - quit 2014 - daily cigar) e-Cigarette/Vaping Use: Never Used Second Hand Smoke Exposure: No Substance Use Type: Marijuana service: No Current occupational status: employed 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
[2025-03-17 12:54] VITALS: BP 126/66; PULSE 66; BMI 41.2
--- OUTSIDE RECORDS SUMMARY | 2025-03-17 13:17 | XMS_ITS | Patient Health Record ---
Author Organization [facility] Address [address] [place] [address] Care Team Providers Care Senior Scheduler Name Role Phone Kishore Morocho Jr Reason For Referral No Information Plan Of Treatment No Information
--- OUTSIDE RECORDS SUMMARY | 2025-03-17 13:17 | XMS_ITS | Clinical Summary ---
Author Organization [facility] Address [address] [place] [address] Phone Care Team Providers Care Foreign Broadcast Specialist Name Role Phone Claudy Bryant NP Primary Care Provider [phone] Allergies Active Allergy Reactions Criticality Noted Date [...] Visual Foot Exam 03/21/2022 Influenza Vaccine (#1) 2025 Hepatitis B Vaccine Aged Out No longe r eligible based on patient's age to complete this topic Insurance Medicare [facility] Medicare [facility] Care Teams Foreign Broadcast Specialist Relationship Specialty Start Date End Date Claudy Bryant NP [facility] [place], [place] [phone] PCP - General Nurse Practitioner 11/02/21
--- OUTSIDE RECORDS SUMMARY | 2025-03-17 13:17 | XMS_ITS | Clinical Summary ---
Author Organization [facility] Address [address] [place] [address] Phone Care Team Providers Care Granite Polisher Machine Name Role Phone Unavailable Primary Care Provider Unavailabl e Encounters Date Type Department Care Team Description 02/26/2025 8:18 AM EDT - 02/26/2025 11:59 PM EDT Hospital Encounter [facility] MRI [address] [place] [phone] Cirrhosis (CMS/HCC V24, CMS/HCC V28) Discharge Disposition: Home or Self Care 12/16/2024 8:15 AM EDT - 12/16/2024 11:59 PM EDT Hospital Encounter [facility] MRI [address] [place] [phone] Liver lesion Discharge Disposition: Home or Self [...] Signed Date: 02/26/2025 12:35 ET Workstation ID: [id number] Transcribed By: Self Edit Transcribed Date: 02/26/2025 12:12 ET Narrative 02/26/2025 12:35 PM EDT Enhancing focus MR ABDOMEN WO AND W CONTRAST INDICATION: cirrhosis COMPARISON: None. TECHNIQUE: STIR axial, T1-weighted gradient echo in-phase and nfp-fg-hctix axial, HASTE T2-weighted coronal and VIBE T1-weighted [...] STIR axial, T1-weighted gradient echo in-phase and wcb-vz-hpqmp axial,HASTE T2-weighted coronal and VIBE T1-weighted 3-dimensional [...] with cirrhosis of the liver with multiple E2nswalessdqky cysts. No splenic lesion. Adrenal glands are [...] Signed Date: 02/26/2025 12:35 ET Workstation ID: [id number] Transcribed By: Self Edit Transcribed Date: 02/26/2025 12:12 ET John Mi MD [facility] MRI PROCEDURES Final Result from Last 3 Months Insurance MEDICARE
== END 2025-03-17 13:13 | disposition home or self-care (01) ==
LOC: HO.HGI 12:46
PROVIDERS: PCP Nurse Practitioner Family; Visit Provider Internal Medicine Gastroenterology
DX: K74.60 Unspecified cirrhosis of liver (principal)
CPT/HCPCS: 99214

== ENCOUNTER → 2025-03-17 12:45 | Outpatient (BNVA) | payer MEDICARE, SELFPAY | PROVIDERS: PCP Nurse Practitioner Family; Visit Provider Internal Medicine Gastroenterology | DX: K74.60 Unspecified cirrhosis of liver (principal); E66.9 Obesity, unspecified; Z79.84 Long term (current) use of oral hypoglycemic drugs; Z79.899 Other long term (current) drug therapy; Z68.41 Body mass index [BMI] 40.0-44.9, adult | CPT/HCPCS: 99212 ==

== ENCOUNTER 2025-03-26 09:12 | Outpatient (AMB) | payer MEDICARE, SELFPAY ==
--- NOTE | 2025-03-26 09:14 | A.OFFVIS_ITS ---
Vital Signs 03/26/25 09:18 Height 5 ft 8 in Weight 272 lb 6 oz BMI 41.4 BP 124/88 Blood Pressure Location Rt brachial Position Sitting Pulse 60 Pulse Source Pulse Oximeter Pulse Oximetry (%) 96 Oxygen Delivery Method Room Air Intake Visit Reasons: Abnormal results of PFT Allergies morphine Allergy (Intermediate, Verified 03/26/25 09:21) shortness of breath Sulfa (Sulfonamide Antibiotics) Allergy (Intermediate, Verified 03/26/25 09:21) rash, hives HPI HPI Abnormal results of PFT: Details: Sohail is a pleasant 69-year-old male, former 40 pack-year smoker, now occasional cigars with underlying severe COPD, coronary artery disease, atrial fibrillation on Xarelto, cardiomyopathy, aortic stenosis, diastolic dysfunction, hypertension and diabetes. At the last visit in January he was treated with doxycycline and prednisone for an exacerbation with resolution of symptoms. He was also started on Trelegy and reports moderate improvement in symptoms continues with dyspnea on exertion and intermittent wheezing/cough. He denies any visits to urgent care or hospitalizations related to respiratory distress since the last visit. [facility] Medical History Shoulder pain, bilateral Chronic cough History of RSV infection (~09/2023) Nicotine dependence, cigarettes, uncomplicated Chronic anticoagulation Arthritis Aortic stenosis Morbid obesity COVID-19 vaccine administered Diastolic dysfunction Cardiomyopathy ALEJANDRA (obstructive sleep apnea) Hyperlipidemia Diabetes mellitus HTN (hypertension) CAD (coronary artery disease) Paroxysmal atrial fibrillation Surgical History History of colonoscopy History of esophagogastroduodenoscopy (EGD) History of total left hip replacement History of total right hip replacement Family History Father No problems noted. Mother HTN (hypertension) Social History Household Members: Spouse Household Members [facility]:: [facility] Housing: House Are you a primary transitional care nurse to a significant other at home: No Do you presently have visiting nurse or other home services: No Alcohol intake: current Alcohol intake frequency: a few times a month Patient Tobacco Use Status: Current everyday Tobacco user Tobacco use type: Cigar Years Smoked: (onset 17yo, 1ppd x 41yrs, 40pyh - quit 2014 - daily cigar) e-Cigarette/Vaping Use: Never Used Second Hand Smoke Exposure: No Substance Use Type: Marijuana service: No Current occupational status: employed 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 Current occupational exposures/hazards: No Cognitive needs: No Hearing needs: No Vision needs: No Review of Systems Const Denies chills, Denies excessive sweating, Denies fever(s), Denies headache(s) and Denies night sweats Eyes Denies dry eyes, Denies irritation and Denies itchy eyes ENT Reports Normal hearing present, Denies headache(s), Denies nasal congestion, Denies nasal discharge, Denies post nasal drip and Denies sore throat Card Denies chest pain, Denies chest pain at rest, Denies chest pain with activity, Denies claudication, Denies leg edema, Denies orthopnea and Denies paroxysmal nocturnal dyspnea Resp Denies chest congestion, Denies excessive phlegm production, Denies pain on inspiration, Denies pain with cough, Denies stridor and Denies wheezing Musc Denies myalgias Neuro Reports Normal hearing present and Denies headache(s) Endo Denies excessive sweating Jeremiah/Lymph Denies lymphadenopathy Aller/Immun Denies itchy eyes, Denies seasonal rhinorrhea and Denies wheezing Physical Exam Vital Signs: Last Vital Signs Pulse 60 03/26/25 09:18 BP 124/88 03/26/25 09:18 Pulse Ox 96 03/26/25 09:18 Oxygen Delivery Method Room Air 03/26/25 09:18 BMI result Body Mass Index 41.4 Const General: cooperative, healthy appearing, comfortable, no acute distress, well developed and alert Nutritional Appearance: obese Orientation/consciousness: patient oriented x3 Limitations: no limitations HEENT Head: Yes normal to inspection, Yes normocephalic and Yes atraumatic Ears: hearing grossly normal bilaterally and external ears normal Eyes General: appearance normal, both eyes and all related structures Eyelids: Yes eyelids normal Sclerae: sclerae normal EOM: EOMs intact bilaterally Neck Neck: Yes normal visual inspection and Yes no lymphadenopathy Lymphatic: no lymphadenopathy noted Chest Chest palpation & inspection: normal inspection of the chest Resp Other: faint inspiratory bibasilar crackles Effort & Inspection: normal respiratory effort, able to speak in complete sentences, no audible wheezes, no cough, no stridor, not tachypneic, no tripod positioning and no use of accessory muscles Auscultation: diminished lung sounds Cardio Jugular venous distension: no JVD Rate: regular rate Rhythm: regular rhythm Skin Other: warm, dry General skin exam: no rashes or lesions noted Neuro General: patient oriented x3 Cranial nerves: Yes Normal hearing present Cognition (Neuro): normal cognition Gait exam (Neuro): Normal gait present Extrem General: Yes normal to inspection, Yes capillary refill normal, Yes no clubbing, cyanosis or edema and Yes no pedal edema Psych Appearance: grossly normal and well kempt Speech and movement: Normal speech and movement present and Clear speech present Affect: normal affect Attitude: cooperative Thought process: Normal thought process present Thought content: Normal thought content present Insight: Good insight present (Psych) Judgement: Good judgement present (Psych) Assessment & Plan Assessment & Plan (1) COPD (chronic obstructive pulmonary disease): Code(s): J44.9 - Chronic obstructive pulmonary disease, unspecified Category: Medical (2) Nicotine dependence, cigarettes, uncomplicated: Comment: (onset 17yo, 1ppd x 41yrs, 40pyh - quit 2013 - occasional cigar) Code(s): F17.210 - Nicotine dependence, cigarettes, uncomplicated Category: Medical Plan Patient reports suboptimal control on current regimen of Trelegy, will add nebulized therapy. He was given nebulizer in office for home use and DuoNeb sent to pharmacy. On exam patient inspiratory bibasilar crackles, no symptoms suggestive of infectious process and denies BLE edema or orthopnea. Will send for CXR and BNP to further evaluate. He is currently in the lung screening program and last chest CT from 06/30/2024 RADS1 without significant emphysema and will have repeat CT scheduled in 06/2025. Smoking cessation reviewed, patient working towards quitting. All questions were answered and patient is in agreement of plan. Will follow-up in 6-8 weeks or sooner if needed. Orders: Orders XR chest 2V Today R06.00 - Dyspnea, unspecified B Type Natriuretic Peptide Today R06.00 - Dyspnea, unspecified Medications: New ipratropium-albuterol 0.5 mg-3 mg(2.5 mg base)/3 mL 3 mL inhalation Q6H PRN 180 mL 2RF wheezing Coding Level of Care Code Est Pt Level 4 (00304) Diagnoses COPD (chronic obstructive pulmonary disease) J44.9 Nicotine dependence, cigarettes, uncomplicated F17.210
[2025-03-26 09:18] VITALS: BP 124/88; PULSE 60; O2SAT 96; BMI 41.4
--- OUTSIDE RECORDS SUMMARY | 2025-03-26 09:33 | XMS_ITS | Clinical Summary ---
Author Organization [facility] Address [address] [place] [address] Phone Care Team Providers Care Rn Visiting Name Role Phone Claudy Bryant NP Primary Care Provider [phone] Allergies Active Allergy Reactions Criticality Noted Date [...] age to complete this topic Insurance Medicare [facility] Medicare [facility] Care Teams Rn Visiting Relationship Specialty Start Date End Date Claudy Bryant NP [facility] [place], [place] [phone] PCP - General Nurse Practitioner 11/02/21
--- OUTSIDE RECORDS SUMMARY | 2025-03-26 09:33 | XMS_ITS | Clinical Summary ---
Author Organization [facility] Address [address] [place] [address] Phone Care Team Providers Care Station Operator Name Role Phone Unavailable Primary Care Provider Unavailabl e Encounters Date Type Department Care Team Description 02/26/2025 8:18 AM EDT - 02/26/2025 11:59 PM EDT Hospital Encounter [facility] MRI [address] [place] [phone] Cirrhosis (CMS/HCC V24, CMS/HCC V28) Discharge Disposition: Home or Self Care from [...] Tdap) 1973 Zoster Vaccines (1 of 2) 2004 RSV Immunization Adult Patients (1 - Risk [...] AM EDT Cirrhosis (CMS/HCC V24, CMS/HCC V28) from Last 3 Months Results * MR Abdomen wo and w Contrast (02/26/2025 9:22 AM EDT) Anatomical Region Laterality Modality Body [...] Signed Date: 02/26/2025 12:35 ET Workstation ID: [id number] Transcribed By: Self Edit Transcribed Date: 02/26/2025 12:12 ET Narrative 02/26/2025 12:35 PM EDT Enhancing focus MR ABDOMEN WO AND W CONTRAST INDICATION: cirrhosis COMPARISON: None. TECHNIQUE: STIR axial, T1-weighted gradient echo in-phase and xod-tr-rfnii axial, HASTE T2-weighted coronal and VIBE T1-weighted [...] STIR axial, T1-weighted gradient echo in-phase and ane-sz-ylqvt axial,HASTE T2-weighted coronal and VIBE T1-weighted 3-dimensional [...] with cirrhosis of the liver with multiple W4hbimnsyqgdqm cysts. No splenic lesion. Adrenal glands are [...] Signed Date: 02/26/2025 12:35 ET Workstation ID: [id number] Transcribed By: Self Edit Transcribed Date: 02/26/2025 12:12 ET John Mi MD IM MRI PROCEDURES Final Result from Last 3 Months Insurance MEDICARE [facility]
--- OUTSIDE RECORDS SUMMARY | 2025-03-26 09:33 | XMS_ITS | Patient Health Record ---
Author Organization [facility] Address [address] [place] [phone] Care Team Providers Care Mechanic/Welder Name Role Phone Kishore Morocho Jr Reason For Referral No Information Plan Of Treatment No Information
== END 2025-03-26 09:56 | disposition home or self-care (01) ==
LOC: HO.HPSW 09:13
PROVIDERS: PCP Nurse Practitioner Family; Visit Provider Nurse Practitioner Family
DX: J44.9 Chronic obstructive pulmonary disease, unspecified (principal); F17.210 Nicotine dependence, cigarettes, uncomplicated
CPT/HCPCS: 99214

== ENCOUNTER → 2025-03-26 09:12 | Outpatient (BNVA) | payer MEDICARE, SELFPAY | PROVIDERS: PCP Nurse Practitioner Family; Visit Provider Nurse Practitioner Family | DX: R06.09 Other forms of dyspnea (principal); J44.9 Chronic obstructive pulmonary disease, unspecified; F17.210 Nicotine dependence, cigarettes, uncomplicated; Z79.01 Long term (current) use of anticoagulants; Z79.899 Other long term (current) drug therapy | CPT/HCPCS: 99212 ==

== ENCOUNTER 2025-05-28 13:05 | Outpatient (REF) | payer MEDICARE, SELFPAY ==
--- NOTE | ~2025-05-28 | XR_ITS ---
EXAMINATION: XR CHEST CLINICAL INFORMATION: R06.00 - Dyspnea, unspecified COMPARISON: 10/10/2023 TECHNIQUE: 2 views of the chest were obtained. FINDINGS: The cardiac, hilar, and mediastinal contours are normal. The lungs are clear bilaterally. There is no pneumothorax or pleural effusion. There is no focal osseous or soft tissue abnormality. Severe degenerative arthritis noted bilateral shoulder joints. XR/XR chest 2V IMPRESSION: No active pulmonary disease. Electronically signed by: Tres Jensen MD 05/28/2025 01:42 PM EDT
[2025-05-28 13:28] LABS: MANUAL DIFF FLAG NO
[2025-05-28 15:06] LABS: Hematocrit 42.2 % (42.0-52.0); Hemoglobin 14.0 g/dl (14.0-18.0); Imm Gran Abs Auto 0.04 X10*3/uL (0.00-0.03); Imm Gran Pct Auto 0.6 % (0.0-0.4); Lymphocytes Absolute Auto 1.3 X10*3/uL (1.2-4.9); Mean Corpuscular HGB Conc 33.2 g/dl (31.0-36.0); Mean Corpuscular Hemoglobin 27.8 pg (27.0-33.0); Mean Corpuscular Volume 83.7 fL (80.0-98.0); NRBC Abs Auto 0.000 X10*3/uL (0.0-0.012); NRBC Pct Auto 0.0 /100WBC (0.0-0.2); Platelet Count 101 X10*3/uL (160-400); Red Blood Count 5.04 X10*6/uL (4.60-5.80); White Blood Count 6.9 X10*3/uL (4.8-10.8)
[2025-05-28 15:16] LABS: Appearance Urine Clear; Glucose Urine UA Negative (Negative); PH 6.5 (5.0-9.0); Specific Gravity - Urine 1.020 (1.005-1.025)
[2025-05-28 15:46] LABS: Microalbum/Creatinine Ratio Ur 6.5 ug/mg cr (<30)
[2025-05-28 15:47] LABS: Alanine Aminotransferase 25 U/L (0-40); Albumin Level 4.1 g/dL (3.5-5.0); Alkaline Phosphatase 91 U/L (39-117); Anion Gap 14 (12-20); Aspartate Amino Transferase 35 U/L (5-37); Blood Urea Nitrogen 22 mg/dL (9-16); Calcium 9.0 mg/dL (8.4-10.2); Carbon Dioxide 25 mmol/L (22-29); Chloride 107 mmol/L (96-108); Cholesterol 113 mg/dL (<200); Estimated Glomerular Filt Rate 55; HDL Cholesterol 26 mg/dL (>40); Potassium 4.6 mmol/L (3.3-5.1); Sodium 141 mmol/L (135-145); Total Protein 7.1 g/dL (6.5-8.0); Triglycerides 159 mg/dL (<150)
[2025-05-28 15:58] LABS: B Type Natriuretic Peptide 69 pg/mL (<100)
--- OUTSIDE RECORDS SUMMARY | 2025-05-28 16:45 | XMS_ITS | Encounter Summary ---
Author Organization [facility] Address [address] [address] [place] [address] Phone Care Team Providers Care Bow Tacker Name Role Phone Claudy Bryant NP Primary Care Provider [phone] Reason for Visit * Reason Comments Med Refill Encounter Details Date Type Department Care Team (Late st Contact Info) Description 05/28/2025 Refill [facility] [address] [facility] [address] [place] [phone] Eric Lopez MD [address] [facility] [address] [place] [phone] Social History Tobacco Use Types Packs/Day Years [...] on file Sexual Orientation Not on file documented as of this encounter Plan of Treatment Not on file documented as of this encounter Visit Diagnoses Not on filedocumented in this encounter Care Teams Bow Tacker Relationship Specialty Start Date End Date Claudy Bryant NP [address] [place] [address] PCP - General Nurse Practitioner 11/02/21 documented as of this encounter
--- OUTSIDE RECORDS SUMMARY | 2025-05-28 16:45 | XMS_ITS | Clinical Summary ---
Author Organization [facility] Address [address] [place] [address] Phone Care Team Providers Care Produce Laborer Name Role Phone Claudy Bryant NP Primary Care Provider [phone] Allergies Active Allergy Reactions Criticality Noted Date [...] History of repair of hip joint 04/11/2018 Encounters Date Type Department Care Team Description 05/28/2025 Refill [facility] [address] [place] [address] Eric Lopez MD from Last 3 Months Family History Medical History Relation Comments Diabetes [...] age to complete this topic Insurance Medicare [facility] Medicare [facility] Care Teams Produce Laborer Relationship Specialty Start Date End Date Claudy Bryant NP [facility] [place] [address] PCP - General Nurse Practitioner 11/02/21
--- OUTSIDE RECORDS SUMMARY | 2025-05-28 16:45 | XMS_ITS | Clinical Summary ---
Author Organization [facility] Address [address] [facility] [address] [place] [address] Phone Care Team Providers Care Executive Pastry Chef Name Role Phone Alberto Esposito Primary Care Provider +1- [phone] Allergies Active Allergy Reactions Criticality Noted Date Comments Morphine Swelling 02/27/2018 Tongue/Throat swelling Medications metFORMIN (GLUCOPHAGE) 500 MG tablet Take 500 mg by mouth 2 (two) times a day with meals. Active hydroCHLOROthi azide (HYDRODIURIL) 25 MG tablet Take 25 mg by mouth daily. Active amLODIPine (NORVASC) 10 MG tablet Take 10 mg by mouth daily. Active losartan (COZAAR) 100 MG tablet Take 100 mg by mouth daily. Active acetaminophen (TYLENOL) 325 mg tablet Take 2 tablets (650 mg total) by mouth every 6 (six) hours. 0 04/12/20 18 Active Additional Information Patient not taking.Reported on 04/16/2020 docusate sodium (COLACE) 100 MG capsule Take 1 capsule (100 mg total) by mouth 2 (two) times a day. 04/12/20 18 Active Additional Information Patient not taking.Reported on 04/16/2020 senna (SENOKOT) 8.6 mg tablet Take 2 tablets by mouth nightly. 04/12/20 18 Active Additional Information Patient not taking.Reported on 04/16/2020 warfarin (COUMADIN) 2 MG tablet Take 3 tablets (6 mg total) by mouth nightly. Or as directed by the [facility] Anticoagulation Management Service. 60 tablet 1 04/13/20 18 Active Additional Information Patient not taking.Reported on 04/16/2020 oxyCODONE 5 MG immediate release tablet Take 1-2 tablets (5-10 mg total) by mouth every 4 (four) hours as needed for moderate pain. Pt. may request partial fill MASS PAT checked. 60 tablet 04/20/20 18 Active Additional Information Patient not taking.Reported on 04/16/2020 Active Problems Problem Noted Date Diagnosed Date Status post revision of total hip 04/11/2018 Social History Tobacco Use Types Packs/Day Years Used Date Smoking Tobacco: Former Cigarettes 0 04/11/2004 - 04/11/2005 Smokeless Tobacco: Never Alcohol Use Standard Drinks/Week Comments Yes 0 (1 standard drink = 0.6 oz pur e alcohol) social Education Answer Date Recorded Are you interested in more education? Not on char[place] e 01/06/2023 Are you concerned about learning? Not on file 01/06/2023 No 01/06/2023 No 01/06/2023 Digital Access Answer Date Recorded No 02/04/2023 No 02/04/2023 Reliable internet access at home? Not on file 02/04/2023 Device with a working camera? Not on file Sex and Gender Information Value Date Recorded Sex Assigned at Not on file Legal Sex Male 3:58 PM EDT Gender Identity Not on file Sexual Orientation Not on file Last Filed Vital Signs Vital Sign Reading Time Taken Comments Blood Pressure 120/80 04/13/2018 7:57 AM EDT Pulse 68 04/13/2018 7:57 AM EDT Temperature 36.2 C (97.2 F) 04/16/2020 12:53 PM EDT Respiratory Rate 16 04/13/2018 7:57 AM EDT Oxygen Saturation 98% 04/13/2018 7:57 AM EDT Inhaled Oxygen Concentration - - Weight 122.5 kg (270 lb) 04/16/2020 12:53 PM EDT Height 172.7 cm (5' 8 ) 04/16/2020 12:53 PM EDT Body Mass Index 41.05 04/16/2020 12:53 PM EDT Plan of Treatment Health Maintenance Due Date Last Done Comments Adult Td,Tdap Booster 1954 LIPID PANEL 1954 DEPRESSION SCREENING 1966 SMOKING Hx and SMOKELESS TOBACCO SCREENING 1967 HEPATITIS C SCREENING 1972 COLOGUARD 1999 COLONOSCOPY 1999 COLORECTAL CANCER SCREENING 1999 FIT TEST 1999 FOBT 1999 SIGMOIDOSCOPY 1999 VIRTUAL COLONOSCOPY 1999 PNEUMOCOCCAL VACCINES (50+ years) (1 of 1 - PCV) 2004 ZOSTER VACCINES (1 of 2) 2004 CREATININE LEVEL 04/13/2019 04/13/2018, 10/2017, 03/28/2018 POTASSIUM LEVEL 04/13/2019 04/13/2018, 08/0 10/2017, 04/11/2018, Additional history exists ABDOMINAL AORTIC ANEURYSM (AAA) SCREENING 2019 INFLUENZA VACCINE (#1) 2025 COVID-19 VACCINE ( - season) 2025 11/12/2020 RSV VACCINE (1 - 1-dose 75+ series) 2029 HEPATITIS A VACCINES Aged Out No long er eligible based on patient's age to complete this topic HIB VACCINES Aged Out No longer eligi ble based on patient's age to complete this topic MENINGOCOCCAL VACCINES (ACWY) Aged Out No longer eligible based on patient's age to complete this topic MENINGOCOCCAL VACCINES (B) Aged Out N o longer eligible based on patient's age to complete this topic Medical Devices Implanted Type Area Hospitality Job Titles Device Identifier Shelf Expiration Date Model / Serial / Lot Screw Bone 6.5x8mm Cancellous Acetabular [place] Ea Hip 16a - [id number] Implanted:Qty: 2 on 04/11/2018 by John Navarro MD at [facility] Right: Hip [employer] 01/09/2028 [id number] / / [id number] Screw Bone 6.5x20mm Cortical Acetabular Self Tapping Cable Ready Trauma Sterile Trilogy Hip 16a - [id number] Implanted:Qty: 1 on 04/11/2018 by John Navarro MD at [facility] Right: Hip VY / DIV OF [employer] 10/11/2022 [id number] / / [id number] Screw Bone 6.5x40mm Cortical Acetabular Self Tapping Cable Ready Trauma Sterile Trilogy Bx/1ea Hip 16a - [id number] Implanted:Qty: 1 on 04/11/2018 by John Navarro MD at [facility] Right: Hip VY / DIV OF [facility] 07/11/2027 [id number] / / [id number] Screw Bone 6.5x35mm Cortical Acetabular Self Tapping Cable Ready Trauma Sterile Trilogy Bx Hip 16a - [id number] Implanted:Qty: 1 on 04/11/2018 by John Navarro MD at [facility] Right: Hip VY / [employer] [facility] 11/09/2027 [id number] / / [id number] Screw Bone 6.5x25mm Cortical Acetabular Self Tapping Cable Ready Trauma Sterile Trilogy Hip 16a - [id number] Implanted:Qty: 1 on 04/11/2018 by John Navarro MD at [facility] Right: Hip VY / [employer] [facility] 02/08/2027 [id number] / / [id number] Implant Hip 58mm Femoral Shell Trabecular Metal Modular Multi Holed Revision Bx/1ea Hip 08 - [id number] Implanted:Qty: 1 on 04/11/2018 by John Navarro MD at [facility] STANDARD Right: Hip VY / DIV [employer] [facility] 10/11/2027 [id number] / / [id number] Hip Zim#9981-180-[address] Hip 03 - [id number] Implanted:Qty: 1 on 04/11/2018 by John Navarro MD at [facility] STANDARD Right: Hip VY / [facility] 08/10/2027 [id number] / / [id number] Implant Hip 03w81nv Femoral Cone E Body Zmr Extended Offset Ea Hip 17 - [id number] Implanted:Qty: 1 on 04/11/2018 by John Navarro MD at [facility] STANDARD Right: Hip VY / [facility] 02/08/2021 [id number] / / [id number] Implant Hip 96m33wh Femoral Liner Cup Longevity Highly Crosslinked Standard Polyethylene Bx/1ea Hip 10 - [id number] Implanted:Qty: 1 on 04/11/2018 by John Navarro MD at [facility] STANDARD Right: Acetabulum VY / DIV OF [employer] 10/11/2022 [id number] / / Implant Hip 3.5mm Femoral Head Versys 12to14 Lucas Chrome 36mm Pos Bx/1ea Hip 05 - [id number] Implanted:Qty: 1 on 04/11/2018 by John Navarro MD at [facility] STANDARD Right: Acetabulum VY / DIV OF [employer] 08/10/2027 [id number] / / R Thr L Thr Procedures Procedure Name Priority Date/Time Associated Diagnosis Comments BASIC METABOLIC PANEL Routine 04/13/2018 6:00 AM EDT from Last 3 Months or Most Recently Relevant to Health Maintenance Results * (ABNORMAL) Basic metabolic panel (04/13/2018 6:00 AM EDT) SODIUM 142 136 - 145 mmol/L [facility] POTASSIUM 3.3(L) 3.4 - 5.0 mmol/L [facility] CHLORIDE 102 98 - 107 mmol/L [facility] CO2 29 22 - 31 mmol/L [facility] BUN 15 6 - 23 mg/dL [facility] CREATININE 0.70 0.50 - 1.20 mg/dL [facility] GLUCOSE 109(H) 70 - 100 mg/dL [facility] CALCIUM 7.8(L) 8.8 - 10.7 mg/dL [facility] EGFR 100 >59 mL/min/1.7 3m2 [facility] Comment:If patient is black, multiply result by 1.159. Estimated glomerular filtration rate calculated using the CKD-EPI equation. ANION GAP 11 7 - 17 mmol/L [facility] Blood 04/13/2018 6:00 AM EDT 04/13/2018 6:51 AM EDT us John Navarro MD LAB BLOOD ORDERABLES Final Res ult [facility] [address] [place] [phone] from Last 3 Months or Most Recently Relevant to Health Maintenance Insurance MEDICARE PART A & B [place] [employer] SUPPLEMENT MEDICARE PART A & B [place] [employer] SUPPLEMENT MEDICARE PART A & B [place] [employer] SUPPLEMENT MEDICARE PART A & B [place] [employer] SUPPLEMENT MEDICARE PART A & B Member Subscriber Plan / Payer ( fective 2019-Present) Name:Sohail Rolle Member ID:[id number] Relation to Subscriber:Self Name:LizstanSohail montaño Subscriber ID:[id number] Payer ID:[id number] Group ID:Not on file Type:Medicare Address: [facility] [employer] [facility] [place] [id number] [facility] MEDEX SUPPLEMENT MEDICARE PART A & B Member Subscriber Plan / Payer ( fective 2019-Present) Name:AndreiSohail montaño Member ID:[id number] Relation to Subscriber:Self Name:Sariah Sohail Subscriber ID:[id number] Payer ID:[id number] Group ID:Not on file Type:Medicare Address: [employer] [address] [place] [phone] [place] MEDEX SUPPLEMENT MEDICARE PART A & B [place] MEDEX SUPPLEMENT MEDICARE PART A & B [employer] MEDEX SUPPLEMENT MEDICARE PART A & B [employer] MEDEX SUPPLEMENT Advance Directives For more information, please contact: [phone] (9AM - 5PM [facility] [place], Monday-Monday) Documents on File Type Date Recorded Patient Teacher Visually Impaired Expl kori Healthcare Proxy 04/11/2018 7:46 AM * Full Code (Presumed) (Latest Code Status on File) Date Activated Date Inactivated Comments 04/11/2018 5:00 PM 04/13/2018 3:07 PM * Full Code (Presumed) Date Activated Date Inactivated Comments 04/11/2018 7:58 AM 04/11/2018 5:00 PM Healthcare Agents on File Name Relationship Healthcare Agent Relationship Communication Ami Rolle Spouse .Primary Health Care Agent (Proxy form on file) Care Teams Executive Pastry Chef Relationship Specialty Start Date End Date Alberto Esposito DO [address] [place] [address] PCP - General Internal Medicine 02/21/18 Additional Source Comments The information contained in this document represents components of the legal health record. It is not the complete legal health record.[facility]
--- OUTSIDE RECORDS SUMMARY | 2025-05-28 16:45 | XMS_ITS | Encounter Summary ---
Author Organization [facility] Address [address] [place] [address] Phone Care Team Providers Care Registered Massage Therapist Name Role Phone Alberto Esposito DO Primary Care Provider +1- [phone] Encounter Details Date Type Department Care Team (Late st Contact Info) Description 04/11/2018 Procedure Pass [facility] Periop [address] [place] [address] Social History Tobacco Use Types Packs/Day Years Used Date Smoking Tobacco: Former Cigarettes 0 04/11/2004 - 04/11/2005 Smokeless Tobacco: Never Alcohol Use Standard Drinks/Week Comments Yes 0 (1 standard drink = 0.6 oz pur e alcohol) social Sex and Gender Information Value Date Recorded Sex Assigned at Not on file Legal Sex Male 3:58 PM EDT Gender Identity Not on file Sexual Orientation Not on file documented as of this encounter Plan of Treatment Not on file documented as of this encounter Visit Diagnoses Not on filedocumented in this encounter Care Teams Registered Massage Therapist Relationship Specialty Start Date End Date Alberto Esposito DO [address] [place] [address] PCP - General Internal Medicine 02/21/18 documented as of this encounter Additional Source Comments The information contained in this document represents components of the legal health record. It is not the complete legal health record.[facility]
--- OUTSIDE RECORDS SUMMARY | 2025-05-28 16:45 | XMS_ITS | Encounter Summary ---
Author Organization [facility] Address [address] [place] [address] Phone Care Team Providers Care Head Of Data Name Role Phone Alberto Esposito DO Primary Care Provider +1- [phone] Encounter Details Date Type Department Care Team (Late st Contact Info) Description 03/29/2018 Transcribe Orders [facility] Vascular [facility] [address] [place] [address] [email or web address] Social History Tobacco Use Types Packs/Day Years [...] on filedocumented in this encounter Care Teams Head Of Data Relationship Specialty Start Date End Date Alberto Esposito DO [address] [place] [address] PCP - General Internal Medicine 02/21/18 documented as of this encounter Additional Source Comments The information contained in this document represents components of the legal health record. It is not the complete legal health record.[facility]
--- OUTSIDE RECORDS SUMMARY | 2025-05-28 16:45 | XMS_ITS | Patient Health Record ---
Author Organization [facility] Address [address] [place] [phone] Care Team Providers Care Functional Support Analyst Name Role Phone Kishore Morocho Jr Reason For Referral No Information Plan Of Treatment No Information
--- OUTSIDE RECORDS SUMMARY | 2025-05-28 16:45 | XMS_ITS | Encounter Summary ---
Author Organization [facility] Address [address] [place] [address] Phone Care Team Providers Care Trash Truck Driver Name Role Phone Alberto Esposito DO Primary Care Provider +1- [phone] Encounter Details Date Type Department Care Team (Late st Contact Info) Description 04/11/2018 Procedure Pass [facility] [address] [place] [address] Social History Tobacco Use Types Packs/Day Years [...] on filedocumented in this encounter Care Teams Trash Truck Driver Relationship Specialty Start Date End Date Alberto Esposito DO [address] [place] [address] PCP - General Internal Medicine 02/21/18 documented as of this encounter Additional Source Comments The information contained in this document represents components of the legal health record. It is not the complete legal health record.[facility]
== END 2025-05-28 13:06 | disposition home or self-care (01) ==
LOC: HO.XRAY 13:05
PROVIDERS: PCP Nurse Practitioner Family; Visit Provider Nurse Practitioner Family
DX: Z12.5 Encounter for screening for malignant neoplasm of prostate (principal); E11.9 Type 2 diabetes mellitus without complications; R06.00 Dyspnea, unspecified
CPT/HCPCS: 36415; 71046; 80053; 80061; 81003; 82043; 82570; 83880; 84153; 84443; 85025

== ENCOUNTER → 2025-05-28 13:26 | Outpatient (BNV) | payer MEDICARE, SELFPAY | PROVIDERS: PCP Nurse Practitioner Family; Visit Provider Radiology Diagnostic Radiology | DX: R06.00 Dyspnea, unspecified (principal) | CPT/HCPCS: 71046 ==

== ENCOUNTER 2025-05-30 09:30 | Outpatient (AMB) | payer MEDICARE, SELFPAY ==
[2025-05-30 09:31] VITALS: BP 132/70; PULSE 68; O2SAT 96; BMI 41.3
--- NOTE | 2025-05-30 09:31 | A.OFFVIS_ITS ---
Vital Signs 05/30/25 09:31 Height 5 ft 8 in Weight 271 lb 8 oz BMI 41.3 BP 132/70 Blood Pressure Location Rt brachial Position Sitting Pulse 68 Pulse Source Pulse Oximeter Pulse Oximetry (%) 96 Oxygen Delivery Method Room Air Intake Visit Reasons: Abnormal results of PFT Allergies morphine Allergy (Intermediate, Verified 05/30/25 09:37) shortness of breath Sulfa (Sulfonamide Antibiotics) Allergy (Intermediate, Verified 05/30/25 09:37) rash, hives HPI HPI Abnormal results of PFT: Details: Sohail is a pleasant 69-year-old male, former 40 pack-year cigarette smoker, currently smokes cigars with underlying severe COPD, coronary artery disease, atrial fibrillation on Xarelto, cardiomyopathy, aortic stenosis, diastolic dysfunction, hypertension and diabetes. He reports good control of respiratory symptoms with the use of Trelegy and Duoneb PRN. He reports dyspnea is at baseline, coughing rarely and denies wheezing. He denies any visits to urgent care or hospitalizations related to respiratory distress since the last visit. [facility] Medical History (Updated 04/15/25 @ 11:44 by Clau Martin MD) Shoulder pain, bilateral Chronic cough History of RSV infection (~09/2023) Nicotine dependence, cigarettes, uncomplicated Chronic anticoagulation Arthritis Aortic stenosis Morbid obesity COVID-19 vaccine administered Diastolic dysfunction Cardiomyopathy ALEJANDRA (obstructive sleep apnea) Hyperlipidemia Diabetes mellitus HTN (hypertension) CAD (coronary artery disease) Paroxysmal atrial fibrillation Surgical History (Updated 04/29/25 @ 09:45 by Nilsa Dias PA-C) History of ablation of neoplasm of liver History of colonoscopy History of esophagogastroduodenoscopy (EGD) History of total left hip replacement History of total right hip replacement Family History Father No problems noted. Mother HTN (hypertension) Social History Household Members: Spouse Household [facility] Housing: House Are you a primary before and after school daycare worker to a significant other at home: No Do you presently have visiting nurse or other home services: No Alcohol intake: current Alcohol intake frequency: a few times a month Patient Tobacco Use Status: Current everyday Tobacco user Tobacco use type: Cigar Years Smoked: (onset 17yo, 1ppd x 41yrs, 40pyh - quit 2014 - daily cigar) e-Cigarette/Vaping Use: Never Used Second Hand Smoke Exposure: No Substance Use Type: Marijuana service: No Current occupational status: employed 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 Current occupational exposures/hazards: No Cognitive needs: No Hearing needs: No Vision needs: No Review of Systems Const Denies chills, Denies excessive sweating, Denies fever(s), Denies headache(s) and Denies night sweats Eyes Denies dry eyes, Denies irritation and Denies itchy eyes ENT Reports Normal hearing present, Denies headache(s), Denies nasal congestion, Denies nasal discharge, Denies post nasal drip and Denies sore throat Card Denies chest pain, Denies chest pain at rest, Denies chest pain with activity, Denies claudication, Denies leg edema, Denies orthopnea and Denies paroxysmal nocturnal dyspnea Resp Denies chest congestion, Denies excessive phlegm production, Denies pain on inspiration, Denies pain with cough, Denies stridor and Denies wheezing Musc Denies myalgias Neuro Reports Normal hearing present and Denies headache(s) Endo Denies excessive sweating Jeremiah/Lymph Denies lymphadenopathy Aller/Immun Denies itchy eyes, Denies seasonal rhinorrhea and Denies wheezing Physical Exam Vital Signs: Last Vital Signs Pulse 68 05/30/25 09:31 BP 132/70 05/30/25 09:31 Pulse Ox 96 05/30/25 09:31 Oxygen Delivery Method Room Air 05/30/25 09:31 BMI result Body Mass Index 41.3 Const General: cooperative, healthy appearing, comfortable, no acute distress, well developed and alert Nutritional Appearance: obese Orientation/consciousness: patient oriented x3 Limitations: no limitations HEENT Head: Yes normal to inspection, Yes normocephalic and Yes atraumatic Ears: hearing grossly normal bilaterally and external ears normal Eyes General: appearance normal, both eyes and all related structures Eyelids: Yes eyelids normal Sclerae: sclerae normal EOM: EOMs intact bilaterally Neck Neck: Yes normal visual inspection and Yes no lymphadenopathy Lymphatic: no lymphadenopathy noted Chest Chest palpation & inspection: normal inspection of the chest Resp Effort & Inspection: normal respiratory effort, able to speak in complete sentences, no audible wheezes, no cough, no stridor, not tachypneic, no tripod positioning and no use of accessory muscles Auscultation: diminished lung sounds Cardio Jugular venous distension: no JVD Rate: regular rate Rhythm: regular rhythm Skin Other: warm, dry General skin exam: no rashes or lesions noted Neuro General: patient oriented x3 Cranial nerves: Yes Normal hearing present Cognition (Neuro): normal cognition Gait exam (Neuro): Normal gait present Extrem General: Yes normal to inspection, Yes capillary refill normal, Yes no clubbing, cyanosis or edema and Yes no pedal edema Psych Appearance: grossly normal and well kempt Speech and movement: Normal speech and movement present and Clear speech present Affect: normal affect Attitude: cooperative Thought process: Normal thought process present Thought content: Normal thought content present Insight: Good insight present (Psych) Judgement: Good judgement present (Psych) Assessment & Plan Assessment & Plan (1) COPD (chronic obstructive pulmonary disease): Code(s): J44.9 - Chronic obstructive pulmonary disease, unspecified Category: Medical (2) Nicotine dependence, cigarettes, uncomplicated: Comment: (onset 17yo, 1ppd x 41yrs, 40pyh - quit 2013 - occasional cigar) Code(s): F17.210 - Nicotine dependence, cigarettes, uncomplicated Category: Medical Plan Patient reports good control of respiratory symptoms on current regimen of Trelegy, using Duoneb a few times per week with good effect and tolerating well, advised to continue. Previously patient with inspiratory bibasilar crackles, no symptoms suggestive of infectious process and denies BLE edema or orthopnea. CXR unremarkable and BNP WNL. Encouraged breathing exercises. Smoking cessation reviewed, patient states he is not ready to quit at this time. He is a part of the lung screening program and is scheduled for LDCT 07/2025, 07/04 RADS1. All questions were answered and patient is in agreement of plan. Will follow-up in 3 months or sooner if needed. Coding Level of Care Code Est Pt Level 4 (22802) Diagnoses COPD (chronic obstructive pulmonary disease) J44.9 Nicotine dependence, cigarettes, uncomplicated F17.210
--- OUTSIDE RECORDS SUMMARY | 2025-05-30 10:02 | XMS_ITS | Clinical Summary ---
Author Organization [facility] Address [address] [facility] [address] [place] [address] Phone Care Team Providers Care Tare Worker Name Role Phone Alberto Esposito Primary Care Provider [phone]- [phone] Allergies Active Allergy Reactions Criticality Noted Date [...] mouth nightly. Or as directed by the [facility] Anticoagulation Management Service. 60 tablet 1 04/13/20 [...] this topic Medical Devices Implanted Type Area Pie Dough Roller Device Identifier Shelf Expiration Date Model / Serial / Lot Screw Bone 6.5x8mm Cancellous Acetabular [place] Ea Hip 16a - [id number] Implanted:Qty: 2 on 04/11/2018 by John Navarro MD at [facility] Right: Hip [employer] 01/09/2028 [id number] / / [id number] Screw Bone 6.5x20mm Cortical Acetabular Self Tapping Cable Ready Trauma Sterile Trilogy Hip 16a - [id number] Implanted:Qty: 1 on 04/11/2018 by John Navarro MD at [facility] Right: Hip VY / DIV OF [employer] 10/11/2022 [id number] / / [id number] Screw Bone 6.5x40mm Cortical Acetabular Self Tapping Cable Ready Trauma Sterile Trilogy Bx/1ea Hip 16a - [id number] Implanted:Qty: 1 on 04/11/2018 by John Navarro MD at [facility] Right: Hip VY / DIV OF [facility] 07/11/2027 [id number] / / [id number] Screw Bone 6.5x35mm Cortical Acetabular Self Tapping Cable Ready Trauma Sterile Trilogy Bx Hip 16a - [id number] Implanted:Qty: 1 on 04/11/2018 by John Navarro MD at [facility] Right: Hip VY / DIV OF [facility] 11/09/2027 [id number] / / [id number] Screw Bone 6.5x25mm Cortical Acetabular Self Tapping Cable Ready Trauma Sterile Trilogy Hip 16a - [id number] Implanted:Qty: 1 on 04/11/2018 by John Navarro MD at [facility] Right: Hip VY / DIV OF [facility] 02/08/2027 [id number] / / [id number] Implant Hip 58mm Femoral Shell Trabecular Metal Modular Multi Holed Revision Bx/1ea Hip 08 - [id number] Implanted:Qty: 1 on 04/11/2018 by John Navarro MD at [facility] STANDARD Right: Hip VY / DIV OF [facility] 10/11/2027 [id number] / / [id number] Hip Zim#9981-180-[address] Hip 03 - [id number] Implanted:Qty: 1 on 04/11/2018 by John Navarro MD at [facility] STANDARD Right: Hip [facility]Y / [facility] 08/10/2027 [id number] / / [id number] Implant Hip 26g37li Femoral Cone E Body Zmr Extended Offset Ea Hip 17 - [id number] Implanted:Qty: 1 on 04/11/2018 by John Navarro MD at [facility] STANDARD Right: Hip VY / [facility] 02/08/2021 [id number] / / [id number] Implant Hip 10l44gu Femoral Liner Cup Longevity Highly Crosslinked Standard Polyethylene Bx/1ea Hip 10 - [id number] Implanted:Qty: 1 on 04/11/2018 by John Navarro MD at [facility] STANDARD Right: Acetabulum VY / DIV OF [employer] 10/11/2022 [id number] / / Implant Hip 3.5mm Femoral Head Versys 12to14 [place] Chrome 36mm Pos Bx/1ea Hip 05 - [id number] Implanted:Qty: 1 on 04/11/2018 by John Navarro MD at [facility] STANDARD Right: Acetabulum VY / DIV OF [employer] 08/10/2027 [id number] / / R Thr L Thr Procedures Procedure Name Priority Date/Time Associated Diagnosis Comments BASIC METABOLIC PANEL Routine 04/13/2018 6:00 AM EDT from Last 3 Months or Most Recently Relevant to Health Maintenance Results * (ABNORMAL) Basic metabolic panel (04/13/2018 6:00 AM EDT) SODIUM 142 136 - 145 mmol/L [facility] POTASSIUM 3.3(L) 3.4 - 5.0 mmol/L [facility] CHLORIDE 102 98 - 107 mmol/L [facility] CO2 29 22 - 31 mmol/L [facility] BUN 15 6 - 23 mg/dL [facility] CREATININE 0.70 0.50 - 1.20 mg/dL [facility] GLUCOSE 109(H) 70 - 100 mg/dL [facility] CALCIUM 7.8(L) 8.8 - 10.7 mg/dL [facility] EGFR 100 >59 mL/min/1.7 3m2 [facility] Comment:If patient is black, multiply result by 1.159. Estimated glomerular filtration rate calculated using the CKD-EPI equation. ANION GAP 11 7 - 17 mmol/L [facility] Blood 04/13/2018 6:00 AM EDT 04/13/2018 6:51 AM EDT us John Navarro MD LAB BLOOD ORDERABLES Final Res ult [facility] [address] [place] [address] from Last 3 Months or Most Recently Relevant to Health Maintenance Insurance MEDICARE PART A & B [employer] SUPPLEMENT MEDICARE PART A & B [employer] MED[employer] SUPPLEMENT MEDICARE PART A & B [employer] MED[employer] SUPPLEMENT MEDICARE PART A & B [employer] MEDEX SUPPLEMENT MEDICARE PART A & B [facility] MEDEX SUPPLEMENT MEDICARE PART A & B Member Subscriber Plan / Payer ( fective 2019-Present) Name:AndreiSohail montaño Member ID:[id number] Relation to Subscriber:Self Name:Sariah Sohail Subscriber ID:[id number] Payer ID:[id number] Group ID:Not on file Type:Medicare Address: [employer] [address] [place] [id number] [place] MEDEX SUPPLEMENT Member Subscriber Plan / [facility] Name:Sohail Rolle Relation to Subscriber:Self Name:Sohail Rolle Payer ID:[id number] (NAIC) Type:Indemnity Address: [place] [address] MEDICARE PART A & B [employer] MEDEX SUPPLEMENT MEDICARE PART A & B [employer] MEDEX SUPPLEMENT MEDICARE PART A & B [employer] MEDEX SUPPLEMENT Advance Directives For more information, please contact: [phone] (9AM - 5PM [facility], Monday-Monday) Documents on File Type Date Recorded Patient Psychological Science Professor Expl [facility] [employer] Proxy 04/11/2018 7:46 AM [...] Agent (Proxy form on file) Care Teams Tare Worker Relationship Specialty Start Date End Date Alberto Esposito DO [address] [place] [address] PCP - General Internal Medicine 02/21/18 Additional Source Comments The information contained in this document represents components of the legal health record. It is not the complete legal health record.[facility]
--- OUTSIDE RECORDS SUMMARY | 2025-05-30 10:02 | XMS_ITS | Encounter Summary ---
Author Organization [facility] Address [address] [place] [address] Phone Care Team Providers Care Land Law Examiner Name Role Phone Alberto Esposito DO Primary Care Provider [phone]- [phone] Encounter Details Date Type Department Care Team (Late st Contact Info) Description 04/11/2018 Procedure Pass [facility] [address] [place] [address] Social History Tobacco Use Types Packs/Day Years [...] on filedocumented in this encounter Care Teams Land Law Examiner Relationship Specialty Start Date End Date Alberto Esposito DO [address] [place] [address] PCP - General Internal Medicine 02/21/18 documented as of this encounter Additional Source Comments The information contained in this document represents components of the legal health record. It is not the complete legal health record.[facility]
--- OUTSIDE RECORDS SUMMARY | 2025-05-30 10:02 | XMS_ITS | Encounter Summary ---
Author Organization [facility] Address [address] [place] [address] Phone Care Team Providers Care Freight Team Associate Name Role Phone Alberto Esposito DO Primary Care Provider [phone]- [phone] Encounter Details Date Type Department Care Team (Late st Contact Info) Description 03/29/[address] [facility] Vascular Lab [address] [place] [address] [email or web address] Social History Tobacco Use Types Packs/Day Years [...] on filedocumented in this encounter Care Teams Freight Team Associate Relationship Specialty Start Date End Date Alberto Esposito DO [address] [place] [address] PCP - General Internal Medicine 02/21/18 documented as of this encounter Additional Source Comments The information contained in this document represents components of the legal health record. It is not the complete legal health record.[facility]
--- OUTSIDE RECORDS SUMMARY | 2025-05-30 10:02 | XMS_ITS | Clinical Summary ---
Author Organization [facility] Address [address] [place] [address] Phone Care Team Providers Care Global Logistics Manager Name Role Phone Claudy Bryant NP Primary Care Provider [phone] Allergies Active Allergy Reactions Criticality Noted Date [...] [place] [address] [place] [address] Eric Lopez MD from Last 3 Months [...] age to complete this topic Insurance Medicare [facility] Medicare [facility] Care Teams Global Logistics Manager Relationship Specialty Start Date End Date Claudy Bryant NP [place] [address] PCP - General Nurse Practitioner 11/02/21
--- OUTSIDE RECORDS SUMMARY | 2025-05-30 10:02 | XMS_ITS | Patient Health Record ---
Author Organization [facility] Address [address] [place] [address] Care Team Providers Care Extractive Metallurgist Name Role Phone Kishore Morocho Jr Reason For Referral No Information Plan Of Treatment No Information
--- OUTSIDE RECORDS SUMMARY | 2025-05-30 10:02 | XMS_ITS | Encounter Summary ---
Author Organization [facility] Address [address] [place] [address] Phone Care Team Providers Care Time Clock Mechanic Name Role Phone Alberto Esposito DO Primary Care Provider [phone] Encounter Details Date Type Department Care Team (Late st Contact Info) Description 04/11/2018 [facility] [address] [place] [address] Social History Tobacco Use Types Packs/Day Years [...] on filedocumented in this encounter Care Teams Time Clock Mechanic Relationship Specialty Start Date End Date Alberto Esposito DO [address] [place] [address] PCP - General Internal Medicine 02/21/18 documented as of this encounter Additional Source Comments The information contained in this document represents components of the legal health record. It is not the complete legal health record.[facility]
--- OUTSIDE RECORDS SUMMARY | 2025-05-30 10:02 | XMS_ITS | Clinical Summary ---
Author Organization [facility] Address [address] [place] [address] Phone Care Team Providers Care Pig Machine Operator Name Role Phone Unavailable Primary Care Provider Unavailabl e Social History Tobacco Use Types Packs/Day Years [...] 2014 Diabetes: Annual GFR (Glomerular Filtration Rate) 03/18/2023 03/18/2022, 03/28/2018 Hepatitis A Vaccines (2 of 2 - Risk 2-dose series) 05/19/2023 11/16/2022 Hepatitis B Vaccines (3 of 3 - Risk 3-dose series) 07/07/2023 05/12/2023, 11/16/2022 Depression Screening 09/11/2024 Abdominal Aortic Aneurysm (AAA) Screen 12/16/2024 Cholesterol Screening (Lipid Panel) 12/16/2024 Colorectal Cancer Screening: Colonoscopy 12/16/2024 Diabetes: Annual Urine Albumin-Creatinine Ratio (uACR) 12/16/2024 03/18/2022 Diabetes: Blood Sugar Contro l Test (HGBA1C) 12/16/2024 Falls Risk Assessment 12/16/2024 Hypertension/CHF/CAD Annual BMP Blood Test 12/16/2024 03/18/2022, 03/28/2018 Medicare Annual Wellness Visit 12/16/2024 Social Influencers of Health Screening 12/16/2024 COVID-19 Vaccine (2024-2 6 season) 2025 09/05/2021, 12/10/2020, 11/12/2020 Influenza Vaccine (#1) 2025 Hepatitis C Screening Completed 03/18/2022 Pneumococcal Vaccine: 50+ Years Completed 10/04/2022, 09/29/2021 [...] age to complete this topic Insurance MEDICARE [facility]
--- OUTSIDE RECORDS SUMMARY | 2025-05-30 10:02 | XMS_ITS | Encounter Summary ---
Author Organization [facility] Address [address] [facility] [address] [place] [address] Phone Care Team Providers Care Building Wrecker Name Role Phone Claudy Bryant NP Primary Care Provider [phone] Reason for Visit * Reason Comments Med Refill Encounter Details Date Type Department Care Team (Late st Contact Info) Description 05/28/2025 Refill [facility] [address] [facility] [address] [place] [phone] Eric Lopez MD [address] [facility] [address] [place] [phone] Social History Tobacco Use Types Packs/Day Years [...] on filedocumented in this encounter Care Teams Building Wrecker Relationship Specialty Start Date End Date Claudy Bryant NP [address] [place] [address] PCP - General Nurse Practitioner 11/02/21 documented as of this encounter
== END 2025-05-30 09:54 | disposition home or self-care (01) ==
LOC: HO.HPSW 09:30
PROVIDERS: PCP Nurse Practitioner Family; Visit Provider Nurse Practitioner Family
DX: J44.9 Chronic obstructive pulmonary disease, unspecified (principal); F17.210 Nicotine dependence, cigarettes, uncomplicated
CPT/HCPCS: 99214

== ENCOUNTER → 2025-05-30 09:30 | Outpatient (BNVA) | payer MEDICARE, SELFPAY | PROVIDERS: PCP Nurse Practitioner Family; Visit Provider Nurse Practitioner Family | DX: J44.9 Chronic obstructive pulmonary disease, unspecified (principal); F17.290 Nicotine dependence, other tobacco product, uncomplicated | CPT/HCPCS: 99212 ==

== ENCOUNTER 2025-06-02 08:20 | Outpatient (AMB) | payer MEDICARE, SELFPAY ==
[2025-06-02 08:23] VITALS: BP 124/82; PULSE 77; BMI 41.4
--- NOTE | 2025-06-02 08:23 | MHC.OFFVIS ---
Vital Signs 06/02/25 08:23 Height 5 ft 8 in Weight 272 lb 0.807 oz BMI 41.4 BP 124/82 Blood Pressure Location Lt brachial Position Sitting Pulse 77 Pulse Source Pulse Oximeter Intake Visit Reasons: 6 mth f/u Intake Note: 6 Month F/U Opera Singer Required: No Accompanied by: Self / Same As Patient Allergies morphine Allergy (Intermediate, Verified 06/02/25 08:26) shortness of breath Sulfa (Sulfonamide Antibiotics) Allergy (Intermediate, Verified 06/02/25 08:26) rash, hives Medication List - Last Reconciled 06/02/25 by Rylan Mendoza MD atorvastatin 40 mg PO DAILY blood sugar diagnostic (FreeStyle Test strips) daily blood-glucose meter (FreeStyle System Kit) As directed fluticasone propionate 50 mcg/actuation 1 spray intranasal DAILY PRN zeyvhcnmezk-ndgikbuzo-scannpzo 200-62.5-25 mcg (Trelegy Ellipta) 1 inh inhalation DAILY ipratropium-albuterol 0.5 mg-3 mg(2.5 mg base)/3 mL 3 mL inhalation Q6H PRN lancets (FreeStyle Lancets) test blood sugar one time a day lancets (FreeStyle Unistik 2) daily losartan 25 mg PO DAILY NS magnesium 300 mg PO DAILY metformin ER (Glucophage XR) 500 mg PO DAILY metoprolol succinate ER 25 mg PO DAILY rivaroxaban (Xarelto) 20 mg PO QPM sodium,potassium,mag sulfates 17.5-3.13-1.6 gram (Suprep Bowel Prep Kit) DILUTE; drink 1/2 at 6-8 pm and half at 11 PM- 1AM spironolactone 25 mg PO DAILY HPI Comments Details: Sohail comes for follow up. He has no active cardiovascular symptoms except for lightheadedness occasionally. He said he sometimes does not take his metoprolol or losartan when the blood pressure is low side. He has been noticing lower blood pressure after taking the medications. He has no chest pain, shortness of breath, orthopnea, PND, leg edema. No prolonged palpitation irregular heartbeat. Started on Trelegy by Pulmonary and says he is feeling better. He intense to also want to start on GLP 1 antagonist to lose weight. He is motivated to lose weight. Unfortunately continues to smoke. [facility] Medical History Shoulder pain, bilateral Chronic cough History of RSV infection (~09/2023) Nicotine dependence, cigarettes, uncomplicated Chronic anticoagulation Arthritis Aortic stenosis Morbid obesity COVID-19 vaccine administered Diastolic dysfunction Cardiomyopathy ALEJANDRA (obstructive sleep apnea) Hyperlipidemia Diabetes mellitus HTN (hypertension) CAD (coronary artery disease) Paroxysmal atrial fibrillation Surgical History History of ablation of neoplasm of liver History of colonoscopy History of esophagogastroduodenoscopy (EGD) History of total left hip replacement History of total right hip replacement Family History Father No problems noted. Mother HTN (hypertension) Social History Household Members: Spouse Household Members Other:: [facility] Housing: House Are you a primary nursing care partner to a significant other at home: No Do you presently have visiting nurse or other home services: No Alcohol intake: current Alcohol intake frequency: a few times a month Patient Tobacco Use Status: Current everyday Tobacco user Tobacco use type: Cigar Years Smoked: (onset 17yo, 1ppd x 41yrs, 40pyh - quit 2014 - daily cigar) e-Cigarette/Vaping Use: Never Used Second Hand Smoke Exposure: No Substance Use Type: Marijuana service: No Current occupational status: employed 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 Current occupational exposures/hazards: No Cognitive needs: No Hearing needs: No Vision needs: No Review of Systems Const Denies daytime sleepiness, Denies difficulty sleeping, Denies snoring, Denies stops breathing during sleep and Denies weakness Card Denies chest pain, Denies rapid heart rate, Denies irregular heart rhythm, Denies claudication, Denies leg edema, Denies lightheadedness, Denies palpitations, Denies dyspnea, Denies dyspnea on exertion, Denies orthopnea, Denies paroxysmal nocturnal dyspnea and Denies slow heart rate Resp Denies cough, Denies dyspnea, Denies dyspnea on exertion and Denies snoring GI Reports no additional complaints, Denies hematochezia, Denies change in stool character and Denies dyspepsia Musc Denies abnormal gait, Denies muscle weakness and Denies numbness Neuro Denies abnormal gait, Denies numbness and Denies weakness Endo Denies palpitations Physical Exam Vital Signs: Last Vital Signs Pulse 77 06/02/25 08:23 BP 124/82 06/02/25 08:23 BMI result Body Mass Index 41.4 Const General: cooperative, comfortable, no acute distress, alert and awake Nutritional Appearance: obese Orientation/consciousness: patient oriented x3 Limitations: no limitations Neck Neck: Yes trachea midline, Yes supple and Yes no JVD Resp Effort & Inspection: normal respiratory effort Auscultation: clear to auscultation bilaterally and diminished lung sounds Cardio Jugular venous distension: no JVD Palpation: normal PMI Rate: regular rate Rhythm: abnormal rhythm with ectopic beats Heart sounds: S1 normal heart sound present, S2 normal heart sound present, no click, no gallops and Murmur heart sound present systolic early and mid GI Auscultation: normal bowel sounds Skin General skin exam: no rashes or lesions noted Neuro General: patient oriented x3 and no focal motor deficits Extrem General: Yes no clubbing, cyanosis or edema Psych Appearance: grossly normal Assessment & Plan Assessment & Plan (1) Paroxysmal atrial fibrillation: Comment: taking Xarelto, ASA, metoprolol, losartan Code(s): I48.0 - Paroxysmal atrial fibrillation Category: Medical Plan: Paroxysmal atrial fibrillation without any obvious clinical recurrence at this point time. Continue to avoid stimulants. Stress mitigation strategies was discussed. Continue metoprolol therapy and switch to morning time. Continue full oral anticoagulation, currently on Xarelto 20 mg daily. Semi annual renal function test should be pursued. (2) Cardiomyopathy: Code(s): I42.9 - Cardiomyopathy, unspecified Category: Medical Plan: Cardiomyopathy with yfnu-yr-[id number] LV systolic dysfunction without overt signs of congestive heart failure. Strong family history for cardiomyopathy. Avoid cardiotoxic agent. Continue current neurohormonal modulation with metoprolol and losartan. Spironolactone will be reduced to 12.5 mg daily. Signs and symptoms of heart failure were discussed. Follow-up echocardiogram 6 months time. (3) Aortic stenosis: Code(s): I35.0 - Nonrheumatic aortic (valve) stenosis Category: Medical Plan: Aortic stenosis which is mild. Continue aggressive risk factor modification as below. Follow-up echocardiogram in 6 months time. No interventions required for mild aortic stenosis. (4) CAD (coronary artery disease): Code(s): I25.10 - Atherosclerotic heart disease of [place] coronary artery without angina pectoris Category: Medical Plan: CAD nonobstructive without any symptoms. Continue aggressive risk factor modification. Goal hemoglobin A1c less than 7%. Agree with weight loss and would consider referring him to bariatric service. Continue high-intensity statin therapy with target goal LDL less than 70 mg/dL. Continue full oral anticoagulation, currently on Xarelto 20 mg daily. Will follow up in the clinic in 6 months time, sooner p.r.n.. Thank you for allowing me to partake in his care Coding Level of Care Code Est Pt Level 4 (83269) Complex EM visit Add On G2211 Diagnoses Paroxysmal atrial fibrillation I48.0 Cardiomyopathy I42.9 Aortic stenosis I35.0 CAD (coronary artery disease) I25.10
--- OUTSIDE RECORDS SUMMARY | 2025-06-02 09:31 | XMS_ITS | Encounter Summary ---
Author Organization [facility] Address [address] [facility] [place] [address] Phone Care Team Providers Care Organic Preparation Technician Name Role Phone Alberto Esposito DO Primary Care Provider +1- [phone] Encounter Details Date Type Department Care Team (Late st Contact Info) Description 04/11/2018 Procedure Pass [facility] Periop [address] [place] [address] Social History Tobacco Use Types Packs/Day Years [...] on filedocumented in this encounter Care Teams Organic Preparation Technician Relationship Specialty Start Date End Date Alberto Esposito DO [address] [place] [address] PCP - General Internal Medicine 02/21/18 documented as of this encounter Additional Source Comments The information contained in this document represents components of the legal health record. It is not the complete legal health record.[facility]
--- OUTSIDE RECORDS SUMMARY | 2025-06-02 09:31 | XMS_ITS | Encounter Summary ---
Author Organization [facility] Address [address] [place] [address] Phone Care Team Providers Care Material Movers Name Role Phone Alberto Esposito DO Primary Care Provider [phone]- [phone] Encounter Details Date Type Department Care Team (Late st Contact Info) Description 04/11/2018 Procedure Pass [facility] [address] [place] [address] Social History Tobacco Use Types Packs/Day Years [...] on filedocumented in this encounter Care Teams Material Movers Relationship Specialty Start Date End Date Alberto Esposito DO [address] [place] [address] PCP - General Internal Medicine 02/21/18 documented as of this encounter Additional Source Comments The information contained in this document represents components of the legal health record. It is not the complete legal health record.[facility]
--- OUTSIDE RECORDS SUMMARY | 2025-06-02 09:31 | XMS_ITS | Encounter Summary ---
Author Organization [facility] Address [address] [facility] [address] [place] [address] Phone Care Team Providers Care Ops Manager Name Role Phone Claudy Bryant NP Primary Care Provider Reason for Visit * Reason Comments Med Refill Encounter Details Date Type Department Care Team (Late st Contact Info) Description 05/28/2025 Refill [facility] [address] [facility] [address] [place] [phone] Eric Lopez MD [address] [facility] [address] [place] [phone] Social History Tobacco Use Types Packs/Day Years [...] on filedocumented in this encounter Care Teams Ops Manager Relationship Specialty Start Date End Date Claudy Bryant NP [address] [place] [address] PCP - General Nurse Practitioner 11/02/21 documented as of this encounter
--- OUTSIDE RECORDS SUMMARY | 2025-06-02 09:31 | XMS_ITS | Patient Health Record ---
Author Organization [facility] Address [address] [place] [phone] Care Team Providers Care Egg Sorter Name Role Phone Kishore Morocho Jr Reason For Referral No Information Plan Of Treatment No Information
--- OUTSIDE RECORDS SUMMARY | 2025-06-02 09:31 | XMS_ITS | Clinical Summary ---
Author Organization [facility] Address [address] [facility] [address] [place] [address] Phone Care Team Providers Care Pill Maker Name Role Phone Alberto Esposito Primary Care Provider +1- [phone] Allergies Active Allergy Reactions Criticality Noted Date [...] mouth nightly. Or as directed by the [facility] Anticoagulation Management Service. 60 tablet [...] this topic Medical Devices Implanted Type Area Quality Assurance Supervisor Final Device Identifier Shelf Expiration Date Model / Serial / Lot Screw Bone 6.5x8mm Cancellous Acetabular Girdler Ea Hip 16a - [id number] Implanted:Qty: 2 on 04/11/2018 by John Navarro MD at [facility] Right: Hip [employer] 01/09/2028 1217-08-500 / / [id number] Screw Bone 6.5x20mm Cortical Acetabular Self Tapping Cable Ready Trauma Sterile Trilogy Hip 16a - [id number] Implanted:Qty: 1 on 04/11/2018 by John Navarro MD at [facility] Right: Hip VY / DIV OF [employer] 10/11/2022 [id number] / / [id number] Screw Bone 6.5x40mm Cortical Acetabular Self Tapping Cable Ready Trauma Sterile Trilogy Bx/1ea Hip 16a - [id number] Implanted:Qty: 1 on 04/11/2018 by John Navarro MD at [facility] Right: Hip VY / DIV OF [facility] 07/11/2027 [id number] / / [id number] Screw Bone 6.5x35mm Cortical Acetabular Self Tapping Cable Ready Trauma Sterile Trilogy Bx Hip 16a - [id number] Implanted:Qty: 1 on 04/11/2018 by John Navarro MD at [facility] Right: Hip VY / DIV OF [facility] 11/09/2027 [id number] / / [id number] Screw Bone 6.5x25mm Cortical Acetabular Self Tapping Cable Ready Trauma Sterile Trilogy Hip 16a - [id number] Implanted:Qty: 1 on 04/11/2018 by John Navarro MD at [facility] Right: Hip VY / DIV OF [facility] 02/08/2027 [id number] / / [id number] Implant Hip 58mm Femoral Shell Trabecular Metal Modular Multi Holed Revision Bx/1ea Hip 08 - [id number] Implanted:Qty: 1 on 04/11/2018 by John Navarro MD at [facility] STANDARD Right: Hip VY / DIV OF [facility] 10/11/2027 [id number] / / [id number] Hip Zim#9981-180-[address] Hip 03 - [id number] Implanted:Qty: 1 on 04/11/2018 by John Navarro MD at [facility] STANDARD Right: Hip VY / [facility] 08/10/2027 [id number] / / [id number] Implant Hip [id number] Femoral Cone E Body Zmr Extended Offset Ea Hip 17 - [id number] Implanted:Qty: 1 on 04/11/2018 by John Navarro MD at [facility] STANDARD Right: Hip VY / [facility] 02/08/2021 [id number] / / [id number] Implant Hip 90r16ui Femoral Liner Cup Longevity Highly Crosslinked Standard Polyethylene Bx/1ea Hip 10 - [id number] Implanted:Qty: 1 on 04/11/2018 by John Navarro MD at [facility] STANDARD Right: Acetabulum VY / DIV OF [employer] 10/11/2022 [id number] / / Implant Hip 3.5mm Femoral Head Versys 12to14 [place] Chrome 36mm Pos Bx/1ea Hip 05 - [id number] Implanted:Qty: 1 on 04/11/2018 by John Navarro MD at [facility] STANDARD Right: Acetabulum VY / DIV OF [employer] 08/10/2027 [id number] / / R Thr L Thr Procedures Procedure Name Priority Date/Time Associated Diagnosis Comments BASIC METABOLIC PANEL Routine 04/13/2018 6:00 AM EDT from Last 3 Months or Most Recently Relevant to Health Maintenance Results * (ABNORMAL) Basic metabolic panel (04/13/2018 6:00 AM EDT) SODIUM 142 136 - 145 mmol/L [facility] POTASSIUM 3.3(L) 3.4 - 5.0 mmol/L [facility] CHLORIDE 102 98 - 107 mmol/L [facility] CO2 29 22 - 31 mmol/L [facility] BUN 15 6 - 23 mg/dL [facility] CREATININE 0.70 0.50 - 1.20 mg/dL [facility] GLUCOSE 109(H) 70 - 100 mg/dL [facility] CALCIUM 7.8(L) 8.8 - 10.7 mg/dL [facility] EGFR 100 >59 mL/min/1.7 3m2 [facility] Comment:If patient is black, multiply result by 1.159. Estimated glomerular filtration rate calculated using the CKD-EPI equation. ANION GAP 11 7 - 17 mmol/L [facility] Blood 04/13/2018 6:00 AM EDT 04/13/2018 6:51 AM EDT us John Navarro MD LAB BLOOD ORDERABLES Final Res ult [facility] [address] [place] [address] from Last 3 Months or Most Recently Relevant to Health Maintenance Insurance MEDICARE PART A & B [employer] MEDEX SUPPLEMENT MEDICARE PART A & B [employer] MEDEX SUPPLEMENT MEDICARE PART A & B [employer] MEDEX SUPPLEMENT MEDICARE PART A & B [employer] MEDEX SUPPLEMENT MEDICARE PART A & B [facility] MEDEX SUPPLEMENT MEDICARE PART A & B Member Subscriber Plan / Payer ( fective 2019-Present) Name:AndreiSohail montaño Member ID:[id number] Relation to Subscriber:Self Name:Sariah Sohail Subscriber ID:[id number] Payer ID:[id number] Group ID:Not on file Type:Medicare Address: [employer] [address] [place] [phone] [employer] MEDEX SUPPLEMENT Member Subscriber Plan / Payer [facility]/2019-Present) Name:Sohail Rolle Relation to Subscriber:Self Name:Sohail Rolle Payer ID:[id number] (NAIC) Type:Indemnity Address: [place] [address] MEDICARE PART A & B [employer] MEDEX SUPPLEMENT MEDICARE PART A & B [employer] CROSS MEDEX SUPPLEMENT MEDICARE PART A & B [employer] CROSS MEDEX SUPPLEMENT Advance Directives For more information, please contact: [phone] (9AM - 5PM [facility], Monday-Monday) Documents on File Type Date Recorded Patient Chief Lifestyle Officer Expl [facility] Proxy 04/11/2018 7:46 AM [...] Agent (Proxy form on file) Care Teams Pill Maker Relationship Specialty Start Date End Date Alberto Esposito DO [address] [place] [address] PCP - General Internal Medicine 02/21/18 Additional Source Comments The information contained in this document represents components of the legal health record. It is not the complete legal health record.[facility]
--- OUTSIDE RECORDS SUMMARY | 2025-06-02 09:31 | XMS_ITS | Clinical Summary ---
Author Organization [facility] Address [address] [place] [address] Phone Care Team Providers Care Sewer And Inspector Name Role Phone Unavailable Primary Care Provider [...] age to complete this topic Insurance MEDICARE [facility]
--- OUTSIDE RECORDS SUMMARY | 2025-06-02 09:31 | XMS_ITS | Encounter Summary ---
Author Organization [facility] Address [address] [place] [address] Phone Care Team Providers Care Research Rn Spec Name Role Phone Alberto Esposito DO Primary Care Provider [phone]- [phone] Encounter Details Date Type Department Care Team (Late st Contact Info) Description 03/29/2018 Transcribe Orders [facility] Vascular Lab [address] [place] [address] Heriberto [email or web address] Social History Tobacco Use Types Packs/Day Years [...] on filedocumented in this encounter Care Teams Research Rn Spec Relationship Specialty Start Date End Date Alberto Esposito DO [address] [place] [address] PCP - General Internal Medicine 02/21/18 documented as of this encounter Additional Source Comments The information contained in this document represents components of the legal health record. It is not the complete legal health record.[facility]
--- OUTSIDE RECORDS SUMMARY | 2025-06-02 09:31 | XMS_ITS | Clinical Summary ---
Author Organization [facility] Address [address] [place] [address] Phone Care Team Providers Care Business Risk Analyst Name Role Phone Claudy Bryant NP Primary Care Provider Allergies Active Allergy Reactions Criticality Noted Date [...] [facility] [place] [address] [place] [address] Eric Lopez MD from Last 3 Months [...] Date Last Done Comments Pneumococcal Vaccine: 50+ Years (1 of 2 - PCV) 973 Colorectal Cancer Screening: Annual FOBT 2003 Colorectal Cancer Screening: Colonoscopy 2003 Colorectal Cancer Screening: Sigmoidoscopy 2003 Hepatitis B Vaccine (1 of 3 - Risk 3-dose series) 07/13 Diabetes: Hemoglobin A1C 03/21/2022 Diabetes: Ophthalmology Exam 03/21/2022 Diabetes: Pedal Pulse Checked 03/21/2022 Diabetes: Sensory Foot Exam 03/21/2022 Diabetes: Visual Foot Exam 03/21/2022 Influenza Vaccine (#1) 2025 Insurance Medicare [facility] Medicare [facility] Care Teams Business Risk Analyst Relationship Specialty Start Date End Date Claudy Bryant [place] [place] [address] PCP - General Nurse Practitioner 11/02/21
== END 2025-06-02 08:48 | disposition home or self-care (01) ==
PROVIDERS: PCP Nurse Practitioner Family; Visit Provider Internal Medicine Cardiovascular Disease
DX: I48.0 Paroxysmal atrial fibrillation (principal); I42.9 Cardiomyopathy, unspecified; I35.0 Nonrheumatic aortic (valve) stenosis; I25.10 Atherosclerotic heart disease of native coronary artery without angina pectoris
CPT/HCPCS: 99214; G2211

== ENCOUNTER → 2025-06-02 08:20 | Outpatient (BNVA) | payer MEDICARE, SELFPAY | PROVIDERS: PCP Nurse Practitioner Family; Visit Provider Internal Medicine Cardiovascular Disease | DX: I48.0 Paroxysmal atrial fibrillation (principal); I42.9 Cardiomyopathy, unspecified; I35.0 Nonrheumatic aortic (valve) stenosis; I25.10 Atherosclerotic heart disease of native coronary artery without angina pectoris; F17.290 Nicotine dependence, other tobacco product, uncomplicated; Z79.899 Other long term (current) drug therapy | CPT/HCPCS: 99212 ==

== ENCOUNTER 2025-07-09 07:24 | Day surgery (SDC) | payer MEDICARE, SELFPAY ==
--- OUTSIDE RECORDS SUMMARY | 2025-06-10 06:50 | XMS_ITS | Encounter Summary ---
Author Organization [facility] Address [address] [place] [address] Phone Care Team Providers Care Commodity Lead Name Role Phone Alberto Esposito DO Primary Care Provider [phone]- [phone] Encounter Details Date Type Department Care Team (Late st Contact Info) Description 04/11/2018 Procedure Pass [facility] [address] [place] [address] Social History Tobacco Use Types Packs/Day Years [...] on filedocumented in this encounter Care Teams Commodity Lead Relationship Specialty Start Date End Date Alberto Esposito DO [address] [place] [address] PCP - General Internal Medicine 02/21/18 documented as of this encounter Additional Source Comments The information contained in this document represents components of the legal health record. It is not the complete legal health record.[facility]
--- OUTSIDE RECORDS SUMMARY | 2025-06-10 06:50 | XMS_ITS | Encounter Summary ---
Author Organization [facility] Address [address] [facility] [address] [place] [address] Phone Care Team Providers Care Pier Master Name Role Phone Claudy Bryant NP Primary Care Provider [phone] Reason for Visit * Reason Comments Med Refill Encounter Details Date Type Department Care Team (Late st Contact Info) Description 05/28/2025 Refill [facility] [address] [facility] [address] [place] [id number] Eric Lopez MD [address] [facility] [address] [place] [phone] Social History Tobacco Use Types Packs/Day Years [...] on filedocumented in this encounter Care Teams Pier Master Relationship Specialty Start Date End Date Claudy Bryant NP [address] [place] [address] PCP - General Nurse Practitioner 11/02/21 documented as of this encounter
--- OUTSIDE RECORDS SUMMARY | 2025-06-10 06:50 | XMS_ITS | Patient Health Record ---
Author Organization [facility] Address [address] [place] [address] Care Team Providers Care Elevator Attendant Name Role Phone Kishore Morocho Jr Reason For Referral No Information Plan Of Treatment No Information
--- OUTSIDE RECORDS SUMMARY | 2025-06-10 06:50 | XMS_ITS | Encounter Summary ---
Author Organization [facility] Address [address] [place] [address] Phone Care Team Providers Care Chipper Name Role Phone Alberto Esposito DO Primary Care Provider +1- [phone] Encounter Details Date Type Department Care Team (Late st Contact Info) Description 04/11/2018 Procedure Pass [facility] Periop [address] [place] [address] Social History Tobacco Use Types Packs/Day Years [...] on filedocumented in this encounter Care Teams Chipper Relationship Specialty Start Date End Date Alberto Esposito DO [address] [place] [address] PCP - General Internal Medicine 02/21/18 documented as of this encounter Additional Source Comments The information contained in this document represents components of the legal health record. It is not the complete legal health record.[facility]
--- OUTSIDE RECORDS SUMMARY | 2025-06-10 06:51 | XMS_ITS | Clinical Summary ---
Author Organization [facility] Address [address] [place] [address] Phone Care Team Providers Care Contract Assistant Name Role Phone Claudy Bryant NP Primary Care Provider [phone] Allergies Active Allergy Reactions Criticality Noted Date [...] [facility] [place] [address] [place] [address] Eric Lopez MD from Last 3 Months [...] 03/21/2022 Influenza Vaccine (#1) 2025 Insurance Medicare [facility] Medicare [facility] Care Teams Contract Assistant Relationship Specialty Start Date End Date Claudy Bryant NP [facility] [place] [address] PCP - General Nurse Practitioner 11/02/21
--- OUTSIDE RECORDS SUMMARY | 2025-06-10 06:51 | XMS_ITS | Clinical Summary ---
Author Organization [facility] Address [address] [place] [address] Phone Care Team Providers Care Child'S Nurse Name Role Phone Unavailable Primary Care Provider Unavailabl e Social History Tobacco Use Types Packs/Day Years Used Date Smoking Tobacco: Never Assessed Sex and Gender Information Value Date Recorded Sex Assigned at Not on file Legal Sex Male 8:13 AM EDT Gender Identity Not on file Sexual Orientation Not on file Plan of Treatment Upcoming Encounters Date Type Department Care Team (Late st Contact Info) Description 06/14/2025 8:45 AM EDT Appointment [address] [address] Health Maintenance Due Date Last Done Comments Colorectal Cancer Screening: Colonoscopy 1954 Diabetes: Annual Foot Exam 1964 Diabetes: Annual [...] Screen 12/16/2024 Cholesterol Screening (Lipid Panel) 12/16/2024 Diabetes: Annual Urine Albumin-Creatinine Ratio (uACR) [...] age to complete this topic Insurance MEDICARE [facility]
--- OUTSIDE RECORDS SUMMARY | 2025-06-10 06:51 | XMS_ITS | Encounter Summary ---
Author Organization [facility] Address [address] [place] [address] Phone Care Team Providers Care Licensed Plumber Name Role Phone Alberto Esposito DO Primary Care Provider [phone]- [phone] Encounter Details Date Type Department Care Team (Late st Contact Info) Description 03/29/2018 Transcribe Orders [facility] Vascular Lab [address] [place] [address] Heriberto [email or web address] Social History Tobacco Use Types [...] on filedocumented in this encounter Care Teams Licensed Plumber Relationship Specialty Start Date End Date Alberto Esposito DO [address] [place] [address] PCP - General Internal Medicine 02/21/18 documented as of this encounter Additional Source Comments The information contained in this document represents components of the legal health record. It is not the complete legal health record.[facility]
--- OUTSIDE RECORDS SUMMARY | 2025-06-10 06:51 | XMS_ITS | Clinical Summary ---
Author Organization [facility] Address [address] [facility] [address] [place] [address] Phone Care Team Providers Care Transportation Maintenance Supervisor Name Role Phone Alberto Esposito Primary Care Provider [phone]- [phone] Allergies Active Allergy Reactions Criticality Noted Date [...] mouth nightly. Or as directed by the [facility] Anticoagulation Management Service. 60 tablet 1 [...] this topic Medical Devices Implanted Type Area Shell Mold Bonding Machine Operator Device Identifier Shelf Expiration Date Model / Serial / Lot Screw Bone 6.5x8mm Cancellous Acetabular [place] Ea Hip 16a - [id number] Implanted:Qty: 2 on 04/11/2018 by John Navarro MD at [facility] Right: Hip [employer] 01/09/2028 1217-08-500 / / [id number] Screw Bone 6.5x20mm Cortical Acetabular Self Tapping Cable Ready Trauma Sterile Trilogy Hip 16a - [id number] Implanted:Qty: 1 on 04/11/2018 by John Navarro MD at [facility] Right: Hip VY / DIV [employer] 10/11/2022 [id number] / / [id number] Screw Bone 6.5x40mm Cortical Acetabular Self Tapping Cable Ready Trauma Sterile Trilogy Bx/1ea Hip 16a - [id number] Implanted:Qty: 1 on 04/11/2018 by John Navarro MD at [facility] Right: Hip VY / DIV OF [facility] 07/11/2027 [id number] / / [id number] Screw Bone 6.5x35mm Cortical Acetabular Self Tapping Cable Ready Trauma Sterile Trilogy Bx Hip 16a - [id number] Implanted:Qty: 1 on 04/11/2018 by John Navarro MD at [facility] Right: Hip VY / DIV OF [facility] 11/09/2027 [id number] / / [id number] Screw Bone 6.5x25mm Cortical Acetabular Self Tapping Cable Ready Trauma Sterile Trilogy Hip 16a - [id number] Implanted:Qty: 1 on 04/11/2018 by John Navarro MD at [facility] Right: Hip VY / DIV OF [facility] 02/08/2027 [id number] / / [id number] Implant Hip 58mm Femoral Shell Trabecular Metal Modular Multi Holed Revision Bx/1ea Hip 08 - [id number] Implanted:Qty: 1 on 04/11/2018 by John Navarro MD at [facility] STANDARD Right: Hip VY / DIV OF [facility] 10/11/2027 [id number] / / [id number] Hip Zim#9981-180-[address] Hip 03 - [id number] Implanted:Qty: 1 on 04/11/2018 by John Navarro MD at [facility] STANDARD Right: Hip VY / [facility] 08/10/2027 [id number] / / [id number] Implant Hip 44g87kh Femoral Cone E Body Zmr Extended Offset Ea Hip 17 - [id number] Implanted:Qty: 1 on 04/11/2018 by John Navarro MD at [facility] STANDARD Right: Hip VY / [facility] 02/08/2021 [id number] / / [id number] Implant Hip 87i97bj Femoral Liner Cup Longevity Highly Crosslinked Standard Polyethylene Bx/1ea Hip 10 - [id number] Implanted:Qty: 1 on 04/11/2018 by John Navarro MD at [facility] STANDARD Right: Acetabulum VY / DIV OF [employer] 10/11/2022 [id number] / / Implant Hip 3.5mm Femoral Head Versys 12to14 [place] Chrome 36mm Pos Bx/1ea Hip 05 - [id number] Implanted:Qty: 1 on 04/11/2018 by John Navarro MD at [facility] STANDARD Right: Acetabulum VY / DIV OF [employer] 08/10/2027 [id number] / / R Thr L Thr Procedures Procedure Name Priority Date/Time Associated Diagnosis Comments BASIC METABOLIC PANEL Routine 04/13/2018 6:00 AM EDT from Last 3 Months or Most Recently Relevant to Health Maintenance Results * (ABNORMAL) Basic metabolic panel (04/13/2018 6:00 AM EDT) SODIUM 142 136 - 145 mmol/L [facility] POTASSIUM 3.3(L) 3.4 - 5.0 mmol/L [facility] CHLORIDE 102 98 - 107 mmol/L [facility] CO2 29 22 - 31 mmol/L [facility] BUN 15 6 - 23 mg/dL [facility] CREATININE 0.70 0.50 - 1.20 mg/dL [facility] GLUCOSE 109(H) 70 - 100 mg/dL [facility] CALCIUM 7.8(L) 8.8 - 10.7 mg/dL [facility] EGFR 100 >59 mL/min/1.7 3m2 [facility] Comment:If patient is black, multiply result by 1.159. Estimated glomerular filtration rate calculated using the CKD-EPI equation. ANION GAP 11 7 - 17 mmol/L [facility] Blood 04/13/2018 6:00 AM EDT 04/13/2018 6:51 AM EDT us John Navarro MD LAB BLOOD ORDERABLES Final Res ult [facility] [address] [place] [address] from Last 3 Months or Most Recently Relevant to Health Maintenance Insurance MEDICARE PART A & B [employer] MEDEX SUPPLEMENT MEDICARE PART A & B [employer] MEDEX SUPPLEMENT MEDICARE PART A & B [employer] MEDEX SUPPLEMENT MEDICARE PART A & B [employer] MEDEX SUPPLEMENT MEDICARE PART A & B Member Subscriber Plan / Payer ( fective 2019-Present) Name:Sohail Rolle Member ID:[id number] Relation to Subscriber:Self Name:LizstanSohail montaño Subscriber ID:[id number] Payer ID:[id number] Group ID:Not on file Type:Medicare Address: [facility] [employer] [facility] [place] [phone] [facility] MEDEX SUPPLEMENT MEDICARE PART A & B Member Subscriber Plan / Payer ( fective 2019-Present) Name:AndreiSohail montaño Member ID:[id number] Relation to Subscriber:Self Name:Sariah Sohail Subscriber ID:[id number] Payer ID:[id number] Group ID:Not on file Type:Medicare Address: [employer] [address] [place] [phone] [employer] MEDEX SUPPLEMENT MEDICARE PART A & B [employer] MEDEX SUPPLEMENT MEDICARE PART A & B Member Subscriber Plan / Payer ( fective 2019-Present) Name:Sohail Rolle Member ID:[id number] Relation to Subscriber:Self Name:Sohail Rolle Subscriber ID:[id number] Payer ID:[id number] Group ID:Not on file Type:Medicare Address: [facility] [employer] [address] [place] [address] [employer]OSS MEDEX SUPPLEMENT MEDICARE PART A & B Member Subscriber Plan / Payer ( fective 2019-) Name:Sohail Rolle Member ID:[id number] Relation to Subscriber:Self Name:Sohail Rolle Subscriber ID:[id number] Payer ID:[id number] Group ID:Not on file Type:Medicare Address: [facility] [employer] [address] [place] [phone] [employer] MEDEX SUPPLEMENT Advance Directives For more information, please contact: [phone] (9AM - 5PM Carol/[facility], Monday-Monday) Documents on File Type Date Recorded Patient Etl Informatica Developer Expl [facility] [employer] Proxy 04/11/2018 7:46 AM [...] Agent (Proxy form on file) Care Teams Transportation Maintenance Supervisor Relationship Specialty Start Date End Date Alberto Esposito DO [address] [place] [address] PCP - General Internal Medicine 02/21/18 Additional Source Comments The information contained in this document represents components of the legal health record. It is not the complete legal health record.[facility]
--- NOTE | 2025-07-07 09:59 | HO.ANESPROP2 ---
Documented by User: Violeta Galeano NP 07/07/25 10:07 HPI - Anesthesia Eval Consult details Narrative: 69 yr old male for upper endoscopy, colonoscopy BMI 41 Follows with [facility] [place]: last visit 05/2025, an echo is planned for 2025 Mild cardiomyopathy: EF 40-50% on echo 11/2024 Paroxysmal atrial fibrillation: on xarelto Mild aortic stenosis: echo from November 2024 showed Aov Mn Grad: 6.00, FATOU 1.79 ALEJANDRA COPD: he does smoke, recently started on Trelegy PMFSH Active Problems Active Problems: All Active Problems (Updated 04/15/25 @ 11:44 by Clau Martin MD) Dyspnea (Acute) COPD (chronic obstructive pulmonary disease) (Acute) Actinic keratosis (Acute) Elevated TSH (Acute) Cough (Acute) Low blood pressure (Acute) Enlarged lymph nodes (Acute) Pancreatic cyst (Acute) Liver cirrhosis (Acute) Abnormal ultrasound of abdomen (Acute) Liver lesion (Acute) Thrombocytopenia (Chronic) CAD (coronary artery disease) (Acute) Paroxysmal atrial fibrillation (Acute) Cardiomyopathy (Acute) Aortic stenosis (Acute) Diastolic dysfunction (Acute) HTN (hypertension) (Acute) Hyperlipidemia (Acute) Diabetes mellitus (Acute) ALEJANDRA (obstructive sleep apnea) (Acute) Nicotine dependence, cigarettes, uncomplicated (Acute) Morbid obesity (Acute) Past Medical History Medical History Shoulder pain, bilateral Chronic cough History of RSV infection (~09/2023) Nicotine dependence, cigarettes, uncomplicated Chronic anticoagulation Arthritis Aortic stenosis Morbid obesity COVID-19 vaccine administered Diastolic dysfunction Cardiomyopathy ALEJANDRA (obstructive sleep apnea) Hyperlipidemia Diabetes mellitus HTN (hypertension) CAD (coronary artery disease) Paroxysmal atrial fibrillation Family History Family History Father No problems noted. Mother HTN (hypertension) Family history of problems with anesthesia: No Surgical History Surgical History History of ablation of neoplasm of liver History of colonoscopy History of esophagogastroduodenoscopy (EGD) History of total left hip replacement History of total right hip replacement History of Problems with Anesthesia: No Social History Social History Household Members: Spouse Household Members Other:: [facility] Housing: House Are you a primary day care center director to a significant other at home: No Do you presently have visiting nurse or other home services: No Alcohol intake: current Alcohol intake frequency: a few times a month Patient Tobacco Use Status: Current everyday Tobacco user Tobacco use type: Cigar Years Smoked: (onset 17yo, 1ppd x 41yrs, 40pyh - quit 2014 - daily cigar) Smoked in Last 30 Days: Yes e-Cigarette/Vaping Use: Never Used Second Hand Smoke Exposure: No Substance Use Type: Marijuana Substance Use Frequency: Occasionally Have you been hit, kicked, punched, or otherwise hurt by someone within the past year? 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 Current occupational exposures/hazards: No Cognitive needs: No Hearing needs: No Vision needs: No Meds Allergies Allergy/AdvReac Type Severity Reaction Status Date / Time morphine Allergy Intermediate shortness Verified 07/09/25 07:58 of breath Sulfa (Sulfonamide Allergy Intermediate rash, hives Verified 07/09/25 07:58 Antibiotics) Home Medications ?Medication ?Instructions ?Recorded ?Confirmed ?Last Taken ?Type blood-glucose meter (US PREVENTIVE MEDICINEStyle 06/29/21 07/07/25 Unknown History System Kit) magnesium 200 mg tablet 300 mg PO DAILY 04/12/23 07/07/25 10/21/24 History spironolactone 25 mg tablet 12.5 mg PO DAILY 06/02/25 07/07/25 Unknown History Exam Narrative Narrative: ECHO 11/2024 Conclusions: - The left ventricular systolic function is mildly decreased. The visually estimated ejection fraction is between 40-45%. - No obvious valvular pathology seen on this study. EKG 10/2024 sinus rhythm, sinus arrhythmia, 1st degree AV block, rate 70 Assessment and Plan Final Anesthetic Review Family History of Problems with Anesthesia: No History of Problems with Anesthesia: No Documented by User: Anastasia Lopez MD 07/09/25 08:23 [facility] Past Medical History Medical History Shoulder pain, bilateral Chronic cough History of RSV infection (~09/2023) Nicotine dependence, cigarettes, uncomplicated Chronic anticoagulation Arthritis Aortic stenosis Morbid obesity COVID-19 vaccine administered Diastolic dysfunction Cardiomyopathy ALEJANDRA (obstructive sleep apnea) Hyperlipidemia Diabetes mellitus HTN (hypertension) CAD (coronary artery disease) Paroxysmal atrial fibrillation Family History Family History Father No problems noted. Mother HTN (hypertension) Surgical History Surgical History History of ablation of neoplasm of liver History of colonoscopy History of esophagogastroduodenoscopy (EGD) History of total left hip replacement History of total right hip replacement Social History Social History Household Members: Spouse Household Members Other:: [facility] Housing: House Are you a primary day care center director to a significant other at home: No Do you presently have visiting nurse or other home services: No Alcohol intake: current Alcohol intake frequency: a few times a month Patient Tobacco Use Status: Current everyday Tobacco user Tobacco use type: Cigar Years Smoked: (onset 17yo, 1ppd x 41yrs, 40pyh - quit 2014 - daily cigar) Smoked in Last 30 Days: Yes e-Cigarette/Vaping Use: Never Used Second Hand Smoke Exposure: No Substance Use Type: Marijuana Substance Use Frequency: Occasionally Have you been hit, kicked, punched, or otherwise hurt by someone within the past year? 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 Current occupational exposures/hazards: No Cognitive needs: No Hearing needs: No Vision needs: No Meds Allergies Allergy/AdvReac Type Severity Reaction Status Date / Time morphine Allergy Intermediate shortness Verified 07/09/25 07:58 of breath Sulfa (Sulfonamide Allergy Intermediate rash, hives Verified 07/09/25 07:58 Antibiotics) Home Medications ?Medication ?Instructions ?Recorded ?Confirmed ?Last Taken ?Type blood-glucose meter ([employer] 06/29/21 07/07/25 Unknown History System Kit) magnesium 200 mg tablet 300 mg PO DAILY 04/12/23 07/07/25 10/21/24 History spironolactone 25 mg tablet 12.5 mg PO DAILY 06/02/25 07/07/25 Unknown History Exam Airway Mallampati Class: III TM Dist: >3cm Neck ROM: Full Loose/Missing/Broken Teeth: Yes, Upper and Lower Heart: RRR Lungs: CTA Assessment and Plan Assessment Anesthesia Assessment: Anesthesia Plan Discussed and Chart Reviewed Final Anesthetic Review NPO: Yes ASA Class: III Final Preanesthetic Review: Meds/Allgs Chart Reviewed, Consent Obtained/Reviewed and Anes Risks/Benef Reviewed Patient Risk: Intermediate Procedure Risk: Intermediate Anesthetic Plan Anesthetic Plan: MAC: Disposition: Standard PACU
[2025-07-07 13:47] VITALS: BMI 41.2
--- NOTE | 2025-07-09 07:18 | P.HPSUR_ITS ---
Pre-Procedural Eval Section A - 24 Hr Update-Section A only Date of Service: 07/09/25 Section B - Complete if H&P > 30 days Chief Complaint: Esophageal varices without bleeding,polyp Relevant Family History (Specify if Yes): No Relevant Social History: Tobacco Use Present Medications: see Short Stay Collaborative assessment Medical History: Significant History (Shoulder pain, bilateral Chronic cough Hi story of RSV infection (~09/2023) Nicotine dependence, cigarettes, uncomplicated Chronic anticoagulation Arthritis Aortic stenosis Morbid obesity COVID-19 vaccine administered Diastolic dysfunction Cardiomyopathy ALEJANDRA (obstructive sleep apnea) Hyperlipidemia D) History of Previous Operations: Relevant previous surgery/procedure and date(s) ( History of colonoscopy History of esophagogastroduodenoscopy (EGD) History of total left hip replacement History of total right hip rep) Allergies: Allergies Allergy/AdvReac Type Severity Reaction Status Date / Time morphine Allergy Intermediate shortness Verified 06/02/25 08:26 of breath Sulfa (Sulfonamide Allergy Intermediate rash, hives Verified 06/02/25 08:26 Antibiotics) Review of Systems Sugical H&P ROS: Negative: Constitution, Cardiovascular, Respiratory, Neurological, Psychiatric, Hem-Onc, Allergic/Immunologic, Gastrointestinal, Genitourinary, Musculoskeletal, Integumentary, Endocrine and Eyes/Ears/Nose/Throat Exam Surgical H&P Exam: Normal: HEENT, Normal: Heart, Normal: Lungs, Normal: Extremities, Normal: Abdomen, Normal: Skin and Normal: Neurological Plan Diagnosis/Plan: Unchanged I have reviewed the history and physical and performed a pertinent physical examination on my patient. No changes have occurred unless specified. Time Spent With Patient Time: Total time managing care of this patient today ____ minutes.
[2025-07-09 07:34] VITALS: BMI 40.7
[2025-07-09] MEDS: Lactated Ringers 1,000 ML 100 ML IVCONT (07:38)
[2025-07-09 07:55] LABS: Glucose, Whole Blood 121 mg/dL (60-115)
[2025-07-09 07:56] VITALS: BP 158/82; PULSE 83; RESP 18; TEMP 36.6; O2SAT 96
--- NOTE | 2025-07-09 09:33 | P.OPN-COLO_ITS ---
Colonoscopy Operative Note Operative Note Date of Service: 07/09/25 Narrative: Operative Information Procedure Description: EGD, Colonoscopy Indication: hx of colon polyps, variceal screening Anesthesia: MAC FLEXIBLE TRANSORAL UPPER GASTROINTESTINAL ENDOSCOPY AND COLONOSCOPY PROCEDURE NOTE UPPER ENDOSCOPY Consent: Indications for the procedure and potential complications of bleeding, perforation, reaction to medications and missed diagnosis were discussed with the patient and informed consent was obtained. Instrument: Olympus GIF H 190 J mid size upper endoscope Monitoring: Vital signs and clinical assessment, continuous EKG monitoring, Pulse oximetry, Carbon Dioxide monitoring and blood pressure monitoring were done throughout the procedure. Procedure: The patient was placed in the left lateral decubitis position and pre-procedure medications were administered and a bite block was placed. The endoscope was inserted into the mouth and advanced under direct vision to the third part of duodenum. A careful inspection was made as the upper endoscope was withdrawn including a retroflexed examination of the proximal stomach; Findings and interventions are described below. Findings: Larynx:normal Esophagus: GE junction at 40 cm, diaphragm hiatus at 40 cm, two small varices grade I noted which collapsed with air insufflation. No high risk patiño seen Stomach: congestion and mosaic pattern noted consistent with portal hypertensive gastropathy . Grade 2 flap valve on retroflexed examination of the cardia. no gastric varices. Duodenum: congestion and erythema of duodenum noted prob secondary to portal hypertension Intervention: none COLONOSCOPY Instrument: Olympus variable stiffness pediatric scope 190L Colonoscopy Monitoring: Vital signs and clinical assessment, continuous EKG monitoring, Pulse oximetry, Carbon Dioxide monitoring and blood pressure monitoring were done throughout the procedure. Colon withdrawal time was [] minutes. Procedure: The patient was placed in the left lateral decubitis position and pre-procedure medications were administered. After a digital rectal examination of the ano-rectum, the video colonoscope was inserted into the rectum and advanced through the colon to the cecum/TI. The colonoscope was slowly withdrawn in a retrograde panoramic fashion and the colon mucosa was carefully examined including a retroflexed view of the rectum. Findings and interventions are described below. Procedure Difficulty: easy Findings: Terminal Ileum-not intubated Cecum:normal Ascending Colon: 10-12 mm laterla spreading granular polyp injected with eleview and removed with cold snare, x 2 sessile polyps removed with cold snare Transverse Colon - x 3 sessile polyps 10-11 mm removed with cold snare and x 2 sessile polyps 4-6 mm removed with cold forceps Descending Colon: x 5 sessile polyps 10-12 mm removed with cold snare Sigmoid Colon: x 1 lateral spreading granular polyp lifted with eleview and removed with cold snare, x 2 sessile polyps 5-6 mm removed with cold snare Rectum: Retroflexion with small internal hemorrhoids, grade I Anorectum - normal Colon preparation: [place] Bowel Preparation Scale Right colon; 1-2 Transverse colon: 2 Left colon; 2 (0 = Unprepared colon segment with mucosa not seen due to solid stool that cannot be cleared. 1 = Portion of mucosa of the colon segment seen, but other areas of the colon segment not well seen due to staining, residual stool and/or opaque liquid. 2 = Minor amount of residual staining, small fragments of stool and/or opaque liquid, but mucosa of colon segment seen well. 3 = Entire mucosa of colon segment seen well with no residual staining, small fragments of stool or opaque liquid) Impression and Post Procedure Diagnosis: Endoscopy Findings: portal hypertensive gastropathy and duodenopathy varices gastritis Colonoscopy Findings: diverticulosis colon polyps x 15 internal hemorrhoids Plan: Await Pathology results Repeat Colonoscopy in 2-3 months or earlier if clinically indicated High fiber diet leaflet avoid straining at stool, epsom salts and sitz bath, anusol supps or cream restart rivaroxiban in 48 hrs evening of 07/11/25 Above findings were reviewed with the patient and relevant handouts were provided if indicated.
[2025-07-09 09:37] VITALS: BP 114/66; PULSE 72; RESP 16; TEMP 36.2; O2SAT 95
[2025-07-09 09:52] VITALS: BP 125/56; PULSE 54; RESP 16; O2SAT 96
[2025-07-09 10:07] VITALS: BP 128/84; PULSE 56; RESP 16; TEMP 36.3; O2SAT 97
[2025-07-09 10:21] VITALS: BP 133/74; PULSE 68; RESP 16; TEMP 36.3; O2SAT 97
== END 2025-07-09 11:10 | disposition home or self-care (01) ==
PROVIDERS: PCP Nurse Practitioner Family; Visit Provider Internal Medicine Gastroenterology
PROC: (CPT 45385; principal; 2025-07-09 08:30)
DX: I85.00 Esophageal varices without bleeding (principal); K63.5 Polyp of colon; K74.60 Unspecified cirrhosis of liver; L53.9 Erythematous condition, unspecified; K29.70 Gastritis, unspecified, without bleeding; D12.2 Benign neoplasm of ascending colon; D12.4 Benign neoplasm of descending colon; D12.5 Benign neoplasm of sigmoid colon; D12.3 Benign neoplasm of transverse colon; K64.0 First degree hemorrhoids
CPT/HCPCS: 45385; 45381; 43235; 82947; 88305; J1610; J2003; J2704

== ENCOUNTER → 2025-07-09 07:24 | Outpatient (BNV) | payer MEDICARE, SELFPAY | PROVIDERS: PCP Nurse Practitioner Family; Visit Provider Internal Medicine Gastroenterology | DX: Z12.11 Encounter for screening for malignant neoplasm of colon (principal); Z86.0100 Personal history of colon polyps, unspecified; D12.2 Benign neoplasm of ascending colon; D12.4 Benign neoplasm of descending colon; D12.3 Benign neoplasm of transverse colon; K57.30 Diverticulosis of large intestine without perforation or abscess without bleeding; K64.0 First degree hemorrhoids; I85.00 Esophageal varices without bleeding; K76.6 Portal hypertension; K31.89 Other diseases of stomach and duodenum; K29.70 Gastritis, unspecified, without bleeding | CPT/HCPCS: 43244; 45381; 45385 ==

== ENCOUNTER 2025-07-15 08:23 | Outpatient (AMB) | payer MEDICARE, SELFPAY ==
--- NOTE | 2025-07-15 08:31 | A.OFFPC_ITS ---
Vital Signs 07/15/25 08:32 Height 5 ft 8 in Weight 275 lb BMI 41.8 BP 110/72 Blood Pressure Location Lt brachial Position Sitting Respiration 16 Pulse 70 Temp 98.1 F Temp Source Oral Pulse Oximetry (%) 95 Oxygen Delivery Method Room Air Intake Visit Reasons: 4m follow up Livestock Nutrition Territory Manager Required: No Accompanied by: Self / Same As Patient Allergies morphine Allergy (Intermediate, Verified 07/15/25 08:33) shortness of breath Sulfa (Sulfonamide Antibiotics) Allergy (Intermediate, Verified 07/15/25 08:33) rash, hives Medication List - Last Reconciled 07/15/25 by Claudy Bryant, ANTIQUE CLOCK REPAIRER- atorvastatin 40 mg PO DAILY blood sugar diagnostic (FreeStyle Test strips) daily blood-glucose meter (FreeStyle System Kit) As directed fluticasone propionate 50 mcg/actuation 1 spray intranasal DAILY PRN wuvfhqffnyx-kidlzjfme-nlscthgp 200-62.5-25 mcg (Trelegy Ellipta) 1 inh inhalation DAILY ipratropium-albuterol 0.5 mg-3 mg(2.5 mg base)/3 mL 3 mL inhalation Q6H PRN lancets (FreeStyle Lancets) test blood sugar one time a day lancets (FreeStyle Unistik 2) daily losartan 25 mg PO DAILY NS magnesium 300 mg PO DAILY metoprolol succinate ER 25 mg PO DAILY rivaroxaban (Xarelto) 20 mg PO QPM spironolactone 12.5 mg PO DAILY Tobacco use date assessed: 07/15/25 Fall risk assessment: No Falls in past year Last assessed Fall Risk: 07/15/25 Dental Screening Dental Screen Date: 07/15/25 Did you have a dental visit in the last 12 months?: Yes Did you have a dental problem in the last 6 months where you did not have access to dental care?: No HPI 4m follow up HPI Details Chief Complaint The patient presents for a follow-up appointment for diabetes management. History of Present Illness The patient is a 69-year-old male presenting for a follow-up for diabetes. His recent A1c was 6.3%. The patient denies any neuropathy and has an eye exam scheduled for the near future. The patient has a history of morbid obesity and sees specialists for cardiology and pulmonology. He was recently seen by a washroom cleaner and found to have multiple polyps, with a follow-up colonoscopy planned for the near future. He also has nodular lesions on his nose and had seen a nylon operator within the last year. Social History Health Maintenance - The patient has an upcoming eye exam. - He is scheduled for a follow-up colono scopy in the near future for a history of multiple polyps. - The patient requests a referral to a [facility] nylon operator for monitoring of nodular lesions on his nose. Review of Systems - Neurological: Denies neuropathy. Physical Exam General: Cooperative, healthy appearing, comfortable, no acute distress and well developed, morbidly obese Orientation: Patient oriented x3 Limitations: No limitations Head: Normal to inspection Ears: Hearing grossly normal bilaterally Nose: Nodular lesion on the nose, a couple of them, one on the distal tip Face and sinus: Normal facial exam Eyes: Appearance normal, both eyes and all related structures Neck: Normal visual inspection and Yes full ROM Respiratory: Fairly clear, diminished due to body habitus Cardiovascular: Systolic murmur noted, difficult to auscultate due to body habitus GI: Normal to inspection. Soft to palpation and nontender Skin: No rashes or lesions noted Neuro: Patient oriented x3 Extremities: Right big toe slightly ingrown without signs of infection, feet intact, + sensation with monofilament Results - Labs: Hemoglobin A1c was 6.3%. Plan 1. Diabetes Mellitus The patient's recent hemoglobin A1c was 6.3%, indicating good glycemic control. Metformin 500 mg once daily will be discontinued. Lab orders were placed, and the patient was advised to fast beforehand. A follow-up visit is scheduled in approximately four months for a repeat A1c. The patient is scheduled for an upcoming diabetic eye exam. 2. Nodular Lesion Of Nose The patient has nodular lesions on the nose and would like a referral to a different nylon operator for evaluation and management. A referral will be provided as requested. 3. History Of Colon Polyps The patient was recently found to have multiple polyps by a GI specialist. He will proceed with a follow-up colonoscopy in the near future as planned. Discussion Notes I discussed the patient's impressive A1c of 6.3% and my recommendation to stop his metformin 500 mg daily. I informed him that lab orders have been entered and that he needs to fast before the test. We will plan to follow up in about four months to repeat the A1c. I also agreed to provide a referral to a different nylon operator, as he requested, to keep an eye on the nodular lesions on his nose. Patient Instructions - You can stop taking your metformin 500 mg medication once a day. - Please get your lab work done as order ed. Remember to fast before your blood is drawn. - Schedule a follow-up appointment in out four months to check your A1c levels again. - A referral will be sent for you to see a new skin doctor (nylon operator) for the spots on your nose. - Continue with your plan to have a foll ow-up colonoscopy. - Make sure to attend your upcoming eye exam. [facility] Medical History Shoulder pain, bilateral Chronic cough History of RSV infection (~09/2023) Nicotine dependence, cigarettes, uncomplicated Chronic anticoagulation Arthritis Aortic stenosis Morbid obesity COVID-19 vaccine administered Diastolic dysfunction Cardiomyopathy ALEJANDRA (obstructive sleep apnea) Hyperlipidemia Diabetes mellitus HTN (hypertension) CAD (coronary artery disease) Paroxysmal atrial fibrillation Surgical History History of ablation of neoplasm of liver History of colonoscopy History of esophagogastroduodenoscopy (EGD) History of total left hip replacement History of total right hip replacement Family History Father No problems noted. Mother HTN (hypertension) Social History Household Members: Spouse Household Members Other:: [facility] Housing: House Are you a primary manager respiratory care to a significant other at home: No Do you presently have visiting nurse or other home services: No Alcohol intake: current Alcohol intake frequency: a few times a month Patient Tobacco Use Status: Current everyday Tobacco user Tobacco use type: Cigar Years Smoked: (onset 17yo, 1ppd x 41yrs, 40pyh - quit 2014 - daily cigar) e-Cigarette/Vaping Use: Never Used Second Hand Smoke Exposure: No Substance Use Type: Marijuana service: No Current occupational status: employed 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 1. Little interest or pleasure in doing things: not at all 2. Feeling down, depressed, or hopeless: not at all 3. Trouble falling or staying asleep, or sleeping too much: not at all 4. Feeling tired or having little energy: not at all 5. Poor appetite or overeating: not at all 6. Feeling bad about yourself - or that you are a failure or have let yourself or your family down: not at all 7. Trouble concentrating on things, such as reading the newspaper or watching television: not at all 8. Moving or speaking so slowly that other people could have noticed. Or the opposite - being so fidgety or restless that you have been moving around a lot more than usual: not at all 9. Thoughts that you would be better off or of hurting yourself in some way: not at all Total score: 0 Depression Screening Interpretation: Negative Depression Screening Done: Yes 36918 - PHQ-9 Billing: Yes Source: Developed by Drs. Blake Rodriguez, Tawana Workman, Krishna Benoit and colleagues, with an educational franklyn from [employer]. Thrive Questionnaire Date Thrive assessed: 03/11/25 KATARINA-7 AMB Questionnaire KATARINA-7 Date KATARINA - 7 assessed: 10/10/23 Feeling nervous, anxious, or on edge: 0 = Not at all Not being able to stop or control worryin = Not at all Worrying too much about different things: 1 = Several days Trouble relaxin = Not at all Being so restless that it is hard to sit still: 0 = Not at all Becoming easily annoyed or irritable: 0 = Not at all Feeling afraid as if something awful might happen: 0 = Not at all Total KATARINA-7 score (0-4 normal; 5-9 mild; 10-14 moderate; 15-21 severe): 1 Source: Developed by Drs. Blake Rodriguez, Tawana Workman, Krishna Benoit and colleagues, with an educational franklyn from [employer]. KATARINA-7 Assessment Billing KATARINA-7 Assessment Tool: KATARINA-7 Assessment 22106 Physical exam (Primary Care) Vital Signs: Last Vital Signs Temp 98.1 F 07/15/25 08:32 Pulse 70 07/15/25 08:32 Resp 16 07/15/25 08:32 BP 110/72 07/15/25 08:32 Pulse Ox 95 07/15/25 08:32 Oxygen Delivery Method Room Air 07/15/25 08:32 BMI result Body Mass Index 41.8 Tobacco/Smoking Status: Tobacco use Status Tobacco use date assessed 07/15/25 07/15/25 08:39 Patient Tobacco Use Status Current everyday Tobacco 07/15/25 08:39 Tobacco use type Cigar 07/15/25 08:39 e-Cigarette/Vaping Use Never Used 07/15/25 08:39 PHQ-9: PHQ-9 Score PHQ-9: Total score 0 07/15/25 08:39 Depression Screening Interpretation: Negative Thrive Assessment: Date of Thrive Assessment Date Thrive assessed 03/11/25 07/15/25 08:39 Results AMB Hemoglobin A1c AMB Hemoglobin A1c 6.3 % Last Edit by Jolene Sales MA on 07/15/25 08:56 Coding Level of Care Code Est Pt Level 3 (62744) Diagnoses Diabetes mellitus E11.9 Lesion of skin of nose L98.9 Additional Codes KATARINA-7 Assessment Billing - KATARINA-7 Assessment Tool: KATARINA-7 Assessment [id number] ([id number]) PHQ-9 - 72950 - PHQ-9 Billing: Yes ([id number]) Assessment & Plan Assessment & Plan (1) Diabetes mellitus: Code(s): E11.9 - Type 2 diabetes mellitus without complications Category: Medical (2) Lesion of skin of nose: Code(s): L98.9 - Disorder of the skin and subcutaneous tissue, unspecified Category: Medical Plan . Orders: Orders 2 Complete Blood Count Auto Diff Today E11.9 - Type 2 diabetes mellitus without complications UA CC w/rflx Micro + Cult Today E11.9 - Type 2 diabetes mellitus without complications AMB Hemoglobin A1c Today E11.9 - Type 2 diabetes mellitus without complications Comprehensive [place]. Panel Fast Today E11.9 - Type 2 diabetes mellitus without complications TSH reflex Free T4 Today E11.9 - Type 2 diabetes mellitus without complications Lipid Panel Today E11.9 - Type 2 diabetes mellitus without complications Referrals Dermatology Referral L98.9 - Disorder of the skin and subcutaneous tissue, unspecified Medications: Discontinued metformin ER (Glucophage XR) Discontinued Reason: Doctor's Order 500 mg PO DAILY 30 tabs 3RF
[2025-07-15 08:32] VITALS: BP 110/72; PULSE 70; RESP 16; TEMP 36.7; O2SAT 95; BMI 41.8
--- OUTSIDE RECORDS SUMMARY | 2025-07-15 08:41 | XMS_ITS | Encounter Summary ---
Author Organization [facility] Address [address] [place] [address] Phone Care Team Providers Care Trucking Contractor Name Role Phone Alberto Esposito DO Primary Care Provider +1- [phone] Encounter Details Date Type Department Care Team (Late st Contact Info) Description 04/11/[address] [facility] Periop [address] [place] [address] Social History Tobacco Use Types Packs/Day Years [...] on filedocumented in this encounter Care Teams Trucking Contractor Relationship Specialty Start Date End Date Alberto Esposito DO [address] [place] [address] PCP - General Internal Medicine 02/21/18 documented as of this encounter Additional Source Comments The information contained in this document represents components of the legal health record. It is not the complete legal health record.[facility]
--- OUTSIDE RECORDS SUMMARY | 2025-07-15 08:41 | XMS_ITS | Encounter Summary ---
Author Organization [facility] Address [address] [place] [address] Phone Care Team Providers Care Secret Service Agent Name Role Phone Alberto Esposito DO Primary Care Provider +1- [phone] Encounter Details Date Type Department Care Team (Late st Contact Info) Description 04/11/2018 Procedure Pass [facility] [address] [place] [address] Social History Tobacco Use Types Packs/Day Years [...] on filedocumented in this encounter Care Teams Secret Service Agent Relationship Specialty Start Date End Date Alberto Esposito DO [address] [place] [address] PCP - General Internal Medicine 02/21/18 documented as of this encounter Additional Source Comments The information contained in this document represents components of the legal health record. It is not the complete legal health record.[facility]
--- OUTSIDE RECORDS SUMMARY | 2025-07-15 08:41 | XMS_ITS | Patient Health Record ---
Author Organization [facility] Address [address] [place] [address] Care Team Providers Care Pediatric Anesthesiologist Name Role Phone Kishore Morocho Jr [phone] Reason For Referral No Information Plan Of Treatment No Information
--- OUTSIDE RECORDS SUMMARY | 2025-07-15 08:42 | XMS_ITS | Clinical Summary ---
Author Organization [facility] Address [address] [place] [address] Phone Care Team Providers Care Polisher Numeral Name Role Phone Alberto Esposito Primary Care Provider +1- [phone] Allergies Active Allergy Reactions Criticality Noted Date [...] mouth nightly. Or as directed by the [facility] Anticoagulation Management Service. 60 tablet 1 04/13/20 [...] this topic Medical Devices Implanted Type Area Medical Affairs Director Device Identifier Shelf Expiration Date Model / Serial / Lot Screw Bone 6.5x8mm Cancellous Acetabular [place] Ea Hip 16a - [id number] Implanted:Qty: 2 on 04/11/2018 by John Navarro MD at [facility] Right: Hip [employer] 01/09/2028 [id number] / / [id number] Screw Bone 6.5x20mm Cortical Acetabular Self Tapping Cable Ready Trauma Sterile Trilogy Hip 16a - [id number] Implanted:Qty: 1 on 04/11/2018 by John Navarro MD at [facility] Right: Hip VY / DIV OF [employer] 10/11/2022 [id number] / / [id number] Screw Bone 6.5x40mm Cortical Acetabular Self Tapping Cable Ready Trauma Sterile Trilogy Bx/1ea Hip 16a - [id number] Implanted:Qty: 1 on 04/11/2018 by John Navarro MD at [facility] Right: Hip VY / DIV OF [facility] 07/11/2027 [id number] / / [id number] Screw Bone 6.5x35mm Cortical Acetabular Self Tapping Cable Ready Trauma Sterile Trilogy Bx Hip 16a - [id number] Implanted:Qty: 1 on 04/11/2018 by John Navarro MD at [facility] Right: Hip VY / DIV OF [facility] 11/09/2027 [id number] / / [id number] Screw Bone 6.5x25mm Cortical Acetabular Self Tapping Cable Ready Trauma Sterile Trilogy Hip 16a - [id number] Implanted:Qty: 1 on 04/11/2018 by John Navarro MD at [facility] Right: Hip VY / DIV OF [facility] 02/08/2027 [id number] / / [id number] Implant Hip 58mm Femoral Shell Trabecular Metal Modular Multi Holed Revision Bx/1ea Hip 08 - [id number] Implanted:Qty: 1 on 04/11/2018 by John Navaror MD at [facility] STANDARD Right: Hip VY / DIV OF [facility] 10/11/2027 [id number] / / [id number] Hip Zim#9981-180-[address] Hip 03 - [id number] Implanted:Qty: 1 on 04/11/2018 by John Navarro MD at [facility] STANDARD Right: Hip [facility] / [facility] 08/10/2027 [id number] / / [id number] Implant Hip 34u60ht Femoral Cone E Body Zmr Extended Offset Ea Hip 17 - [id number] Implanted:Qty: 1 on 04/11/2018 by John Navarro MD at [facility] STANDARD Right: Hip [employer] 02/08/2021 [id number] / / [id number] Implant Hip 92l52jh Femoral Liner Cup Longevity Highly Crosslinked Standard Polyethylene Bx/1ea Hip 10 - [id number] Implanted:Qty: 1 on 04/11/2018 by John Navarro MD at [facility] STANDARD Right: Acetabulum VY / DIV OF [employer] 10/11/2022 [id number] / / Implant Hip 3.5mm Femoral Head Versys 12to14 [place] Chrome 36mm Pos Bx/1ea Hip 05 - [id number] Implanted:Qty: 1 on 04/11/2018 by John Navarro MD at [facility] STANDARD Right: Acetabulum VY / DIV OF [employer] 08/10/2027 [id number] / / R Thr L Thr Procedures Procedure Name Priority Date/Time Associated Diagnosis Comments BASIC METABOLIC PANEL (BMP) Routine 04/13/2018 6:00 AM EDT from Last 3 Months or Most Recently Relevant to Health Maintenance Results * (ABNORMAL) Basic metabolic panel (04/13/2018 6:00 AM EDT) SODIUM 142 136 - 145 mmol/L [facility] POTASSIUM 3.3(L) 3.4 - 5.0 mmol/L [facility] CHLORIDE 102 98 - 107 mmol/L [facility] CO2 29 22 - 31 mmol/L [facility] BUN 15 6 - 23 mg/dL [facility] CREATININE 0.70 0.50 - 1.20 mg/dL [facility] GLUCOSE 109(H) 70 - 100 mg/dL [facility] CALCIUM 7.8(L) 8.8 - 10.7 mg/dL [facility] EGFR 100 >59 mL/min/1.7 3m2 [facility] Comment:If patient is black, multiply result by 1.159. Estimated glomerular filtration rate calculated using the CKD-EPI equation. ANION GAP 11 7 - 17 mmol/L [facility] Blood 04/13/2018 6:00 AM EDT 04/13/2018 6:51 AM EDT us John Navarro MD LAB BLOOD BKR ORDERABLES Final Result [facility] [address] [place] [address] from Last 3 Months or Most Recently Relevant to Health Maintenance Insurance MEDICARE PART A & B [employer] SUPPLEMENT MEDICARE PART A & B [employer] SUPPLEMENT MEDICARE PART A & B [employer] SUPPLEMENT MEDICARE PART A & B [employer] SUPPLEMENT MEDICARE PART A & B [facility] SUPPLEMENT MEDICARE PART A & B Member Subscriber Plan / Payer ( fective 2019-Present) Name:Sohail Rolle Member ID:[id number] Relation to Subscriber:Self Name:LizstanSohail montaño Subscriber ID:[id number] Payer ID:[id number] Group ID:Not on file Type:Medicare Address: [facility] [address] [place] [id number] [employer] SUPPLEMENT MEDICARE PART A & B [employer] SUPPLEMENT MEDICARE PART A & B [employer] SUPPLEMENT MEDICARE PART A & B [employer] SUPPLEMENT Advance Directives For more information, please contact: [phone] (9AM - 5PM [facility], Monday-Monday) Documents on File Type Date Recorded Patient Wood Science Professor Expl anation Healthcare Proxy 04/11/2018 7:46 AM * Full Code (Presumed) (Latest Code Status on File) Date Activated Date Inactivated Comments 04/11/2018 5:00 PM 04/13/2018 3:07 PM * Full Code (Presumed) Date Activated Date Inactivated Comments 04/11/2018 7:58 AM 04/11/2018 5:00 PM Healthcare Agents on File Name Relationship Healthcare Agent Relationship Communication Ami Rolle Spouse .Primary Health Care Agent (Proxy form on file) Care Teams Polisher Numeral Relationship Specialty Start Date End Date Alberto Esposito DO [address] [place] [address] PCP - General Internal Medicine 02/21/18 Additional Source Comments The information contained in this document represents components of the legal health record. It is not the complete legal health record.[facility]
--- OUTSIDE RECORDS SUMMARY | 2025-07-15 08:42 | XMS_ITS | Encounter Summary ---
Author Organization [facility] Address [address] [place] [address] Phone Care Team Providers Care Dairy Husbandry Teacher Name Role Phone Alberto Esposito DO Primary Care Provider +1- [phone] Encounter Details Date Type Department Care Team (Late st Contact Info) Description 03/29/2018 Transcribe Orders [facility] Vascular Lab [address] [place] [address] Heriberto [email or web address] Social History Tobacco Use Types [...] on filedocumented in this encounter Care Teams Dairy Husbandry Teacher Relationship Specialty Start Date End Date Alberto Esposito DO [address] [place] [address] PCP - General Internal Medicine 02/21/18 documented as of this encounter Additional Source Comments The information contained in this document represents components of the legal health record. It is not the complete legal health record.[facility]
--- OUTSIDE RECORDS SUMMARY | 2025-07-15 08:42 | XMS_ITS | Clinical Summary ---
Author Organization [facility] Address [address] [place] [address] Phone Care Team Providers Care Puddler Helper Name Role Phone Claudy Bryant NP Primary Care Provider [phone] Allergies Active Allergy Reactions Criticality Noted Date [...] [facility] [place] [address] [place] [address] Eric Lopez MD from Last 3 Months [...] 03/21/2022 Influenza Vaccine (#1) 2025 Insurance Medicare [facility] Medicare [facility] Care Teams Puddler Helper Relationship Specialty Start Date End Date Claudy Bryant NP [facility] [place] [address] PCP - General Nurse Practitioner 11/02/21
--- OUTSIDE RECORDS SUMMARY | 2025-07-15 08:42 | XMS_ITS | Clinical Summary ---
Author Organization [facility] Address [address] [place] [address] Phone Care Team Providers Care Database Engineer Name Role Phone Unavailable Primary Care Provider Unavailabl e Encounters Date Type Department Care Team Description 06/14/2025 8:40 AM EDT - 06/14/2025 11:59 PM EDT Hospital Encounter [facility] MRI [address] [place] [id number] Liver cirrhosis (CMS/HCC V24, CMS/HCC V28) Discharge Disposition: Home [...] DTaP,Tdap,and Td Vaccines (1 - Tdap) 1973 RSV Immunization Adult Patients (1 - Risk 50-74 years 1-dose series) 2004 Zoster Vaccines (1 of 2) 2004 Diabetes: Annual GFR (Glomerular Filtration Rate) 03/18/2023 [...] Influencers of Health Screening 12/16/2024 COVID-19 Vaccine (4 - 2024-2 6 season) 2025 09/05/2021, 12/10/2020, 11/12/2020 Influenza [...] MR ABDOMEN WO AND W CONTRAST Routine 06/14/2025 9:29 AM EDT Liver cirrhosis (CMS/HCC V24, CMS/HCC V28) from Last 3 Months Results * MR Abdomen wo and w Contrast (06/14/2025 9:29 AM EDT) Anatomical Region Laterality Modality Body Magnetic Resonan ce 06/18/2025 11:2 2 AM EDT Impressions 06/18/2025 11:48 AM EDT Cirrhosis with splenomegaly and perigastric varices. Stable postablation changes in hepatic segment 5. Small arterial enhancing liver lesions noted on previous studies are not evident today. No suspicious liver lesion. -------- FINAL REPORT -------- Dictated By: Rajendra Paz Dictated Date: 06/18/2025 11:22 ET Assigned Physician: Rajendra Paz Reviewed and Electronically Signed By: Rajendra Paz Signed Date: 06/18/2025 11:48 ET Workstation ID: [id number] Transcribed By: Self Edit Transcribed Date: 06/18/2025 11:22 ET Narrative 06/18/2025 11:48 AM EDT PROCEDURE: MRI of the abdomen with intravenous contrast. HISTORY: liver chirrohosis pain, last mri 05/13/25. TECHNIQUE: Multiplanar multisequence MRI of the abdomen with and without intravenous contrast. IV contrast dose: 20 mL intravenous Dotarem from a 20 mL vial with 0 mL discarded. COMPARISON: 02/26/2025. FINDINGS: LOWER THORAX: Normal. LIVER: Multinodular contour consistent with cirrhosis. Multiple small T2 hyperintense lesions suggestive of cysts. Stable ablation site in segment 5. A previously noted ill-defined area of enhancement in the liver dome seen on the 12/16/2024 study and a small arterial enhancing lesion in segment 6-7 seen on 02/26/2025 comparison study are not seen today not evident today. The portal and hepatic veins are patent. BILIARY: Normal gallbladder. Normal caliber biliary tree. No ductal dilatation or filling defect. PANCREAS: There is a stable small cystic lesion in the tail. No ductal dilatation. SPLEEN: Enlarged, measuring 13.8 cm craniocaudal. ADRENAL GLANDS: Normal. KIDNEYS: Small bilateral cortical cysts. Visible portions of the collecting systems are normal. RETROPERITONEUM: No mass or lymphadenopathy. VASCULATURE: Recanalized paraumbilical vein. Small perigastric varices. BOWEL/MESENTERY: Visible portions are normal. ABDOMINAL WALL: Visible portions are normal. BONES: Degenerative changes of the spine. No visible bony lesion. Procedure Note Rajendra Paz MD - 06/18/2025 PROCEDURE: MRI of the abdomen with intravenous contrast. HISTORY: liver chirrohosis pain, last mri 05/13/25. TECHNIQUE: Multiplanar multisequence MRI of the abdomen with and withoutintravenous contrast. IV contrast dose: 20 mL intravenous Dotarem from a 20 mL vial with 0 mLdiscarded. COMPARISON: 02/26/2025. FINDINGS: LOWER THORAX: Normal. LIVER: Multinodular contour consistent with cirrhosis. Multiple small X0abvygbwcdmtw lesions suggestive of cysts. Stable ablation site in segment5. A previously noted ill-defined area of enhancement in the liver domeseen on the 12/16/2024 study and a small arterial enhancing lesion insegment 6-7 seen on 02/26/2025 comparison study are not seen today notevident today. The portal and hepatic veins are patent. BILIARY: Normal gallbladder. Normal caliber biliary tree. No ductaldilatation or filling defect. PANCREAS: There is a stable small cystic lesion in the tail. No ductaldilatation. SPLEEN: Enlarged, measuring 13.8 cm craniocaudal. ADRENAL GLANDS: Normal. KIDNEYS: Small bilateral cortical cysts. Visible portions of thecollecting systems are normal. RETROPERITONEUM: No mass or lymphadenopathy. VASCULATURE: Recanalized paraumbilical vein. Small perigastric varices. BOWEL/MESENTERY: Visible portions are normal. ABDOMINAL WALL: Visible portions are normal. BONES: Degenerative changes of the spine. No visible bony lesion. IMPRESSION: Cirrhosis with splenomegaly and perigastric varices. Stable postablation changes in hepatic segment 5. Small arterialenhancing liver lesions noted on previous studies are not evident today.No suspicious liver lesion. -------- FINAL REPORT -------- Dictated By: Rajendra Paz Dictated Date: 06/18/2025 11:22 ET Assigned Physician: Rajendra Paz Reviewed and Electronically Signed By: Rajendra Paz Signed Date: 06/18/2025 11:48 ET Workstation ID: [id number] Transcribed By: Self Edit Transcribed Date: 06/18/2025 11:22 ET John Mi MD [facility] MRI PROCEDURES Final Result from Last 3 Months Insurance MEDICARE [facility]
== END 2025-07-15 09:12 | disposition home or self-care (01) ==
LOC: HO.HMCC 08:23
PROVIDERS: PCP Nurse Practitioner Family; Visit Provider Nurse Practitioner Family
DX: E11.9 Type 2 diabetes mellitus without complications (principal); L98.9 Disorder of the skin and subcutaneous tissue, unspecified

== ENCOUNTER → 2025-07-15 08:23 | Outpatient (BNVA) | payer MEDICARE, SELFPAY | PROVIDERS: PCP Nurse Practitioner Family; Visit Provider Nurse Practitioner Family | DX: E11.9 Type 2 diabetes mellitus without complications (principal); L98.9 Disorder of the skin and subcutaneous tissue, unspecified; Z86.0100 Personal history of colon polyps, unspecified; Z13.31 Encounter for screening for depression | CPT/HCPCS: 83036; 96127; 99212 ==

== ENCOUNTER 2025-07-18 16:36 | Outpatient (REF) | payer MEDICARE, SELFPAY ==
--- NOTE | ~2025-07-18 | CT_ITS ---
EXAMINATION: CT LOW-DOSE SCREENING CHEST WITHOUT CONTRAST CLINICAL INFORMATION: The cord and dependence. COMPARISON: CT low-dose screening 07/05/2024. TECHNIQUE: Multidetector volumetric CT imaging of the chest is performed on a Siemens SOMATOM Definition scanner without contrast using low dose technique. Additional 2D coronal and sagittal reformatted images and axial 3D maximum intensity projection (MIP) images are generated on the CT workstation. This CT examination was performed using dose optimization techniques as appropriate, variously including the following: *Automated exposure control *Adjustment of mA and/or kV according to patient size (this includes techniques or standardized protocols for targeted exams where dose is matched to indication/reason for exam; i.e. extremities or head) *Use of iterative reconstruction technique CTDIvol: 102 mGy. FINDINGS: PULMONARY NODULES: There is 3 mm mm nodule right upper lobe axial image 37/4, stable, 3 mm calcified granuloma right upper lobe image 40/4, stable, 5 mm nodule along the right minor fissure axial image 70/4, stable LUNGS: Focal atelectatic changes seen in the left lower lobe anterobasal segment. Otherwise both lungs are expanded and clear MEDIASTINUM: Thyroid lobes are symmetric and normal. The central trachea and the bronchi are widely patent. The heart size and the great vessels are normal caliber. There is mild coronary artery calcifications present. No abnormal size mediastinal or hilar lymph nodes seen. There is mild focal thickening right lateral tracheal wall on axial image 07/18/2025. Otherwise the trachea and bronchial airway is widely patent. CORONARY ARTERY CALCIFICATION: Mild coronary artery calcification present THYROID GLAND: Unremarkable to the extent seen. CARDIOVASCULAR STRUCTURES: Aortic and heart size normal. No pericardial effusion. CHEST WALL/AXILLA: Unremarkable. UPPER ABDOMEN: Liver, spleen and pancreas is unremarkable. OSSEOUS STRUCTURES: No aggressive lytic or sclerotic process seen. There is mild spondylosis. CT/CT lung screening IMPRESSION: Stable small pulmonary nodules. No new nodule seen. ASSESSMENT: 1. Lung-RADS Category 1: Negative. There are no nodules or there are definitely benign nodules. 2. Lung-RADS Category S: None RECOMMENDATION: Low-dose annual CT screening. Electronically signed by: Cristopher Beck MD 07/21/2025 04:43 PM EST
--- OUTSIDE RECORDS SUMMARY | 2025-07-18 16:53 | XMS_ITS | Encounter Summary ---
Author Organization [facility] Address [address] [place] [address] Phone Care Team Providers Care Textile Supervisor Name Role Phone Alberto Esposito DO Primary Care Provider [phone]- [phone] Encounter Details Date Type Department Care Team (Late st Contact Info) Description 04/11/2018 Procedure Pass [facility] [address] [place] [address] Social History Tobacco Use Types Packs/Day Years [...] on filedocumented in this encounter Care Teams Textile Supervisor Relationship Specialty Start Date End Date Alberto Esposito DO [address] [place] [address] PCP - General Internal Medicine 02/21/18 documented as of this encounter Additional Source Comments The information contained in this document represents components of the legal health record. It is not the complete legal health record.[facility]
--- OUTSIDE RECORDS SUMMARY | 2025-07-18 16:53 | XMS_ITS | Encounter Summary ---
Author Organization [facility] Address [address] [place] [address] Phone Care Team Providers Care Weir Fisher Name Role Phone Alberto Esposito DO Primary Care Provider +1- [phone] Encounter Details Date Type Department Care Team (Late st Contact Info) Description 04/11/2018 Procedure Pass [facility] Periop [address] [place] [address] Social History Tobacco Use Types Packs/Day Years [...] on filedocumented in this encounter Care Teams Weir Fisher Relationship Specialty Start Date End Date Alberto Esposito DO [address] [place] [address] PCP - General Internal Medicine 02/21/18 documented as of this encounter Additional Source Comments The information contained in this document represents components of the legal health record. It is not the complete legal health record.[facility]
--- OUTSIDE RECORDS SUMMARY | 2025-07-18 16:53 | XMS_ITS | Patient Health Record ---
Author Organization [facility] Address [address] [place] [address] Care Team Providers Care Ad Writer Name Role Phone Kishore Morocho Jr [phone] Reason For Referral No Information Plan Of Treatment No Information
--- OUTSIDE RECORDS SUMMARY | 2025-07-18 16:54 | XMS_ITS | Encounter Summary ---
Author Organization [facility] Address [address] [place] [address] Phone Care Team Providers Care Professor Of Rhetoric Name Role Phone Alberto Esposito DO Primary Care Provider +1- [phone] Encounter Details Date Type Department Care Team (Late st Contact Info) Description 03/29/2018 Transcribe Orders [facility] Vascular Lab [address] [place] [address] Heriberto [email or web address] Social History Tobacco Use Types Packs/Day [...] on filedocumented in this encounter Care Teams Professor Of Rhetoric Relationship Specialty Start Date End Date Alberto Esposito DO [address] [place] [address] PCP - General Internal Medicine 02/21/18 documented as of this encounter Additional Source Comments The information contained in this document represents components of the legal health record. It is not the complete legal health record.[facility]
--- OUTSIDE RECORDS SUMMARY | 2025-07-18 16:54 | XMS_ITS | Encounter Summary ---
Author Organization [facility] Address [address] [facility] [address] [place] [address] Phone Care Team Providers Care Jacquard Loom Fixer Name Role Phone Claudy Bryant NP Primary Care Provider [phone] Reason for Visit * Reason Comments Med Refill Encounter Details Date Type Department Care Team (Late st Contact Info) Description 07/16/2025 Refill [facility] [address] [facility] [address] [place] [phone] Eric Lopez MD [address] [place] [phone] Social History Tobacco Use Types Packs/Day Years [...] on filedocumented in this encounter Care Teams Jacquard Loom Fixer Relationship Specialty Start Date End Date Claudy Bryant NP [address] [place] [address] PCP - General Nurse Practitioner 11/02/21 documented as of this encounter
--- OUTSIDE RECORDS SUMMARY | 2025-07-18 16:54 | XMS_ITS | Clinical Summary ---
Author Organization [facility] Address [address] [facility] [address] [place] [id number] Phone Care Team Providers Care Airline Hostess Name Role Phone Alberto Esposito Primary Care Provider [phone] Allergies Active Allergy Reactions Criticality Noted Date [...] mouth nightly. Or as directed by the [facility] Anticoagulation Management Service. 60 tablet 1 04/13/20 [...] this topic Medical Devices Implanted Type Area Curatorial Assistant Device Identifier Shelf Expiration Date Model / Serial / Lot Screw Bone 6.5x8mm Cancellous Acetabular [place] Ea Hip 16a - [id number] Implanted:Qty: 2 on 04/11/2018 by John Navarro MD at [facility] Right: Hip [employer] 01/09/2028 1217-08-500 / / [id number] Screw Bone 6.5x20mm Cortical Acetabular Self Tapping Cable Ready Trauma Sterile Trilogy Hip 16a - [id number] Implanted:Qty: 1 on 04/11/2018 by John Navarro MD at [facility] Right: Hip VY / DIV OF [employer] 10/11/2022 [id number] / / [id number] Screw Bone 6.5x40mm Cortical Acetabular Self Tapping Cable Ready Trauma Sterile Trilogy Bx/1ea Hip 16a - [id number] Implanted:Qty: 1 on 04/11/2018 by John Navarro MD at [facility] Right: Hip VY / [facility] 07/11/2027 [id number] / / [id number] Screw Bone 6.5x35mm Cortical Acetabular Self Tapping Cable Ready Trauma Sterile Trilogy Bx Hip 16a - [id number] Implanted:Qty: 1 on 04/11/2018 by John Navarro MD at [facility] Right: Hip VY / [facility] 11/09/2027 [id number] / / [id number] Screw Bone 6.5x25mm Cortical Acetabular Self Tapping Cable Ready Trauma Sterile Trilogy Hip 16a - [id number] Implanted:Qty: 1 on 04/11/2018 by John Navarro MD at [facility] Right: Hip VY / [facility] 02/08/2027 [id number] / / [id number] Implant Hip 58mm Femoral Shell Trabecular Metal Modular Multi Holed Revision Bx/1ea Hip 08 - [id number] Implanted:Qty: 1 on 04/11/2018 by John Navarro MD at [facility] STANDARD Right: Hip VY / [facility] 10/11/2027 [id number] / / [id number] Hip Zim#9981-180-[id number] Hip 03 - [id number] Implanted:Qty: 1 on 04/11/2018 by John Navarro MD at [facility] STANDARD Right: Hip [facility] / [facility] 08/10/2027 [id number] / / [id number] Implant Hip 51d83sb Femoral Cone E Body Zmr Extended Offset Ea Hip 17 - [id number] Implanted:Qty: 1 on 04/11/2018 by John Navarro MD at [facility] STANDARD Right: Hip [facility] / [facility] 02/08/2021 [id number] / / [id number] Implant Hip 14r12os Femoral Liner Cup Longevity Highly Crosslinked Standard Polyethylene Bx/1ea Hip 10 - [id number] Implanted:Qty: 1 on 04/11/2018 by John Navarro MD at [facility] STANDARD Right: Acetabulum VY / DIV OF [employer] 10/11/2022 [id number] / / Implant Hip 3.5mm Femoral Head Versys 12to14 [place] Chrome 36mm Pos Bx/1ea Hip 05 - [id number] Implanted:Qty: 1 on 04/11/2018 by John Navarro MD at [facility] STANDARD Right: Acetabulum VY / DIV OF [facility] 08/10/2027 [id number] / / R Thr L Thr Procedures Procedure Name Priority Date/Time Associated Diagnosis Comments BASIC METABOLIC PANEL (BMP) Routine 04/13/2018 6:00 AM EDT from Last 3 Months or Most Recently Relevant to Health Maintenance Results * (ABNORMAL) Basic metabolic panel (04/13/2018 6:00 AM EDT) SODIUM 142 136 - 145 mmol/L [facility] POTASSIUM 3.3(L) 3.4 - 5.0 mmol/L [facility] CHLORIDE 102 98 - 107 mmol/L [facility] CO2 29 22 - 31 mmol/L [facility] BUN 15 6 - 23 mg/dL [facility] CREATININE 0.70 0.50 - 1.20 mg/dL [facility] GLUCOSE 109(H) 70 - 100 mg/dL [facility] CALCIUM 7.8(L) 8.8 - 10.7 mg/dL [facility] EGFR 100 >59 mL/min/1.7 3m2 [facility] Comment:If patient is black, multiply result by 1.159. Estimated glomerular filtration rate calculated using the CKD-EPI equation. ANION GAP 11 7 - 17 mmol/L [facility] Blood 04/13/2018 6:00 AM EDT 04/13/2018 6:51 AM EDT us John Navarro MD LAB BLOOD BKR ORDERABLES Final Result [facility] [address] [place] [phone] from Last 3 Months or Most Recently Relevant to Health Maintenance Insurance MEDICARE PART A & B [employer] SUPPLEMENT MEDICARE PART A & B [employer] MED[employer] SUPPLEMENT MEDICARE PART A & B [employer] MED[employer] SUPPLEMENT MEDICARE PART A & B [employer] MEDEX SUPPLEMENT MEDICARE PART A & B [facility] SUPPLEMENT MEDICARE PART A & B Member Subscriber Plan / Payer ( fective 2019-Present) Name:Sohail Rolle Member ID:[id number] Relation to Subscriber:Self Name:LizstanSohail montaño Subscriber ID:[id number] Payer ID:[id number] Group ID:Not on file Type:Medicare Address: [employer] [address] [place] [id number] [employer] MEDEX SUPPLEMENT MEDICARE PART A & B [employer] MEDEX SUPPLEMENT MEDICARE PART A & B [employer] MEDEX SUPPLEMENT MEDICARE PART A & B [employer] MEDEX SUPPLEMENT Advance Directives For more information, please contact: [phone] (9AM - 5PM [facility], Monday-Monday) Documents on File Type Date Recorded Patient Retail Loss Prevention Specialist Expl anation Healthcare Proxy 04/11/2018 7:46 AM [...] Agent (Proxy form on file) Care Teams Airline Hostess Relationship Specialty Start Date End Date Alberto Esposito DO [address] [place] [address] PCP - General Internal Medicine 02/21/18 Additional Source Comments The information contained in this document represents components of the legal health record. It is not the complete legal health record.[facility]
--- OUTSIDE RECORDS SUMMARY | 2025-07-18 16:54 | XMS_ITS | Clinical Summary ---
Author Organization [facility] Address [address] [place] [address] Phone Care Team Providers Care Ship Erector Name Role Phone Unavailable Primary Care Provider Unavailabl e Encounters Date Type Department Care Team Description 06/14/2025 8:40 AM EDT - 06/14/2025 11:59 PM EDT Hospital Encounter [facility] MRI [address] [place] [id number] Liver cirrhosis (CMS/HCC V24, CMS/HCC V28) [...] Signed Date: 06/18/2025 11:48 ET Workstation ID: [id number] Transcribed By: Self Edit Transcribed Date: 06/18/2025 [...] Multinodular contour consistent with cirrhosis. Multiple small [id number] lesions suggestive of cysts. Stable ablation site [...] Signed Date: 06/18/2025 11:48 ET Workstation ID: [id number] Transcribed By: Self Edit Transcribed Date: 06/18/2025 11:22 ET John Mi MD [facility] MRI PROCEDURES Final Result from Last 3 Months Insurance MEDICARE [facility]
--- OUTSIDE RECORDS SUMMARY | 2025-07-18 16:54 | XMS_ITS | Clinical Summary ---
Author Organization [facility] Address [address] [place] [address] Phone Care Team Providers Care Service Dispatcher Name Role Phone Claudy Bryant NP Primary Care Provider [phone] Allergies Active Allergy Reactions Criticality Noted Date Comments Morphine Swelling 02/27/2018 Tongue/Throat swelling Medications atorvastatin (LIPITOR) 20 MG tablet Take 20 mg by mouth every other day Active Vitamin D, Cholecalcifero l, 50 MCG (1999) capsule Take by mouth Active fluticasone (FLONASE) 50 MCG/ACT nasal spray Administer [...] by mouth 1 (one) time each day 08/05/20 23 Active losartan (COZAAR) 25 MG tablet Take 25 mg by mouth 1 (one) time each day 09/01/20 23 Active spironolactone (ALDACTONE) 25 MG tablet Take 1 tablet (25 mg total) by mouth 1 (one) time each day Needs office follow up 90 tablet 3 07/17/20 25 Active spironolactone (ALDACTONE) 25 MG tablet TAKE 1 TABLET BY MOUTH EVERY DAY 90 tablet 3 05/05/20 24 025 Discontinued Active Problems Problem Noted Date Diagnosed Date Hypokalemia 10/03/2023 Atrial fibrillation, not otherwise specified 07/2022 Diabetes mellitus, not otherwise specified 03/21 Hypertension 03/21/2022 Other cirrhosis of liver 03/21/2022 Splenomegaly 03/21/2022 Chronic venous insufficiency 03/21/2022 Proteinuria 10/27/2021 History of repair of hip joint 04/11/2018 Encounters Date Type Department Care Team Description 07/16/2025 Refill [facility] [address] [place] [address] Eric Lopez MD 05/28/2025 Refill [facility] [address] [place] [address] Eric Lopez MD from Last 3 Months [...] 03/21/2022 Influenza Vaccine (#1) 2025 Insurance Medicare [facility] Medicare [facility] Care Teams Service Dispatcher Relationship Specialty Start Date End Date Claudy Bryant NP [facility] [place] [address] PCP - General Nurse Practitioner 11/02/21
== END 2025-07-18 16:37 | disposition home or self-care (01) ==
LOC: HO.CT 16:36
PROVIDERS: PCP Nurse Practitioner Family; Visit Provider Physician Assistant Medical
DX: Z12.2 Encounter for screening for malignant neoplasm of respiratory organs (principal); F17.210 Nicotine dependence, cigarettes, uncomplicated
CPT/HCPCS: 71271

== ENCOUNTER → 2025-07-18 16:38 | Outpatient (BNV) | payer MEDICARE, SELFPAY | PROVIDERS: PCP Nurse Practitioner Family; Visit Provider Radiology Diagnostic Radiology | DX: Z12.2 Encounter for screening for malignant neoplasm of respiratory organs (principal); Z87.891 Personal history of nicotine dependence; R91.8 Other nonspecific abnormal finding of lung field | CPT/HCPCS: 71271 ==

== ENCOUNTER 2025-08-20 09:11 | Outpatient (AMB) | payer MEDICARE, SELFPAY ==
[2025-08-20 09:14] VITALS: BP 124/88; PULSE 72; O2SAT 98; BMI 41.8
--- NOTE | 2025-08-20 09:14 | MHC.OFFVIS ---
Vital Signs 08/20/25 09:14 Height 5 ft 8 in Weight 275 lb BMI 41.8 BP 124/88 Blood Pressure Location Lt brachial Position Sitting Pulse 72 Pulse Source Pulse Oximeter Pulse Oximetry (%) 98 Oxygen Delivery Method Room Air Intake Visit Reasons: Abnormal results of PFT Allergies morphine Allergy (Intermediate, Verified 08/20/25 09:17) shortness of breath Sulfa (Sulfonamide Antibiotics) Allergy (Intermediate, Verified 08/20/25 09:17) rash, hives HPI HPI Abnormal results of PFT: Details: Sohail is a pleasant 70-year-old male, former 40 pack-year cigarette smoker, currently smokes cigars with underlying severe COPD, coronary artery disease, atrial fibrillation on Xarelto, cardiomyopathy, aortic stenosis, diastolic dysfunction, hypertension and diabetes. He has a diagnosis of severe COPD, with a history of an exacerbation after an RSV infection last year which he feels aggravated his condition. His current medication regimen includes daily Trelegy, which he finds helpful, and a nebulizer for as-needed use. He currently denies any respiratory symptoms other than an occasional cough. He continues to smoke a couple of cigars a day but reports having cut down his use. He recently underwent a lung cancer screening CT scan on July 18 and presents to review results today. His first screening CT was in 2023, which had noted tiny, benign calcified nodules, read as a Lung RADS 1. He has had no visits to urgent care or the hospital since his last appointment. [facility] Medical History Shoulder pain, bilateral Chronic cough History of RSV infection (~09/2023) Nicotine dependence, cigarettes, uncomplicated Chronic anticoagulation Arthritis Aortic stenosis Morbid obesity COVID-19 vaccine administered Diastolic dysfunction Cardiomyopathy ALEJANDRA (obstructive sleep apnea) Hyperlipidemia Diabetes mellitus HTN (hypertension) CAD (coronary artery disease) Paroxysmal atrial fibrillation Surgical History History of ablation of neoplasm of liver History of colonoscopy History of esophagogastroduodenoscopy (EGD) History of total left hip replacement History of total right hip replacement Family History Father No problems noted. Mother HTN (hypertension) Social History Household Members: Spouse Household Members Other:: 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 Current occupational exposures/hazards: No Cognitive needs: No Hearing needs: No Vision needs: No Review of Systems Const Denies chills, Denies excessive sweating, Denies fever(s), Denies headache(s) and Denies night sweats Eyes Denies dry eyes, Denies irritation and Denies itchy eyes ENT Reports Normal hearing present, Denies headache(s), Denies nasal congestion, Denies nasal discharge, Denies post nasal drip and Denies sore throat Card Denies chest pain, Denies chest pain at rest, Denies chest pain with activity, Denies claudication, Denies leg edema, Denies dyspnea, Denies dyspnea on exertion, Denies orthopnea and Denies paroxysmal nocturnal dyspnea Resp Denies chest congestion, Denies excessive phlegm production, Denies pain on inspiration, Denies pain with cough, Denies dyspnea, Denies dyspnea on exertion, Denies stridor and Denies wheezing Musc Denies myalgias Neuro Reports Normal hearing present and Denies headache(s) Endo Denies excessive sweating Jeremiah/Lymph Denies lymphadenopathy Aller/Immun Denies itchy eyes, Denies seasonal rhinorrhea and Denies wheezing Physical Exam Vital Signs: Last Vital Signs Pulse 72 08/20/25 09:14 BP 124/88 08/20/25 09:14 Pulse Ox 98 08/20/25 09:14 Oxygen Delivery Method Room Air 08/20/25 09:14 BMI result Body Mass Index 41.8 Const General: cooperative, healthy appearing, comfortable, no acute distress, well developed and alert Nutritional Appearance: obese Orientation/consciousness: patient oriented x3 Limitations: no limitations HEENT Head: Yes normal to inspection, Yes normocephalic and Yes atraumatic Ears: hearing grossly normal bilaterally and external ears normal Eyes General: appearance normal, both eyes and all related structures Eyelids: Yes eyelids normal Sclerae: sclerae normal EOM: EOMs intact bilaterally Neck Neck: Yes normal visual inspection and Yes no lymphadenopathy Lymphatic: no lymphadenopathy noted Chest Chest palpation & inspection: normal inspection of the chest Resp Effort & Inspection: normal respiratory effort, able to speak in complete sentences, no audible wheezes, no cough, no stridor, not tachypneic, no tripod positioning, no use of accessory muscles and prolonged expiratory phase Auscultation: diminished lung sounds Cardio Jugular venous distension: no JVD Rate: regular rate Rhythm: regular rhythm Skin Other: warm, dry General skin exam: no rashes or lesions noted Neuro General: patient oriented x3 Cranial nerves: Yes Normal hearing present Cognition (Neuro): normal cognition Gait exam (Neuro): Normal gait present Extrem General: Yes normal to inspection, Yes capillary refill normal, Yes no clubbing, cyanosis or edema and Yes no pedal edema Psych Appearance: grossly normal and well kempt Speech and movement: Normal speech and movement present and Clear speech present Affect: normal affect Attitude: cooperative Thought process: Normal thought process present Thought content: Normal thought content present Insight: Good insight present (Psych) Judgement: Good judgement present (Psych) Assessment & Plan Assessment & Plan (1) COPD (chronic obstructive pulmonary disease): Code(s): J44.9 - Chronic obstructive pulmonary disease, unspecified Category: Medical (2) Nicotine dependence, cigarettes, uncomplicated: Comment: (onset 17yo, 1ppd x 41yrs, 40pyh - quit 2013 - occasional cigar) Code(s): F17.210 - Nicotine dependence, cigarettes, uncomplicated Category: Medical Plan Reviewed recent LDCT 07/2025 which was read as a Lung-RADS 1, although there was note of a few small nodules, the largest being 5 mm, which should be classified as Lung-RADS 2. Will continue to be monitored by the lung screening program due to his smoking history. We discussed his medication regimen, and advised him to continue using Trelegy daily and to use the nebulizer as needed for symptoms such as shortness of breath, cough, or chest tightness, rather than on a fixed schedule. Encouraged him to continue his efforts to quit smoking. All questions were answered and patient is in agreement of plan. Will follow-up in 3 months or sooner if needed. Coding Level of Care Code Est Pt Level 4 (25787) Diagnoses COPD (chronic obstructive pulmonary disease) J44.9 Nicotine dependence, cigarettes, uncomplicated F17.210
== END 2025-08-20 09:36 | disposition home or self-care (01) ==
LOC: HO.HPSW 09:11
PROVIDERS: PCP Nurse Practitioner Family; Visit Provider Nurse Practitioner Family
DX: J44.9 Chronic obstructive pulmonary disease, unspecified (principal); F17.210 Nicotine dependence, cigarettes, uncomplicated
CPT/HCPCS: 99214

== ENCOUNTER → 2025-08-20 09:11 | Outpatient (BNVA) | payer MEDICARE, SELFPAY | PROVIDERS: PCP Nurse Practitioner Family; Visit Provider Nurse Practitioner Family | DX: J44.9 Chronic obstructive pulmonary disease, unspecified (principal); R06.00 Dyspnea, unspecified; F17.210 Nicotine dependence, cigarettes, uncomplicated | CPT/HCPCS: 99212 ==